=== PATIENT | male | born 1960 | race Caucasian/White ===

== ENCOUNTER → 2018-11-26 13:18 | Outpatient (CLI) | payer OTHER, SELFPAY ==
--- NOTE | 2018-11-26 | DI.MRI.S_ITS ---
PROCEDURE: MR ANKLE RT WO CON INDICATIONS: CONGENITAL TALIPES EQUINOVARUS TECHNIQUE: Noncontrast sagittal T1 spin echo and T2 fast spin echo with fat saturation, axial proton density fast spin echo and T2 fast spin echo with fat saturation, coronal T1 spin echo and T2 fast spin echo with fat saturation through the ankle/hindfoot. COMPARISON: [facility] [place], CR, XR FOOT 3 VIEWS WEIGHT BEARING RIGHT, 08/29/2018, 16:20. [facility] Outside Film, MR, MR FOOT RIGHT WITHOUT CONTRAST, 03/19/2018, 10:38. FINDINGS: Image quality: Diagnostic Bones and joints: No acute fracture, dislocation, or suspicious osseous lesion is evident. The ankle mortise is well-maintained without an osteochondral defect involving the tibial plafond toward the talar dome. Postoperative changes are noted related to prior resection of the base of the 5th metatarsal. There are severe degenerative changes present throughout the mid foot joints, most pronounced involving the tarsal metatarsal joints. An old fracture involving the anterior process of the calcaneus is noted. Moderate marrow edema is present within the cuboid, which is somewhat less prominent on the current study compared to the previous exam. No significant joint effusions are identified. Medial structures: The deltoid ligament is intact. The spring ligament probably also is intact, but is noted to be thickened and irregular. There is increased signal and mild thickening involving the tibialis posterior tendon without significant hearing. The flexor digitorum longus and flexor hallucis longus tendons appear to be intact. The posterior tibial nerve through the tarsal tunnel is grossly unremarkable. Lateral structures: The anterior and posterior distal tibiofibular ligaments are heterogeneous with prominent thickening and irregularity involving the anterior distal tibiofibular ligament. No complete tear is evident. The antrum posterior talofibular ligaments are intact. The calcaneofibular ligament probably is intact. There is prominent flattening identified involving the peroneus brevis tendon with increased signal beyond the tip of the lateral malleolus. The peroneus longus tendon is thickened and edematous. No full-thickness tears are appreciated. There is extensive soft tissue edema identified along the plantar-lateral aspect of the midfoot. No drainable or loculated fluid collections are present. There may be areas of subcutaneous air. Anterior structures: The tibialis anterior, extensor hallucis longus, and extensor digitorum longus tendons appear intact. However, there may be a tendinopathy involving the extensor digitorum tendons. Plantar structures: The Achilles tendon is thickened and edematous near its insertion. Plantar fascia is grossly unremarkable. However, there is mild thickening of the medial band of the plantar fascia. Atrophy and edema involving the intrinsic plantar muscles of the foot are present. IMPRESSION: 1. Severe degenerative changes of the mid foot are similar to the prior study. 2. 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 3. No convincing evidence of osteomyelitis. If there is high clinical concern for osteomyelitis, please consider contrast enhanced MRI for further evaluation. 4. Probable scarring at the spring ligament. 5. Mild tibialis posterior tendinopathy. 6. Moderate peroneus brevis and peroneus longus tendinopathy. 7. Scarring of the lateral ankle ligaments. No definite acute or full thickness tears. 8. Mild Achilles tendinopathy. 9. Mild extensor digitorum longus tendinopathy. 10. Soft tissue defect along the plantar-lateral aspect of the foot. No drainable or loculated fluid collections are appreciated. Dictated by: Oscar Garcia M.D. on 11/26/2018 at 15:56 Approved by: Oscar Garcia M.D. on 11/26/2018 at 16:10
== END ==
PROVIDERS: PCP Family Medicine; Visit Provider Orthopaedic Surgery Foot and Ankle Surgery
DX: Q66.0 Congenital talipes equinovarus (principal)
CPT/HCPCS: 73721

== ENCOUNTER 2019-02-22 15:19 | Inpatient (IN) | payer OTHER, SELFPAY ==
[2019-02-19 12:07] VITALS: BMI 28.5
[2019-02-21] VITALS (16 sets, daily range): BP systolic 88–151; BP diastolic 53–97; PULSE 67–96; RESP 6–20; TEMP 36.1–36.9; O2SAT 93–100; BMI 28.1; BMI 28.7
--- NOTE | 2019-02-21 | DI.RAD.S_ITS ---
PROCEDURE: XR FOOT RT MIN 3V INDICATIONS: RIGHT FOOT DEBRIDMENT TECHNIQUE: 3 views of the foot were acquired. COMPARISON: None. FINDINGS: 3 spot fluoroscopic images demonstrate surgical instruments projecting in the plantar aspect of the midfoot/forefoot. Dictated by: Sam Mckeon M.D. on 02/21/2019 at 17:20 Approved by: Sam Mckeon M.D. on 02/21/2019 at 17:21
--- NOTE | 2019-02-21 | PATH_ITS ---
[facility] Accession Number: [id number] . 01 Material submitted: . foot - RIGHT FOOT ULCER . 01 Diagnosis: Skin, Right Foot, Excision: Actively inflamed chronic ulcer of skin. Acanthotic epidermis with reactive atypia. Negative for malignancy. MRV 02/24/2019 1415 Local . 01 Electronically signed: . Helen Santiago MD, Pathologist NPI- [id number] . 01 Gross description: . Received in formalin, labeled right foot ulcer, is an unoriented piece of sy-white ulcerated skin (6.9 x 4.0 x 1.7 cm). The resection margin is inked blue. Bisected and fraud representative serial sections are submitted in cassettes A1-A3. ([id number]) /MRV 02/23/2019 1507 Local . 01 Pathologist provided ICD-10: L97.509 . 01 CPT . 011804 Performed at: [address] [facility] [address], [place], [place] [id number] MD Jim Barrett MD Phone: [phone]
[2019-02-21] MEDS: LACTATED RINGERS 1,000 ML 42 ML IV (07:06)
--- NOTE | 2019-02-21 07:20 | PM.PREOP ---
Pre-operative Note Interval Note History & Physical reviewed/Exam performed by Physician: Yes Changes to H&P: No
--- NOTE | 2019-02-21 07:37 | PM.OP.1 ---
Operative Date/Time/Diagnoses Date of procedure: 02/21/19 Time of procedure: 08:00 Pre-op diagnosis: Right equinovarus deformity Ulcer right foot with osteomyelitis Neuropathic diabetic ulcer of foot Arthritis right foot Post-op diagnosis: same Procedure & Clinicians Procedure: Bone biopsy deep excisional right CPT code 20405 Debridement of bone and soft tissue CPT code 52103 Wound VAC application CPT code 93549 Same procedure as scheduled: Yes Indications: The patient is a 58-year-old male with type 2 diabetes and bilateral equinovarus deformities with a right nonhealing lateral column ulceration. Patient has been previously treated by multiple wound debridements and partial 5th metatarsal base excisions. The patient has a nonhealing ulcer and deformity. He has a history of osteomyelitis. Due to the open wound and history of infection he is not a candidate for acute internal fixation therefore we have discussed a staged treatment plan with wound debridement deep bone biopsy IV antibiotics and then staged return to the operating room for hindfoot fusion and medial releases for deformity correction. Patient understands and agrees with the plan. The risks and benefits of the procedure have been discussed with the patient even opportunity to ask questions. The risks of surgery include but are not limited to infection, malunion, nonunion, persistence of pain, damage to nerves and blood vessels, posttraumatic arthritis, DVT, PE, cardiopulmonary complications and . The patient expressed a thorough understanding of the risks and benefits of surgery and has elected to proceed. Consent was signed in the office. Patient has no prior history of DVT. He will use aspirin in the postoperative period for DVT prophylaxis. Will of his care coordinated for IV antibiotics and wound VAC changes at [facility] where he has received wound care in the past. Surgeon: Shanae Hurd Click Yes if Unassisted: Yes Anesthesia Type: General Operative Notes Findings: 8 x 4 cm ulcer with granulation tissue. Thick callus around the edges. This is excised to reveal bone prominence. Large lateral plantar hypertrophic callus was excised using the PPS saw and osteotome and sent for culture. The ulcer bed and sent to pathology. No evidence of deep abscess. Wound edges are approximated with PDS and 2 0 nylon a central area dressed with a wound VAC sponge. Closure Type: not applicable Specimen(s): other (Bone for culture) Prosthetic devices, grafts, tissues, transplants, or devices: Wound VAC sponge Applied: other (Wound VAC) Estimated Blood Loss (mL): 20 Blood products transfused: none Tourniquet time (min): 26 Procedure in detail: Patient was seen in the preoperative area the site of surgery marked and informed consent confirmed. The patient was then brought back to the operating room and positioned supine on the operative table. General anesthesia was administered per the anesthesia team. All bony prominences were well padded. An SCD was placed on the contralateral lower extremity. The right lower extremity was prepped and draped in the standard sterile fashion. A well-padded thigh tourniquet was placed. Formal time-out procedure was confirmed confirming the patient's side and site of surgery. Antibiotics were held until cultures were taken. Cutler exsanguination was utilized the tourniquet was elevated to 250 mm of mercury and stayed there for approximately 26 minutes. The lateral plantar ulcer was inspected this measured approximately 8 x 4 cm. This was excised in elliptical fashion and sent for pathology. Next using sharp dissection the bony prominences were exposed and under fluoroscopic guidance the plantar lateral prominence was removed using the TP a saw and osteotome. This was sent for deep biopsy culture. No deep abscess was encountered. Good bleeding tissue was found deep. The tourniquet was then released the antibiotics administered and the wound was irrigated with 6 L of saline using cysto tubing with the 1st 3 L containing gentamicin. Following the debridement and irrigation a clean sheet and gloves were utilized and hemostasis was achieved. Deep area of the wound at the proximal distal extents was closed with 1 deep to 0 PDS suture followed by a few 2 0 nylons in the skin just to approximate the edges. The central area was felt to be under too much tension to primarily close at therefore the wound VAC was placed care was taken to use Xeroform gauze over the area of closed incision and extra wound VAC sponge film around the edges to protect the normal skin. The VAC was placed to a good seal was -125 mm of mercury. Excellent suction was achieved. The soft dressing was placed with an ABD pad at [facility] and an Arun wrap. All counts were correct. The drapes removed and the patient was woken from anesthesia and taken to the recovery area in good condition. There no immediate complications from this procedure. Complications: none Post-operative Condition: stable Disposition: Acute Care Plan for aftercare: Patient will be admitted to the hospital for IV antibiotics. Once his cultures are finalized he will have a PICC line placed and plans for IV antibiotics either with home health care or the Infusion Center at [facility]. He will also have a wound VAC placed. At discharge this will be changed to a wet to dry dressing for initiation of a wound VAC with [facility] on an outpatient basis. Patient will be nonweightbearing on the right lower extremity. Patient will receive antibiotics for approximately 6 weeks for pretreatment then come back for planned staged hindfoot fusions and medial releases for deformity correction.
--- NOTE | 2019-02-21 08:16 | SUR.OPER ---
Supine on padded OR bed, head on pillow, arms secured on padded arm boards at <90 degrees abduction, legs uncrossed, safety belt at thigh, tape over blanket over lower legs.
[2019-02-21] MEDS: BUPIVACAINE 0.25% (PF) VIAL 30 ML INJ (08:28)
[2019-02-21] MEDS: SODIUM CHLORIDE IRRIG SOLUTION 3,000 ML, GENTAMICIN 240 MG IRR (08:34)
[2019-02-21] MEDS: CEFAZOLIN 2 GM/100 ML FROZ.PIGGY IV (08:42)
--- NOTE | 2019-02-21 08:43 | SUR.OPER ---
ANTIBIOTICS HELD UNTIL WOUND CULTURE OBTAINED.
--- NOTE | 2019-02-21 10:30 | SUR.PHASEI ---
Pt transferred to the floor with belongings bag. VS Stable. RT foot dressing CDI, wound vac in place, no drainage, set to continuous 125mmhg. + movement but no sensation to rt foot. IV saline locked. Report to Xiomara.
--- NOTE | 2019-02-21 12:00 | PT.IIE ---
Current Diagnoses Type 2 diabetes mellitus with foot ulcer (02/21/19) Non-pressure chronic ulcer of other part of right foot with unspecified severity (02/21/19) Primary osteoarthritis, right ankle and foot (02/21/19) Congenital talipes equinovarus (02/21/19) Surgery Performed Operation Date: 02/21/19 07:45 Actual Procedures p Foot wound debridement deep tissue and bone WITH wound vac placement(Right) - Shanae Hurd MD s Deep Bone Biopsy - Shanae Hurd MD Surgical History (Last Updated 02/19/19 @ 12:17 by Carlita Coombs, RN) History of surgery (Acute ~02/2018) Medical History (Last Updated 02/20/19 @ 11:24 by Carlita Coombs RN) Asthma (Acute) Chronic renal disease, stage III (Acute) Diabetes (Acute) Diabetic foot ulcer (Acute) Diabetic retinopathy (Acute) Dupuytren's contracture (Acute) Dyslipidemia (Acute) Erectile dysfunction (Acute) Gastroparesis (Acute) HTN (hypertension) (Acute) Malignant neoplasm prostate (Acute) Sinusitis (Acute) Physical Therapy Inpatient Evaluation/Re-Eval M1 PT/OT-IP Prior Functional Status Start: 02/21/19 15:09 Freq: NEEDED Status: Active Protocol: Document 02/21/19 12:00 AB (Rec: 02/21/19 15:26 [id number]) Medical Review Prior Functional Status Medical History Reviewed Yes Communication able to make needs known Mobility and Gait pt stated that he is independent with all mobilities and ambulation without AD Social History Household Members family Living Arrangements House Number of Floors (Floors) One Floor Number of Stairs To Enter/Railing? 3 steps to enter with B rails Home Environment Standard Height Toilet,Walk in Shower Home Equipment Front Wheel Walker,Crutches Additional Social History Comment pt also has knee scooter pt's daughter stated that she is off work for ~ 3 weeks to assist pt. M2 PT-IP Current Condition Start: 02/21/19 15:09 Freq: NEEDED Status: Active Protocol: Document 02/21/19 12:00 AB (Rec: 02/21/19 15:26 [id number] Physical Therapy Current Condition Current Condition Evaluation Date 02/21/19 Treatment Diagnosis R foot ulcer with osteomylitis s/p debridement/excision; difficulty in walk Onset Date 02/21/19 Weight Bearing Status Weight Bearing Status Non-Weight Bearing Allowed Weight Bearing Amount (enter % RLE NWB or #) (%) M3 PT-IP Subjective Start: 02/21/19 15:09 Freq: NEEDED Status: Active Protocol: Document 02/21/19 12:00 AB (Rec: 02/21/19 15:26 [id number]) Subjective Physical Therapy Visit Type Type Initial Evaluation Visit Start Time 12:00 Visit Stop Time 14:16 Total Visit Minutes 47 Notes pt seen for split visits 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 Physical Therapy Visit Comments Patient Comments pt agreeable to do PT Therapy Pain Assessment Pain Present Pain Present Denied Pain M4 PT-IP Mobility and Gait Start: 02/21/19 15:09 Freq: NEEDED Status: Active Protocol: Document 02/21/19 12:00 AB (Rec: 02/21/19 15:26 [id number]) PT-Bed Mobility Assessment Supine to Sit Supine to Sit Independent Sit to Supine Sit to Supine Independent Scooting Scooting to Edge of Bed Standby Assistance PT-Transfer Assessment Sit to and From Stand Sit to and from Stand Contact Guard Assistance,Total Assistance Equipment Transfer Assistive Device Gait Belt,Front Wheeled Walker Orthotic/Prosthetic Devices or Brace: No Comments Mobility Comments pt is impulsive and requires cues for safety. completed bed mobility modified independent; was able to sit on EOB SBA. completed sit to stand CGA with instability with initial standing. pt completed ambulation ~ 7 ft using FWW and was able to maintain NWB on RLE. assessed ambulation using crutches. pt completed sit to stand CGA. requires cues for technqiues and is more unstable with sit to stand using crutches compared to using a FWW. pt ambulated using bilateral crutches ~ 20 ft CGA to min A with (+) LOB requiring min A for stability and pt was not able to maintain NWB on RLE. educated pt on safety. recommending pt use of FWW or his knee scooter for safe mobility at home. pt agreed. pt requested to go back to bed . completed bed mobility mod I . set up pt in bed. call light and table placed within reach. Gait Assessment Gait Gait Assistance Required: Contact Guard Assist,Minimum Assistance Distance (Feet) 20 Able to Maintain Weight Bearing Status Yes During Gait Assistive Devices Assistive Device Gait Belt,Front Wheeled Walker ,Axillary Crutches Factors Limiting Gait Function Factors Limiting Gait Function Decreased Activity Tolerance, Decreased Sensation,Decreased Strength,Poor Balance,Poor Safety Awareness Comments Gait Comments please refer to mobility section for details. PT-Balance Assessment Sitting Balance and Reactions Static Sitting Balance Ability Good Dynamic Sitting Balance Ability Good Standing Balance and Reactions Static Standing Balance Ability Fair Dynamic Standing Balance Ability Fair Device Used using crutches M5 PT-IP Objective Assessments Start: 02/21/19 15:09 Freq: NEEDED Status: Active Protocol: Document 02/21/19 12:00 AB (Rec: 02/21/19 15:26 [id number]) Orientation Orientation/Cognition Level of Alertness Alert Orientation Name,Place,Situation Language Function Ability No Deficits Noted Safety Awareness Decreased Safety Awareness Gross Range of Motion Lower Extremity ROM Assessment Bilaterally Impaired Impairments limited DF ROM bilateral ankles Strength Lower Extremity Strength Assessment Bilaterally Impaired Comments Strength Comments RLE: 4-/5 LLE: 3+/5 Sensation Assessment Sensation Gross Sensation Right LE Impaired,Left LE Impaired Light Touch Impaired Proprioception (Position) Impaired Sensation Description Numbness Comments Sensation Comments pt stated numbness is from midcalf down to B feet Muscle Tone Muscle Tone WNL Yes M6 PT-IP Treatment Start: 02/21/19 15:09 Freq: NEEDED Status: Active Protocol: Document 02/21/19 12:00 AB (Rec: 02/21/19 15:26 [id number] Physical Therapy Treatment Education Education Provided Precautions,Weight Bearing Status,Safety M7 PT-IP Assessment and Plan Start: 02/21/19 15:09 Freq: NEEDED Status: Active Protocol: Document 02/21/19 12:00 AB (Rec: 02/21/19 15:26 [id number] PT Summary Assessment and Plan Potential Rehabilitation Potential Good Status of Condition at Evaluation Stable Summary Impairments Pain,ROM,Strength,Balance, Coordination,Sensation,Tone, Cognition,Bed Mobility, Transfers,Gait,Activity Tolerance Assessment Summary pt requiring CGA to min A with ambulation using bilateral crutches and has (+) LOB. recommending pt to use of FWW or knee scooter for ambulation . pt stated that he has used his knee scooter before and can go around with it without any issues. will assess stair climbing next tx session. Goals Transfer Goal Independent,Front Wheeled Walker Gait Goal Independent,Front Wheel Walker Gait Distance 100 Other Goals up/down 3 steps using bilateral crutches CGA Days to Meet Goals 5 Frequency of Treatment Frequency Of Treatment Once a Day Treatment Plan Physical Therapy Treatment Plan Bed Mobility Training,Transfer Training,Gait Training, Therapeutic Exercise,Balance Retraining,Post Op Education, Discharge Planning,Hot or Cold Pack,Neuromuscular Re-ed, Coordination Retraining,Manual Therapy Recommendations To Nursing Amount of Assist Needed 1 Person Assist Discharge Recommendations PT Discharge Recommendations Home with Assistance
[2019-02-21] MEDS: PIPERACILLIN-TAZO 3.375 GM/50 ML FROZ.PIGGY IV ×2 (12:11→19:09)
[2019-02-21] MEDS: VANCOMYCIN 1,500 MG/300 ML FROZ.PIGGY 200 MG IV (13:35)
[2019-02-21] MEDS: SODIUM CHLORIDE 0.9% 250 ML 21 ML IV (13:37)
[2019-02-21 14:13] LABS: Hematocrit 35.9 % (41-53); Hemoglobin 12.2 g/dL (13.5-17.5); Mean Corpuscular HGB Conc 33.9 % (30-36); Mean Corpuscular Hemoglobin 28.2 PG (26-34); Mean Corpuscular Volume 83.1 fL (80-100); Platelet Count 261 X10^3/uL (150-400); Red Blood Cell Count 4.32 X10^6/uL (4.5-5.9); Red Cell Distribution Width 15.3 % (11.6-14.8); White Blood Cell Count 7.4 X10^3/uL (4.5-11.0)
[2019-02-21 14:25] LABS: Hemoglobin A1C% w Est Avg Glu 9.7 % (4.0-6.0)
[2019-02-21 14:26] LABS: Estimated Glomerular Filt Rate 56.1 mL/min (>60)
[2019-02-21 14:29] LABS: Albumin 3.8 g/dL (3.5-5.0); BUN Creatinine Ratio 19.2 (6-22); Blood Urea Nitrogen 25 mg/dL (9-20); C-Reactive Protein Quant 2.2 mg/dL (<1.0); Calcium 8.9 mg/dL (8.4-10.2); Carbon Dioxide 26 mmol/L (22-32); Chloride 102 mmol/L (98-107); Erythrocyte Sedimentation Rate 52 MM/HR (0-15); Estimated Glomerular Filt Rate 56.1 mL/min (>60); Glucose 208 mg/dL (80-110); HEMOLYSIS < 15 (0-50); Phosphorous 4.1 mg/dL (2.3-3.7); Potassium 4.5 mmol/L (3.4-5.1); Sodium 138 mmol/L (137-145)
[2019-02-21] MEDS: ACETAMINOPHEN 325 MG TABLET 975 MG PO ×2 (14:41→21:27)
[2019-02-21] MEDS: INSULIN ASPART 100 UNIT/ML INSULN PEN SUBCUT (16:55)
[2019-02-21] MEDS: SODIUM CHLORIDE 0.9% 1,000 ML 100 ML IV (18:56)
[2019-02-21] MEDS: DOCUSATE 100 MG CAPSULE PO (21:27)
[2019-02-21] MEDS: AMLODIPINE 5 MG TABLET PO (21:27)
[2019-02-21] MEDS: PIOGLITAZONE 15 MG TABLET PO (21:31)
[2019-02-21] MEDS: INSULIN GLARGINE 100 UNIT/ML 3ML PEN 65 UNIT SUBCUT (21:32)
[2019-02-21] MEDS: INSULIN ASPART 100 UNIT/ML INSULN PEN 20 UNIT SUBCUT (21:51)
[2019-02-22] MEDS: VANCOMYCIN 1,250 MG in SODIUM CHLORIDE 0.9% 250 ML IV ×2 (02:02→14:00)
[2019-02-22] MEDS: PIPERACILLIN-TAZO 3.375 GM/50 ML FROZ.PIGGY IV ×3 (03:30→18:38)
[2019-02-22] MEDS: SODIUM CHLORIDE 0.9% 1,000 ML 100 ML IV ×3 (05:07→16:55)
[2019-02-22 06:00] VITALS: BP 133/70; PULSE 82; RESP 16; TEMP 36.2; O2SAT 97
[2019-02-22 07:37] VITALS: BP 117/64; PULSE 78; RESP 18; TEMP 36.8; O2SAT 96
--- NOTE | 2019-02-22 07:46 | PC.NURSE ---
Addendum entered by Cruz Love R.N. 02/22/19 13:52: continues as noted. discussing flu shot presently. Addendum entered by Cruz Love R.N. 02/22/19 11:14: Pt visiting with family. Continues in bed at present. wound vac working well. Original Note: Pt. alert and oriented, discussed plan of care, discussed aPt's questions and concerns. Wound vac intact and patent. IV patent. Pt offers no overt c/o. states he has no feeling in his feet. Right foot bandaged and jarrell wrapped with wound vac in place. Pt taking b'fast presently.
[2019-02-22] MEDS: INSULIN GLARGINE 100 UNIT/ML 3ML PEN 65 UNIT SUBCUT ×2 (09:11→21:53)
[2019-02-22] MEDS: PIOGLITAZONE 15 MG TABLET PO ×2 (09:13→21:53)
[2019-02-22] MEDS: LOSARTAN 50 MG TABLET 100 MG PO (09:13)
[2019-02-22] MEDS: ENOXAPARIN 40 MG/0.4 ML SYRINGE SUBCUT (09:14)
[2019-02-22] MEDS: ASPIRIN EC 81 MG TABLET PO (09:14)
[2019-02-22] MEDS: INSULIN ASPART 100 UNIT/ML INSULN PEN 20 UNIT SUBCUT ×3 (09:14→21:53)
[2019-02-22] MEDS: AMLODIPINE 5 MG TABLET PO ×2 (09:14→21:52)
--- NOTE | 2019-02-22 09:58 | P.PN_ITS ---
Subjective Subjective Date Patient Seen: 02/22/19 Time Patient Seen: 09:58 Interval history: Patient is POD#1 s/p deep excisional bone biopsy with right foot diabetic ulcer by Dr. Hurd. He denies any pain in the extremity. He has mobilized about the room and has been compliant with NWB on the operative extremity. He is voiding appropriately. Denies fevers, chills, chest pain, shortness of breath. Exam Vital Signs (past 8 hours): - 02/22/19 06:00 02/22/19 07:37 Temperature 97.1 F L 98.2 F Pulse Rate 82 78 Respiratory Rate 16 18 Blood Pressure 133/70 117/64 Pulse Oximetry 97 96 Oxygen Delivery Method Room Air Oxygen Flow Rate 0 Narrative Exam Narrative: 59 year old male resting comfortably in bed. Alert and oriented in no acute distress. Afebrile. Dressing in place over right foot is CDI. Patient able to flex/extend the toes. Brisk capillary refill. No sensation to light touch in distal extremity which is his baseline. Objective Labs Result Diagrams: 02/21/19 14:00 02/21/19 14:00 Labs: Laboratory Results - last 24 hr 02/21/19 02/21/19 02/21/19 14:00 14:00 14:00 WBC 7.4 RBC 4.32 L Hgb 12.2 L Hct 35.9 L MCV 83.1 MCH 28.2 MCHC 33.9 RDW 15.3 H Plt Count 261 ESR 52 H Sodium 138 Potassium 4.5 Chloride 102 Carbon Dioxide 26 BUN 25 H Creatinine 1.30 H Estimated GFR 56.1 L BUN/Creatinine Ratio 19.2 Glucose 208 H Hemoglobin A1c 9.7 H Calcium 8.9 Phosphorus 4.1 H C-Reactive Protein 2.2 H Albumin 3.8 02/21/19 14:00 WBC RBC Hgb Hct MCV MCH MCHC RDW Plt Count ESR Sodium Potassium Chloride Carbon Dioxide BUN Creatinine 1.30 H Estimated GFR 56.1 L BUN/Creatinine Ratio Glucose Hemoglobin A1c Calcium Phosphorus C-Reactive Protein Albumin Assessment & Plan Assessment & Plan narrative: Patient is pending culture results and is currently on IV vancomycin along with piperacillin/tazobactam. Per Dr. Hurd's operative report: Once his cultures are finalized he will have a PICC line placed and plans for IV antibiotics either with home health care or the Infusion Center at [facility]. He will also have a wound VAC placed. At discharge this will be changed to a wet to dry dressing for initiation of a wound VAC with [facility] on an outpatient basis. Patient will be nonweightbearing on the right lower extremity. Patient will receive antibiotics for approximately 6 weeks for pretreatment then come back for planned staged hindfoot fusions and medial releases for deformity correction.
[2019-02-22 11:08] VITALS: BP 116/60; PULSE 78; RESP 16; TEMP 36.9; O2SAT 99
--- NOTE | 2019-02-22 11:47 | PT.IPTN ---
Current Diagnoses Type 2 diabetes mellitus with foot ulcer (02/21/19) Non-pressure chronic ulcer of other part of right foot with unspecified severity (02/21/19) Primary osteoarthritis, right ankle and foot (02/21/19) Congenital talipes equinovarus (02/21/19) Surgery Performed Operation Date: 02/21/19 07:45 Actual Procedures p Foot wound debridement deep tissue and bone WITH wound vac placement(Right) - Shanae Hurd MD s Deep Bone Biopsy - Shanae Hurd MD Physical Therapy Treatment Note M2 PT-IP Current Condition Start: 02/21/19 15:09 Freq: NEEDED Status: Active Protocol: Document 02/21/19 12:00 AB (Rec: 02/21/19 15:26 AB [id number]) Physical Therapy Current Condition Current Condition Evaluation Date 02/21/19 Treatment Diagnosis R foot ulcer with osteomylitis s/p debridement/excision; difficulty in walk Onset Date 02/21/19 Weight Bearing Status Weight Bearing Status Non-Weight Bearing Allowed Weight Bearing Amount (enter % RLE NWB or #) (%) M3 PT-IP Subjective Start: 02/21/19 15:09 Freq: NEEDED Status: Active Protocol: Document 02/22/19 11:38 GGD (Rec: 02/22/19 11:47 GGD [id number]) Subjective Physical Therapy Visit Type Notes Pt states that he has no need for PT. He has been using FWW to bathroom and will use at home. He states he been able to use stair when he was NWB on foot. Pt educated on safety and will D/C from PT per pt request. M4 PT-IP Mobility and Gait Start: 02/21/19 15:09 Freq: NEEDED Status: Active Protocol: Document 02/21/19 12:00 AB (Rec: 02/21/19 15:26 AB [id number]) PT-Bed Mobility Assessment Supine to Sit Supine to Sit Independent Sit to Supine Sit to Supine Independent Scooting Scooting to Edge of Bed Standby Assistance PT-Transfer Assessment Sit to and From Stand Sit to and from Stand Contact Guard Assistance,Total Assistance Equipment Transfer Assistive Device Gait Belt,Front Wheeled Walker Orthotic/Prosthetic Devices or Brace: No Comments Mobility Comments pt is impulsive and requires cues for safety. completed bed mobility modified independent; was able to sit on EOB SBA. completed sit to stand CGA with instability with initial standing. pt completed ambulation ~ 7 ft using FWW and was able to maintain NWB on RLE. assessed ambulation using crutches. pt completed sit to stand CGA. requires cues for technqiues and is more unstable with sit to stand using crutches compared to using a FWW. pt ambulated using bilateral crutches ~ 20 ft CGA to min A with (+) LOB requiring min A for stability and pt was not able to maintain NWB on RLE. educated pt on safety. recommending pt use of FWW or his knee scooter for safe mobility at home. pt agreed. pt requested to go back to bed . completed bed mobility mod I . set up pt in bed. call light and table placed within reach. Gait Assessment Gait Gait Assistance Required: Contact Guard Assist,Minimum Assistance Distance (Feet) 20 Able to Maintain Weight Bearing Status Yes During Gait Assistive Devices Assistive Device Gait Belt,Front Wheeled Walker ,Axillary Crutches Factors Limiting Gait Function Factors Limiting Gait Function Decreased Activity Tolerance, Decreased Sensation,Decreased Strength,Poor Balance,Poor Safety Awareness Comments Gait Comments please refer to mobility section for details. PT-Balance Assessment Sitting Balance and Reactions Static Sitting Balance Ability Good Dynamic Sitting Balance Ability Good Standing Balance and Reactions Static Standing Balance Ability Fair Dynamic Standing Balance Ability Fair Device Used using crutches M5 PT-IP Objective Assessments Start: 02/21/19 15:09 Freq: NEEDED Status: Active Protocol: Document 02/21/19 12:00 AB (Rec: 02/21/19 15:26 [id number]) Orientation Orientation/Cognition Level of Alertness Alert Orientation Name,Place,Situation Language Function Ability No Deficits Noted Safety Awareness Decreased Safety Awareness Gross Range of Motion Lower Extremity ROM Assessment Bilaterally Impaired Impairments limited DF ROM bilateral ankles Strength Lower Extremity Strength Assessment Bilaterally Impaired Comments Strength Comments RLE: 4-/5 LLE: 3+/5 Sensation Assessment Sensation Gross Sensation Right LE Impaired,Left LE Impaired Light Touch Impaired Proprioception (Position) Impaired Sensation Description Numbness Comments Sensation Comments pt stated numbness is from midcalf down to B feet Muscle Tone Muscle Tone WNL Yes M6 PT-IP Treatment Start: 02/21/19 15:09 Freq: NEEDED Status: Active Protocol: Document 02/21/19 12:00 AB (Rec: 02/21/19 15:26 AB [id number]) Physical Therapy Treatment Education Education Provided Precautions,Weight Bearing Status,Safety M7 PT-IP Assessment and Plan Start: 02/21/19 15:09 Freq: NEEDED Status: Active Protocol: Document 02/22/19 11:38 GGD (Rec: 02/22/19 11:47 LAWRENCE [id number]) PT Summary Assessment and Plan Frequency of Treatment Frequency Of Treatment Discharge
--- NOTE | 2019-02-22 12:14 | CM.IDA ---
Initial DCP Assessment Note: Pt is a 59 yo male, resident of [place]. Pt w/ Diabetes type 2 and a right non-healing foot ulcer, now POD#1 from deep excisional bone biopsy. PCP: Neil Bui Payer: [facility] Reviewed chart. Met w/pt, explained SW role. Pt is indp and active at his baseline. He lives w/his 36 yo dtr Mariama who works time clerk. She has secured two weeks off work to assist pt once DC home. Pt's son Matthew also lives in [place]. Pt understands he will need ongoing IV abx w/PICC placement. He plans to f/u at [facility] for wound care/management of wound vac. Pt explains to this CERTIFIED BREASTFEEDING EDUCATOR that he has had 4 or 5 rounds of home infusion for h/o foot infection, [facility] has managed the home infusion and he requests they do so again. [facility] has covered the home infusion. Placed call to [facility], spoke w/Judith, pharmacist. Provided initial referral information, explained that culture results still pending, PICC will likely be placed Sunday once staff return for his intervention. Faxed referral packet to include face sheet, H+P, Op notes and prog notes. PICC line pending, Cultures/Sensitivities pending. P: DC home w/family and home infusion, expected early next week. Following closely for coordination of safe DCP. REBA Chavez
[2019-02-22] MEDS: INFLUENZA VACCINE 0.5 ML SYRINGE IM (14:10)
[2019-02-22] MEDS: ACETAMINOPHEN 325 MG TABLET 975 MG PO (14:39)
[2019-02-22 15:25] VITALS: BP 111/67; PULSE 74; RESP 18; TEMP 36.6; O2SAT 97
[2019-02-22 18:38] VITALS: BP 141/73; PULSE 85; RESP 18; TEMP 36.5; O2SAT 96
[2019-02-22] MEDS: DOCUSATE 100 MG CAPSULE PO (21:52)
[2019-02-22 23:20] VITALS: BP 140/79; PULSE 88; RESP 16; TEMP 36.4; O2SAT 94
--- NOTE | 2019-02-23 00:20 | PC.NURSE ---
Hat Measurer Note: 2324: Pt reported to interior surface insulation worker that he feels his blood sugar is low and asked for a CBG. CBG done and was 59. Ensure clear given and carolynn crackers. 2349: CBG recheck was 140. Pt feeling better. Vital signs stable. IV in place in rt forearm with NS infusing at 100cc/hr. Wound vac in place in rt foot and pt understands that he is non-wt bearing on rt foot.
[2019-02-23] MEDS: VANCOMYCIN TROUGH 1 REQUEST MISC (01:04)
[2019-02-23 01:32] LABS: Vancomycin Trough 10.9 ug/mL (10-20)
[2019-02-23] MEDS: VANCOMYCIN 1,250 MG in SODIUM CHLORIDE 0.9% 250 ML IV ×3 (01:43→17:43)
[2019-02-23 03:10] VITALS: BP 145/73; PULSE 84; RESP 16; TEMP 36.7; O2SAT 99
[2019-02-23] MEDS: PIPERACILLIN-TAZO 3.375 GM/50 ML FROZ.PIGGY IV ×3 (03:38→20:14)
[2019-02-23] MEDS: SODIUM CHLORIDE 0.9% 1,000 ML 100 ML IV ×2 (04:39→18:38)
[2019-02-23 08:00] VITALS: BP 142/72; PULSE 77; RESP 16; TEMP 36.1; O2SAT 98
[2019-02-23] MEDS: INSULIN GLARGINE 100 UNIT/ML 3ML PEN 65 UNIT SUBCUT ×2 (08:22→22:07)
[2019-02-23] MEDS: INSULIN ASPART 100 UNIT/ML INSULN PEN 20 UNIT SUBCUT ×3 (08:25→17:00)
[2019-02-23] MEDS: INSULIN ASPART 100 UNIT/ML INSULN PEN SUBCUT (08:25)
[2019-02-23] MEDS: PIOGLITAZONE 15 MG TABLET PO ×2 (08:30→22:04)
[2019-02-23] MEDS: AMLODIPINE 5 MG TABLET PO ×2 (08:34→22:06)
[2019-02-23] MEDS: LOSARTAN 50 MG TABLET 100 MG PO (08:34)
[2019-02-23] MEDS: ENOXAPARIN 40 MG/0.4 ML SYRINGE SUBCUT (08:35)
[2019-02-23] MEDS: ASPIRIN EC 81 MG TABLET PO (08:35)
--- NOTE | 2019-02-23 09:08 | PM.PNPO.1 ---
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 Patient is on empiric vanc and Zosyn. Denies fevers chills nausea or vomiting. Vac obtaining good suction. No complaints. Pain controlled Exam Vital Signs (past 8 hours): - 02/23/19 03:10 02/23/19 08:00 Temperature 98.1 F 97.0 F L Pulse Rate 84 77 Respiratory Rate 16 16 Blood Pressure 145/73 H 142/72 H Pulse Oximetry 99 98 Oxygen Delivery Method Room Air Oxygen Flow Rate 0 Narrative Exam Narrative: Alert and oriented male in no acute distress lying in bed. HEENT exam normocephalic atraumatic Respiratory exam lungs clear, breathing unlabored on room air Regular rate and rhythm Lower extremity examination right lower extremity was VAC dressing in place good suction obtained. A dressing is removed lateral border wound is 4 cm x 2 cm x 2 approximately 2 cm deep. Sutures in place proximally and distally. Good red bleeding tissue within the wound. No purulence no malodor. No erythema. Wound VAC dressing reapplied to good suction -125 mm of mercury. Patient tolerated well. SCDs on bilateral lower extremities. Calf soft. Wiggles toes demonstrates dorsiflexion plantar flexion of the ankles. Objective Labs Result Diagrams: 02/21/19 14:00 02/21/19 14:00 Labs: Laboratory Results - last 24 hr 02/23/19 01:00 Vancomycin Trough 10.9 Assessment & Plan Post-op Postoperative Procedures: Procedures Operation Date: 02/21/19 07:45 Actual Procedures Side Surgeon p Foot wound debridement deep tissue and bone WITH wound vac placement Right Shanae Hurd MD s Deep Bone Biopsy Shanae Hurd MD Right foot cavovarus deformity with chronic lateral border ulcerations status post deep bone biopsy and exostectomy and wound VAC placement. Awaiting final cultures. Patient on empiric vanc and Zosyn. Will have renal panel drawn today. Currently on IV fluids. Once cultures finalized well a final IV antibiotic recommendations. Anticipate [address] a PICC line when ready for discharge. Will have wound VAC changes with [facility]. Wound size is 4 cm x 2 cm x 2 cm anticipate approximately 3 months for wound VAC changes 3 days a week. Nonweightbearing right lower extremity. Lovenox and SCDs while in the hospital for DVT prophylaxis. Anticipated 6 weeks pretreatment wound VAC and IV antibiotics and planned staged hindfoot fusion for deformity correction. Follow-up Dr.Connelly [facility] 2 weeks after procedure Quality VTE Deep Vein Thrombosis/Pulmonary Embolism Present on Admission: No
[2019-02-23 12:16] VITALS: BP 108/57; PULSE 72; RESP 17; TEMP 36.4; O2SAT 98
[2019-02-23 13:08] LABS: Blood Urea Nitrogen 18 mg/dL (9-20); Calcium 8.6 mg/dL (8.4-10.2); Carbon Dioxide 27 mmol/L (22-32); Chloride 106 mmol/L (98-107); Estimated Glomerular Filt Rate > 60.0 mL/min (>60); Glucose 119 mg/dL (80-110); HEMOLYSIS < 15 (0-50); Potassium 4.9 mmol/L (3.4-5.1); Sodium 139 mmol/L (137-145)
[2019-02-23 15:35] VITALS: BP 110/67; PULSE 72; RESP 16; TEMP 36.8; O2SAT 95
[2019-02-23 19:15] VITALS: BP 121/66; PULSE 67; RESP 16; TEMP 36.8; O2SAT 99
[2019-02-23] MEDS: ACETAMINOPHEN 325 MG TABLET 975 MG PO (22:05)
[2019-02-24] VITALS (7 sets, daily range): BP systolic 126–151; BP diastolic 71–78; PULSE 71–82; RESP 16–18; TEMP 36.4–36.8; O2SAT 97–98
[2019-02-24 02:02] LABS: Vancomycin Trough 18.8 ug/mL (10-20)
[2019-02-24] MEDS: VANCOMYCIN TROUGH 1 REQUEST MISC (02:02)
[2019-02-24] MEDS: VANCOMYCIN 1,250 MG in SODIUM CHLORIDE 0.9% 250 ML IV (02:03)
[2019-02-24] MEDS: PIPERACILLIN-TAZO 3.375 GM/50 ML FROZ.PIGGY IV ×3 (03:19→19:43)
[2019-02-24] MEDS: SODIUM CHLORIDE 0.9% 1,000 ML 100 ML IV (05:51)
--- NOTE | 2019-02-24 08:44 | P.PN_ITS ---
Subjective Subjective Date Patient Seen: 02/24/19 Time Patient Seen: 08:44 Interval history: Hospital day 4, postop day 3 following right foot bone biopsy and wound I and D with wound VAC application. Patient has remained stable postoperatively. Nonweightbearing right leg. He does have wound VAC in place to right foot. Wound culture notes staph stimulans and is sensitive to vancomycin. He is currently on vancomycin and Zosyn IV. He is having no pain to the foot as he has neuropathy. He does not have PICC line in place. Exam Vital Signs (past 8 hours): - 02/24/19 01:05 02/24/19 05:30 02/24/19 08:00 Temperature 97.6 F 97.7 F 97.6 F Pulse Rate 74 73 82 Respiratory Rate 18 16 18 Blood Pressure 130/72 127/75 151/73 H Pulse Oximetry 97 97 98 Oxygen Delivery Method Room Air Oxygen Flow Rate 0 Narrative Exam Narrative: Alert, oriented no acute distress resting in bed. Objective Labs Result Diagrams: 02/21/19 14:00 02/23/19 12:25 Labs: Laboratory Results - last 24 hr 02/23/19 02/24/19 12:25 01:30 Sodium 139 Potassium 4.9 Chloride 106 Carbon Dioxide 27 BUN 18 Creatinine 1.20 Estimated GFR > 60.0 BUN/Creatinine Ratio 15.0 Glucose 119 H Calcium 8.6 Vancomycin Trough 18.8 Assessment & Plan Post-op Postoperative Procedures: Procedures Operation Date: 02/21/19 07:45 Actual Procedures Side Surgeon p Foot wound debridement deep tissue and bone WITH wound vac placement Right C nan Hurd MD s Deep Bone Biopsy Shanae Hurd MD Plan: Awaiting final Plan by Dr. Hurd regarding long-term antibiotic use. Patient is scheduled to have IV antibiotics and wound VAC management at [facility]. Remain nonweightbearing to the right leg. He is to have follow up appointment with Dr. Hurd in 2 weeks. Quality VTE Deep Vein Thrombosis/Pulmonary Embolism Present on Admission: No
[2019-02-24] MEDS: ACETAMINOPHEN 325 MG TABLET 975 MG PO ×3 (10:07→20:29)
[2019-02-24] MEDS: ASPIRIN EC 81 MG TABLET PO (10:10)
[2019-02-24] MEDS: LOSARTAN 50 MG TABLET 100 MG PO (10:10)
[2019-02-24] MEDS: AMLODIPINE 5 MG TABLET PO ×2 (10:11→20:29)
[2019-02-24] MEDS: PIOGLITAZONE 15 MG TABLET PO ×2 (10:12→21:20)
[2019-02-24] MEDS: ENOXAPARIN 40 MG/0.4 ML SYRINGE SUBCUT (10:13)
[2019-02-24 11:08] LABS: Add Manual Diff / Slide Review NO; Basophils Absolute Auto 100 /uL (0-100); Basophils Percent Auto 1.2 % (0-2); Eosinophils Absolute Auto 200 /uL (0-450); Eosinophils Percent Auto 3.2 % (2-4); Hematocrit 29.8 % (41-53); Hemoglobin 10.1 g/dL (13.5-17.5); Lymphocytes Absolute Auto 1000 /uL (1100-4500); Lymphocytes Percent Auto 16.5 % (25-40); Mean Corpuscular HGB Conc 33.8 % (30-36); Mean Corpuscular Hemoglobin 28.5 PG (26-34); Mean Corpuscular Volume 84.2 fL (80-100); Monocytes Absolute Auto 600 /uL (0-900); Monocytes Percent Auto 9.5 % (3-14); Neutrophils Absolute Auto 4000 /uL (1500-7000); Neutrophils Percent Auto 69.6 % (50-75); Platelet Count 217 X10^3/uL (150-400); Red Blood Cell Count 3.54 X10^6/uL (4.5-5.9); Red Cell Distribution Width 15.5 % (11.6-14.8); White Blood Cell Count 5.8 X10^3/uL (4.5-11.0)
[2019-02-24 11:16] LABS: BUN Creatinine Ratio 15.8 (6-22); Blood Urea Nitrogen 19 mg/dL (9-20); Calcium 8.5 mg/dL (8.4-10.2); Carbon Dioxide 28 mmol/L (22-32); Chloride 107 mmol/L (98-107); Estimated Glomerular Filt Rate > 60.0 mL/min (>60); Glucose 103 mg/dL (80-110); HEMOLYSIS < 15 (0-50); Potassium 4.4 mmol/L (3.4-5.1); Sodium 140 mmol/L (137-145)
[2019-02-24] MEDS: VANCOMYCIN 1,250 MG in SODIUM CHLORIDE 0.9% 250 ML 125 ML IV ×2 (11:17→17:15)
[2019-02-24 11:18] LABS: C-Reactive Protein Quant 1.5 mg/dL (<1.0)
[2019-02-24 11:33] LABS: Erythrocyte Sedimentation Rate 60 MM/HR (0-15)
[2019-02-24] MEDS: INSULIN ASPART 100 UNIT/ML INSULN PEN 20 UNIT SUBCUT ×2 (12:15→17:11)
[2019-02-24] MEDS: DOCUSATE 100 MG CAPSULE PO (20:29)
[2019-02-24] MEDS: INSULIN GLARGINE 100 UNIT/ML 3ML PEN 65 UNIT SUBCUT (21:22)
[2019-02-25 00:30] VITALS: BP 139/80; PULSE 77; RESP 16; TEMP 36.7; O2SAT 96
[2019-02-25] MEDS: VANCOMYCIN 1,250 MG in SODIUM CHLORIDE 0.9% 250 ML IV (02:20)
[2019-02-25 03:10] VITALS: BP 134/78; PULSE 72; RESP 18; TEMP 36.5; O2SAT 95
[2019-02-25] MEDS: PIPERACILLIN-TAZO 3.375 GM/50 ML FROZ.PIGGY IV ×2 (03:34→10:01)
[2019-02-25 07:45] VITALS: BP 146/78; PULSE 75; RESP 18; TEMP 36.6; O2SAT 98
[2019-02-25] MEDS: ACETAMINOPHEN 325 MG TABLET 975 MG PO ×2 (09:51→14:47)
[2019-02-25] MEDS: ASPIRIN EC 81 MG TABLET PO (09:52)
[2019-02-25] MEDS: ENOXAPARIN 40 MG/0.4 ML SYRINGE SUBCUT (09:53)
[2019-02-25] MEDS: INSULIN GLARGINE 100 UNIT/ML 3ML PEN 65 UNIT SUBCUT (09:54)
[2019-02-25 09:55] VITALS: BP 135/79; PULSE 85
[2019-02-25] MEDS: LOSARTAN 50 MG TABLET 100 MG PO (09:55)
[2019-02-25] MEDS: AMLODIPINE 5 MG TABLET PO (09:58)
[2019-02-25] MEDS: PIOGLITAZONE 15 MG TABLET PO (09:58)
[2019-02-25] MEDS: VANCOMYCIN 1,250 MG in SODIUM CHLORIDE 0.9% 250 ML 150 ML IV ×2 (10:46→18:41)
[2019-02-25 11:00] VITALS: BP 142/74; PULSE 70; RESP 18; TEMP 36.7; O2SAT 98
[2019-02-25] MEDS: INSULIN ASPART 100 UNIT/ML INSULN PEN 20 UNIT SUBCUT ×2 (11:56→17:49)
--- NOTE | 2019-02-25 13:40 | DI.RAD.S_ITS ---
PROCEDURE: XR CHEST FOR PICC 1V INDICATIONS: line palcement COMPARISON: None. FINDINGS: PICC was placed by the intravenous therapy team from the left side. Fluoroscopic spot film demonstrates the tip of PICC projecting to the area of lower SVC. IMPRESSION: Tip of PICC projects to the area of the lower SVC. Dictated by: Sam Mckeon M.D. on 02/25/2019 at 14:29 Approved by: Sam Mckeon M.D. on 02/25/2019 at 14:30
[2019-02-25] MEDS: CEFEPIME 2 GM in SODIUM CHLORIDE 0.9% 100 ML 200 ML IV (14:29)
--- NOTE | 2019-02-25 14:49 | CM.DPC ---
DCP:EMR reviewed: Met with Patient at bedside and spoke about his d/c plan. Patient had PICC line placed today 02/25/2019 and Patient is set up with [facility] to maintain his PICC antibiotics. Currently waiting on Discharge orders and medication RX from Dr. Meyer. Patient is very interested in going home today. Spoke with the patients charge nurse and he will contact Dr. Meyer. Patient has transport home set up once he has d/c orders placed he will contact his to come pick him up. CM will Fax Medication orders to [facility] at [phone] once they are in the computer and ready. . Mae Razo RN
[2019-02-25 15:30] VITALS: BP 129/66; PULSE 75; RESP 18; TEMP 36.4; O2SAT 98
--- NOTE | 2019-02-25 15:30 | CM.DPC ---
DCP Cont: Called Payton Hidalgo, laboratory phlebotomist at [facility] on behalf of patient. Confirmed patient is to see Payton 02/26/19 @ 8:30. She says he doesn't not have to bring the entire box with the wound vac and supplies but he should bring 1 of each of the supplies. He is to also be sure the wound vac's battery is charged. Patient was informed of all of the above and he verbally complies. Ami Kent, Care Material Expediter
--- NOTE | 2019-02-25 15:43 | CM.DPC ---
DCP: contacted [facility] to let them know the d/c antibiotics and the plan to discharge today 02/25/2019. Faxed RXs to the Pharmacist at [facility] at [phone]. Mae Razo RN
--- NOTE | 2019-02-26 13:43 | P.DS_ITS ---
History of Present Illness History of Present Illness Chief complaint: [id number] *OPB* Discharge Providers Provider Date of admission: 02/23/19 14:20 Discharge Date: 02/25/19 Primary care physician: Neil Bui MD Consults: 02/21/19 10:55 Consult to Discharge Planning Routine Comment: wound vac at [facility] gen. and IV abx once cx final Consult to Physical Therapy Evaluate & Treat Comment: NWB RLe Physician Instructions: Evaluate and Treat Consult to Respiratory Therapy Evaluate & Treat Comment: Physician Instructions: Evaluate and treat Discharge provider: Shanae Hurd MD Summary Hospital Course Discharge Diagnosis: right foot osteomeyleitis. equinovarus deformity. diabetic foot ulcer with osteo Hospital Course: Pt was admitted postop for IV abx and wound vac. . vac changed on 02/23. pt tolerated well and pain controlled. on 02/25 culture finalized and ID rec obtained for home IV abx infusion.and f/u out wound care at [facility]. Status at Discharge Cognitive/behavioral status at discharge: oriented and at baseline, oriented Functional status at discharge: independent ambulation Overall status at discharge: patient is progressing back to baseline Time Spent with Patient Time spent: Less than 30 minutes Exam Vital Signs (past 8 hours): Oxygen Delivery Method Room Air Oxygen Flow Rate 0 Const General: cooperative and well developed HENMT Head: normal to inspection Chest Chest: normal inspection of the chest Resp Auscultation: clear to auscultation bilaterally Extrem Other: RLE with wound vac in place. no erythema. wiggles toes. wwP. equniovarus deformity. DF/PF intact. stiff hindfoot LLE no wounds stable equino varus Objective Labs Result Diagrams: 02/24/19 01:35 02/24/19 01:35 Discharge Plan Discharge Plan Patient Disposition: Home Discharge comment: infusions IV abx. and [facility] wound care/home vac Discharge Med Rec/Prescriptions Prescriptions: New acetaminophen 325 mg Tablet 975 mg PO TID Qty: 40 RF: 0 cefepime 2 gram Recon Soln 2 gram IV Q12H 28 Days Qty: 56 RF: 0 vancomycin in 0.9 % sodium chl 1 gram/200 mL piggyback 1.25 gram IV Q12HR 28 Days RF: 0 Continued losartan 100 mg Tablet 100 mg PO DAILY RF: 0 pioglitazone [Actos] 15 mg Tablet 15 mg PO BID RF: 0 aspirin [Aspir-81] 81 mg Tablet,Delayed Release (Dr/Ec) 81 mg PO DAILY RF: 0 amlodipine 5 mg Tablet 5 mg PO BID RF: 0 Humalog U-100 Insulin 100 unit/mL Cartridge 20 unit SUBCUT TID RF: 0 Lantus Solostar U-100 Insulin 100 unit/mL (3 mL) Insulin Pen 65 unit SUBCUT BID RF: 0 Discontinued ciprofloxacin HCl 500 mg Tablet 500 mg PO BID RF: 0 Follow up/Referrals: Shanae Hurd MD [Physician] - Provider Discharge Instructions Diet: Diet as Tolerated Activity: Nonweightbearing on the operative extremity. Skin/Wound/Dressing Care Report to your healthcare provider any signs of infection, such as:: chills, fever, night sweats, increased pain, unusual drainage and unusual redness Dressing: Wound vac in place. Visit Report/Discharge Packet Instructions: DI for Heart Failure, DI for Bone Marrow Biopsy, Cefepime Injection, Vancomycin Injection, DI for Incision and Drainage of a Joint, DI for Incision and Drainage, [facility]: Wound Care Stand Alone Forms: Surgery Discharge Discharge Data Primary Care Provider: Neil Bui Discharges patient from system. Discharge Date/Time: 02/25/19 19:40 Quality VTE Deep Vein Thrombosis/Pulmonary Embolism Present on Admission: No
== END 2019-02-25 19:40 | disposition home or self-care (01) | DRG 478 ==
LOC: OR 02-24 07:28
PROVIDERS: Physician Assistant; Admitting Provider Orthopaedic Surgery Foot and Ankle Surgery; PCP Family Medicine; Visit Provider Orthopaedic Surgery Foot and Ankle Surgery
PROC: 0QBL0ZX Excision of Right Tarsal, Open Approach, Diagnostic (ICD-10-PCS; principal; 2019-02-21 07:45)
PROC: 0QBL0ZX Excision of Right Tarsal, Open Approach, Diagnostic (ICD-10-PCS; CPT 38221; 2019-02-21 07:45)
DX: Q66.02 Congenital talipes equinovarus, left foot (principal); M86.8X7 Other osteomyelitis, ankle and foot; L97.416 Non-pressure chronic ulcer of right heel and midfoot with bone involvement without evidence of necrosis; Z16.24 Resistance to multiple antibiotics; Q66.01 Congenital talipes equinovarus, right foot; E11.621 Type 2 diabetes mellitus with foot ulcer; M19.071 Primary osteoarthritis, right ankle and foot; L97.514 Non-pressure chronic ulcer of other part of right foot with necrosis of bone; N18.3 Chronic kidney disease, stage 3 (moderate); E11.22 Type 2 diabetes mellitus with diabetic chronic kidney disease; E11.40 Type 2 diabetes mellitus with diabetic neuropathy, unspecified; I12.9 Hypertensive chronic kidney disease with stage 1 through stage 4 chronic kidney disease, or unspecified chronic kidney disease; B95.8 Unspecified staphylococcus as the cause of diseases classified elsewhere; Z79.4 Long term (current) use of insulin
CPT/HCPCS: 36415; 36573; 73630; 76000; 80048; 80069; 80202; 82565; 82962; 83036; 85025; 85027; 85651; 86140; 87070; 87075; 87077; 87176; 87186; 87205; 90471; 90656; 97116; 97161; G0378; J0690; J0692; J1650; J2543; J2704; J3010; Q2038

== ENCOUNTER 2019-04-09 05:44 | Day surgery (SDC) | payer OTHER, SELFPAY ==
[2019-02-21 10:51] VITALS: BMI 28.7
[2019-03-27 14:38] VITALS: BMI 26.3
[2019-04-09] VITALS (22 sets, daily range): BP systolic 96–139; BP diastolic 58–79; PULSE 79–95; RESP 11–21; TEMP 36.1–37.5; O2SAT 93–99; BMI 28.5
--- NOTE | 2019-04-09 | DI.RAD.S_ITS ---
PROCEDURE: XR FOOT LT MIN 3V INDICATIONS: FOOT REPAIR TECHNIQUE: Fluoroscopic images were obtained during an operative procedure and submitted for interpretation following the completion of the procedure. COMPARISON: [facility], CR, XR FOOT 3+ VIEWS RIGHT, 03/20/2018, 10:02. [facility], CR, XR FOOT 3 VIEWS WEIGHT BEARING RIGHT, 08/29/2018, 16:20. [facility], CR, XR FOOT RT MIN 3V, 02/21/2019, 8:37. FINDINGS: These fluoroscopic images were performed for intraoperative localization. On these images, screw fixation seen of the hindfoot, with apparent external fixation hardware of the fibula. Please correlate with intraoperative findings. IMPRESSION: Normal intraoperative examination. Dictated by: Amilcar Eric M.D. on 04/09/2019 at 12:50 Approved by: Amilcar Eric M.D. on 04/09/2019 at 12:51
[2019-04-09] MEDS: LACTATED RINGERS 1,000 ML 42 ML IV ×2 (07:05→10:05)
[2019-04-09] MEDS: VANCOMYCIN 1,000 MG/200 ML PIGGYBACK 200 MG IV ×2 (07:05→19:02)
--- NOTE | 2019-04-09 07:23 | PM.PREOP ---
Pre-operative Note Interval Note History & Physical reviewed/Exam performed by Physician: Yes Changes to H&P: No
--- NOTE | 2019-04-09 08:42 | SUR.OPER ---
Supine on padded OR bed, head on pillow, arms secured on padded arm boards at <90 degrees abduction, legs uncrossed, safety belt at thigh, tape over blanket over lower legs.
[2019-04-09] MEDS: BUPIVACAINE 0.25% W/ EPI 30 ML VIAL INJ (08:57)
--- NOTE | 2019-04-09 08:58 | SUR.OPER ---
DENTURES AND BRIEFS IN LABELED BAGS TO PACU WITH PATIENT
[2019-04-09] MEDS: THROMBIN (RECOMBINANT) 5,000 UNIT VIAL 5000 UNIT TOP (10:28)
--- NOTE | 2019-04-09 14:30 | SUR.PHASEI ---
Notified anesthesiologist BS [id number]. 10 units of insulin ordered.
--- NOTE | 2019-04-09 14:31 | SUR.PHASEI ---
Notified Dr Hurd patients Right toes cool to touch and purple. Cap refill > 2 seconds.
--- NOTE | 2019-04-09 14:32 | SUR.PHASEI ---
Dr Hurd at bedside checking right foot.
[2019-04-09] MEDS: HYDROMORPHONE 2 MG INJ IV ×2 (14:40→14:49)
--- NOTE | 2019-04-09 14:50 | P.OP_ITS ---
Operative Date/Time/Diagnoses Date of procedure: 04/09/19 Time of procedure: 08:20 Pre-op diagnosis: 1. Equinovarus deformity right foot 2. Ulcer right foot, neuropathic, diabetic 3. Arthritis right foot 4. Equinus contracture Post-op diagnosis: same Procedure & Clinicians Procedure: 1. Triple arthrodesis, right CPT code 13103 2. Osteotomy calcaneus, lateralizing CPT code 45336-64 3. Bone graft, proximal tibia, major or large. CPT code 98002-69 4. Achilles tendon lengthening CPT code 49027-62 5. Lengthening flexor stand and ankle, Release PTT, lengthening FDL. CPT code 38401 6. Debridement lateral foot wound CPT code 35773 7. Application wound VAC dressing change CPT code 57422 Same procedure as scheduled: Yes Indications: Patient is a 59-year-old male with a history of any quinapril varus deformity. Patient has had recurrent ulceration the lateral border of his foot and nonhealing wound. He has had multiple debridement procedures at the base of the 5th metatarsal and cuboid and has persistent osteomyelitis. Patient was indicated for hindfoot cavovarus correction in order to obtain a plantigrade foot and promote wound healing. A 2 stage procedure was selected so that internal fixation could be used. The patient's 1st stage was a debridement and intravenous antibiotics for 6 weeks with VAC changes. He presents now for a second-stage procedure for triple arthrodesis and deformity correction. The risks benefits and alternatives to surgery as well as associated procedures were discussed with the patient in detail. The risks and benefits of the procedure have been discussed with the patient even opportunity to ask questions. The risks of surgery include but are not limited to infection, malunion, nonunion, persistence of pain, damage to nerves and blood vessels, posttraumatic arthritis, DVT, PE, cardiopulmonary complications and . The patient expressed a thorough understanding of the risks and benefits of surgery and has elected to proceed. Consent was signed in the office. Additionally we moved discussed obtaining a bone graft from the patient's proximal tibia. Patient will be nonweightbearing 10-12 weeks postoperatively and will resume wound VAC changes. Surgeon: Shanae Hurd Extra Hand: Liliam Rodriguez Anesthesia Type: General and Local Operative Notes Findings: Fixed equinovarus deformity, stiff hindfoot. 7 x 3 x 1 cm lateral b order ulceration with pink granulation tissue. No purulence or signs of ongoing infection. The Cardenas subtalar and talonavicular joints were approached through medial a lateral approaches. The posterior tibialis tendon was released and the FDL tendon lengthened. A release of the flexor retinaculum over the tarsal tunnel was completed. The subtalar joint and talonavicular joint calcaneal cuboid went joint were prepped and mobilized. A small wedge was removed from the cuboid for the calcaneal cuboid closing fusion. Once the subtalar joint was positioned there was still noted to be some residual varus from the patient has been shaped calcaneus therefore the decision was made for a lateralizing osteotomy of the calcaneus. A separate incision was made for this and the calcaneus was slid l aterally 4-5 mm. The calcaneus osteotomy and subtalar joint were fixed with 3x 6.7 headed screws from the Arthrex set. The talonavicular joint was fixed with 2x4.5 partially-threaded cannulated screws from the Arthrex set. Calcaneocuboid joint was fixed with 2x 4.5 fully-threaded cannulated lag screws from the Arthrex set. Proximal tibia bone graft was obtained from the lateral approach at the inferior aspect of Gerdy's tubercle. The lateral wound was debrided using curette and a wound VAC sponge applied. Closure Type: primary Specimen(s): none sent Applied: implant(s) (Arthrex: 6.7 headed cannulated screw 2 x 85mm short thread, 1 x 75mm long. 4.5 partially-threaded cannulated, 4.5 cannulated fully-threaded) Estimated Blood Loss (mL): 30 Blood products transfused: none Tourniquet time (min): 120 Procedure in detail: Patient was seen in the preoperative area the site of surgery was marked informed consent confirmed. The patient was then brought back to the operating room by the anesthesia team the supine on the operative table. General anesthesia was administered. All bony prominences were well padded. An SCD was placed on the contralateral lower extremity. An ipsilateral thigh bump was placed. Well-padded thigh tourniquet was placed on the operative extremity. The right lower extremities prepped and draped in the standard sterile fashion. A formal time-out procedure was performed confirming the patient's side and site of surgery and presence of informed consent. Implants were in the room and accounted for. All were in agreement. The patient had dose of vancomycin as a preoperative antibiotic. Achilles tendon lengthening: Attention was turned to the right lower extremity. The procedure started with elevating the extremity for a Achilles tendon lengthening. The Achilles tendon was lengthened in a [place] fashion with 3 small incisions along the tendon to directed medially at the distal and proximal aspects and the central incision directed laterally as a triple hemisection lengthening. The ankle was then dorsiflexed until 20? of dorsal flexion was obtained. Next the Esmarch bandage was used for exsanguination the tourniquet was elevated on the thigh to 250 mm of mercury and stayed there for 2 hours. Then the tourniquet was let down for over 20 minutes and then reinflated for a 2nd and 90 minutes. And deflated again before closure. Due to the patient's equinovarus contracture and fixed arthritis a medial approach was initiated 1st this was a straight incision from the distal aspect of the medial malleolus to the navicular tuberosity. This was taken down through the skin subcutaneous tissues the sheath over the posterior tibialis tendon was then opened. The posterior tibialis tendon was excised. The flexor digitorum longus was isolated and onto this was Z lengthened and repaired at the end of the case. Additionally flexor retinaculum over the tarsal tunnel was opened and the tenotomy scissors were used to carefully release soft tissue around the tarsal tunnel and to remove pressure from the tibial neurovascular bundle due to the did deformity correction planned. The capsule at the talonavicular joint was then entered and the spring ligament were also debrided for access into the talonavicular and subtalar joints from the medial side. Once this was released an accessible attention was turned laterally and the standard lateral sinus tarsi type incision was made from the tip of the lateral malleolus towards the 4th metatarsal base. Again this was taken down through the skin and subcutaneous tissues. A flap with the EPB was elevated and reflected distally. The sinus tarsi was entered and and exposure of the subtalar joint was completed in the standard fashion. Lamina aircraft cleaning supervisor was placed into the sinus tarsi distracting and allowing visualization of the posterior facet. The osteotomes and curettes were utilized to debride the cartilage on the calcaneus and talus at the posterior facet and middle facet and anterior facet this was done through both the medial and lateral approaches. Likewise the talonavicular joint was debrided in similar fashion using combination of osteotomes and curette. Then distally dissection was taken over the calcaneal cuboid joint and this was likewise exposed. Due to the varus deformity a closing wedge of the cuboid was elected and a small saw was utilized to take a laterally based wedge out of the cuboid to create this. The calcaneus and cuboid were then prepped in the standard fashion. Once the joints were adequately mobilized attention was turned to obtaining the autograft bone Proximal tibia bone graft: Attention was turned proximally Gerdy's tubercle was identified as was the tibial tubercle. An incision was made obliquely from the inferior half of Gerdy's tubercle towards the tibial tubercle. This was taken down through the skin onto the periosteum of the tibia. The contents of the anterior compartment were carefully reflected posteriorly. A 2.0 drill was used to make a 1 x 1 cm cortical window in the proximal tibia and an osteotome was used to finish the window. The window was capped and replaced at the end of the procedure large curette was used into the metaphysis of the proximal tibia to gather approximately 10 cc of autologous bone graft. Following this a piece of Gelfoam and thrombin was placed and the cortical window was replaced and the incision was closed in layers. At this time 2:00 a.m. was up on the tourniquet so the tourniquet was released. We turned our attention distally again and took the opportunity to irrigate all of our prepped joints with copious amounts of saline following completion of this a 2.0 drill was used to further prep the joint surfaces at the subtalar calcaneal cuboid and talonavicular joints. Next the osteotome was used to fish scale infant straight between the drill holes completing the joint prep. The the bone graft was placed into the joint spaces with care to fill the sites appropriately. Next temporary K-wires were used to fix the subtalar joint in a neutral to slight valgus position. This was checked on multiplanar fluoroscopic imaging. Due to the church shaped calcaneus there was still substantial amount of [place] in the calcaneus bone itself and the decision was made to proceed with a lateralizing calcaneal osteotomy in addition to the subtalar fusion. This time the leg was elevated again and the tourniquet was raised back up to 250 mm of mercury and stayed there for another hour and a half. Lateralizing and calcaneus osteotomy: Noted to the lateralize and calcaneus osteotomy a separate incision was made in line with the calcaneal tuberosity based on fluoroscopic guidance. Sharp dissection was taken down through the skin subcutaneous tissues care was taken to go down directly to bone. An elevator was used to expose the periosteal surface anterior and posterior at the incision. A 1.6 K-wire was fired across the calcaneus and checked on axial imaging to be straight across the tuberosity. A saw was then used to make the osteotomy this was taken part way through the calcaneus but not all the way to the medial cortex. The medial cortex was completed utilizing a osteotome. Once the osteotomy was completed and mobilized this was shifted lateral approximately 4-5 mm and then pinned provisionally in place. X-rays were obtained with appropriate alignment of the calcaneus and of the subtalar joint therefore these were fixed with a combination of 2x 6.7 Arthrex cannulated screws traversing the osteotomy and the subtalar joint and a 3rd 6.7 long thread Arthrex screw from the talar neck into the calcaneus for additional anterior fixation. Triple arthrodesis: As mentioned above the subtalar joint was fixed with the 6.7 85 mm cannulated Arthrex screws. Additional long thread 6.7 Arthrex cannulated screw was placed from talus to calcaneus. Attention was then turned to the talonavicular joint. Guidewires for the 4 5 cannulated screws from the A rthrex set were placed from the navicular tuberosity into the talus. These were measured and then placed obtaining excellent compression. Attention was turned to the calcaneal cuboid joint and this was fixed with 2 cannulated fully- threaded 4.5 mm screws utilizing a lag technique. Excellent stability and fixation was noted on final fluoroscopic images. The tourniquet was released and hemostasis was achieved. The wounds were irrigated and then closed in a layered fashion with 2 O and 3 O Vicryl, 4 0 Monocryl, 4-O and 3 O nylon. Wound debridement and VAC placement Once the surgical wounds were closed attention was turned to the patient's lateral foot wound which had been covered with IO band during the duration of the case to. This was then exposed and debrided using the correct curette. And irrigated thoroughly. A wound VAC was cut to size and placed in the standard fashion and good suction was obtained. Care was taken to arrange the dressings in a way to facilitate subsequent wound VAC changes. Once this was completed well-padded splint with Webril and ABD pads. Was placed and the patient was woken from anesthesia and taken to the recovery room in good condition. There no immediate complications from this procedure. All counts were correct. Complications: none Post-operative Condition: stable Disposition: PACU Plan for aftercare: Nonweightbearing right lower extremity. Elevate above the heart level. Aspirin 162 mg b.i.d. for DVT prophylaxis. Diabetic diet. Bactrim double strength DS x2 weeks discharge. Will get wound VAC changes with [facility] to 3 times a week. Follow up [address] Hurd scattered [facility]
[2019-04-09] MEDS: INSULIN REGULAR 100 UNIT/ML 3 ML VIAL 10 UNIT SUBCUT (14:55)
--- NOTE | 2019-04-09 15:11 | SUR.PHASEI ---
Right leg: +2 tib-Fib pulse to palpation. Unable to check DP 2 to drsg. Patient has no sensation to feet bilaterally 2 to neuropathy. Toes purple-Dr Hurd aware. No drainage to wound vac. Gave 10 units of insulin per order for BS 218.
--- NOTE | 2019-04-09 15:49 | SUR.PHASEI ---
Dr Hurd at bedside evaluating right foot and discussing procedure with patient.
[2019-04-09] MEDS: SODIUM CHLORIDE 0.9% 1,000 ML 84 ML IV (16:10)
[2019-04-09] MEDS: INSULIN ASPART 100 UNIT/ML INSULN PEN 20 UNIT SUBCUT (17:49)
--- NOTE | 2019-04-09 17:55 | PC.NURSE ---
1600 - Patient brought to room 231 in bed from PACU. Alert and oriented. Able to move all extremities/ Has numbness to bilateral feet which he states is baseline. Dressing to right foot C/D/I. Wound vac in place working appropriately. Oriented to room and call light, call light within reach.
[2019-04-09 18:03] LABS: Albumin 4.1 g/dL (3.5-5.0); Blood Urea Nitrogen 30 mg/dL (9-20); Calcium 8.6 mg/dL (8.4-10.2); Carbon Dioxide 25 mmol/L (22-32); Chloride 101 mmol/L (98-107); Estimated Glomerular Filt Rate 29.1 mL/min (>60); Glucose 242 mg/dL (80-110); HEMOLYSIS < 15 (0-50); Phosphorous 3.9 mg/dL (2.3-3.7); Sodium 136 mmol/L (137-145)
[2019-04-09 18:33] LABS: Potassium 6.1 mmol/L (3.4-5.1)
[2019-04-09] MEDS: ACETAMINOPHEN 325 MG TABLET 975 MG PO (21:00)
[2019-04-09] MEDS: AMLODIPINE 5 MG TABLET PO (21:01)
[2019-04-09] MEDS: ASPIRIN EC 81 MG TABLET 162 MG PO (21:02)
[2019-04-09] MEDS: PIOGLITAZONE 15 MG TABLET PO (21:03)
[2019-04-09] MEDS: INSULIN ASPART 100 UNIT/ML INSULN PEN SUBCUT (21:06)
[2019-04-09] MEDS: INSULIN GLARGINE 100 UNIT/ML 3ML PEN 65 UNIT SUBCUT (21:07)
[2019-04-10 05:00] VITALS: BP 146/70; PULSE 99; RESP 16; TEMP 37.2; O2SAT 97
[2019-04-10 05:10] LABS: Hematocrit 30.5 % (41-53); Hemoglobin 10.2 g/dL (13.5-17.5); Mean Corpuscular HGB Conc 33.4 % (30-36); Mean Corpuscular Hemoglobin 27.8 PG (26-34); Mean Corpuscular Volume 83.4 fL (80-100); Platelet Count 200 X10^3/uL (150-400); Red Blood Cell Count 3.66 X10^6/uL (4.5-5.9); Red Cell Distribution Width 14.9 % (11.6-14.8); White Blood Cell Count 11.4 X10^3/uL (4.5-11.0)
--- NOTE | 2019-04-10 06:17 | PC.NURSE ---
Pt denies pain overnight, states I can't feel my feet, I can never feel my feet. CMS intact to bilat feet. Right foot/toes appear pale, blanchable with brisk <2sec blood return. Dressing intact to right foot, no drainage, unable to palpate pedal pulse due to dressing. Able to wiggle toes and lift leg off bed. Pt is non weight bearing on right leg, pt aware of activity precautions. Wound vac patent at -125mm Hg, drained 25cc sanguinous fluid overnight. Report that pt has 5 incisions to right foot, debridement of diabetic ulcer wounds done in 6 hour surgery yesterday. Calf SCD to left leg. BG at 0210=123. IVF stopped this morning per order. Await pt void this shift, pt denies voiding difficulty. Hx stage 3 chronic kidney disease, monitoring UOP. Sipping water at bedside. Fall risk due to weight bearing precautions and Charcot foot to left side. Pt using call light appropriately.
[2019-04-10 07:50] VITALS: BP 131/69; PULSE 96; RESP 18; TEMP 37.3; O2SAT 99
[2019-04-10] MEDS: SODIUM POLYSTYRENE SULFON/SORB 15 GM/60 ML CUP PO ×2 (08:49→14:55)
--- NOTE | 2019-04-10 08:49 | PM.PNPO.1 ---
Subjective Subjective Date Patient Seen: 04/10/19 Time Patient Seen: 07:00 Interval history: pod 1 R foot reconstruction. pain controlled Exam Vital Signs (past 8 hours): - 04/10/19 05:00 04/10/19 07:50 Temperature 99.0 F 99.1 F Pulse Rate 99 H 96 H Respiratory Rate 16 18 Blood Pressure 146/70 H 131/69 Pulse Oximetry 97 99 Oxygen Delivery Method Room Air Oxygen Flow Rate 0 Objective Labs Result Diagrams: 04/10/19 04:45 04/09/19 17:42 Labs: Laboratory Results - last 24 hr 04/09/19 04/10/19 17:42 04:45 WBC 11.4 H RBC 3.66 L Hgb 10.2 L Hct 30.5 L MCV 83.4 MCH 27.8 MCHC 33.4 RDW 14.9 H Plt Count 200 Sodium 136 L Potassium 6.1 H Chloride 101 Carbon Dioxide 25 BUN 30 H Creatinine 2.30 H Estimated GFR 29.1 L BUN/Creatinine Ratio 13.0 Glucose 242 H Calcium 8.6 Phosphorus 3.9 H Albumin 4.1 Assessment & Plan Post-op Postoperative Procedures: Procedures Operation Date: 04/09/19 07:45 Actual Procedures Side Surgeon p Hindfoot fusion, Right Shanae Hurd MD s Flexor Tendon Lengthenings medial, Right Shanae Hurd MD s Achilles Tendon Lengthening, Wound debridement & dressing change wound vac application. Proximal tibial autograft bone Right Shanae Hurd MD pod r foot reconstruction, dsg changed. pt hooked up to home vac--will see [facility] sunday for vac change. vac orders faxed to [facility]. [place] on doxy 100mg BID. had elevated K this AM no sx-- continue NS and give kayexalte. recheck early afternoon. if improving and asymptomatic dc home
[2019-04-10] MEDS: INSULIN ASPART 100 UNIT/ML INSULN PEN SUBCUT ×2 (08:52→13:52)
[2019-04-10] MEDS: INSULIN GLARGINE 100 UNIT/ML 3ML PEN 65 UNIT SUBCUT (08:54)
[2019-04-10] MEDS: INSULIN ASPART 100 UNIT/ML INSULN PEN 20 UNIT SUBCUT ×2 (08:56→13:51)
--- NOTE | 2019-04-10 10:24 | PT.IIE ---
This is to certify that I have reviewed this documentation and is involved with this pt's care Current Diagnoses Type 2 diabetes mellitus with foot ulcer (04/09/19) Non-pressure chronic ulcer of other part of right foot with unspecified severity (04/09/19) Primary osteoarthritis, right ankle and foot (04/09/19) Congenital talipes equinovarus, unspecified foot (04/09/19) Surgery Performed Operation Date: 04/09/19 07:45 Actual Procedures p Hindfoot fusion,(Right) - Shanae Hurd MD s Flexor Tendon Lengthenings medial,(Right) - Shanae Hurd MD s Achilles Tendon Lengthening, Wound debridement & dressing change wound vac application. Proximal tibial autograft bone(Right) - Shanae Hurd MD Surgical History (Last Updated 03/27/19 @ 14:49 by Carlita Coombs, RN) History of surgery (Acute ~02/2018) Status post incision and drainage (Acute 02/21/19) Medical History (Last Updated 03/27/19 @ 14:46 by Carlita Coombs RN) Asthma (Acute) Chronic renal disease, stage III (Acute) Diabetes (Acute) Diabetic foot ulcer (Acute) Diabetic retinopathy (Acute) Dupuytren's contracture (Acute) Dyslipidemia (Acute) Erectile dysfunction (Acute) Gastroparesis (Acute) HTN (hypertension) (Acute) Malignant neoplasm prostate (Acute) Sinusitis (Acute) Physical Therapy Inpatient Evaluation/Re-Eval M1 PT/OT-IP Prior Functional Status Start: 04/10/19 12:02 Freq: NEEDED Status: Active Protocol: Document 04/10/19 10:24 MT (Rec: 04/10/19 12:54 MT [id number]) Medical Review Prior Functional Status Medical History Reviewed Yes Diet/Fluid Consistency Regular Communication Pt able to make needs known Mobility and Gait Pt reports that prior to this surgery, he was independent with his mobility. He reports mainly using cruthes to independently ambualted, but also used a 2WW periodically throughout his house and a knee scooter for ambulation longer distances throughout the community. Activities of Daily Living and IADL's Pt reports being independent with all of his ADL's Social History Household Members children Living Arrangements House Number of Floors (Floors) One Floor Number of Stairs To Enter/Railing? 3 stairs to enter with accesst o B handrail Home Environment Standard Height Toilet,Walk in Shower Home Equipment Front Wheel Walker,Crutches, Hand Held Shower,Grab Bars In Shower Employment Status Unemployed Additional Social History Comment Pt lives with his daughter who would be able to assist him if needed. he also has 3 brothers who he said he would be able to call to assist him. Pt has a knee scooter at home. M2 PT-IP Current Condition Start: 04/10/19 12:02 Freq: NEEDED Status: Active Protocol: Document 04/10/19 10:24 MT (Rec: 04/10/19 12:54 NH [id number]) Physical Therapy Current Condition Current Condition Evaluation Date 04/10/19 Treatment Diagnosis Reduced mobility and impaired gait s/p triple arthordesis of R foot Onset Date 04/09/19 Weight Bearing Status Weight Bearing Status Non-Weight Bearing M3 PT-IP Subjective Start: 04/10/19 12:02 Freq: NEEDED Status: Active Protocol: Document 04/10/19 10:24 MT (Rec: 04/10/19 12:54 NH [id number]) Subjective Physical Therapy Visit Type Type Initial Evaluation Visit Start Time 10:24 Visit Stop Time 10:44 Total Visit Minutes 20 Number of TICKET MARKER Visits 0 Physical Therapy Visit Comments Patient Comments Pt was agreeable to participate in physical therapy at first. Throughout the session he was resistant to attempting stairs and further amulation Therapy Pain Assessment Pain When Pain Assessed At Rest Pain Present Pain Present Denied Pain Location Lower Back Intensity 0 Scale Used reports that he can't feel either of his feet M4 PT-IP Mobility and Gait Start: 04/10/19 12:02 Freq: NEEDED Status: Active Protocol: Document 04/10/19 10:24 MT (Rec: 04/10/19 12:54 NH [id number]) PT-Bed Mobility Assessment Supine to Sit Supine to Sit Independent Sit to Supine Sit to Supine Independent Scooting Scooting to Edge of Bed Independent Scooting Up and Down in Bed Independent PT-Transfer Assessment Sit to and From Stand Sit to and from Stand Minimal Assistance,Moderate Assistance,1 Person Assistance ,Use of Upper Extremities Equipment Transfer Assistive Device Gait Belt,Front Wheeled Walker ,Axillary Crutches Orthotic/Prosthetic Devices or Brace: No Transfers Transfer Destination Bed Transfer Technique Stand Step Pivot Transfer Ability Level of Assist Minimal Assistance,Moderate Assistance,1 Person Assistance ,Use of Upper Extremities Comments Mobility Comments Pt was found laying in bed at the start of evaluation. He was independent with supine to sit and scooting up and to the edge of bed, with PT managing woundvac device. Pt performed a sit<>stand with 2WW at first from bed and Nelson . He kicked his R foot out prior to standing but it was still touching the ground. Pt then performed sit<>stand utilizing axillry crutches and Nelson-ModA. He was not able to lift his R foot completely off of the ground again and was educated about his weight bearing precautions. During his stand to sit with axillary crutches, he demonstrated much less stabilty and no eccentric controll during the sit, requiring modA and was educated about how to properly reach back and slowly lower himself to the sitting surface . At end of session, pt was positioned back into his bed with his table and call light in reach. Gait Assessment Gait Gait Assistance Required: Minimum Assistance,Moderate Assistance,1 Person Assist Distance (Feet) 15 Able to Maintain Weight Bearing Status No During Gait Assistive Devices Assistive Device Gait Belt,Front Wheeled Walker ,Axillary Crutches Orthotic/Prosthetic Devices or Brace: No Gait Deviations General Gait Pattern Antalgic Factors Limiting Gait Function Factors Limiting Gait Function Decreased Activity Tolerance, Decreased Strength, Incoordination,Limited Range of Motion,Pain,Poor Balance, Poor Safety Awareness Comments Gait Comments Pt was offered shoes for his left foot during ambulation, but he refused. Pt first ambulated 15 ft around room with 2WW and Nelson. Pt then attmepted ambulation with axillary crutches, since that is the device he said he would mostlikely use at home. Pt ambulated 5 ft modA, but was unsteady and required frequent cueing for not putting weight through his R foot, so he was asked to sit back down. Pt was educated about his weight bearing precautions. Stair Climbing Assessment Comments Stair Climbing Comments pt refused to attempt stairs when asked by the PT and became angry about why PT was making him do stairs before he could go home. Explained to pt that because he had stair to get into his house, we needed to make sure he was safe with navigating stairs so he could safely get into his house. Pt stated that he knows how to do stairs and didnt want to attempt with PT. PT-Balance Assessment Sitting Balance and Reactions Static Sitting Balance Ability Normal Dynamic Sitting Balance Ability Normal Standing Balance and Reactions Static Standing Balance Ability Fair Dynamic Standing Balance Ability Fair Device Used 2WW/axillary crutches M5 PT-IP Objective Assessments Start: 04/10/19 12:02 Freq: NEEDED Status: Active Protocol: Document 04/10/19 10:24 MT (Rec: 04/10/19 12:54 NH [id number]) Orientation Orientation/Cognition Level of Alertness Alert Orientation Name,Place,Situation Language Function Ability No Deficits Noted Safety Awareness Decreased Safety Awareness Comments Pt became aggravated when asked by PT about attempting stair training. Gross Range of Motion Lower Extremity ROM Assessment Left Impaired Impairments Pt not ablet o DF on L ankle past neutral. R knee and r ankle ROM not tested d/t splinting and NWB status Strength Lower Extremity Strength Assessment Bilaterally Impaired Hip 5/5 Knee 5/5 Ankle DF: 3/5 PF: 4/5 Comments Strength Comments Pt was a 5/5 with L hip and knee strength, but was a 3/5 with L ankle DF and a 4/5 with L PF. Pt was a 5/5 with R hip strength. R knee and R ankle strength was not formally tested due to pt's jarrell wrapping and WB precautions. As determined from pt's mobility knee strength is likely WFL. Sensation Assessment Sensation Gross Sensation Right LE Impaired,Left LE Impaired Comments Sensation Comments Pt reports that he cannot feel either of his feet from about his shins and below and has not been able to for a while d /t his neuropathy M6 PT-IP Treatment Start: 04/10/19 12:02 Freq: NEEDED Status: Active Protocol: Document 04/10/19 10:24 MT (Rec: 04/10/19 12:54 NH [id number]) Physical Therapy Treatment Education Education Provided Weight Bearing Status,Safety M7 PT-IP Assessment and Plan Start: 04/10/19 12:02 Freq: NEEDED Status: Active Protocol: Document 04/10/19 10:24 MT (Rec: 04/10/19 12:54 NH [id number]) PT Summary Assessment and Plan Potential Rehabilitation Potential Fair Status of Condition at Evaluation Evolving Summary Impairments Pain,ROM,Strength,Balance, Sensation,Transfers,Gait, Activity Tolerance Assessment Summary Pt presents to PT s/p triple arthrodesis surgery of his R foot. See mobility and gait section for specifics. Pt performed sit<>stand transfer using walker and axillary crutches, requiring Nelson to modA and frequent cueing for safety and maintaining WB precautions and was unsteady with his transfers. Pt demonstrated impulsivity and directed his own care. Pt ambulated 15 using both 2WW, requiring Nelson to ModA with ambulation. Attempted ambulation with axillary crutches, but pt was unsteady and unable to fully maintain his WB status, so was asked to sit back down and did not want to continue ambultion. Pt refused to attempt stair training and became aggravated when PT explained that because he had stairs to get into his home he needed to be safe with stairs for a safe discharge. Pt lives at home with his daughter and has 3 brothers who are able to assist him at home. Once he is deemed safe with stairs, he will be able to discharge home with assistance from family and using 2WW. Goals Transfer Goal Standby Assistance,Crutches, Front Wheeled Walker Gait Goal Standby Assistance,Crutches, Front Wheel Walker Gait Distance 100 ft Other Goals SBA w/ ascend/descend 3 stairs using B HR or axillary crutches Days to Meet Goals 5 Frequency of Treatment Frequency Of Treatment Twice a Day Treatment Plan Physical Therapy Treatment Plan Transfer Training,Gait Training,Therapeutic Exercise, Balance Retraining,Post Op Education,Discharge Planning, Hot or Cold Pack Recommendations To Nursing Amount of Assist Needed 1 Person Assist Discharge Recommendations PT Discharge Recommendations Home with Assistance, Outpatient PT
[2019-04-10 10:41] VITALS: BP 127/63
[2019-04-10] MEDS: PIOGLITAZONE 15 MG TABLET PO (10:41)
[2019-04-10] MEDS: LOSARTAN 50 MG TABLET 100 MG PO (10:41)
[2019-04-10] MEDS: ASPIRIN EC 81 MG TABLET 162 MG PO (10:42)
[2019-04-10] MEDS: ACETAMINOPHEN 325 MG TABLET 975 MG PO ×2 (10:42→14:55)
[2019-04-10] MEDS: AMLODIPINE 5 MG TABLET PO (10:43)
[2019-04-10 11:36] VITALS: BP 135/68; PULSE 100; RESP 18; TEMP 37.5; O2SAT 100
--- NOTE | 2019-04-10 11:47 | CM.DANOTE ---
DCP; Case received, EMR reviewed and met with patient. Introduced self and role. Was able to meet with patient in his room to obtain baseline health and activity information. DCP template/assessment completed with information currently available. Patient is a 59 year old male who admitted yesterday to the care of the orthopedic team. PCP: Dr. Bui. Payer: confirmed: [facility]. Patient came to the hospital for a surgical procedure. He is diabetic, and has had a chronic wound ulcer to his right foot. Patient has a wound vac, and goes to [facility] twice for dressing changes. He did have [facility] at home for home ABO, but he completed, and no longer has PICC line. Patient stated that his daughter, Mariama, helps him out at home, and takes him to his appointments. He uses crutches, scooter, and a walker. He stated he has been managing at home pretty well. He checks his blood sugars approximately 4 times a day. P: DCP will continue to follow closely. Patient should be able to go home when medically stable. He will continue with his wound vac, and follow up at [facility]. Emmie Barraza RN/Geotechnical Intern
[2019-04-10 13:46] VITALS: PULSE 86; O2SAT 98
[2019-04-10 13:47] LABS: BUN Creatinine Ratio 16.8 (6-22); Blood Urea Nitrogen 32 mg/dL (9-20); Calcium 8.4 mg/dL (8.4-10.2); Carbon Dioxide 25 mmol/L (22-32); Chloride 105 mmol/L (98-107); Estimated Glomerular Filt Rate 36.2 mL/min (>60); Glucose 189 mg/dL (80-110); HEMOLYSIS < 15 (0-50); Sodium 138 mmol/L (137-145)
[2019-04-10 13:48] LABS: Potassium 5.4 mmol/L (3.4-5.1)
--- NOTE | 2019-04-10 14:19 | PM.DS.1 ---
History of Present Illness History of Present Illness Date Patient Seen: 04/10/19 Time Patient Seen: 07:00 Chief complaint: [id number] *OPB* Narrative: pod 1 r foot reconstruction with hindfoot fusion. doing well pain control vac working. Discharge Providers Provider Discharge Date: 04/10/19 Primary care physician: Neil Bui MD Consults: 04/09/19 16:05 Consult to Physical Therapy Evaluate & Treat Comment: nwb rLE Physician Instructions: Evaluate and Treat Consult to Respiratory Therapy Evaluate & Treat Comment: Physician Instructions: Evaluate and treat Discharge provider: Shanae Hurd MD Summary Hospital Course Discharge Diagnosis: equinovarus defrmity, foot arthritis, equinus contracture, hyperkaelemia, diabetes, neuropathy Hospital Course: admitted for obs postop. pain controlled on pod1 had elevated K, no sxs. treated with kayexalate and trending down, Cr improving as well. home vac hooked up. appropriate for dc home on pod1 Status at Discharge Cognitive/behavioral status at discharge: oriented Functional status at discharge: uses cane/walker Overall status at discharge: patient is back to baseline Time Spent with Patient Time spent: Less than 30 minutes Exam Vital Signs (past 8 hours): - 04/10/19 07:50 04/10/19 10:41 04/10/19 11:36 Temperature 99.1 F 99.5 F Pulse Rate 96 H 100 H Respiratory Rate 18 18 Blood Pressure 131/69 127/63 135/68 Pulse Oximetry 99 100 Oxygen Delivery Method Room Air Oxygen Flow Rate 0 Narrative Exam Narrative: A&O NAD HEENT NCAT CV: RRR REsp: unlabored RA RLE: in splint, dsg changed, appropriate bloody drainage. home vac hooked up to good suction. wiggles toes. toes wwp. calf soft. Objective Labs Result Diagrams: 04/10/19 04:45 04/10/19 13:20 Labs: Laboratory Results - last 24 hr 04/09/19 04/10/19 04/10/19 17:42 04:45 13:20 WBC 11.4 H RBC 3.66 L Hgb 10.2 L Hct 30.5 L MCV 83.4 MCH 27.8 MCHC 33.4 RDW 14.9 H Plt Count 200 Sodium 136 L 138 Potassium 6.1 H 5.4 H Chloride 101 105 Carbon Dioxide 25 25 BUN 30 H 32 H Creatinine 2.30 H 1.90 H Estimated GFR 29.1 L 36.2 L BUN/Creatinine Ratio 13.0 16.8 Glucose 242 H 189 H Calcium 8.6 8.4 Phosphorus 3.9 H Albumin 4.1 Discharge Plan Discharge Plan Patient Disposition: Home Discharge comment: after gets seconds dose kayexalate Discharge Med Rec/Prescriptions Prescriptions: New aspirin 81 mg Tablet,Delayed Release (Dr/Ec) 162 mg PO BID Qty: 42 RF: 0 docusate sodium [DOK] 100 mg Capsule 100 mg PO BID Qty: 30 RF: 0 oxycodone 5 mg Tablet 5 mg PO Q4HR Qty: 42 RF: 0 doxycycline hyclate 100 mg capsule 100 mg PO BID Qty: 30 RF: 0 Continued losartan 100 mg Tablet 100 mg PO DAILY RF: 0 pioglitazone [Actos] 15 mg Tablet 15 mg PO BID RF: 0 amlodipine 5 mg Tablet 5 mg PO BID RF: 0 Humalog U-100 Insulin 100 unit/mL Cartridge 20 unit SUBCUT TID RF: 0 Lantus Solostar U-100 Insulin 100 unit/mL (3 mL) Insulin Pen 65 unit SUBCUT BID RF: 0 acetaminophen 325 mg Tablet 975 mg PO TID Qty: 40 RF: 0 Discontinued aspirin [Aspir-81] 81 mg Tablet,Delayed Release (Dr/Ec) 81 mg PO DAILY RF: 0 Follow up/Referrals: Shanae Hurd MD [Physician] - Discharge Orders: Discharge (Order); Ordered 04/10/19 Ordered By: Shanae Hurd Provider Discharge Instructions Diet: Carb-consistent/Diabetic Activity: NWB RLE, elevate above heart level. vac changes with [place] wound care Cold/Heat Therapy: ice okay. keep incisions dry Skin/Wound/Dressing Care Report to your healthcare provider any signs of infection, such as:: chills, fever, night sweats, increased pain, unusual drainage and unusual redness Dressing: keep incisions dry/clean. vac changes with wound care Discharge Data Primary Care Provider: Neil Bui Attending Provider: Shaane Hurd Quality VTE Deep Vein Thrombosis/Pulmonary Embolism Present on Admission: No
--- NOTE | 2019-04-10 16:45 | PC.NURSE ---
Discharge Note- Patient discharged home per . Discharge instructions and education reviewed with patient and signed. Patients belongings packed up and room rechecked. Patient left via wheelchair to private car with daughter.
== END 2019-04-10 16:35 | disposition home or self-care (01) ==
LOC: OR 05:50 → AC 05:53
PROVIDERS: PCP Family Medicine; Visit Provider Orthopaedic Surgery Foot and Ankle Surgery
PROC: (CPT 28715; principal; 2019-04-09 07:45)
PROC: (CPT 27691; 2019-04-09 07:45)
PROC: (CPT 27685; 2019-04-09 07:45)
DX: Q66.01 Congenital talipes equinovarus, right foot (principal); L97.519 Non-pressure chronic ulcer of other part of right foot with unspecified severity; E11.621 Type 2 diabetes mellitus with foot ulcer; M19.071 Primary osteoarthritis, right ankle and foot; Z79.4 Long term (current) use of insulin
CPT/HCPCS: 28715; 11042; 27685; 20902; 28300; 36415; 73630; 76000; 80048; 80069; 82962; 85027; 94760; 97162; J1170; J2405; J2704; J3010

== ENCOUNTER 2020-12-15 14:45 | Inpatient (IN) | payer OTHER, SELFPAY ==
[2019-04-09 16:00] VITALS: BMI 28.5
[2020-12-15] VITALS (13 sets, daily range): BP systolic 105–165; BP diastolic 52–83; PULSE 92–114; RESP 14–21; TEMP 36.8–38.4; O2SAT 93–99; BMI 28.2
[2020-12-15 15:57] LABS: Add Manual Diff / Slide Review NO; Basophils Absolute Auto 0 /uL (0-100); Basophils Percent Auto 0.4 % (0-2); Eosinophils Absolute Auto 0 /uL (0-450); Eosinophils Percent Auto 0.2 % (2-4); Hematocrit 37.2 % (41-53); Hemoglobin 12.5 g/dL (13.5-17.5); Lymphocytes Absolute Auto 600 /uL (1100-4500); Lymphocytes Percent Auto 4.8 % (25-40); Mean Corpuscular HGB Conc 33.7 % (30-36); Mean Corpuscular Hemoglobin 29.1 PG (26-34); Mean Corpuscular Volume 86.2 fL (80-100); Monocytes Absolute Auto 900 /uL (0-900); Monocytes Percent Auto 6.8 % (3-14); Neutrophils Absolute Auto 11300 /uL (1500-7000); Neutrophils Percent Auto 87.8 % (50-75); Platelet Count 240 X10^3/uL (150-400); Red Blood Cell Count 4.32 X10^6/uL (4.5-5.9); Red Cell Distribution Width 14.4 % (11.6-14.8); White Blood Cell Count 12.9 X10^3/uL (4.5-11.0)
[2020-12-15 16:10] LABS: COVID19 -Nasal RAPID Negative (Negative)
[2020-12-15] MEDS: LACTATED RINGERS 1,000 ML 42 ML IV (16:11)
[2020-12-15 16:19] LABS: Alanine Aminotransferase 52 IU/L (<50); Albumin 4.1 g/dL (3.5-5.0); Albumin Globulin Ratio 1.1 (1.0-2.8); Alkaline Phosphatase 242 U/L (38-126); Aspartate Aminotransferase 40 IU/L (17-59); BUN Creatinine Ratio 16.5 (6-22); Bilirubin Total 0.9 mg/dL (0.2-1.3); Blood Urea Nitrogen 27 mg/dL (9-20); Carbon Dioxide 28 mmol/L (22-32); Chloride 102 mmol/L (98-107); Erythrocyte Sedimentation Rate 77 MM/HR (0-15); Estimated Glomerular Filt Rate 42.8 mL/min (>60); Globulin 3.8 g/dL (1.7-4.1); Glucose 134 mg/dL (80-110); HEMOLYSIS < 15 (0-50); Potassium 4.2 mmol/L (3.4-5.1); Sodium 137 mmol/L (137-145); Total Protein 7.9 g/dL (6.3-8.2)
[2020-12-15 16:31] LABS: C-Reactive Protein Quant 17.3 mg/dL (<1.0)
[2020-12-15] MEDS: METOCLOPRAMIDE 10 MG/2 ML INJ IV (16:37)
--- NOTE | 2020-12-15 17:12 | PM.PREOP ---
Pre-operative Note COVID-19 COVID-19 status: Negative Interval Note History & Physical reviewed/Exam performed by Physician: Yes Changes to H&P: No
[2020-12-15] MEDS: VANCOMYCIN 1,000 MG/200 ML PIGGYBACK 200 MG IV (18:20)
--- NOTE | 2020-12-15 18:25 | SUR.OPER ---
Supine on padded OR bed, head on pillow, arms secured on padded arm boards at <90 degrees abduction, legs uncrossed, safety belt at thigh, tape over blanket over right lower leg Left leg under control of surgeon.
--- NOTE | 2020-12-15 19:03 | PM.PNPO.1 ---
Subjective Subjective Date Patient Seen: 12/15/20 Time Patient Seen: 19:07 Interval history: Postop day 1 status post left foot diabetic ulcer a debridement. The ulcer was debrided this did go down to bone bone samples were taken. No large abscess was seen but there was necrotic subcutaneous tissue down to the level of bone lateral the foot. Wound was placed. Will be admitted to the hospital. He will be placed on empiric antibiotics with vancomycin and cefepime. These will be tailored based on his intraoperative cultures and plan will be discharged with PICC line and home antibiotics and then he will also have wound care. He has previous had wound care at [facility] did well with them before. Plan would be vac dressing changes 2-3 times per week with [facility]. Wound size roughly 4 x 4 x 1 cm. Will have Internal Medicine consult while in the hospital for diabetic control. Hemoglobin A1c was drawn 3 weeks ago was 9.9 this is higher than he has been in the previous years. Diabetic control will be important for wound healing, infection control and optimization of healing potential. Once diabetes and infection under control will eventually plan on larger foot reconstruction to restore plantar grade foot and reduce the risk of recurrence ulceration. Continue wound VAC at -125 mmHg low continuous suction. Will plan wound VAC change on the floor Sunday. Exam Vital Signs (past 8 hours): - 12/15/20 15:51 12/15/20 16:18 Temperature 98.6 F 99.8 F H Pulse Rate 107 H Respiratory Rate 18 Blood Pressure 165/83 H Pulse Oximetry 99 Oxygen Delivery Method Room Air Objective Labs Result Diagrams: 12/15/20 15:55 12/15/20 15:55 Labs: Laboratory Results - last 24 hr 12/15/20 12/15/20 12/15/20 15:44 15:55 15:55 WBC 12.9 H RBC 4.32 L Hgb 12.5 L Hct 37.2 L MCV 86.2 MCH 29.1 MCHC 33.7 RDW 14.4 Plt Count 240 Neut % (Auto) 87.8 H Lymph % (Auto) 4.[address] [place] % (Auto) 6.8 Eos % (Auto) 0.2 L Baso % (Auto) 0.4 Neut # (Auto) 04826 H Lymph # (Auto) [address] [place] # (Auto) 900 Eos # (Auto) 0 Baso # (Auto) 0 ESR 77 H Sodium Potassium Chloride Carbon Dioxide BUN Creatinine Estimated GFR BUN/Creatinine Ratio Glucose Calcium Total Bilirubin AST ALT Alkaline Phosphatase C-Reactive Protein Total Protein Albumin Globulin Albumin/Globulin Ratio SARS-CoV-2 (PCR) Negative 12/15/20 15:55 WBC RBC Hgb Hct MCV MCH MCHC RDW Plt Count Neut % (Auto) Lymph % (Auto) [facility] [place] % (Auto) Eos % (Auto) Baso % (Auto) Neut # (Auto) Lymph # (Auto) [facility] [place] # (Auto) Eos # (Auto) Baso # (Auto) ESR Sodium 137 Potassium 4.2 Chloride 102 Carbon Dioxide 28 BUN 27 H Creatinine 1.64 H Estimated GFR 42.8 L BUN/Creatinine Ratio 16.5 Glucose 134 H Calcium 10.0 Total Bilirubin 0.9 AST 40 ALT 52 H Alkaline Phosphatase 242 H C-Reactive Protein 17.3 H Total Protein 7.9 Albumin 4.1 Globulin 3.8 Albumin/Globulin Ratio 1.1 SARS-CoV-2 (PCR) COUNT INCLUDES THE [facility] Medical History (Updated 07/01/20 @ 08:49 by [employer]) Asthma Chronic renal disease, stage III Diabetes Diabetic foot ulcer Diabetic retinopathy Dupuytren's contracture Dyslipidemia Erectile dysfunction Gastroparesis HTN (hypertension) Malignant neoplasm prostate Sinusitis Surgical History (Updated 03/27/19 @ 14:49 by Carlita Coombs RN) History of surgery (~02/2018) Status post incision and drainage (02/21/19) Social History household members: family Smoking Status: Former smoker alcohol intake: former Assessment & Plan Post-op Postoperative Procedures: Procedures Operation Date: 12/15/20 17:00 Actual Procedure Side Surgeon p I&D foot poss, wound vac Left Shanae Hurd MD
--- NOTE | 2020-12-15 19:12 | P.OP_ITS ---
Operative Date/Time/Diagnoses Date of procedure: 12/15/20 Time of procedure: 18:00 Pre-op diagnosis: Ulcer left foot type 2 diabetes e11.621. 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 Excision Debridement bone muscle and fascia 20 close sq cm or less left CPT code 12512 2. 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 Dense with a recurrence of an ulceration over the lateral border of his left foot this 1st occurred 2 days ago and was just a split. Is gone worse and he presents to me for it. No one else has seen him since it happened. He is not on any antibiotics. He did see his primary care doctor 3 weeks ago and his hemoglobin A1c was 9.9 which is worsened he has been in the past. Lantus 65 twice a day and 20 units of insulin with meals. No fever and clinic today but states he has been up around 100? and has some neck pain which he thinks occurs when he has an infection. He was found to have a necrotic ulceration approximately 2 x 2 cm at the lateral border of the foot at the proximal area of the previously healed incision. There is some cellulitis just proximally to this nothing tracking passed the ankle. There was malodor present but no gross purulence. But clear necrotic subcutaneous tissue. He was indicated for admission to the hospital operative debridement wound VAC placement and IV antibiotics. The risks and benefits of the procedure have been discussed with the patient even opportunity to ask questions. The risks of surgery include but are not limited to infection, malunion, nonunion, persistence of pain, damage to nerves and blood vessels, posttraumatic arthritis, DVT, PE, cardiopulmonary complications and . The patient expressed a thorough understanding of the risks and benefits of surgery and has elected to proceed. Consent was signed in the office today. Surgeon: Shanae Hurd Click Yes if Unassisted: Yes Anesthesia Type: General Operative Notes Findings: Necrotic ulceration lateral border left foot necrotic tissue extends deep to the level of bone no deep abscess found. Necrotic area excised back to viable wound margins with a new wound approximately 4 x 4 x 1 cm. Ulceration and bone samples taken and sent for microbiology. Wound thoroughly irrigated and wound VAC placed. Closure Type: not applicable Specimen(s): other (Bone and soft tissue, ulceration sent for microbiology.) Estimated Blood Loss (mL): 10 Blood products transfused: none Tourniquet time (min): 7 Procedure in detail: Patient was seen in the preoperative area the site of surgery was marked and informed consent confirmed he was brought back to the operating room by the anesthesia team positioned supine on the operative table. General anesthetic was administered. All bony problems well padded. Well- padded thigh tourniquet was placed. An ipsilateral thigh bump was placed. The left lower extremity was draped in the standard sterile fashion. A formal time-out procedure was performed confirming the patient's side and site of surgery and presence of informed consent. Antibiotics were held for cultures. Once cultures were taken 1 g of vancomycin was administered. Attention was turned to the left foot. [place] exsanguination was completed the tourniquet was elevated to 250 mmHg and stayed there for 7 minutes. An elliptical incision of the lateral foot ulceration was taken down through the skin subcutaneous tissues down to bone. This was excised and sent for microbiology. There was additional necrotic subcutaneous tissue at the inferior margin of the wound this was separately debrided and removed. There was bone at the base of the ulceration. No gross abscess pockets were found or tracks. Rongeur was used to remove bone for microbiology. At this 0.6 L of saline was used to irrigate the wound. Following this gloves were changed. The tourniquet was released. Hemostasis was achieved. No further necrotic or nonviable tissue was identified. And the wound VAC dressing was placed with the black foam all within the wound. Border ring around the wound Mastisol was used followed by a border layer of dressing film then the sponge within the wound and then dressing film over this. The track pad was placed to suction-125 mmHg and an excellent seal was obtained. This was padded with ABD and gauze and an Arun wrap placed. The drapes removed. Anesthesia was terminated and and the patient was awoken from anesthesia and taken to the recovery room in good condition. There no immediate complications from this procedure. Complications: none Post-operative Condition: stable Disposition: PACU Plan for aftercare: Admission to the hospital for IV antibiotics. He has a wound VAC in place. Will wait for final microbiology and sent home with PICC line and tailored IV antibiotics x6 weeks. Will have Internal Medicine consult while in the hospital for optimization of diabetes for wound healing. Will have wound VAC changes every 2-3 days and coordinate with [facility] wound care for outp atient wound VAC. Lovenox DVT prophylaxis while in the hospital. Pharmacy dosing for cefepime and vancomycin.
--- NOTE | 2020-12-15 19:38 | SUR.PHASEI ---
Pt transferred to room 204 with belongings bag and crutches. Upper dentures in and glasses on. Received in room by MOHINI Lucia. LOGAN. Kiley remains D/I with wound vac on.
[2020-12-15 20:34] LABS: Hemoglobin A1C% w Est Avg Glu 9.6 % (4.0-6.0)
[2020-12-15] MEDS: SODIUM CHLORIDE 0.9% 1,000 ML 100 ML IV (20:35)
[2020-12-15] MEDS: CEFEPIME 2 GM in SODIUM CHLORIDE 0.9% 100 ML 200 ML IV (20:43)
[2020-12-15 21:12] LABS: Albumin 3.5 g/dL (3.5-5.0); BUN Creatinine Ratio 15.9 (6-22); Blood Urea Nitrogen 28 mg/dL (9-20); Carbon Dioxide 25 mmol/L (22-32); Chloride 104 mmol/L (98-107); Estimated Glomerular Filt Rate 39.4 mL/min (>60); Glucose 115 mg/dL (80-110); HEMOLYSIS < 15 (0-50); Phosphorous 3.7 mg/dL (2.3-3.7); Potassium 4.1 mmol/L (3.4-5.1); Sodium 136 mmol/L (137-145)
--- NOTE | 2020-12-15 21:15 | PC.ADMIT ---
[address] Admission Note: The patient,Baldomero Gomes,60 y/o, was given written information regarding hospital policies, unit procedures and contact persons. Patient's smoking status: Former smoker. Vital Signs - 8 hr 12/15/20 15:51 12/15/20 16:18 12/15/20 18:52 Temperature 98.6 F 99.8 F H 101.2 F H Pulse Rate 107 H 114 H Respiratory Rate 18 14 Blood Pressure 165/83 H 105/52 L Pulse Oximetry 99 96 12/15/20 18:57 12/15/20 19:02 12/15/20 19:08 Temperature 99.9 F H Pulse Rate 112 H 111 H 109 H Respiratory Rate 18 21 20 Blood Pressure 119/60 135/66 146/66 H Pulse Oximetry 95 96 96 12/15/20 19:18 12/15/20 19:27 12/15/20 19:30 Temperature 98.2 F Pulse Rate 109 H 106 H Respiratory Rate 16 18 20 Blood Pressure 143/66 H 138/68 Pulse Oximetry 97 95 12/15/20 20:00 12/15/20 20:30 Temperature Pulse Rate 104 H 102 H Respiratory Rate Blood Pressure 137/60 138/62 Pulse Oximetry 93 95 Pt arrived to floor from PACU @ 1930. Alert/oriented. Lungs clear, SpO2 98% RA IVF infusing as per orders via pump w/o incidence. Left foot dsg CDI. Wound vac intact/patent. Pt denies discomfort to foot due to neuropathy. Pt oriented to room & call system. Call light w/in reach, bed alarm on for pt safety. Contiue w/plan of care.
--- NOTE | 2020-12-15 21:58 | P.CONS_ITS ---
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 Dense with a recurrence of an ulceration over the lateral border of his left foot this 1st occurred 2 days ago and was just a split. Is gone worse and he presents to me for it. No one else has seen him since it happened. He is not on any antibiotics. He did see his primary care doctor 3 weeks ago and his hemoglobin A1c was 9.9 which is worsened he has been in the past. Lantus 65 twice a day and 20 units of insulin with meals. No fever and clinic today but states he has been up around 100? and has some neck pain which he thinks occurs when he has an infection. He was found to have a necrotic ulceration approximately 2 x 2 cm at the lateral border of the foot at the proximal area of the previously healed incision. There is some cellulitis just proximally to this nothing tracking passed the ankle. There was malodor present but no gross purulence. But clear necrotic subcutaneous tissue. He was indicated for admission to the hospital operative debridement wound VAC placement and IV antibiotics. The risks and benefits of the procedure have been discussed with the patient even opportunity to ask questions. The risks of surgery include but are not limited to infection, malunion, nonunion, persistence of pain, damage to nerves and blood vessels, posttraumatic arthritis, DVT, PE, cardiopulmonary complications and . The patient expressed a thorough understanding of the risks and benefits of surgery and has elected to proceed. Consent was signed in the office today. Patient underwent debridement and placement of a wound vac on the lateral aspect of his left foot. We are being requested to manage his diabetes as his A1c was 9.9 provided by his PCP approximately one month ago. Today it is 9.6%. He initially presented due to fever and chills, denied sweats, shortness of breath, chest pain, n/v, abdominal pain, dysurea, diarrhea or constipation. He states is unable to feel either of his feet and has had toe amputations on the left foot and ulcer debridements on his right foot. 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 Today, 12/15 he underwent debridement and he was recovering in bed when I want in to see him. Meds Home Medications and Allergies Home Medications Medication Instructions Recorded Confirmed Type losartan 100 mg tablet 100 mg PO DAILY 02/19/19 12/15/20 History pioglitazone 15 mg tablet (Actos) 15 mg PO BID 02/19/19 12/15/20 History amlodipine 5 mg tablet 5 mg PO DAILY 02/20/19 12/15/20 History insulin glargine 100 unit/mL (3 65 unit SUBCUT BID 02/20/19 12/15/20 History mL) subcutaneous pen (Lantus Solostar U-100 Insulin) insulin lispro 100 unit/mL 20 unit SUBCUT TID 02/20/19 12/15/20 History subcutaneous cartridge (Humalog U-100 Insulin) oxycodone 5 mg tablet 5 mg PO Q4HR #42 tab 04/10/19 12/15/20 Rx aspirin 81 mg tablet,delayed 81 mg PO DAILY 12/15/20 12/15/20 History release Allergies Allergy/AdvReac Type Severity Reaction Status Date / Time No Known Drug Allergies Allergy Verified 12/15/20 15:46 Review of Systems Review of Systems ROS: Yes All systems reviewed with the patient and are negative except as otherwise documented Exam Vital Signs (past 8 hours): - 12/15/20 15:51 12/15/20 16:18 12/15/20 18:52 Temperature 98.6 F 99.8 F H 101.2 F H Pulse Rate 107 H 114 H Respiratory Rate 18 14 Blood Pressure 165/83 H 105/52 L Pulse Oximetry 99 96 12/15/20 18:57 12/15/20 19:02 12/15/20 19:08 Temperature 99.9 F H Pulse Rate 112 H 111 H 109 H Respiratory Rate 18 20 Blood Pressure 119/60 135/66 146/66 H Pulse Oximetry 95 96 96 12/15/20 19:18 12/15/20 19:27 12/15/20 19:30 Temperature 98.2 F Pulse Rate 109 H 106 H Respiratory Rate 16 18 20 Blood Pressure 143/66 H 138/68 Pulse Oximetry 97 95 12/15/20 20:00 12/15/20 20:30 Temperature Pulse Rate 104 H 102 H Respiratory Rate Blood Pressure 137/60 138/62 Pulse Oximetry 93 95 Oxygen Delivery Method Room Air Oxygen Flow Rate 0 Narrative Exam Narrative: Gen: Alert, oriented, well-developed 60 y.o. male, recovering in bed HEENT: normocephalic, atraumatic, conjunctiva clear, sclera non-icteric, oral mucosa pink and moist Neck: supple, full ROM, no JVD, trachea is midline Resp: Lungs CTA, non-labored breathing CV: RRR, no murmur or rubs Abd: soft, non-tender, normoactive BTs Skin: no lesions or rashes, dry and intact Neuro: Alert and oriented X 4 w/no focal deficits. Speech clear and coherent. Extremities: Has a wound vac on the lateral aspect of his left foot. Areas of black appearing escar and necrotic tissue on toes of both feet , negative Rae?s sign Psyche: normal mood and affect. Objective Labs Result Diagrams: 12/15/20 15:55 12/15/20 20:56 Labs: Laboratory Results - last 24 hr 12/15/20 12/15/20 12/15/20 15:44 15:55 15:55 WBC 12.9 H RBC 4.32 L Hgb 12.5 L Hct 37.2 L MCV 86.2 MCH 29.1 MCHC 33.7 RDW 14.4 Plt Count 240 Neut % (Auto) 87.8 H Lymph % (Auto) 4.8 L [place] % (Auto) 6.8 Eos % (Auto) 0.2 L Baso % (Auto) 0.4 Neut # (Auto) 57437 H Lymph # (Auto) 600 L [place] # (Auto) 900 Eos # (Auto) 0 Baso # (Auto) 0 ESR 77 H Sodium Potassium Chloride Carbon Dioxide BUN Creatinine Estimated GFR BUN/Creatinine Ratio Glucose Hemoglobin A1c Calcium Phosphorus Total Bilirubin AST ALT Alkaline Phosphatase C-Reactive Protein Total Protein Albumin Globulin Albumin/Globulin Ratio SARS-CoV-2 (PCR) Negative 12/15/20 12/15/20 12/15/20 15:55 15:55 20:56 WBC RBC Hgb Hct MCV MCH MCHC RDW Plt Count Neut % (Auto) Lymph % (Auto) [place] % (Auto) Eos % (Auto) Baso % (Auto) Neut # (Auto) Lymph # (Auto) [place] # (Auto) Eos # (Auto) Baso # (Auto) ESR Sodium 137 136 L Potassium 4.2 4.1 Chloride 102 104 Carbon Dioxide 28 25 BUN 27 H 28 H Creatinine 1.64 H 1.76 H Estimated GFR 42.8 L 39.4 L BUN/Creatinine Ratio 16.5 15.9 Glucose 134 H 115 H Hemoglobin A1c 9.6 H Calcium 10.0 9.0 Phosphorus 3.7 Total Bilirubin 0.9 AST 40 ALT 52 H Alkaline Phosphatase 242 H C-Reactive Protein 17.3 H Total Protein 7.9 Albumin 4.1 3.5 Globulin 3.8 Albumin/Globulin Ratio 1.1 SARS-CoV-2 (PCR) Assessment & Plan Assessment & Plan narrative: Baldomero Gomes is admitted to the service of Dr. Hurd, Orthpedic Surgeon for management of his diabetes. 1. Diabetes type 2, chronic and poorly controlled, present on admission with an A1c of 9.4 * He will have glucose checs ACHS * Lantus basal home dose of 65 units bid * Pradial insulin at 20 units tid w/meals * Low dose correctional insulin, continue home dose of pioglitizone * Carb controlled diet 2. Acute on chronic kidney injury, with a creatinine of 1.76 and an eGFR of 39.4 * Last normal creatinine was 02/13 * Currenly his creatinine is close to his baseline * Continue fluids NS at 100 ml/hour VTE prophylaxis: Enoxaparin 40 mg subQ daily ordered by Orthopedics Code Status: Full code as discussed with patient who lists Mariama Gomes as his surrogate and POA COVID-19 COVID-19 status: Negative Result date/Date tested (Pos, Neg/Pending): 12/15/20
[2020-12-16] VITALS (8 sets, daily range): BP systolic 129–149; BP diastolic 51–68; PULSE 78–95; RESP 16–20; TEMP 36.1–36.6; O2SAT 97–100
--- NOTE | 2020-12-16 00:09 | PC.NURSE ---
Addendum entered by Jess Spann R.N. 12/16/20 00:27: Noted wound culture gm stain results showing gm + cocci so placed patient on contact isolation precautions. Original Note: Patient is alert and oriented. Breath sounds CTA with RA sat of 99%. HRR. BP elevated at 140/66 consistent with other post op readings. Denies nausea. BT present but denies having passed flatus as yet. Has not voided since return from surgery and denies any bladder pressure or sensation to urinate at this time. Is able to move himself in bed. Has not yet been out of bed but is aware he will be NWB on left foot and has crutches that he has been using so expresses no concern about discharging. Chronic neuropathy in bilateral LE from mid calf to toe. Is able to move toes of both feet but has no sensation; left foot pedal pulse is weak. Dressing/jarrell wrap to left foot CDI; wound vac intact to 125mmHg. Denies pain. Wearing bilateral calf SCD's. Fall risk score is high and bed alarm is activated.
[2020-12-16] MEDS: VANCOMYCIN 1,500 MG/300 ML PIGGYBACK 200 MG IV (05:48)
[2020-12-16 07:42] LABS: Hematocrit 30.6 % (41-53); Hemoglobin 10.4 g/dL (13.5-17.5); Mean Corpuscular HGB Conc 33.9 % (30-36); Mean Corpuscular Hemoglobin 29.3 PG (26-34); Mean Corpuscular Volume 86.5 fL (80-100); Platelet Count 201 X10^3/uL (150-400); Red Blood Cell Count 3.54 X10^6/uL (4.5-5.9); Red Cell Distribution Width 14.5 % (11.6-14.8); White Blood Cell Count 8.9 X10^3/uL (4.5-11.0)
--- NOTE | 2020-12-16 07:51 | P.PN_ITS ---
Subjective Subjective Date Patient Seen: 12/16/20 Time Patient Seen: 07:51 Interval history: Patient states he is doing well overall and is in no discomfort at rest. At this time patient denies fever, chills, nausea, chest pain, shortness of breath, or urinary retention. He reports no sensation to light touch in the bilateral lower extremities beginning at the mid leg extending distally to the foot. Exam Vital Signs (past 8 hours): - 12/16/20 04:00 Temperature 97.9 F Pulse Rate 95 H Respiratory Rate 18 Blood Pressure 134/66 Pulse Oximetry 98 Oxygen Delivery Method Room Air Oxygen Flow Rate 0 Narrative Exam Narrative: 60-year-old male postop day 1. Patient is resting comfortably in bed, is in no acute distress, is alert and oriented x3. Skin is warm, dry, and pink. Decreased sensation to light touch appreciated throughout the bilateral thighs extending distally to the proximal half of the legs bilaterally. No sensation to light touch appreciated at the distal half of the legs bilaterally extending distally to the feet. DP pulses palpated bilaterally and are even. Calves are soft and nontender, negative Homans sign. No other signs of DVT appreciated. Const General: cooperative, healthy appearing and comfortable Resp Effort & Inspection: normal respiratory effort and able to speak in complete sentences Skin General: no rashes or lesions noted Objective Labs Result Diagrams: 12/16/20 06:23 12/15/20 20:56 Labs: Laboratory Results - last 24 hr 12/15/20 12/15/20 12/15/20 15:44 15:55 15:55 WBC 12.9 H RBC 4.32 L Hgb 12.5 L Hct 37.2 L MCV 86.2 MCH 29.1 MCHC 33.7 RDW 14.4 Plt Count 240 Neut % (Auto) 87.8 H Lymph % (Auto) 4.8 L [place] % (Auto) 6.8 Eos % (Auto) 0.2 L Baso % (Auto) 0.4 Neut # (Auto) 90437 H Lymph # (Auto) 600 L [place] # (Auto) 900 Eos # (Auto) 0 Baso # (Auto) 0 ESR 77 H Sodium Potassium Chloride Carbon Dioxide BUN Creatinine Estimated GFR BUN/Creatinine Ratio Glucose Hemoglobin A1c Calcium Phosphorus Total Bilirubin AST ALT Alkaline Phosphatase C-Reactive Protein Total Protein Albumin Globulin Albumin/Globulin Ratio SARS-CoV-2 (PCR) Negative 12/15/20 12/15/20 12/15/20 15:55 15:55 20:56 WBC RBC Hgb Hct MCV MCH MCHC RDW Plt Count Neut % (Auto) Lymph % (Auto) [place] % (Auto) Eos % (Auto) Baso % (Auto) Neut # (Auto) Lymph # (Auto) [place] # (Auto) Eos # (Auto) Baso # (Auto) ESR Sodium 137 136 L Potassium 4.2 4.1 Chloride 102 104 Carbon Dioxide 28 25 BUN 27 H 28 H Creatinine 1.64 H 1.76 H Estimated GFR 42.8 L 39.4 L BUN/Creatinine Ratio 16.5 15.9 Glucose 134 H 115 H Hemoglobin A1c 9.6 H Calcium 10.0 9.0 Phosphorus 3.7 Total Bilirubin 0.9 AST 40 ALT 52 H Alkaline Phosphatase 242 H C-Reactive Protein 17.3 H Total Protein 7.9 Albumin 4.1 3.5 Globulin 3.8 Albumin/Globulin Ratio 1.1 SARS-CoV-2 (PCR) 12/16/20 06:23 WBC 8.9 RBC 3.54 L Hgb 10.4 L Hct 30.6 L MCV 86.5 MCH 29.3 MCHC 33.9 RDW 14.5 Plt Count 201 Neut % (Auto) Lymph % (Auto) [place] % (Auto) Eos % (Auto) Baso % (Auto) Neut # (Auto) Lymph # (Auto) [place] # (Auto) Eos # (Auto) Baso # (Auto) ESR Sodium Potassium Chloride Carbon Dioxide BUN Creatinine Estimated GFR BUN/Creatinine Ratio Glucose Hemoglobin A1c Calcium Phosphorus Total Bilirubin AST ALT Alkaline Phosphatase C-Reactive Protein Total Protein Albumin Globulin Albumin/Globulin Ratio SARS-CoV-2 (PCR) [facility] Medical History Asthma Chronic renal disease, stage III Diabetes Diabetic foot ulcer Diabetic retinopathy Dupuytren's contracture Dyslipidemia Erectile dysfunction Gastroparesis HTN (hypertension) Malignant neoplasm prostate Sinusitis Surgical History History of surgery (~02/2018) Status post incision and drainage (02/21/19) Family History Mother CVA (cerebral vascular accident) Father Myocardial infarction Other Diabetes mellitus Social History household members: family and children Smoking Status: Former smoker (Quit at age 38) alcohol intake: former (Quit age 38) Assessment & Plan Post-op Postoperative Procedures: Procedures Operation Date: 12/15/20 17:00 Actual Procedure Side Surgeon p I&D foot poss, wound vac Left Shanae Hurd MD Postoperative day: 1 Postoperative status: doing well Postoperative plan: ambulate Postoperative plan narrative: Patient is to remain nonweightbearing on the left lower extremity. He is to ambulate with the assistance of crutches with physical therapy. Current pain management regimen is to be continued as it is adequately controlled the patient's pain level. We will continue to monitor the patient with physical therapy to assess his mobility. Quality VTE Deep Vein Thrombosis/Pulmonary Embolism Present on Admission: No
[2020-12-16] MEDS: SODIUM CHLORIDE 0.9% 1,000 ML 100 ML IV ×2 (08:38→21:14)
[2020-12-16] MEDS: AMLODIPINE 5 MG TABLET PO (08:38)
[2020-12-16] MEDS: LOSARTAN 50 MG TABLET 100 MG PO (08:38)
[2020-12-16] MEDS: DOCUSATE 100 MG CAPSULE PO (08:39)
[2020-12-16] MEDS: ACETAMINOPHEN 325 MG TABLET 975 MG PO ×2 (08:39→15:01)
[2020-12-16] MEDS: ASPIRIN EC 81 MG TABLET PO (08:39)
[2020-12-16] MEDS: CEFEPIME 2 GM in SODIUM CHLORIDE 0.9% 100 ML 200 ML IV ×2 (08:39→19:22)
[2020-12-16] MEDS: ENOXAPARIN 40 MG/0.4 ML SYRINGE SUBCUT (08:42)
[2020-12-16] MEDS: PIOGLITAZONE 15 MG TABLET PO ×2 (08:44→21:26)
[2020-12-16] MEDS: INSULIN GLARGINE 100 UNIT/ML 3ML PEN 65 UNIT SUBCUT (08:45)
--- NOTE | 2020-12-16 09:51 | DI.RAD.S_ITS ---
PROCEDURE: XR CHEST FOR PICC 1V INDICATIONS: verify PICC placement TECHNIQUE: One view of the chest was acquired. COMPARISON: [facility], , XR CHEST FOR PICC 1V, 02/25/2019, 13:57. FINDINGS: Surgical changes and devices: Left-sided PICC line with the catheter tip projecting over the lower 3rd of the SVC. Lungs and pleura: Lungs appear clear. Left apex is outside the field of view. Low lung volumes. No pleural effusions or pneumothorax. Mediastinum: Mediastinal contours appear normal. Heart size is within normal limits. Bones and chest wall: No suspicious bony lesions. Overlying soft tissues appear unremarkable. IMPRESSION: Left-sided PICC line with the catheter tip projecting over the lower 3rd of the SVC. Dictated by: Cholo Ingram M.D. on 12/16/2020 at 10:12 Approved by: Cholo Ingram M.D. on 12/16/2020 at 10:15
--- NOTE | 2020-12-16 11:10 | PT.IIE ---
Current Diagnoses Type 2 diabetes mellitus with foot ulcer (12/15/20) Type 2 diabetes mellitus without complications (12/15/20) Non-pressure chronic ulcer of other part of unspecified foot with unspecified severity (12/15/20) Surgery Performed Operation Date: 12/15/20 17:00 Actual Procedures p I&D foot poss, wound vac(Left) - Shanae Hurd MD Medical History (Last Reviewed 12/16/20 @ 07:54 by Kvng Champagne PA-C) Asthma Chronic renal disease, stage III Diabetes Diabetic foot ulcer Diabetic retinopathy Dupuytren's contracture Dyslipidemia Erectile dysfunction Gastroparesis HTN (hypertension) Malignant neoplasm prostate Sinusitis Physical Therapy Inpatient Evaluation/Re-Eval M1 PT/OT-IP Prior Functional Status Start: 12/16/20 12:22 Freq: NEEDED Status: Active Protocol: Document 12/16/20 11:10 AB (Rec: 12/16/20 12:36 AB [id number]) Medical Review Prior Functional Status Medical History Reviewed Yes Communication able to make needs known Mobility and Gait pt stated that he is independent with all mobilities and ambulation without AD; stated that he had several ankle/foot surgeries before but on the R and had used crutches mobility during that time Social History Household Members family,children Living Arrangements House Number of Floors (Floors) One Floor Number of Stairs To Enter/Railing? 3 steps B rails to enter the house Home Environment Standard Height Toilet,Walk in Shower Home Equipment Crutches,Shower Seat without Backrest,Grab Bars Near Toilet ,Grab Bars In Shower M2 PT-IP Current Condition Start: 12/16/20 12:22 Freq: NEEDED Status: Active Protocol: Document 12/16/20 11:10 AB (Rec: 12/16/20 12:36 AB [email or web address]) Physical Therapy Current Condition Current Condition Evaluation Date 12/16/20 Treatment Diagnosis L foot diabetic ulcer s/p excision debridement; difficulty in walking Onset Date 12/15/20 Precautions Other Precautions contact precautions Weight Bearing Status Weight Bearing Status Non-Weight Bearing Allowed Weight Bearing Amount (enter % LLE NWB or #) (%) M3 PT-IP Subjective Start: 12/16/20 12:22 Freq: NEEDED Status: Active Protocol: Document 12/16/20 11:10 AB (Rec: 12/16/20 12:36 AB [email or web address]) Subjective Physical Therapy Visit Type Type Initial Evaluation Visit Start Time 11:10 Visit Stop Time 11:30 Total Visit Minutes 20 Number of SOIL SCIENCE TEACHER Visits 0 Physical Therapy Visit Comments Patient Comments agreeable to do PT Therapy Pain Assessment Pain Present Pain Present Denied Pain M4 PT-IP Mobility and Gait Start: 12/16/20 12:22 Freq: NEEDED Status: Active Protocol: Document 12/16/20 11:10 AB (Rec: 12/16/20 12:36 AB [email or web address]) PT-Bed Mobility Assessment Supine to Sit Supine to Sit Standby Assistance Sit to Supine Sit to Supine Standby Assistance PT-Transfer Assessment Sit to and From Stand Sit to and from Stand Standby Assistance,1 Person Assistance,Use of Upper Extremities Equipment Transfer Assistive Device Gait Belt Orthotic/Prosthetic Devices or Brace: No Transfers Transfer Destination Bed,Chair Transfer Technique ambulated using crutches Transfer Ability Level of Assist Standby Assistance,Contact Guard Assistance,1 Person Assistance,Use of Upper Extremities Comments Mobility Comments pt sitting on chair. agreed to do PT. completed sit to stand SBA and ambulated ~ 15 ft using bilateral axillary crutches SBA to occasional CGA . presents with unsteady gait with slight LOB towards the L and posteriorly but with recovery. pt ambulated to the bed. completed sit <>supine SBA. pt ambulated back towards the chair using crutches SBA to CGA. positioned pt on chair. call light and table placed within reach. Gait Assessment Gait Gait Assistance Required: Standby Assistance,Contact Guard Assist Distance (Feet) 15 Able to Maintain Weight Bearing Status Yes During Gait Assistive Devices Assistive Device Gait Belt,Axillary Crutches Orthotic/Prosthetic Devices or Brace: No Gait Deviations General Gait Pattern Ataxic,Decreased Stride Length ,Decreased Feet Clearance Factors Limiting Gait Function Factors Limiting Gait Function Decreased Activity Tolerance, Decreased Sensation,Decreased Strength,Limited Range of Motion,Poor Balance,Poor Safety Awareness PT-Balance Assessment Sitting Balance and Reactions Static Sitting Balance Ability Normal Dynamic Sitting Balance Ability Normal Standing Balance and Reactions Static Standing Balance Ability Fair Dynamic Standing Balance Ability Fair Device Used crutches M5 PT-IP Objective Assessments Start: 12/16/20 12:22 Freq: NEEDED Status: Active Protocol: Document 12/16/20 11:10 AB (Rec: 12/16/20 12:36 AB [email or web address]) Orientation Orientation/Cognition Level of Alertness Alert Orientation Name,Age,Birthday,Month,Date, Year,Day of Week,Place, Situation Language Function Ability No Deficits Noted Safety Awareness Decreased Safety Awareness Memory Description No Deficits Noted Gross Range of Motion Lower Extremity ROM Assessment Within Functional Limits Strength Lower Extremity Strength Assessment Left Impaired Hip 4/5 Knee 3+/5 Ankle n/t Sensation Assessment Sensation Gross Sensation Right LE Impaired,Left LE Impaired Light Touch Impaired Proprioception (Position) Impaired Sensation Description Numbness Muscle Tone Muscle Tone WNL Yes M6 PT-IP Treatment Start: 12/16/20 12:22 Freq: NEEDED Status: Active Protocol: Document 12/16/20 11:10 AB (Rec: 12/16/20 12:36 AB [id number]) Physical Therapy Treatment Education Education Provided Safety M7 PT-IP Assessment and Plan Start: 12/16/20 12:22 Freq: NEEDED Status: Active Protocol: Document 12/16/20 11:10 AB (Rec: 12/16/20 12:36 AB [id number]) PT Summary Assessment and Plan Potential Rehabilitation Potential Good Status of Condition at Evaluation Evolving Summary Impairments Pain,ROM,Strength,Balance, Coordination,Sensation,Bed Mobility,Transfers,Gait, Activity Tolerance Assessment Summary pt requiring SBA to CGA with ambulation usign crutches. pt has bilateral LE numbness affecting standing balance and ambulation. pt plans to go home and his daughter will assist him at home and stated that his son can also assist him if needed. will continue to assess progress. Goals Bed Mobility Goal Independent Transfer Goal Independent,Crutches Gait Goal Independent,Crutches Gait Distance 150 Other Goals up/down 3 steps B rail SBA Days to Meet Goals 10 Frequency of Treatment Frequency Of Treatment Twice a Day Treatment Plan Physical Therapy Treatment Plan Bed Mobility Training,Transfer Training,Gait Training, Therapeutic Exercise,Balance Retraining,Post Op Education, Discharge Planning,Hot or Cold Pack,Neuromuscular Re-ed, Coordination Retraining,Manual Therapy Precautions Other Precautions contact precautions NWB LLE Recommendations To Nursing Amount of Assist Needed 1 Person Assist Discharge Recommendations PT Discharge Recommendations Home with Assistance,Home Health Transportation Needs at Discharge Private Vehicle,Wheelchair/ Cabulance
[2020-12-16] MEDS: INSULIN LISPRO 100 UNIT/ML 3ML VIAL SUBCUT ×2 (12:40→17:08)
[2020-12-16] MEDS: INSULIN LISPRO 100 UNIT/ML 3ML VIAL 20 UNIT SUBCUT ×2 (12:41→17:08)
--- NOTE | 2020-12-16 14:48 | PT.IPTN ---
Current Diagnoses Type 2 diabetes mellitus with foot ulcer (12/15/20) Type 2 diabetes mellitus without complications (12/15/20) Non-pressure chronic ulcer of other part of unspecified foot with unspecified severity (12/15/20) Surgery Performed Operation Date: 12/15/20 17:00 Actual Procedures p I&D foot poss, wound vac(Left) - Shanae Hurd MD Physical Therapy Treatment Note M2 PT-IP Current Condition Start: 12/16/20 12:22 Freq: NEEDED Status: Active Protocol: Document 12/16/20 11:10 AB (Rec: 12/16/20 12:36 AB [id number]) Physical Therapy Current Condition Current Condition Evaluation Date 12/16/20 Treatment Diagnosis L foot diabetic ulcer s/p excision debridement; difficulty in walking Onset Date 12/15/20 Precautions Other Precautions contact precautions Weight Bearing Status Weight Bearing Status Non-Weight Bearing Allowed Weight Bearing Amount (enter % LLE NWB or #) (%) M3 PT-IP Subjective Start: 12/16/20 12:22 Freq: NEEDED Status: Active Protocol: Document 12/16/20 14:31 CLB (Rec: 12/16/20 15:20 CLB [id number]) Subjective Physical Therapy Visit Type Type Treatment Note Visit Start Time 14:31 Visit Stop Time 14:48 Total Visit Minutes 17 Number of INCOMING FREIGHT CLERK Visits 1 Physical Therapy Visit Comments Patient Comments agreeable to do PT. Pt states he uses knee scooter at home and to get to doctor appts. Therapy Pain Assessment Pain Present Pain Present Denied Pain M4 PT-IP Mobility and Gait Start: 12/16/20 12:22 Freq: NEEDED Status: Active Protocol: Document 12/16/20 14:31 CLB (Rec: 12/16/20 15:20 CLB [id number]) PT-Transfer Assessment Sit to and From Stand Sit to and from Stand Standby Assistance,1 Person Assistance,Use of Upper Extremities Equipment Transfer Assistive Device Gait Belt Orthotic/Prosthetic Devices or Brace: No Transfers Transfer Destination Bed,Chair Transfer Technique ambulated using crutches Transfer Ability Level of Assist Standby Assistance,1 Person Assistance,Use of Upper Extremities Comments Mobility Comments Pt stood from chair SBA and ambulated in room SBA with occasianal posterior LOB but pt was able to self correct. INCOMING FREIGHT CLERK managing IV pole and wound machine. Pt states he uses knee scooter at home and will trial knee scooter at next treat. Gait Assessment Gait Gait Assistance Required: Standby Assistance,1 Person Assist Distance (Feet) 30 Able to Maintain Weight Bearing Status Yes During Gait Assistive Devices Assistive Device Gait Belt,Axillary Crutches Orthotic/Prosthetic Devices or Brace: No Gait Deviations General Gait Pattern Ataxic,Decreased Stride Length ,Decreased Feet Clearance Factors Limiting Gait Function Factors Limiting Gait Function Decreased Activity Tolerance, Decreased Sensation,Decreased Strength,Limited Range of Motion,Poor Balance,Poor Safety Awareness PT-Balance Assessment Sitting Balance and Reactions Static Sitting Balance Ability Normal Dynamic Sitting Balance Ability Normal Standing Balance and Reactions Static Standing Balance Ability Fair Dynamic Standing Balance Ability Fair Device Used crutches M5 PT-IP Objective Assessments Start: 12/16/20 12:22 Freq: NEEDED Status: Active Protocol: Document 12/16/20 11:10 AB (Rec: 12/16/20 12:36 AB [id number]) Orientation Orientation/Cognition Level of Alertness Alert Orientation Name,Age,Birthday,Month,Date, Year,Day of Week,Place, Situation Language Function Ability No Deficits Noted Safety Awareness Decreased Safety Awareness Memory Description No Deficits Noted Gross Range of Motion Lower Extremity ROM Assessment Within Functional Limits Strength Lower Extremity Strength Assessment Left Impaired Hip 4/5 Knee 3+/5 Ankle n/t Sensation Assessment Sensation Gross Sensation Right LE Impaired,Left LE Impaired Light Touch Impaired Proprioception (Position) Impaired Sensation Description Numbness Muscle Tone Muscle Tone WNL Yes M6 PT-IP Treatment Start: 12/16/20 12:22 Freq: NEEDED Status: Active Protocol: Document 12/16/20 11:10 AB (Rec: 12/16/20 12:36 AB [email or web address]) Physical Therapy Treatment Education Education Provided Safety M7 PT-IP Assessment and Plan Start: 12/16/20 12:22 Freq: NEEDED Status: Active Protocol: Document 12/16/20 14:31 CLB (Rec: 12/16/20 15:20 CLB [id number]) PT Summary Assessment and Plan Potential Rehabilitation Potential Good Status of Condition at Evaluation Evolving Summary Impairments Pain,ROM,Strength,Balance, Coordination,Sensation,Bed Mobility,Transfers,Gait, Activity Tolerance Assessment Summary Pt is SBA for all mobility is able to use crutches with some posterior LOB but pt able to self correct. Will trial knee scooter. Goals Bed Mobility Goal Independent Transfer Goal Independent,Crutches Gait Goal Independent,Crutches Gait Distance 150 Other Goals up/down 3 steps B rail SBA Days to Meet Goals 10 Frequency of Treatment Frequency Of Treatment Twice a Day Treatment Plan Physical Therapy Treatment Plan Bed Mobility Training,Transfer Training,Gait Training, Therapeutic Exercise,Balance Retraining,Post Op Education, Discharge Planning,Hot or Cold Pack,Neuromuscular Re-ed, Coordination Retraining,Manual Therapy Other Recommendations and Next Treatment trial knee scooter Focus Precautions Other Precautions contact precautions NWB LLE Recommendations To Nursing Amount of Assist Needed 1 Person Assist Discharge Recommendations PT Discharge Recommendations Home with Assistance,Home Health Transportation Needs at Discharge Private Vehicle,Wheelchair/ Cabulance
--- NOTE | 2020-12-16 15:22 | CM.IDA ---
Initial DCP Assessment Note Met w/patient and dtr Mariama at bedside this morning, introduced role. Patient can eloquently state needs, as can dtr Mariama, patient has type 2 Diabetes w/prior surgery on left foot for diabetic ulcer. Dtr Mariama lives w/patient and assists him w/numerous care needs inside and outside of the home Patient has h/o: [facility] for IV abx at home, goes into the wound care clinic at the [facility] for wound care needs, uses [facility] for wound vac needs ([facility]) Patient prefers these agencies upon DC from this admission Patient's plan is return home w/dtr to assist, outpatient f/u for wound care (not HH), [facility] for home infusion and [facility] for continued management of home wound vac. This COTTRELL BLOWER following closely for culture results and IV abx choice, will contact agencies above tomorrow to begin coordination efforts. PICC was placed today for ongoing IV abx JW
--- NOTE | 2020-12-16 17:55 | P.PN_ITS ---
Subjective Subjective Interval history: aNthan 60-year-old male with type 2 diabetes we are asked to assist with management of his blood sugars while here in the hospital. Patient was noted to have a glycohemoglobin of 9.9. 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 As such his blood sugars have been elevated. Patient is agreeable to dietary consultation to assist with meal management. Exam Vital Signs (past 8 hours): - 12/16/20 10:54 12/16/20 14:15 12/16/20 16:03 Temperature 98 F 97.0 F L Pulse Rate 88 78 80 Respiratory Rate 16 18 20 Blood Pressure 149/68 H 134/64 Pulse Oximetry 100 97 99 Oxygen Delivery Method Room Air Oxygen Flow Rate 0 Narrative Exam Narrative: Nathan gentleman in no acute distress Resp Other: Lungs: Clear to auscultation Cardio Other: Cardiac exam: Regular rate and rhythm normal S1-S2 with a 2/6 systolic ejection murmur GI Other: Abdomen: Soft and nontender Extrem Other: Extremities: Left lower extremity with dressing in place, wound VAC in place as well. Objective Labs Result Diagrams: 12/16/20 06:23 12/15/20 20:56 Labs: Laboratory Results - last 24 hr 12/15/20 12/15/20 12/16/20 15:55 20:56 06:23 WBC 8.9 RBC 3.54 L Hgb 10.4 L Hct 30.6 L MCV 86.5 MCH 29.3 MCHC 33.9 RDW 14.5 Plt Count 201 Sodium 136 L Potassium 4.1 Chloride 104 Carbon Dioxide 25 BUN 28 H Creatinine 1.76 H Estimated GFR 39.4 L BUN/Creatinine Ratio 15.9 Glucose 115 H Hemoglobin A1c 9.6 H Calcium 9.0 Phosphorus 3.7 Albumin 3.5 PFSH Medical History Asthma Chronic renal disease, stage III Diabetes Diabetic foot ulcer Diabetic retinopathy Dupuytren's contracture Dyslipidemia Erectile dysfunction Gastroparesis HTN (hypertension) Malignant neoplasm prostate Sinusitis Surgical History History of surgery (~02/2018) Status post incision and drainage (09/27/19) Family History Mother CVA (cerebral vascular accident) Father Myocardial infarction Other Diabetes mellitus Social History household members: family and children Smoking Status: Former smoker (Quit at age 38) alcohol intake: former (Quit age 38) Assessment & Plan Assessment & Plan narrative: 1. Type 2 diabetes, with suboptimal control -suggest continue his home regimen of 65 units twice daily plus his pre meal insulin of 20 units t.i.d. 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 Chronic kidney disease, likely related to his type 2 diabetes -currently on IV hydration, continue his Arb as prescribed 3. Status post excision and debridement of bone and muscle and fascia with pl acement of wound VAC -chronic diabetic foot ulcer, medics per Dr. Meyer I have utilized all available no immediate resources to obtain update or review the patient's current medications Quality VTE Deep Vein Thrombosis/Pulmonary Embolism Present on Admission: No
--- NOTE | 2020-12-17 01:30 | PC.NURSE ---
Patient is alert and oriented. Breath sounds CTA with RA sat of 97%. HRR. BP trends between 130-140 systolic with current BP of 143/68. Denies nausea. BT present and is passing flatus. Is voiding per urinal; denies dysuria, frequency or urgency. Is able to move himself in bed. Gait not assessed but reports he is up with crutches and SBA as is NWB on left foot. Dressing/jarrell to left foot is CDI; wound vac intact and to 125mmHg suction. Wearing bilateral calf SCD's. Chronic neuropathy bilateral LE so is feeling no pain. Fall risk score is high and bed alarm is activated. Remains on contact isolation until results of culture finalized.
[2020-12-17 04:00] VITALS: BP 158/70; PULSE 95; RESP 18; TEMP 36.6; O2SAT 95
[2020-12-17] MEDS: VANCOMYCIN 1,500 MG/300 ML PIGGYBACK 200 MG IV (05:59)
[2020-12-17 07:51] VITALS: BP 150/78; PULSE 88; RESP 16; TEMP 36.1; O2SAT 97
--- NOTE | 2020-12-17 08:32 | P.PN_ITS ---
Subjective Subjective Date Patient Seen: 12/17/20 Time Patient Seen: 08:32 Interval history: Patient states he is doing well overall and is in no discomfort rest. At this time the patient denies fever, chills, nausea, chest pain, shortness of breath, or urinary retention. Exam Vital Signs (past 8 hours): - 12/17/20 04:00 Temperature 97.8 F Pulse Rate 95 H Respiratory Rate 18 Blood Pressure 158/70 H Pulse Oximetry 95 Oxygen Delivery Method Room Air Oxygen Flow Rate 0 Narrative Exam Narrative: 60-year-old male postop day 2 status post excision and debridement of bone, muscle, and fascia 20 close sq cm or less left. Patient is resting comfortably in room chair, is in no acute distress, and is alert and oriented x3. Skin is warm, dry, and pink. Decreased sensation to light touch appreciated throughout the bilateral thighs extending distally to the proximal half of the legs bilaterally. No sensation to light touch appreciated at the distal half of the legs bilaterally extending distally to the feet, patient notes that this is baseline for him. PT pulses palpated bilaterally and are even. Calves are soft and nontender, negative Homans sign. No other signs of DVT appreciated. Const General: cooperative, healthy appearing and comfortable Resp Effort & Inspection: normal respiratory effort and able to speak in complete sentences Skin General: no rashes or lesions noted Objective Labs Result Diagrams: 12/16/20 06:23 12/15/20 20:56 [facility] Medical History Asthma Chronic renal disease, stage III Diabetes Diabetic foot ulcer Diabetic retinopathy Dupuytren's contracture Dyslipidemia Erectile dysfunction Gastroparesis HTN (hypertension) Malignant neoplasm prostate Sinusitis Surgical History History of surgery (~02/2018) Status post incision and drainage (02/21/19) Family History Mother CVA (cerebral vascular accident) Father Myocardial infarction Other Diabetes mellitus Social History household members: family and children Smoking Status: Former smoker (Quit at age 38) alcohol intake: former (Quit age 38) Assessment & Plan Post-op Postoperative Procedures: Procedures Operation Date: 12/15/20 17:00 Actual Procedure Side Surgeon p I&D foot poss, wound vac Left Shanae Hurd MD Postoperative day: 2 Postoperative status: doing well Postoperative plan narrative: Patient is to continue working on ambulation with the assistance of crutches with physical therapy. He is to remain non weight- bearing on the left lower extremity. Currently awaiting final culture results. At this time the anaerobic culture from the left foot specimen is still pending. Patient will be discharged with targeted antibiotic therapy for 6 weeks when culture results are final. Wound VAC will be changed today. Patient continuing on IV cefepime and vancomycin. Lovenox is being used for DVT prophylaxis. Quality VTE Deep Vein Thrombosis/Pulmonary Embolism Present on Admission: No
[2020-12-17] MEDS: PIOGLITAZONE 15 MG TABLET PO ×2 (09:06→20:34)
[2020-12-17 09:07] VITALS: BP 150/77
[2020-12-17] MEDS: LOSARTAN 50 MG TABLET 100 MG PO (09:07)
[2020-12-17] MEDS: ASPIRIN EC 81 MG TABLET PO (09:07)
[2020-12-17] MEDS: AMLODIPINE 5 MG TABLET PO (09:07)
[2020-12-17] MEDS: ENOXAPARIN 40 MG/0.4 ML SYRINGE SUBCUT (09:08)
[2020-12-17] MEDS: CEFEPIME 2 GM in SODIUM CHLORIDE 0.9% 100 ML 200 ML IV ×2 (09:09→20:34)
[2020-12-17] MEDS: INSULIN GLARGINE 100 UNIT/ML 3ML PEN 65 UNIT SUBCUT ×2 (09:10→20:34)
[2020-12-17] MEDS: INSULIN LISPRO 100 UNIT/ML 3ML VIAL 20 UNIT SUBCUT ×3 (09:15→17:34)
--- NOTE | 2020-12-17 11:01 | PT.IPTN ---
Current Diagnoses Type 2 diabetes mellitus with foot ulcer (12/15/20) Type 2 diabetes mellitus without complications (12/15/20) Non-pressure chronic ulcer of other part of unspecified foot with unspecified severity (12/15/20) Surgery Performed Operation Date: 12/15/20 17:00 Actual Procedures p I&D foot poss, wound vac(Left) - Shanae Hurd MD Physical Therapy Treatment Note M2 PT-IP Current Condition Start: 12/16/20 12:22 Freq: NEEDED Status: Active Protocol: Document 12/16/20 11:10 AB (Rec: 12/16/20 12:36 AB [id number]) Physical Therapy Current Condition Current Condition Evaluation Date 12/16/20 Treatment Diagnosis L foot diabetic ulcer s/p excision debridement; difficulty in walking Onset Date 12/15/20 Precautions Other Precautions contact precautions Weight Bearing Status Weight Bearing Status Non-Weight Bearing Allowed Weight Bearing Amount (enter % LLE NWB or #) (%) M3 PT-IP Subjective Start: 12/16/20 12:22 Freq: NEEDED Status: Active Protocol: Document 12/17/20 10:34 CLB (Rec: 12/17/20 12:22 CLB [id number]) Subjective Physical Therapy Visit Type Type Treatment Note Visit Start Time 10:34 Visit Stop Time 11:01 Total Visit Minutes 27 Number of DRESS OPERATOR Visits 2 Physical Therapy Visit Comments Patient Comments Pt agreeable to work with therapy. Therapy Pain Assessment Pain Present Pain Present Denied Pain M4 PT-IP Mobility and Gait Start: 12/16/20 12:22 Freq: NEEDED Status: Active Protocol: Document 12/17/20 10:34 CLB (Rec: 12/17/20 12:22 CLB [id number]) PT-Transfer Assessment Sit to and From Stand Sit to and from Stand Standby Assistance,1 Person Assistance,Use of Upper Extremities Equipment Transfer Assistive Device Gait Belt Orthotic/Prosthetic Devices or Brace: No Transfers Transfer Destination Bed,Chair Transfer Ability Level of Assist Standby Assistance,1 Person Assistance,Use of Upper Extremities Comments Mobility Comments Pt stood from chair SBA transferring to knee scooter. Pt able to ride knee scooter SBA with managment of would maching. Pt rode knee scooter ~100ft. Pt then transferred back to chair SBA, after rest break pt ambulated with crutches ~30ft SBA w/o posterior LOB. Pt returned to chair with feet reclined and all needs within reach. Gait Assessment Gait Gait Assistance Required: Standby Assistance,1 Person Assist Distance (Feet) 100 Able to Maintain Weight Bearing Status Yes During Gait Assistive Devices Assistive Device Gait Belt,Axillary Crutches Orthotic/Prosthetic Devices or Brace: No Gait Deviations General Gait Pattern Ataxic,Decreased Stride Length ,Decreased Feet Clearance Factors Limiting Gait Function Factors Limiting Gait Function Decreased Activity Tolerance, Decreased Sensation,Decreased Strength,Limited Range of Motion,Poor Balance Comments Gait Comments SEE mobility section. PT-Balance Assessment Sitting Balance and Reactions Static Sitting Balance Ability Normal Dynamic Sitting Balance Ability Normal Standing Balance and Reactions Static Standing Balance Ability Fair Dynamic Standing Balance Ability Fair Device Used crutches M5 PT-IP Objective Assessments Start: 12/16/20 12:22 Freq: NEEDED Status: Active Protocol: Document 12/16/20 11:10 AB (Rec: 12/16/20 12:36 AB [id number]) Orientation Orientation/Cognition Level of Alertness Alert Orientation Name,Age,Birthday,Month,Date, Year,Day of Week,Place, Situation Language Function Ability No Deficits Noted Safety Awareness Decreased Safety Awareness Memory Description No Deficits Noted Gross Range of Motion Lower Extremity ROM Assessment Within Functional Limits Strength Lower Extremity Strength Assessment Left Impaired Hip 4/5 Knee 3+/5 Ankle n/t Sensation Assessment Sensation Gross Sensation Right LE Impaired,Left LE Impaired Light Touch Impaired Proprioception (Position) Impaired Sensation Description Numbness Muscle Tone Muscle Tone WNL Yes M6 PT-IP Treatment Start: 12/16/20 12:22 Freq: NEEDED Status: Active Protocol: Document 12/16/20 11:10 AB (Rec: 12/16/20 12:36 AB [id number]) Physical Therapy Treatment Education Education Provided Safety M7 PT-IP Assessment and Plan Start: 12/16/20 12:22 Freq: NEEDED Status: Active Protocol: Document 12/17/20 10:34 CLB (Rec: 12/17/20 12:22 CLB [id number]) PT Summary Assessment and Plan Potential Rehabilitation Potential Good Status of Condition at Evaluation Evolving Summary Impairments Pain,ROM,Strength,Balance, Coordination,Sensation,Bed Mobility,Transfers,Gait, Activity Tolerance Assessment Summary Pt able to safely ride knee scooter which pt uses for long distances at home. Pt improving with gait with crutches without posterior LOB . Pt is SBA for all transfers and sit<>stand. Goals Bed Mobility Goal Independent Transfer Goal Independent,Crutches Gait Goal Independent,Crutches Gait Distance 150 Other Goals up/down 3 steps B rail SBA Days to Meet Goals 10 Frequency of Treatment Frequency Of Treatment Twice a Day Treatment Plan Physical Therapy Treatment Plan Bed Mobility Training,Transfer Training,Gait Training, Therapeutic Exercise,Balance Retraining,Post Op Education, Discharge Planning,Hot or Cold Pack,Neuromuscular Re-ed, Coordination Retraining,Manual Therapy Precautions Other Precautions contact precautions NWB LLE Recommendations To Nursing Amount of Assist Needed 1 Person Assist Discharge Recommendations PT Discharge Recommendations Home with Assistance,Home Health Transportation Needs at Discharge Private Vehicle
--- NOTE | 2020-12-17 12:54 | DIET.PN ---
Dietary Progress Note Assessment: 60y M admitted for infection in recent amputation site (5th and partial 4th ray amputation) secondary to uncontrolled DM. 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 Pt states clear barriers to good BG management: I don't eat in my tractor because I have no where to take a BM. Winter Usual Day: breakfast, lunch, and dinner at home while doing normal chores. Pt takes insulin as directed: Lantus 65U bid and 20U mealtime insulin. Usual Day: skips breakfast, lunch, and mealtime insulin drinks 3-4 bottles water while in tractor eats large dinner then goes right to bed to repeat same pattern the next day Pt has significant neuropathy of his feet and has hx of diabetic ulcers on other foot, long hx of being treated at on [facility]. HT: 187.9cm WT: 99.7kg BMI:28.2 Labs: A1c 9.6 H, CRP 17.3 H, alk phos 242 H, ALT 52 H, eGFR 39.4 L, Cr 1.76 H MNA: 14 Dany: 20 Nutrition Diagnosis: unhealing wounds r/t poorly managed DM aeb pt s/p resection of 5th ray and partial 4th ray c new infection requiring I&D, pt A1c 9.6, pt reports skipping meals and insulin in the summer, pt acknowledges barriers to good BG management. Interventions: 1. 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 Pt doesn't want to eat solid food secondary to not having facility for BM. Pt dislikes most ONS as has hx of multiple barium swallows, too close in flavor and texture. Pt has used ONS Alton in past but forgot about it. Pt enjoys the taste and feels he can mix in his current water bottle routine to support nutrient needs and DM management. 2. Recc ONS Alton while inpatient to support diabetic wound healing. Kitchen sending Alton bid. Pts family will purchase case Alton at [facility] for home use to support wound healing at home. Diet Order: CCD EER: 45g CHO/meal Monitoring/Evaluations: ONS tolerance, BG readings
[2020-12-17] MEDS: INSULIN LISPRO 100 UNIT/ML 3ML VIAL SUBCUT (12:58)
--- NOTE | 2020-12-17 12:59 | CM.DPNOTE ---
DCP Note Reviewed Dr Hurd's prog/addendum note and completed the following tasks on patient's behalf: -Placed call to [facility], referral started w/expected hospital DC date Sunday12.20.20, faxed all requested clinical to include face sheet, H+P, OP note, today's prog note, labs, Med list and PICC insertion assessment. [facility] aware culture results are still pending Dr Hurd will be the following provider for IV abx -Placed call to Nura Perez, P# [phone] F# [phone], began this referral. Suggested that w/DC date of Sunday, it would be helpful for wound vac for home use to be delivered Sunday if possible, Sunday AM latest. Alyce completed the required ppk while on the phone w/this DEALERSHIP MANAGER. She intends to complete this packet and fax to [facility] for final signature from Dr Hurd. Included will be request for clinical which this DEALERSHIP MANAGER can fax According to Dr Hurd's note, patient will f/u w/ [facility] wound care Sunday12.21.20. Patient does not want HH wound care. According to MOHINI Yip, patient and dtr are preparing for home DC, patient now has a knee scooter. Both are anticipating home DC the beginning of the week. Following closely for coordination. Nura Mead and [facility] (clinical science liaison) are available over the w/e. JW
[2020-12-17 13:15] VITALS: BP 153/73; PULSE 84; RESP 16; TEMP 35.9; O2SAT 99
--- NOTE | 2020-12-17 13:48 | PC.NURSE ---
Wound Vac changed this morning by Dr. Hurd-pressure is at 125 and dsg is cdi.
--- NOTE | 2020-12-17 14:56 | CM.DPNOTE ---
Addendum entered by REBA Chavez 12/17/20 15:21: Updated patient. Patient suggests wound vac be delivered to Sunday morning? CM team can discuss w/Alyce at [facility]. Original Note: DCP Note Received the Initiation of Negative Pressure Wound Therapy Form from Alyce/[facility]. Alyce requests this [employer] have Dr Hurd review for accuracy, sign and fax back w/requested clinical to further qualify the patient through his [employer] insurance (for wound vac approval). Placed call to Dr Hurd who will not be back to or to the clinic today; she suggested secure email be sent w/attached form. Scanned form and emailed per Dr Hurd's request, email as follows; Hi Dr Hurd, Attached is the Initiation of Negative Pressure Wound Therapy Form for Mr Gomes. Pls review for accuracy, include address, sign and pls email back to the Care Management team (CCd on this email) As we discussed, this ppk will also be placed in patient?s red folder if email does not work out. Faxed clinical to Alyce/[facility], as requested. ANGEL
[2020-12-17 15:53] VITALS: BP 145/73; PULSE 77; RESP 17; TEMP 36.6; O2SAT 100
--- NOTE | 2020-12-17 16:53 | PM.EVENT ---
Event Note Event Note: Blood sugar fairly well controlled. For now no further adjustments. 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 Will sign off, please call if needed
[2020-12-17 19:24] VITALS: BP 146/67; PULSE 81; RESP 17; TEMP 36; O2SAT 99
[2020-12-18 00:15] VITALS: BP 141/75; PULSE 86; RESP 16; TEMP 36.6; O2SAT 95
[2020-12-18 06:02] LABS: Vancomycin Trough 7.7 ug/mL (10-20)
[2020-12-18] MEDS: VANCOMYCIN 1,500 MG/300 ML PIGGYBACK 200 MG IV (06:55)
[2020-12-18] MEDS: VANCOMYCIN TROUGH 1 REQUEST MISC (06:56)
[2020-12-18 07:06] LABS: Albumin 3.3 g/dL (3.5-5.0); BUN Creatinine Ratio 22.2 (6-22); Blood Urea Nitrogen 24 mg/dL (9-20); C-Reactive Protein Quant 7.3 mg/dL (<1.0); Calcium 9.2 mg/dL (8.4-10.2); Carbon Dioxide 24 mmol/L (22-32); Chloride 109 mmol/L (98-107); Estimated Glomerular Filt Rate > 60.0 mL/min (>60); Glucose 87 mg/dL (80-110); HEMOLYSIS < 15 (0-50); Phosphorous 3.5 mg/dL (2.3-3.7); Sodium 139 mmol/L (137-145)
[2020-12-18 07:35] VITALS: BP 147/74; PULSE 79; RESP 16; TEMP 36.3; O2SAT 99
[2020-12-18] MEDS: ENOXAPARIN 40 MG/0.4 ML SYRINGE SUBCUT (08:13)
[2020-12-18] MEDS: INSULIN GLARGINE 100 UNIT/ML 3ML PEN 65 UNIT SUBCUT ×2 (08:15→21:35)
[2020-12-18 08:18] VITALS: BP 147/74
[2020-12-18] MEDS: AMLODIPINE 5 MG TABLET PO (08:18)
[2020-12-18] MEDS: INSULIN LISPRO 100 UNIT/ML 3ML VIAL 20 UNIT SUBCUT ×3 (08:18→16:58)
[2020-12-18] MEDS: LOSARTAN 50 MG TABLET 100 MG PO (08:18)
[2020-12-18] MEDS: PIOGLITAZONE 15 MG TABLET PO (08:18)
[2020-12-18] MEDS: SODIUM CHLORIDE 0.9% FLUSH 10 ML IV ×4 (08:19→21:30)
[2020-12-18] MEDS: ASPIRIN EC 81 MG TABLET PO (08:52)
[2020-12-18] MEDS: CEFEPIME 2 GM in SODIUM CHLORIDE 0.9% 100 ML 200 ML IV ×2 (09:19→19:53)
--- NOTE | 2020-12-18 09:58 | PM.PNPO.1 ---
Subjective Subjective Date Patient Seen: 12/18/20 Time Patient Seen: 09:58 Interval history: Denies pain. No fever chills. No nausea/ vomiting. Exam Vital Signs (past 8 hours): - 12/18/20 07:35 12/18/20 08:18 Temperature 97.4 F L Pulse Rate 79 Respiratory Rate 16 Blood Pressure 147/74 H 147/74 H Pulse Oximetry 99 Oxygen Delivery Method Room Air Oxygen Flow Rate 0 Narrative Exam Narrative: 60-year-old male resting comfortably in bedside chair no apparent distress. Dressing is Clean, dry, intact.. Wound VAC is on and functioning. Objective Labs Result Diagrams: 12/16/20 06:23 12/18/20 06:45 Labs: Laboratory Results - last 24 hr 12/18/20 12/18/20 05:35 06:45 Sodium 139 Potassium 4.0 Chloride 109 H Carbon Dioxide 24 BUN 24 H Creatinine 1.08 Estimated GFR > 60.0 BUN/Creatinine Ratio 22.2 H Glucose 87 Calcium 9.2 Phosphorus 3.5 C-Reactive Protein 7.3 H Albumin 3.3 L Vancomycin Trough 7.7 L ENTR: 12/15/20-[address]: Neil Bui MD FAX TO: ORDERED: WOUND Cx and GS COMMENTS: Comment 1 for ulcer, 1 for bone ULCER Procedure Result Verified Site Gram Stain Final 12/15/20-2015 White blood cells Occasional WBC seen Gram Positive Cocci 3+ Aerobic Culture for wounds Preliminary 12/16/20-1008 Very Early Growth Very Early Growth: Culture too young for work-up reincubated Anaerobic Culture Preliminary 12/17/20-1012 [facility] Medical History Asthma Chronic renal disease, stage III Diabetes Diabetic foot ulcer Diabetic retinopathy Dupuytren's contracture Dyslipidemia Erectile dysfunction Gastroparesis HTN (hypertension) Malignant neoplasm prostate Sinusitis Surgical History History of surgery (~02/2018) Status post incision and drainage (02/21/19) Family History Mother CVA (cerebral vascular accident) Father Myocardial infarction Other Diabetes mellitus Social History household members: family and children Smoking Status: Former smoker (Quit at age 38) alcohol intake: former (Quit age 38) Assessment & Plan Post-op Postoperative Procedures: Procedures Operation Date: 12/15/20 17:00 Actual Procedure Side Surgeon p I&D foot poss, wound vac Left Shanae Hurd MD Postoperative day: 3 Postoperative status: doing well Postoperative status narrative: stable Postoperative plan narrative: IV antibiotics. Pharmacy dosing for cefepime and vancomycin. He has a wound VAC in place. Will wait for final microbiology and sent home with PICC line and tailored IV antibiotics x6 weeks. Internal Medicine following while in the hospital for optimization of diabetes for wound healing. Will have wound VAC changes every 2-3 days and coordinate with [facility] wound care for outpatient wound VAC. Lovenox DVT prophylaxis while in the hospital. Quality VTE Deep Vein Thrombosis/Pulmonary Embolism Present on Admission: No
--- NOTE | 2020-12-18 10:10 | PT.IPTN ---
Current Diagnoses Type 2 diabetes mellitus with foot ulcer (12/15/20) Type 2 diabetes mellitus without complications (12/15/20) Non-pressure chronic ulcer of other part of unspecified foot with unspecified severity (12/15/20) Surgery Performed Operation Date: 12/15/20 17:00 Actual Procedures p I&D foot poss, wound vac(Left) - Shanae Hurd MD Physical Therapy Treatment Note M2 PT-IP Current Condition Start: 12/16/20 12:22 Freq: NEEDED Status: Active Protocol: Document 12/16/20 11:10 AB (Rec: 12/16/20 12:36 AB [id number]) Physical Therapy Current Condition Current Condition Evaluation Date 12/16/20 Treatment Diagnosis L foot diabetic ulcer s/p excision debridement; difficulty in walking Onset Date 12/15/20 Precautions Other Precautions contact precautions Weight Bearing Status Weight Bearing Status Non-Weight Bearing Allowed Weight Bearing Amount (enter % LLE NWB or #) (%) M3 PT-IP Subjective Start: 12/16/20 12:22 Freq: NEEDED Status: Active Protocol: Document 12/18/20 10:10 AB (Rec: 12/18/20 13:40 AB [id number]) Subjective Physical Therapy Visit Type Type Treatment Note Visit Start Time 10:10 Visit Stop Time 10:35 Total Visit Minutes 25 Number of JOURNEYMAN CARPENTER Visits 0 Physical Therapy Visit Comments Patient Comments agreeable to do PT M4 PT-IP Mobility and Gait Start: 12/16/20 12:22 Freq: NEEDED Status: Active Protocol: Document 12/18/20 10:10 AB (Rec: 12/18/20 13:40 AB [id number]) PT-Transfer Assessment Sit to and From Stand Sit to and from Stand Standby Assistance Equipment Transfer Assistive Device Gait Belt Orthotic/Prosthetic Devices or Brace: No Gait Assessment Gait Gait Assistance Required: Standby Assistance Distance (Feet) 100 Able to Maintain Weight Bearing Status Yes During Gait Assistive Devices Assistive Device Gait Belt,Axillary Crutches Orthotic/Prosthetic Devices or Brace: No Factors Limiting Gait Function Factors Limiting Gait Function Decreased Activity Tolerance, Decreased Sensation,Decreased Strength,Limited Range of Motion,Poor Balance,Poor Safety Awareness Comments Gait Comments pt sitting on chair and agreed to do PT. completed sit to stand SBA and ambulated in room using axillary crutches SBA ~ 30 ft. pt ambulated using knee scooter SBA 100 ft x 2 . pt refused to do stair climbing. pt sat back on chair. call light and table placed within reach. pt stated that he uses his crutches just short distances from the car to the stairs but uses his knee scooter most of the time indoors/outdoors when he had is R foot surgery. M5 PT-IP Objective Assessments Start: 12/16/20 12:22 Freq: NEEDED Status: Active Protocol: Document 12/16/20 11:10 AB (Rec: 12/16/20 12:36 AB [id number]) Orientation Orientation/Cognition Level of Alertness Alert Orientation Name,Age,Birthday,Month,Date, Year,Day of Week,Place, Situation Language Function Ability No Deficits Noted Safety Awareness Decreased Safety Awareness Memory Description No Deficits Noted Gross Range of Motion Lower Extremity ROM Assessment Within Functional Limits Strength Lower Extremity Strength Assessment Left Impaired Hip 4/5 Knee 3+/5 Ankle n/t Sensation Assessment Sensation Gross Sensation Right LE Impaired,Left LE Impaired Light Touch Impaired Proprioception (Position) Impaired Sensation Description Numbness Muscle Tone Muscle Tone WNL Yes M6 PT-IP Treatment Start: 12/16/20 12:22 Freq: NEEDED Status: Active Protocol: Document 12/18/20 10:10 AB (Rec: 12/18/20 13:40 AB [id number]) Physical Therapy Treatment Education Education Provided Safety M7 PT-IP Assessment and Plan Start: 12/16/20 12:22 Freq: NEEDED Status: Active Protocol: Document 12/18/20 10:10 AB (Rec: 12/18/20 13:40 AB [id number]) PT Summary Assessment and Plan Potential Rehabilitation Potential Good Summary Impairments Pain,ROM,Strength,Balance, Coordination,Sensation,Tone, Cognition,Bed Mobility, Transfers,Gait,Activity Tolerance Progress Towards Goals Progressing Toward Goals Assessment Summary pt requiring SBA with mobility using knee scooter/axillary crutches. pt plans to go home and has his daughter to assist him at home. pt refused to do stair climbing today. will attempt next tx session. tx frequency decreased to once a day and pt may ambulate with nursing. pt agreed. Goals Bed Mobility Goal Independent Transfer Goal Independent,Crutches Gait Goal Independent,Crutches Gait Distance 150 Other Goals up/down 3 steps B rail SBA Days to Meet Goals 10 Frequency of Treatment Frequency Of Treatment Once a Day Treatment Plan Physical Therapy Treatment Plan Bed Mobility Training,Transfer Training,Gait Training, Therapeutic Exercise,Balance Retraining,Post Op Education, Discharge Planning,Hot or Cold Pack,Neuromuscular Re-ed, Coordination Retraining,Manual Therapy Precautions Other Precautions contact precautions NWB LLE Recommendations To Nursing Amount of Assist Needed 1 Person Assist Discharge Recommendations PT Discharge Recommendations Home with Assistance,Home Health Transportation Needs at Discharge Private Vehicle
--- NOTE | 2020-12-18 10:38 | CM.DPC ---
Addendum entered by REBA Hernandez 12/18/20 11:39: ADD: DEENA spoke to w/e pharmacist at [facility] and updated them that still awaiting final cultures with tentative anticipated d/c for Sun. [facility] likely would not have availability tomorrow to start pt on service if cultures returned for d/c Sun but they have pt on their tentative schedule for Sun12/20/20. They will check back with SW tomorrow Sun. BF Original Note: DCP Cont: Per Jessie ABBOTT, still awaiting cultures to determine final IV-Abx needed at d/c for 6 weeks. DEENA spoke to Alyce at [facility] regarding the wound vac coordination and she confirms she received the faxed Script/pwk from Jessie VALDEZ yesterday and received the additional clinicals faxed today (facesheet, H&P, prog notes, manager advanced note) and SW inquired if wound vac could be delivered to the hospital rather than pt's home per pt request. Alyce with [facility] confirms delivery to the hospital can happen and will aim for Sunday morning in anticipation of possible d/c but SW will keep her updated on d/c timeline once cultures return. Alyce with [facility] states they have all the documentation they need other than d/c summary to be faxed at discharge. SW to follow for updating [facility] when final cultures return to confirm pt set up for home infusion and final coordination needs. SW to follow for calling [facility] on Sunday when they are open to confirm d/c plan in place for outpt wound care as pt declines HH and preference is outpt clinic. Plan: SW to follow for plan of d/c home with [facility] wound vac and [facility] for IV-Abx and [facility] at d/c. REBA Hernandez
[2020-12-18 11:50] VITALS: BP 137/69; PULSE 75; RESP 16; TEMP 36.2; O2SAT 98
[2020-12-18 15:36] VITALS: BP 135/67; PULSE 70; RESP 16; TEMP 36.2; O2SAT 99
[2020-12-18] MEDS: INSULIN LISPRO 100 UNIT/ML 3ML VIAL SUBCUT (16:58)
[2020-12-18 19:20] VITALS: BP 135/63; PULSE 73; RESP 17; TEMP 35.9; O2SAT 99
[2020-12-18] MEDS: DOCUSATE 100 MG CAPSULE PO (20:38)
[2020-12-18] MEDS: VANCOMYCIN 1,000 MG/200 ML PIGGYBACK 200 MG IV (21:37)
[2020-12-19 00:15] VITALS: BP 153/73; PULSE 81; RESP 18; TEMP 36.3; O2SAT 98
[2020-12-19] MEDS: VANCOMYCIN 1,000 MG/200 ML PIGGYBACK 200 MG IV (06:58)
[2020-12-19 07:37] VITALS: BP 152/77; PULSE 77; RESP 18; TEMP 35.9; O2SAT 98
[2020-12-19] MEDS: ACETAMINOPHEN 325 MG TABLET 975 MG PO ×3 (08:58→20:46)
[2020-12-19] MEDS: AMLODIPINE 5 MG TABLET PO (08:58)
[2020-12-19] MEDS: ASPIRIN EC 81 MG TABLET PO (08:58)
[2020-12-19 08:59] VITALS: BP 152/77; PULSE 77
[2020-12-19] MEDS: ENOXAPARIN 40 MG/0.4 ML SYRINGE SUBCUT (08:59)
[2020-12-19] MEDS: LOSARTAN 50 MG TABLET 100 MG PO (08:59)
[2020-12-19] MEDS: INSULIN GLARGINE 100 UNIT/ML 3ML PEN 65 UNIT SUBCUT ×2 (09:03→20:49)
[2020-12-19] MEDS: INSULIN LISPRO 100 UNIT/ML 3ML VIAL 20 UNIT SUBCUT ×3 (09:06→17:09)
[2020-12-19] MEDS: SODIUM CHLORIDE 0.9% FLUSH 10 ML IV ×2 (09:07→20:58)
[2020-12-19] MEDS: PIOGLITAZONE 15 MG TABLET PO ×2 (09:07→20:47)
[2020-12-19] MEDS: metroNIDAZOLE 500 MG TABLET PO ×3 (09:12→20:46)
--- NOTE | 2020-12-19 09:29 | PT-IP ANOTE ---
AM-Pt refused to participate in PT. Checked back later in morning and pt unavailable d/t wound vac changing procedure
--- NOTE | 2020-12-19 10:14 | PM.PNPO.1 ---
Subjective Subjective Date Patient Seen: 12/19/20 Time Patient Seen: 10:14 Interval history: Postop day 4 debridement left foot diabetic infection, Charcot severe cavovarus deformity. Doing well. Incisional wound VAC in place. No complaints. No fever or chills. Exam Vital Signs (past 8 hours): - 12/19/20 07:37 12/19/20 08:59 Temperature 96.6 F L Pulse Rate 77 77 Respiratory Rate 18 Blood Pressure 152/77 H 152/77 H Pulse Oximetry 98 Oxygen Delivery Method Room Air Oxygen Flow Rate 0 Narrative Exam Narrative: Alert oriented no acute distress. Sitting comfortably in bedside chair. Lower extremity cavovarus deformity. Wound VAC changed today. Small amount of sy tissue at the inferior aspect of the wound as this is excisionally debrided using a scalpel today. Patient tolerated this well. Underlying tissue bleeding well. No abscess purulence or tracking. Wound VAC replaced. Suction -125. Const General: cooperative HENMT Head: normal to inspection Objective Labs Result Diagrams: 12/16/20 06:23 12/18/20 06:45 Labs: CRP improving to 7 from 17 on admission. White count improved. Microbiology growing aerobic and anaerobic organisms. [facility] Medical History Asthma Chronic renal disease, stage III Diabetes Diabetic foot ulcer Diabetic retinopathy Dupuytren's contracture Dyslipidemia Erectile dysfunction Gastroparesis HTN (hypertension) Malignant neoplasm prostate Sinusitis Surgical History History of surgery (~02/2018) Status post incision and drainage (02/21/19) Family History Mother CVA (cerebral vascular accident) Father Myocardial infarction Other Diabetes mellitus Social History household members: family and children Smoking Status: Former smoker (Quit at age 38) alcohol intake: former (Quit age 38) Assessment & Plan Post-op Postoperative Procedures: Procedures Operation Date: 12/15/20 17:00 Actual Procedure Side Surgeon p I&D foot poss, wound vac Left Shanae Hurd MD Postoperative day: 4 Postoperative status: doing well Postoperative status narrative: Doing well nonweightbearing left lower extremity. Wound VAC in place. Awaiting final cultures and arrangement of home back for discharge. Plan discharge on Sunday. Will have wound care with [facility] and home IV antibiotics with [facility]. Antibiotics tailored today to Rocephin (ceftriaxone) 2 g IV q.day x 6 weeks. And Flagyl 500 mg t.i.d. PO for the anaerobics x 4 weeks Time Spent With Patient Time with patient: 25 - 35 minutes Quality VTE Deep Vein Thrombosis/Pulmonary Embolism Present on Admission: No
[2020-12-19] MEDS: cefTRIAXone 2,000 MG in SODIUM CHLORIDE 0.9% 100 ML 200 ML IV (11:58)
[2020-12-19] MEDS: INSULIN LISPRO 100 UNIT/ML 3ML VIAL SUBCUT ×3 (12:06→20:47)
[2020-12-19 15:50] VITALS: BP 124/65; PULSE 73; RESP 16; TEMP 35.7; O2SAT 99
[2020-12-19] MEDS: DOCUSATE 100 MG CAPSULE PO (20:46)
[2020-12-19 23:46] VITALS: BP 152/76; PULSE 84; RESP 16; TEMP 36.5; O2SAT 98
[2020-12-20 08:00] VITALS: BP 156/70; PULSE 81; RESP 17; TEMP 36.3; O2SAT 99
--- NOTE | 2020-12-20 08:02 | P.DS_ITS ---
History of Present Illness History of Present Illness Date Patient Seen: 12/20/20 Time Patient Seen: 08:02 Date of Onset of Symptoms: 12/12/20 Chief complaint: Diabetic ulcer with infection left foot Narrative: 60-year-old male with diabetes and cavovarus deformity of the left foot presents with diabetic ulcer status post irrigation and debridement and wound VAC application. He has been on IV antibiotics. Cultures have returned and IV antibiotics have been tailored. Outpatient wound care set up. Pain controlled Discharge Providers Provider Date of admission: 12/15/20 14:45 Discharge Date: 12/20/20 Primary care physician: Neil Bui MD Consults: 12/15/20 19:27 Consult to Discharge Planning Routine Comment: IV [facility]x-- 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 Uncontrolled Hospital Course: Patient was admitted to the hospital he is taken to the operating room for irrigation and debridement necrotic skin subcutaneous tissue and muscle removed. Biopsies and bone biopsy were taken. Wound VAC was placed. Biopsies positive for polymicrobial Gram-positive and negative organisms. Wound extended down to bone. Infectious labs improved over the course of hospitalization IV antibiotics. IV antibiotics were tailored. Patient received counseling on dietary and medication control for diabetes. Status at Discharge Cognitive/behavioral status at discharge: oriented Functional status at discharge: uses cane/walker Overall status at discharge: patient is progressing back to baseline Time Spent with Patient Time spent: Less than 30 minutes Exam Vital Signs (past 8 hours): Oxygen Delivery Method Room Air Oxygen Flow Rate 0 Narrative Exam Narrative: Alert oriented male no acute distress. Sitting at bedside table. Left lower extremity is examined cavovarus deformity. Wound VAC in place. Suction good to -125. No erythema or redness. Calf is soft. SCD in place. Objective Labs Result Diagrams: 12/16/20 06:23 12/18/20 06:45 [facility] Medical History Asthma Chronic renal disease, stage III Diabetes Diabetic foot ulcer Diabetic retinopathy Dupuytren's contracture Dyslipidemia Erectile dysfunction Gastroparesis HTN (hypertension) Malignant neoplasm prostate Sinusitis Surgical History History of surgery (~02/2018) Status post incision and drainage (02/21/19) Family History Mother CVA (cerebral vascular accident) Father Myocardial infarction Other Diabetes mellitus Social History household members: family and children Smoking Status: Former smoker (Quit at age 38) alcohol intake: former (Quit age 38) Discharge Assessment & Plan Assessment and Plan Assessment: Left foot diabetic ulcer with necrosis of muscle down to bone presumed osteomyelitis. And left foot deformity. Requires IV antibiotics for treatment. Will take Flagyl p.o. for anaerobics and Rocephin for Gram-positive organisms. [facility] to provide IV antibiotics. Will of a home VAC with wound care changes with [facility] who is familiar with him. Will follow up with me next week for wound check. Goal is to get his infection treated and hemoglobin A1c/and diabetes controlled and then would proceed with larger reconstructive procedure to prevent real serrations the same area but will need to control his diabetes and treat his infection before internal fixation is placed Discharge Plan Discharge Plan Patient Disposition: Home Discharge orders & Medications Prescriptions: New metronidazole 500 mg Tablet 500 mg PO TID 14 Days Qty: 42 RF: 0 ceftriaxone 2 gram Recon Soln 2,000 mg IV Q24H 40 Days RF: 0 oxycodone 5 mg tablet 5 mg PO Q6H PRN (Reason: pain) Qty: 10 RF: 0 Continued losartan 100 mg Tablet 100 mg PO DAILY RF: 0 pioglitazone [Actos] 15 mg Tablet 15 mg PO BID RF: 0 amlodipine 5 mg Tablet 5 mg PO DAILY RF: 0 Humalog U-100 Insulin 100 unit/mL Cartridge 20 unit SUBCUT TID RF: 0 Lantus Solostar U-100 Insulin 100 unit/mL (3 mL) Insulin Pen 65 unit SUBCUT BID RF: 0 aspirin 81 mg tablet,delayed release (DR/EC) 81 mg PO DAILY RF: 0 Discontinued oxycodone 5 mg Tablet 5 mg PO Q4HR Qty: 42 RF: 0 Follow up/Referrals: Shanae Hurd MD [Physician] - Neil Bui MD [Primary Care Provider] - Diet/Activity/Treatments Diet: Carb-consistent/Diabetic Activity: NWB LLE Skin/Wound/Dressing Care Skin care: wound vac changes with [facility] Report to your healthcare provider any signs of infection, such as:: chills, fever, night sweats, increased pain, unusual drainage and unusual redness Visit Report/Discharge Packet Stand Alone Forms: Surgery Discharge Discharge Data Primary Care Provider: Neil Bui Quality VTE Deep Vein Thrombosis/Pulmonary Embolism Present on Admission: No
[2020-12-20] MEDS: ACETAMINOPHEN 325 MG TABLET 975 MG PO (08:34)
[2020-12-20] MEDS: ASPIRIN EC 81 MG TABLET PO (08:34)
[2020-12-20] MEDS: DOCUSATE 100 MG CAPSULE PO (08:35)
[2020-12-20] MEDS: PIOGLITAZONE 15 MG TABLET PO (08:35)
[2020-12-20] MEDS: metroNIDAZOLE 500 MG TABLET PO (08:35)
[2020-12-20] MEDS: AMLODIPINE 5 MG TABLET PO (08:35)
[2020-12-20 08:36] VITALS: BP 156/70; PULSE 81
[2020-12-20] MEDS: ENOXAPARIN 40 MG/0.4 ML SYRINGE SUBCUT (08:36)
[2020-12-20] MEDS: LOSARTAN 50 MG TABLET 100 MG PO (08:36)
[2020-12-20] MEDS: INSULIN GLARGINE 100 UNIT/ML 3ML PEN 65 UNIT SUBCUT (08:40)
[2020-12-20] MEDS: INSULIN LISPRO 100 UNIT/ML 3ML VIAL 20 UNIT SUBCUT (08:42)
[2020-12-20] MEDS: SODIUM CHLORIDE 0.9% FLUSH 10 ML IV (09:46)
[2020-12-20] MEDS: cefTRIAXone 2,000 MG in SODIUM CHLORIDE 0.9% 100 ML 200 ML IV (09:46)
--- NOTE | 2020-12-20 11:53 | PT-IP ANOTE ---
Attempted to see pt for PT treatment. He was dressed and preparing for discharge, ambulating around the room with B axillary crutches. He denied further needs at this time.
--- NOTE | 2020-12-20 14:18 | CM.DANOTE ---
DCP/continued: Reviewed EMR. Received notification from Dr. Hurd that patient medically stable for discharge today. APPLICATIONS DEVELOPMENT ANALYST obtained orders which included IV abx. Faxed d/c summary and orders to chosen agency [facility]. Spoke with pharmacist and infusion confirmed. They plan to see patient at the residence today. In addition, placed call to outpatient wound care center at [facility], spoke with Hope she reports that she has been given information re: patient's need for outpatient wound care. Mandy reports that authorization will need to be initiated through Dr. Hurd's office. Mandy will notify office and call patient when appointment scheduled. Dr. Hurd also updated via telephone. Lastly, [facility] came to [facility] today to switch out wound vacs. RN agreeable to make switch. Patient provided with name/number of above agencies. No additional needs identified. P: Home today with above agencies. REBA Graham Discharge Planning/Care Management CM Discharge Assessment Start: 12/20/20 14:12 Freq: Status: Discharge Protocol: Document 12/20/20 14:12 KJS (Rec: 12/20/20 14:18 S [id number]) Discharge Planning Assessment Assigned It Infrastructure Project Manager REBA Graham Contact Information Mariama (daughter) ph# Advance Directives? No History Provided By Patient,Medical Record Prior Living Arrangements House Household Members family,children Independent with ADL's Yes Is patient alert and oriented? Yes Comment Scooter Patient/Family Preference Home with Home Health Barriers to Discharge No Comment Has good family support Discharge Plan Home Community Services IV Therapy Transportation Arrangement Daughter Referrals Initiated Other Additional Comment Wound vac arranged through [facility], Outpatient wound care to be done at [facility], and IV infusion provided by [facility]. Review Status In Process Next Review Type Continued Stay Review
== END 2020-12-20 12:00 | disposition home or self-care (01) | DRG 629 ==
PROVIDERS: Nurse Practitioner Family; Admitting Provider Orthopaedic Surgery Foot and Ankle Surgery; PCP Family Medicine; Referring Provider Orthopaedic Surgery Foot and Ankle Surgery; Visit Provider Orthopaedic Surgery Foot and Ankle Surgery
PROC: 0QBP0ZZ Excision of Left Metatarsal, Open Approach (ICD-10-PCS; principal; 2020-12-15 17:00)
DX: E11.621 Type 2 diabetes mellitus with foot ulcer (principal); M86.8X7 Other osteomyelitis, ankle and foot; L03.116 Cellulitis of left lower limb; L97.524 Non-pressure chronic ulcer of other part of left foot with necrosis of bone; E11.40 Type 2 diabetes mellitus with diabetic neuropathy, unspecified; E11.65 Type 2 diabetes mellitus with hyperglycemia; E11.22 Type 2 diabetes mellitus with diabetic chronic kidney disease; I12.9 Hypertensive chronic kidney disease with stage 1 through stage 4 chronic kidney disease, or unspecified chronic kidney disease; N18.30 Chronic kidney disease, stage 3 unspecified; N17.9 Acute kidney failure, unspecified; Z87.891 Personal history of nicotine dependence; Z79.4 Long term (current) use of insulin; E11.69 Type 2 diabetes mellitus with other specified complication; Z20.822 Contact with and (suspected) exposure to COVID-19
CPT/HCPCS: 36415; 36573; 80053; 80069; 80202; 82962; 83036; 85025; 85027; 85651; 86140; 87070; 87075; 87076; 87077; 87176; 87186; 87205; 87635; 94760; 97116; 97162; 97530; C9803; J0330; J0692; J0696; J1650; J1815; J2405; J2704; J2765; J3010

== ENCOUNTER → 2021-02-02 11:14 | Outpatient (CLI) | payer OTHER, SELFPAY ==
[2020-12-15 19:46] VITALS: BMI 28.2
[2021-02-02 15:43] LABS: COVID19 -Nasal RAPID Negative (Negative)
== END ==
PROVIDERS: PCP Family Medicine; Visit Provider Physician Assistant
DX: Z20.822 Contact with and (suspected) exposure to COVID-19 (principal)
CPT/HCPCS: 87635

== ENCOUNTER 2021-02-04 09:08 | Day surgery (SDC) | payer OTHER, SELFPAY ==
[2020-12-15 19:46] VITALS: BMI 28.2
[2021-02-01 08:09] VITALS: BMI 28.2
[2021-02-04] VITALS (13 sets, daily range): BP systolic 122–155; BP diastolic 63–83; PULSE 97–110; RESP 12–23; TEMP 36.1–37.1; O2SAT 97–99; BMI 28.2
--- NOTE | 2021-02-04 | DI.RAD.S_ITS ---
PROCEDURE: XR ANKLE LT 2V INDICATIONS: ANKLE FIXATION TECHNIQUE: 8 low resolution intraoperative fluoroscopic spot films were obtained of the left foot, ankle and knee COMPARISON: None. FINDINGS: Low resolution spot films show open reduction internal fixation of complicated hindfoot and midfoot fractures with cannulated screw placement. IMPRESSION: 1. Fluoroscopic guidance Approved by: Adam Ayala M.D. on 02/04/2021 at 17:38
--- NOTE | 2021-02-04 09:42 | PM.PREOP ---
Pre-operative Note COVID-19 COVID-19 status: Negative Interval Note History & Physical reviewed/Exam performed by Physician: Yes Changes to H&P: No
[2021-02-04] MEDS: LACTATED RINGERS 1,000 ML 42 ML IV ×3 (09:52→17:31)
[2021-02-04] MEDS: CEFAZOLIN 1 GM VIAL 2 GM IV ×2 (10:15→14:15)
[2021-02-04] MEDS: THROMBIN (RECOMBINANT) 5,000 UNIT VIAL 5000 UNIT TOP (10:37)
[2021-02-04] MEDS: BUPIVACAINE 0.25% (PF) VIAL 30 ML INJ (10:38)
[2021-02-04] MEDS: EPINEPHrine 1 MG/ML 0.15 MG INJ (10:39)
--- NOTE | 2021-02-04 10:42 | SUR.OPER ---
Supine on padded OR bed, head on pillow, arms secured on padded arm boards at <90 degrees abduction, legs uncrossed, bump under operative hip, safety belt across abdomen, tape over blanket over lower nonoperative leg.
--- NOTE | 2021-02-04 18:17 | PM.OP.1 ---
Operative Date/Time/Diagnoses Date of procedure: 02/04/21 Time of procedure: 10:00 Pre-op diagnosis: Deformity left foot, cavovarus M21.962 Ulcer left foot due to diabetes type 2 and neuropathy E11.621 Post-op diagnosis: other (Deformity left foot, left foot ulcer due to diabetes type 2 and neuropathy, ankle instability) Procedure & Clinicians Procedure: Triple arthrodesis left CPT code 62727 Lateralizing Osteotomy of calcaneus left CPT code 99916-51 Fusion 1st tarsometatarsal joint CPT code 55087-46 Lateral ankle ligamentous repair cpt 80579 Bone graft proximal to the tibia large CPT code 92770-19 Lengthening Achilles tendon left 04147 Lengthening flexor digitorum longus tendons release posterior tibialis tendon CPT code 91762 Plantar fascia release, partial CPT code 73276-37 Wound VAC change CPT code 20143 Procedures performed with a modifier 22 for extensive procedure requiring expertise of the ankle with a peak surgeon multiple releases were severe deformity correction and associated procedures culminating in operative time more than twice as long as a standard triple arthrodesis. Procedure also performed with modifier 58 for staged procedure patient had debridement of the wound and placement on IV antibiotics in the prior procedure and returns for definitive deformity correction. Same procedure as scheduled: Yes Indications: Patient is a 60-year-old male with a history of severe cavovarus foot deformities and neuropathy ulceration and diabetes and nonhealing wound lateral left foot. 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 Patient was indicated for a cavovarus foot reconstruction in order to obtain a plantigrade foot and promote wound healing. This was a 2 stage procedure selected so that internal fixation could be used. The patient's for staged procedure was a debridement and IV antibiotics for 6 weeks with wound VAC changes. He presents now for second-stage procedure for a triple arthrodesis and deformity correction. The risks benefits and alternatives to surgery were discussed as well as associated procedures in additional procedures need for correction. These were discussed with the patient in detail. The risks benefits of the procedure have been discussed the patient is given an opportunity to ask questions. The risks include but are not limited to infection, malunion, nonunion, persistence of pain, damage to nerves and blood vessels, posttraumatic arthritis DVT, PE, cardiopulmonary complications and . The patient expresses sterile understanding of the risks benefits of surgery and elected to proceed. Consent was signed in the office. Additionally we discussed bone graft from proximal tibia. Patient will plan to be nonweightbearing 10-12 weeks postoperatively and will resume wound VAC changes postoperatively. During the operation, the services of a physician certified surgical assistant were medically indicated and necessary to provide the exposure of the operative site for the surgical procedure and to maintain the limb in a proper position to carry out the operation safely and efficiently. Without a qualified elementary assistant teacher being present this would extended the operative procedure and made the procedure technically more difficult to perform. Surgeon: Shanae Hurd Government Affairs Fellow: Tomeka Lopez Anesthesia Type: General and Local Operative Notes Findings: severe Rigid cavovarus deformity of the foot severe deformity severely contracted medial ankle flexor tendons and plantar fascia. Subtalar joint required medial and lateral releases. And a lateralizing and palacios component calcaneal osteotomy completed for residual heel varus. intraOperative exam demonstrated additiona residual a planatrflexion of the 1st ray with was addressed with dorsiflexion 1st TMT fusion. The ankle was noted to have additional ligamentous instability in talar tilt at the ankle and this was addressed with calcaneal fibular ligament reconstruction with 2.7 titanium anchor Closure Type: primary Specimen(s): none sent Prosthetic devices, grafts, tissues, transplants, or devices: Wound VAC to left foot wound. Implants: Subtalar fusion: Arthrex 6.7 mm cannulated screws. Calcaneal cuboid fusion: Arthrex 4.5 cannulated fully threaded screws placed in lag fashion. Talonavicular fusion Arthrex 4.5 cannulated partially-threaded screws. First TMT fusion: 1 Arthrex 4.0 partially-threaded cannulated screw and 1 Arthrex 4.5 cannulated partially-threaded screw. Lateral ankle ligament this reconstruction-2.7 corkscrew anchor. Estimated Blood Loss (mL): 100 Blood products transfused: none Tourniquet time (min): 120 Procedure in detail: Patient was seen in the preoperative area the site of surgery marked informed consent confirmed. The patient was brought back to the operating room by the anesthesia team positioned supine on the operative table. General anesthesia was administered. All bony prominences well padded. An SCD was placed on the contralateral lower extremity. An ipsilateral thigh bump was placed. Well-padded thigh tourniquet was placed on the operative extremity. The left lower extremities prepped and draped in the standard sterile fashion. A formal time-out procedure was performed confirming the patient's side and site of surgery and presence of informed consent. Implants were in the room and accounted for. All were in agreement. The patient had a dose of Ancef as a preoperative antibiotic and antibiotics were re-dosed as appropriate. Achilles tendon lengthening. Attention was turned to the left lower extremity. The procedure started by elevating the extremity for the Achilles tendon lengthening tendon was lengthened in a Palma fashion with 3 small incisions along the tendon the distal and proximal incisions directed medially and the middle incision directed laterally for a triple daylin section lengthening. The ankle was then dorsiflexed until about 15? of dorsiflexion was obtained. Next the Esmarch bandage was used for exsanguination the tourniquet was elevated on the thigh to 250 mmHg and stayed there for 2 hours. The tourniquet was then let down for over 20 minutes and then reinflated for 2nd 120 minutes and deflated again before closure. Triple arthrodesis: New the patient has equinovarus contracture and fixed arthritis and medial approach was initiated 1st this was a straight incision from the distal aspect of the medial malleolus to the to navicular tuberosity this was taken down through skin and subcutaneous tissue to the sheath of the posterior tibialis tendons was opened. The posterior tibialis tendon was exposed and then excised. The flexor digitorum longus was then isolated and Z-lengthened and repaired at the end of the case. Additionally the flexor retinaculum over the tarsal tunnel was opened and tenotomies scissors were used to carefully release the soft tissue around the tarsal tunnel to remove any pressure from the tibial neurovascular bundle due to the degree of the deformity correction planned. Then the capsule of the talonavicular joint was entered and the spring ligament were also debrided FRAX is to the talonavicular and subtalar joints from the medial side. Once this was released attention was turned laterally in the standard lateral sinus tarsi type incision was made from the tip of the lateral malleolus towards the area of the 4th metatarsal base. This was taken down the skin subcutaneous tissue there was extensive scarring and no recognizable extensor digitorum brevis. Scar tissue was divided longitudinally and the sinus tarsi entered and exposure of the subtalar 1 joint was completed in the standard fashion of this was noted to be severely contracted and difficult mobilization. The lamina inspector watch assembly was placed into the sinus tarsi a distracting the joint allowing visualization of the posterior facet. Osteotomes and curettes were utilized to debride the cartilage on the calcaneus and talus at the posterior middle and anterior facets like was the talonavicular joint was debrided both medially and lateral approaches with osteotomes and a curette and dissection was taken over the calcaneal cuboid joint was exposed. Again due to the varus deformity a closing wedge osteotomy of the cuboid was used with the oscillating saw to prepare the calcaneal cuboid joint. Once the joints were adequately mobilized attention was turned to obtaining the bone graft. Once the bone graft was obtained this was placed into the joint sites and the subtalar joint was fixed with K-wires for the 6 7 screws. One screw was placed from the talus into the calcaneus this was a long thread screw followed by 2 additional screws transfixing both the lateralizing calcaneal osteotomy and the subtalar joint. Four 5 cannulated screws were used for fixation of the talonavicular joint and4.5 fully-threaded cannulated screws in lag fashion were used to fix the calcaneal cuboid joint. Proximal tibia bone graft. Attention was turned to Gerdy's tubercle this was identified and incision made over the inferior half of Gerdy's tubercle towards the tibial tubercle. This was taken down the skin and onto the periosteum of the tibia. The contents of the anterior compartment were retracted posteriorly. A 2 0 drill was used to make a 1 x 1 cortical window in the proximal tibia an osteotome was used to finish the window. Window was removed and a large curette was used to retrieve bone graft from the proximal tibia metaphysis approximately 10 cc of autologous bone graft. Gelfoam and thrombin were then placed in the cortical window replaced and the incision was closed in layers. After the bone graft was obtained 1st tourniquet time was up in the tourniquet was released while the joints were prepped for fusion. When this was completed in 20 minutes was completed the tourniquet was reinflated. First TMT fusion. Once the triple arthrodesis was pinned in place there was noted to be residual plantar flexion of the 1st ray and this was felt to be too prominent and at risk for plantar 1st ray ulceration therefore decision was made for a dorsiflexion 1st TMT fusion. Separate incision was made over the dorsum of the TMT joint taken down through the skin subcutaneous tissue. The EHL was retracted laterally and the joint was entered. Combination of TTS saw and osteotomes were used to prepare the joint remove all the cartilage and take out a wedge of dorsally to create a plantar flexion fusion. This was pinned in place and then initially fixed with a 2 4.0 cannulated lag screws however 1 broke out of the dorsal cortex of this was removed and a 4.5 screw replaced in a different trajectory. This provided stable fixation of the 1st ray and improved the alignment of the forefoot. This wound was then irrigated and closed in layers. Lateralizing calcaneus osteotomy. Residual calcaneal vet varus after correction through the subtalar joint therefore separate lateralizing calcaneus osteotomy was completed through a separate incision made in line with the calcaneal tuberosity based on fluoroscopic guidance. Sharp dissection was taken down through the skin subcutaneous tissues directly to the bone. An elevator was used to expose the periosteal surface anterior and posterior to the incision and a 1 6 K-wire was fired across the calcaneus and checked on axial image the straight across the tuberosity. Saw was used to make the tuberosity this was taken part way through the calcaneus and the medial cortex was then completed using an osteotome. The osteotomy was then mobilized and shifted lateral about 4 mm an additional small amount of bone was taken laterally for a Palacios style osteotomy as well. X-rays were obtained showing improved alignment of the calcaneus and subtalar joint and these were fixed with a combination of the 2 x 6.7 Arthrex cannulated screws traversing both the osteotomy and the subtalar joint. Final x-rays of the hardware was confirmed on fluoroscopic images demonstrating excellent stability and fixation. There was noted lateral tilt of the talus. Ankle collateral ligament reconstruction. Talar tilt was addressed with a calcaneal fibular ligament repair with a 2.7 titanium anchor into the calcaneus and FiberWire sutures brought through the calcaneal fibular ligament at the base of the fibula these were tied with the ankle held in neutral alignment. And final fluoroscopic images were taken confirming correction of talar tilt. Prior to closure all wounds were thoroughly irrigated gloves were changed. Wounds were closed in layers with 2-0 Vicryl 4 0 Monocryl and 3-0 nylon. Wound VAC debridement and placement. Once the surgical wounds were closed attention was turned to the patient's lateral foot wound which had been covered with IO band during the case this was then exposed debrided with a curette irrigated thoroughly and wound VAC was cut to size and placed in the standard fashion. Good suction was obtained. Care was taken to arrange the dressings in a way to 5th facilitate subsequent VAC changes. Wound VAC was then placed. The incisions were covered with Xeroform and gauze and Webril. ABD pads were placed around the suction tubing to the wound VAC. Webril was then placed for the splint. This was then split along the lateral aspect of the foot to make easier access for wound care. Then a posterior and U splint ortho glass splint was placed. This should be fairly easy to remove and replace a for the wound care team. Once this was completed the patient was awoken from anesthesia and taken to the recovery room in good condition. There no immediate complications from this procedure. All counts were correct. Complications: none Post-operative Condition: stable Disposition: PACU Plan for aftercare: Patient will be nonweightbearing on the left lower extremity. Aspirin 162 mg b.i.d. for DVT prophylaxis. Diabetic diet. Continue IV ceftriaxone once daily. Follow-up in [address] Meyer. Will get wound VAC changes at [facility] 2or 3 x week
--- NOTE | 2021-02-04 18:22 | SUR.PHASEI ---
Stable PACU stay, report called to MOHINI Silva. Pt with no nausea, no pain, tolerating ice chips. L leg elevated. Pt transported to room 225 on room air and left in stable condition, bed low, locked SCD's on. Glasses on pt in room. Pt with belongings bag. Wound vac operational and plugged in wall.
[2021-02-04] MEDS: SODIUM CHLORIDE 0.9% 1,000 ML 42 ML IV (18:53)
[2021-02-04] MEDS: DOCUSATE 100 MG CAPSULE PO (20:21)
[2021-02-04] MEDS: ASPIRIN EC 81 MG TABLET 162 MG PO (20:21)
[2021-02-04] MEDS: ACETAMINOPHEN 325 MG TABLET 975 MG PO (20:21)
[2021-02-04] MEDS: OXYCODONE IR 10 MG TABLET PO (20:21)
[2021-02-04] MEDS: PIOGLITAZONE 15 MG TABLET PO (20:21)
[2021-02-04] MEDS: INSULIN GLARGINE 100 UNIT/ML 3ML PEN 65 UNIT SUBCUT (21:00)
[2021-02-05 03:10] VITALS: BP 152/70; PULSE 112; RESP 16; TEMP 36.7; O2SAT 100
[2021-02-05 08:00] VITALS: BP 145/69; PULSE 119; RESP 16; TEMP 36.6; O2SAT 97
[2021-02-05] MEDS: INSULIN GLARGINE 100 UNIT/ML 3ML PEN 65 UNIT SUBCUT (08:34)
[2021-02-05 08:38] VITALS: BP 135/69; PULSE 119
[2021-02-05] MEDS: DOCUSATE 100 MG CAPSULE PO (08:38)
[2021-02-05] MEDS: PIOGLITAZONE 15 MG TABLET PO (08:38)
[2021-02-05] MEDS: LOSARTAN 50 MG TABLET 100 MG PO (08:38)
[2021-02-05] MEDS: ACETAMINOPHEN 325 MG TABLET 975 MG PO (08:38)
[2021-02-05] MEDS: ASPIRIN EC 81 MG TABLET 162 MG PO (08:38)
[2021-02-05] MEDS: AMLODIPINE 5 MG TABLET PO (08:38)
[2021-02-05] MEDS: cefTRIAXone 2,000 MG in SODIUM CHLORIDE 0.9% 100 ML 200 ML IV (08:39)
[2021-02-05] MEDS: INSULIN LISPRO 100 UNIT/ML 3ML VIAL 20 UNIT SUBCUT (08:56)
[2021-02-05 09:20] VITALS: PULSE 118; RESP 16; O2SAT 98
--- NOTE | 2021-02-05 09:40 | PM.PNPO.1 ---
Subjective Subjective Date Patient Seen: 02/05/21 Time Patient Seen: 09:41 Interval history: The patient reports his pain control is excellent. He says that his heart rate is never fast at home. He denies any current symptoms of chest pain Exam Vital Signs (past 8 hours): - 02/05/21 03:10 02/05/21 08:00 02/05/21 08:38 Temperature 98.1 F 98 F Pulse Rate 112 H 119 H 119 H Respiratory Rate 16 16 Blood Pressure 152/70 H 145/69 H 135/69 Pulse Oximetry 100 97 Oxygen Delivery Method Room Air Oxygen Flow Rate 0 Narrative Exam Narrative: Left foot wound is dressed. He is in a bulky splint. Light touch is absent in his toes however this was the case preoperatively due to his neuropathy. Objective ECG Impression: Pending [facility] Medical History (Updated 02/01/21 @ 08:20 by Carlita Coombs RN) Asthma Chronic renal disease, stage III Diabetes Diabetic foot ulcer Diabetic retinopathy Dupuytren's contracture Dyslipidemia Erectile dysfunction Gastroparesis HTN (hypertension) Malignant neoplasm prostate Presence of device Sinusitis Ulcer of left foot with necrosis of muscle Surgical History (Updated 02/01/21 @ 08:20 by Carlita Coombs RN) History of surgery (~02/2018) S/P foot surgery, right (04/09/19) Status post incision and drainage (02/21/19) Family History Mother CVA (cerebral vascular accident) Father Myocardial infarction Other Diabetes mellitus Social History household members: family and children Smoking Status: Former smoker alcohol intake: former Assessment & Plan Post-op Postoperative Procedures: Procedures Operation Date: 02/04/21 12:45 Actual Procedure Side Surgeon p foot hindfoot fusion with calcaneus osteotomy, Left Shanae Hurd MD s Flexor Tendon Lengthening Medial, achilles tendon lengthening, wound debridement & wound vac dressing change, proximal tibia autograft bone with allograft Left Shanae Hurd MD Postoperative day: 1 Postoperative status: doing well and other (Persistent tachycardia) Postoperative plan: routine post-op care and ambulate Postoperative plan narrative: The patient is comfortable. He has had persistent tachycardia since surgery. He does not have a history of atrial fibrillation. At this point his pain is well enough controlled he certainly could be discharged home today. We will obtain an EKG. If he is in sinus tachycardia he can be discharged. If this represents new onset ischemia or new onset atrial fibrillation, a hospitalist consult will be obtained and he will remain in the hospital.
--- NOTE | 2021-02-05 10:25 | P.DS_ITS ---
History of Present Illness History of Present Illness Date Patient Seen: 02/05/21 Time Patient Seen: 10:25 Chief complaint: SDC *$400 copay* Narrative: The history and physical is contained in the chart in a previously completed note. Please refer to that note for this information. Discharge Providers Provider Date of admission: February 04, 2021 Discharge Date: 02/05/21 Primary care physician: Jet Mckinney MD Consults: 02/04/21 18:18 Consult to Respiratory Therapy Evaluate & Treat Comment: Physician Instructions: Evaluate and treat Discharge provider: Chu Beaulieu MD Summary Hospital Course Discharge Diagnosis: 1. Foot deformity causing persistent ulceration associated with diabetes mellitus 2. Persistent sinus tachycardia postoperatively Hospital Course: Patient was admitted to the hospital and taken directly to the operating room on February 04, 2021. He underwent a complex hindfoot reconstruction with multiple tendon releases and osteotomies with a triple arthrodesis by Dr. Meyer. He tolerated this well. On postoperative day 1 he was symptom free. He was noted to have persistent tachycardia overnight on his vital signs and an EKG was obtained which showed sinus tachycardia with nonspeci fic ST and T-wave abnormalities. These were not felt to be consistent with ischemia. The patient was anxious to be discharged home. Status at Discharge Cognitive/behavioral status at discharge: oriented Functional status at discharge: uses cane/walker Overall status at discharge: patient is progressing back to baseline Time Spent with Patient Time spent: Greater than 30 minutes Exam Vital Signs (past 8 hours): - 02/05/21 03:10 02/05/21 08:00 02/05/21 08:38 Temperature 98.1 F 98 F Pulse Rate 112 H 119 H 119 H Respiratory Rate 16 16 Blood Pressure 152/70 H 145/69 H 135/69 Pulse Oximetry 100 97 Oxygen Delivery Method Room Air Oxygen Flow Rate 0 Narrative Exam Narrative: Left foot is dressed in a bulky bandage. Toes appear well perfused. He does not have sensation in his toes due to neuropathy. Objective ECG Impression: Sinus tachycardia with nonspecific ST and T-wave abnormalities. [facility] Medical History (Updated 02/01/21 @ 08:20 by Carlita Coombs RN) Asthma Chronic renal disease, stage III Diabetes Diabetic foot ulcer Diabetic retinopathy Dupuytren's contracture Dyslipidemia Erectile dysfunction Gastroparesis HTN (hypertension) Malignant neoplasm prostate Presence of device Sinusitis Ulcer of left foot with necrosis of muscle Surgical History (Updated 02/01/21 @ 08:20 by Carlita Coombs RN) History of surgery (~02/2018) S/P foot surgery, right (04/09/19) Status post incision and drainage (02/21/19) Family History Mother CVA (cerebral vascular accident) Father Myocardial infarction Other Diabetes mellitus Social History household members: family and children Smoking Status: Former smoker alcohol intake: former Discharge Assessment & Plan Assessment and Plan Assessment: Stable postoperative day 1 status post complex left hindfoot reconstruction by Dr. Meyer. Plan of Treatment: Discharge today. Follow up with Dr. Meyer in 10-14 days. Discharge prescr iption for oxycodone has been called into [facility] in [place]. Discharge Plan Discharge Plan Patient Disposition: Home Discharge orders & Medications Discharge Orders: Discharge (Order); Ordered 02/05/21 Ordered By: Chu Beaulieu Prescriptions: New oxycodone 5 mg tablet 5 - 10 mg PO Q4H PRN (Reason: pain) Qty: 42 RF: 0 ondansetron HCl [Zofran] 4 mg tablet 4 mg PO Q8H PRN (Reason: nausea and vomiting) Qty: 7 RF: 0 acetaminophen 325 mg Tablet 975 mg PO TID 30 Days Qty: 270 RF: 0 oxycodone 5 mg Tablet 5 mg PO Q4H PRN (Reason: Pain, Moderate (4-6)) Qty: 30 RF: 0 Continued losartan 100 mg Tablet 100 mg PO DAILY RF: 0 pioglitazone [Actos] 15 mg Tablet 15 mg PO BID RF: 0 amlodipine 5 mg Tablet 5 mg PO DAILY RF: 0 Humalog U-100 Insulin 100 unit/mL Cartridge 20 unit SUBCUT TID RF: 0 Lantus Solostar U-100 Insulin 100 unit/mL (3 mL) Insulin Pen 65 unit SUBCUT BID RF: 0 aspirin 81 mg tablet,delayed release (DR/EC) 81 mg PO DAILY RF: 0 oxycodone 5 mg tablet 5 mg PO Q6H PRN (Reason: pain) Qty: 10 RF: 0 Follow up/Referrals: Shanae Hurd MD [Physician] - 2 Weeks Jet Mckinney MD [Primary Care Provider] - Diet/Activity/Treatments Diet: Diet as Tolerated and Carb-consistent/Diabetic Activity: NWB LLE Other treatments: At-Home Instructions - Dr. Hurd Surgery: Left triple arthrodesis/deformity correction Cast/Splint/Dressing Care Instructions 1) Keep cast/dressing clean and dry. 2) May bathe - but cast/dressing must remain dry. 3) Should the cast become wet, you need to come into emergency department or call your physician's clinic immediately for cast removal and replacement. Moisture can cause skin breakdown and lead to infection if left untreated. 4) Do not stick any sharp object down the cast to itch, as this can cause scrapes/cuts/punctures which can lead to infection. 6) Observe for increasing pain in the extremity with the cast, finger/toe-tips turning blue/purple, or numbness and tingling in your toes/fingers. Should any of these symptoms arise, you need to be seen immediately for evaluation of swelling and increasing compartment pressures within your affected extremity. 7) Keep your affected extremity elevated - Toes Above your Nose? - This is lovelace in the first two weeks after surgery to minimize swelling. 8) You may ice your extremity, being careful to prevent melting ice from saturating into the splint/cast. 9) resume wound care with [facility]-- should see on . for vac change Activity No heavy lifting greater than 10 pounds. [address] while on narcotic pain medication. Do not get your dressing/cast/splint wet! You must remain non-weight bearing on your operative extremity. Use crutches or a walker for ambulation. No driving until you are otherwise instructed by your physician. This will be addressed at your first follow-up appointment. Discharge Pain Medications You will be given a prescription for pain medication. You should start taking this the same day after your surgery. Wean off as tolerated. Do not wait to take the pain medication until the pain is severe, as it will be difficult to catch up once this occurs. The pain medication usually reaches its full effect ~1 hour after ingesting. If you have been sent home on Colace, this medication should be taken until you are off all narcotic (i.e. Vicodin, Percocet, Oxycodone, etc) pain medications, to prevent constipation. You may also obtain this or another stool softener over the counter to prevent or alleviate constipation. Percocet or Vicodin have Tylenol in their ingredient lists. You must be careful not to exceed 3,000mg (3 grams) of Tylenol, from all sources, within a single 24-hr period. This means that you may not take more than 10 pills within a 24- hr period. Do NOT take Regular or Extra Strength Tylenol when taking your Percocet or Vicodin medications. -IF you have been given a Toradol/ketorolac prescription, this is a very strong anti-inflammatory. Do not take axva-yuk-fuqzzbh anti-inflammatories (ibuprofen, Aleve, Advil, Motrin) while taking the Toradol/ketorolac. Once you are finished with this prescription, then you can resume kiys-qar-hikfigo anti- inflammatories. You can still take your narcotic pain medication and Tylenol while taking the Toradol/ketorolac. -Some common side effects of the narcotic pain medications (Percocet, Oxycodone, Vicodin, etc.) include nausea and itching. Benadryl is a great over the counter medication that helps calm your stomach, decreases your anxiety levels, and minimizes the itching. You can easily purchase this at your local pharmacy as an vaei-ayz-eszlbjf medication. Please abide by the instructions as printed on the bottle. If your nausea persists, make sure to take small amounts of crackers or other flight hostess foods. Follow-Up/Emergency Contacts Please call for an appointment in either [place] or [place], if one has not been scheduled. Follow up 2 weeks after surgery. [phone] Contact the office if you have any of the following: ? Painful swelling or numbness ? Unrelenting pain ? Fever (over 101?- it is normal to have a low grade fever for the first day or two following surgery) or chills ? Redness around the incisions ? Color changes ? Continuous bleeding or drainage from the incision (a small amount is expected) ? Excessive nausea or vomiting ? Difficulty breathing If you have an emergency that requires immediate attention, proceed to the nearest emergency room. Blood Clot Prophylaxis You will need to complete a total 6-week (42 days) course of Aspirin (162 mg twice daily) after surgery, to minimize the risk of blood clots following surgery. You may alternatively purchase or use cwti-ffu-uysxbbx generic equivalent Aspirin. If you already have ?baby? Aspirin (81mg) at home, you can take 2 ?baby? Aspirin to total 162mg for the equivalent dose- take twice a day. Pain Medications: It is the policy of [facility] that narcotic medications will only be refilled during office hours. Additionally, due to the alarming rate of narcotic pain medication abuse/dependence, it has become necessary for physician practices to closely manage patient use of prescription narcotic pain relievers, such as Vicodin ([place]), Percocet, and Oxycodone products. Narcotic pain management in the postoperative period may not exceed 6 weeks. If narcotic pain management is required beyond 90 days, then a referral to a Chronic Pain Specialist will be made. If a request for a medication prescription has been made, the physician must review your chart prior to authorizing the request. Please be patient with office staff. If you call during patient hours, your call may not be returned until the end of the day. Dr. Shanae Hurd [address] [email or web address] Skin/Wound/Dressing Care Report to your healthcare provider any signs of infection, such as:: chills, fever, night sweats, increased pain, unusual drainage and unusual redness Dressing: See above for instructions Visit Report/Discharge Packet Stand Alone Forms: Surgery Discharge Discharge Data Primary Care Provider: Jet Mckinney Attending Provider: Shanae Hurd
--- NOTE | 2021-02-05 11:04 | CM.DANOTE ---
DCP: Case received, EMR reviewed and met with patient. Introduced self and role. Was able to obtain information from patient regarding his baseline activity status at home, current living situation, and current wound set up. DCP assessment was completed with information readily available in chart, as well as from patient. Patient is a 60 year old male who admitted yesterday morning to the care of the orthopedic team. PCP: Dr. Mckinney. Payer: confirmed: [facility] [employer]. Patient came to the hospital via private vehicle for a surgical procedure. He had foot surgery scheduled yesteray morning secondary to his left foot deformity with open wound. Patient is type 2 diabetes with osteomyelitisl He is currently having IV home antibiotics, managed with [facility], and has a PICC line. He has a wound vac, and goes to the [facility] twice a week for wound care and wound vac change. He has been non weight bearing on his left extremity, and uses crutches. Met with patient in his room. He is alert and oriented. He resides in [place] alone, but his daughter, Mariama, is nearby and assists patient as needed, and takes him to his appointments. Patient indicated, they accidentally gave his crutches to another patient, even though they were tagged, and are going to have to get him another set until he gets his crutches back, since that's how he gets around. Discussed at team rounds, and charge nurse is working on getting some from PACU, no charge to patient, but will work on exchanging them from other patient in [place] who was given his crutches. Patient confirmed that he is doing home IV treatments with wound vac at [facility]. He is able to manage with his crutches in the home setting, and has been checking his blood sugars. Confirmed that his PCP is Dr. Mckinney. P: Patient is to discharge home today, and will follow up at wound clinic. He will continue with his home IV that he is currently on. Emmie Barraza RN/Mechanical Process Engineer
--- NOTE | 2021-02-05 11:56 | PC.NURSE ---
A&Ox4. VSS. Denies pain. Chronic peripheral neuropathy, has no sensation BLE. Dressing with jarrell wrap cdi. Cap refill <3 sec on left toes. Reviewed discharge instructions, answered questions. Off of unit at 11:45, daughter driving home.
== END 2021-02-05 11:45 | disposition home or self-care (01) ==
LOC: OR 09:11 → AC 09:49
PROVIDERS: PCP Internal Medicine; Referring Provider Orthopaedic Surgery Foot and Ankle Surgery; Visit Provider Orthopaedic Surgery Foot and Ankle Surgery
PROC: (CPT 27870; principal; 2021-02-04 12:45)
PROC: (CPT 27691; 2021-02-04 12:45)
DX: M21.172 Varus deformity, not elsewhere classified, left ankle (principal); M25.372 Other instability, left ankle; E11.621 Type 2 diabetes mellitus with foot ulcer; L97.523 Non-pressure chronic ulcer of other part of left foot with necrosis of muscle; E11.42 Type 2 diabetes mellitus with diabetic polyneuropathy; Z79.4 Long term (current) use of insulin; E11.69 Type 2 diabetes mellitus with other specified complication; M86.8X7 Other osteomyelitis, ankle and foot; B96.89 Other specified bacterial agents as the cause of diseases classified elsewhere
CPT/HCPCS: 28715; 97605; 28250; 27685; 20902; 27698; 28300; 28740; 73600; 76000; 82962; 93005; J0171; J0690; J0696; J1100; J1815; J2250; J2704; J2765; J3010

== ENCOUNTER 2021-02-06 18:57 | Emergency (ER) | payer OTHER, SELFPAY ==
[2021-02-04 18:27] VITALS: BMI 28.2
[2021-02-06] VITALS (23 sets, daily range): BP systolic 114–188; BP diastolic 55–82; PULSE 93–128; RESP 16–35; TEMP 37.6–38.3; O2SAT 95–98; BMI 29.0
--- NOTE | 2021-02-06 19:29 | DI.RAD.S_ITS ---
PROCEDURE: XR CHEST 1V INDICATIONS: suspected sepsis TECHNIQUE: One view of the chest was acquired. COMPARISON: [facility], CR, XR CHEST FOR PICC 1V, 12/16/2020, 9:55. FINDINGS: Surgical changes and devices: Left arm PICC is present, tip of which is in the mid SVC. Lungs and pleura: Lungs are clear. No pleural effusions or pneumothorax. Mediastinum: Mediastinal contours appear normal. Heart size is normal. Bones and chest wall: No suspicious bony lesions. Overlying soft tissues appear unremarkable. IMPRESSION: No acute process. Dictated by: Elizabeth Kiser M.D. on 02/06/2021 at 19:59 Approved by: Elizabeth Kiser M.D. on 02/06/2021 at 19:59
[2021-02-06] MEDS: SODIUM CHLORIDE 0.9% 1,000 ML 1000 ML IV (19:40)
--- NOTE | 2021-02-06 19:46 | ED.FEVER ---
HPI - Fever General Chief Complaint: Fever Stated Complaint: FEVER, POST SURGERY X2 Time Seen by Provider: 02/06/21 19:31 History of Present Illness HPI Narrative: Patient is a 60-year-old male insulin-dependent diabetic presenting 2 days postop left complicated Charcot foot surgery. He said he has been on IV antibiotics, rocephin since November. He has PICC in his left arm. He presents today with fever of 100.9. He states that his fever started today. He overall just does not feel well. He does not have much feeling in his legs due to neuropathy. He does not complain of postoperative pain. He is tachycardic with rate 128. Reports stay states that he had persistent tachycardia. Patient states that he has been more sedentary the last few weeks due to the IV antibiotics and infection. He denies any palpitations dizziness orthopnea, chest pain, shortness of breath, abdominal pain, nausea, or vomiting. Related Data Home Medications Medication Instructions Recorded Confirmed losartan 100 mg tablet 100 mg PO DAILY 02/19/19 02/04/21 pioglitazone 15 mg tablet (Actos) 15 mg PO BID 02/19/19 02/04/21 amlodipine 5 mg tablet 5 mg PO DAILY 02/20/19 02/04/21 insulin glargine 100 unit/mL (3 65 unit SUBCUT BID 02/20/19 02/04/21 mL) subcutaneous pen (Lantus Solostar U-100 Insulin) insulin lispro 100 unit/mL 20 unit SUBCUT TID 02/20/19 02/04/21 subcutaneous cartridge (Humalog U-100 Insulin) aspirin 81 mg tablet,delayed 81 mg PO DAILY 12/15/20 02/04/21 release Previous Rx's Medication Instructions Recorded oxycodone 5 mg tablet 5 mg PO Q6H PRN #10 tab 12/20/20 ondansetron HCl 4 mg tablet 4 mg PO Q8H PRN #7 tab 02/04/21 (Zofran) oxycodone 5 mg tablet 5 - 10 mg PO Q4H PRN #42 tab 02/04/21 acetaminophen 325 mg tablet 975 mg PO TID 30 Days #270 tab 02/05/21 oxycodone 5 mg tablet 5 mg PO Q4H PRN #30 tab 02/05/21 Allergies Allergy/AdvReac Type Severity Reaction Status Date / Time No Known Drug Allergies Allergy Verified 02/06/21 19:35 Review of Systems Review of Systems Narrative: GENERAL:+ fever HEENT: Denies sinus pain, ear pain, sore throat, difficulty swallowing, neck pain RESPIRATORY: Denies dyspnea, cough, wheezing, hemoptysis, sputum. CARDIOVASCULAR: Denies chest pain, palpitations, orthopnea, edema GASTROINTESTINAL: Denies nausea, vomiting, abdominal pain, diarrhea, constipation, melena. : Denies dysuria, frequency, incontinence, hematuria, urinary retention, flank pain. MUSCULOSKELETAL: See HPI SKIN: No rash, no erythema, no pruritus NEUROLOGIC:+ neuropathy Denies weakness, dizziness, headache, numbness, change in speech, confusion PSYCHIATRIC: No concerning psychosocial issues. 12 point review of systems is negative except for those stated above and HPI Patient History Medical History (Updated 02/07/21 @ 01:12 by Jeane Reyes DO) Asthma Chronic renal disease, stage III Diabetes Diabetic foot ulcer Diabetic retinopathy Dupuytren's contracture Dyslipidemia Erectile dysfunction Gastroparesis HTN (hypertension) Malignant neoplasm prostate Presence of device Sinusitis Ulcer of left foot with necrosis of muscle Surgical History (Updated 02/01/21 @ 08:20 by Carlita Coombs RN) History of surgery (~02/2018) S/P foot surgery, right (04/09/19) Status post incision and drainage (02/21/19) Family History Mother CVA (cerebral vascular accident) Father Myocardial infarction Other Diabetes mellitus Social History household members: family and children Smoking Status: Former smoker alcohol intake: former Smoking Status: Former smoker Substance Use Type: does not use Exam Initial Vital Signs Initial Vital Signs: Vital Signs Temperature 100.9 F H 02/06/21 19:00 Pulse Rate 128 H 02/06/21 19:00 Respiratory Rate 20 02/06/21 19:00 Blood Pressure 188/77 H 02/06/21 19:00 Pulse Oximetry 96 02/06/21 19:00 GENERAL: Alert 60-year-old male appears well HEENT: Head atraumatic,EOMI, pupils reactive, face symmetric, [moist] mucous membranes CARDIOVASCULAR: Regular rate and rhythm without murmurs, rubs or gallops. RESPIRATORY: Breath sounds equal bilaterally, no wheezes rales or rhonchi. ABDOMEN: Soft, nontender. Normoactive bowel sounds all 4 quadrants. No guarding or rebound. EXTREMITIES: Normal range of motion, no clubbing or edema. Neurovascularly intact Left dressing has been removed. Wound VAC is in place dressing is completely saturated in blood although wounds actually look okay there is some clear drainage from the right lateral foot NEUROLOGICAL: Alert and oriented x4.Normal gait and speech. SKIN: Postoperative changes noted on foot. No other rashes or erythema. Site of bone graft in left tibia is bandaged no surrounding erythema Course Orders Ordered: ED Orders 02/06/21 21:14 CT angio chest PE protocol Stat Wound Culture and Gram Stain Stat 02/06/21 21:55 COVID19 - ADMIT ([employer] swab/PCR) Stat 02/07/21 00:51 Urine Microscopic Stat Discontinued Medications Acetaminophen (Acetaminophen 325 Mg Tablet) 975 mg PO NOW ONE Stop: 02/06/21 19:31 Last Admin: 02/06/21 19:58 Dose: 975 mg Documented by: LAVELLE Sodium Chloride (Normal Saline 0.9%) 1,000 mls @ 1,000 mls/hr IV BOLUS ONE Stop: 02/06/21 20:28 Last Infusion: 02/06/21 20:53 Dose: 0 mls/hr Documented by: Admin: 02/06/21 19:40 Dose: 1,000 mls/hr Documented by: LAVELLE Vancomycin HCl/Dextrose (Vancomycin) 1,500 mg in 300 mls @ 200 mls/hr IV NOW ONE Stop: 02/06/21 22:33 Last Infusion: 02/07/21 01:00 Dose: 0 mls/hr Documented by: Admin: 02/06/21 22:36 Dose: 200 mls/hr Documented by: LAVELLE Piperacillin Sod/Tazobactam (Sod 4.5 gm/ Sodium Chloride) 100 mls @ 200 mls/hr IV NOW ONE Stop: 02/06/21 21:05 Last Infusion: 02/06/21 22:21 Dose: 0 mls/hr Documented by: Infusion: 02/06/21 22:04 Dose: 200 mls/hr Documented by: Infusion: 02/06/21 21:45 Dose: 0 mls/hr Documented by: Admin: 02/06/21 21:19 Dose: 200 mls/hr Documented by: LAVELLE Ketorolac Tromethamine (Ketorolac 30 Mg/Ml Vial) 30 mg IV NOW ONE Stop: 02/06/21 21:15 Last Admin: 02/06/21 21:24 Dose: 30 mg Documented by: LAVELLE Vital Signs Vital signs: Vital Signs - 8 hr 02/06/21 21:15 02/06/21 21:48 02/06/21 21:49 Temperature Pulse Rate 121 H 114 H 114 H Respiratory Rate 20 Blood Pressure 154/70 H 151/67 H Pulse Oximetry 95 97 97 02/06/21 22:00 02/06/21 22:15 02/06/21 22:23 Temperature 99.6 F Pulse Rate 107 H 104 H Respiratory Rate 25 H Blood Pressure 142/55 H 131/62 Pulse Oximetry 95 96 02/06/21 22:28 02/06/21 22:30 02/06/21 22:45 Temperature 99.6 F Pulse Rate 101 H 98 H Respiratory Rate 24 23 Blood Pressure 132/56 L 121/58 L Pulse Oximetry 96 96 02/06/21 23:00 02/06/21 23:15 02/06/21 23:30 Temperature Pulse Rate 99 H 97 H 93 H Respiratory Rate 20 23 Blood Pressure 133/63 131/63 117/55 L Pulse Oximetry 98 97 97 02/06/21 23:45 02/07/21 00:00 02/07/21 00:15 Temperature Pulse Rate 98 H 94 H 96 H Respiratory Rate 24 20 Blood Pressure 114/62 123/62 128/63 Pulse Oximetry 98 98 98 02/07/21 00:30 02/07/21 00:45 Temperature Pulse Rate 93 H 101 H Respiratory Rate 24 Blood Pressure 125/61 115/57 L Pulse Oximetry 99 100 MDM - Fever Lab Data Result diagrams: 02/06/21 19:22 02/06/21 19:22 Labs: Lab Results 02/06/21 02/06/21 02/06/21 Range/Units 19:22 19:22 19:22 WBC 11.3 H (4.5-11.0) X10^3/uL RBC 3.09 L (4.5-5.9) X10^6/uL Hgb 8.8 L (13.5-17.5) g/dL Hct 26.9 L (41-53) % MCV 86.8 (80-100) fL MCH 28.3 (26-34) PG MCHC 32.6 (30-36) % RDW 14.9 H (11.6-14.8) % Plt Count 214 (150-400) X10^3/uL Neut % (Auto) 85.6 H (50-75) % Lymph % (Auto) 4.9 L (25-40) % [place] % (Auto) 9.2 (3-14) % Eos % (Auto) 0.0 L (2-4) % Baso % (Auto) 0.3 (0-2) % Neut # (Auto) 9600 H (4096-4265) /uL Lymph # (Auto) 500 L (8056-0751) /uL [place] # (Auto) 1000 H (0-900) /uL Eos # (Auto) 0 (0-450) /uL Baso # (Auto) 0 (0-100) /uL Sodium 133 L (137-145) mmol/L Potassium 4.3 (3.4-5.1) mmol/L Chloride 101 (98-107) mmol/L Carbon Dioxide 27 (22-32) mmol/L BUN 23 H (9-20) mg/dL Creatinine 1.58 H (0.66-1.25) mg/dL Estimated GFR 44.7 L (>60) mL/min BUN/Creatinine Ratio 14.6 (6-22) Glucose 288 H (80-110) mg/dL Lactate 1.4 (0.7-2.1) mmol/L Calcium 8.3 L (8.4-10.2) mg/dL Total Bilirubin 0.8 (0.2-1.3) mg/dL AST 26 (17-59) IU/L ALT 17 (<50) IU/L Alkaline Phosphatase 116 (38-126) U/L Total Protein 6.4 (6.3-8.2) g/dL Albumin 3.2 L (3.5-5.0) g/dL Globulin 3.2 (1.7-4.1) g/dL Albumin/Globulin Ratio 1.0 (1.0-2.8) Lipase 12 L (23-300) U/L Procalcitonin 0.78 H (<0.5) ng/mL Urine RBC (0-5/HPF) Urine WBC (0-5/HPF) Uric Acid Crystals (None) Urine Bacteria (None) Ur Culture Indicated? SARS-CoV-2 (PCR) (Negative) 02/06/21 02/07/21 Range/Units 21:55 00:51 WBC (4.5-11.0) X10^3/uL RBC (4.5-5.9) X10^6/uL Hgb (13.5-17.5) g/dL Hct (41-53) % MCV (80-100) fL MCH (26-34) PG MCHC (30-36) % RDW (11.6-14.8) % Plt Count (150-400) X10^3/uL Neut % (Auto) (50-75) % Lymph % (Auto) (25-40) % [place] % (Auto) (3-14) % Eos % (Auto) (2-4) % Baso % (Auto) (0-2) % Neut # (Auto) (4525-8005) /uL Lymph # (Auto) (0931-5356) /uL [place] # (Auto) (0-900) /uL Eos # (Auto) (0-450) /uL Baso # (Auto) (0-100) /uL Sodium (137-145) mmol/L Potassium (3.4-5.1) mmol/L Chloride (98-107) mmol/L Carbon Dioxide (22-32) mmol/L BUN (9-20) mg/dL Creatinine (0.66-1.25) mg/dL Estimated GFR (>60) mL/min BUN/Creatinine Ratio (6-22) Glucose (80-110) mg/dL Lactate (0.7-2.1) mmol/L Calcium (8.4-10.2) mg/dL Total Bilirubin (0.2-1.3) mg/dL AST (17-59) IU/L ALT (<50) IU/L Alkaline Phosphatase (38-126) U/L Total Protein (6.3-8.2) g/dL Albumin (3.5-5.0) g/dL Globulin (1.7-4.1) g/dL Albumin/Globulin Ratio (1.0-2.8) Lipase (23-300) U/L Procalcitonin (<0.5) ng/mL Urine RBC 1-5/hpf (0-5/HPF) Urine WBC None seen (0-5/HPF) Uric Acid Crystals Few H (None) Urine Bacteria None seen (None) Ur Culture Indicated? Cult not indicated SARS-CoV-2 (PCR) Negative (Negative) Urine Dip Bedside Urine Glucose 100 mg/dl Bedside Urine Bilirubin - Negative Bedside Urine Ketone - Negative Urine Specific [place] 1.015 Bedside Urine Occult Blood ++ Bedside Urine pH 5.5 Bedside Urine Protein +++ 300 Bedside Urine Urobilinogen - Negative Bedside Urine Nitrite - Negative Bedside Urine Leukocytes - Negative Esterase Imaging Data Chest x-ray: Radiologist's Impression: PROCEDURE:? XR CHEST 1V ? INDICATIONS:? suspected sepsis ? TECHNIQUE:? One view of the chest was acquired.? ? COMPARISON:? [facility], CR, XR CHEST FOR PICC 1V, 12/16/2020, 9:55. ? FINDINGS:? ? Surgical changes and devices:? Left arm PICC is present, tip of which is in the mid SVC. ? Lungs and pleura:? Lungs are clear.? No pleural effusions or pneumothorax.? ? Mediastinum:? Mediastinal contours appear normal.? Heart size is normal.? ? Bones and chest wall:? No suspicious bony lesions.? Overlying soft tissues appear unremarkable.? ? IMPRESSION:? No acute process. ? ? Dictated by: Elizabeth Kiser M.D. on 02/06/2021 at 19:59 ? ? US - DVT: Radiologist's Impression: PROCEDURE:? US PERIPH VENOUS LOW EXTREM LT ? INDICATIONS:? POST OP FEVER ? TECHNIQUE:? Real-time imaging, as well as color and pulse Doppler interrogation, were performed of the lower extremity deep veins from the inguinal ligament to the popliteal fossa.? ? COMPARISON:? None. ? FINDINGS:? The common femoral, femoral and popliteal veins are normally compressible, and free of intraluminal thrombus.? Color and pulse Doppler demonstrate normal phasic intraluminal flow.? There is normal augmentation response to distal compression maneuver. ? ? IMPRESSION:? No evidence of left lower extremity DVT. ? ? Dictated by: Elizabeth Kiser M.D. on 02/06/2021 at 20:24 ? ? CT scan - chest: Radiologist's Impression: PROCEDURE:? CT ANGIO CHEST PE PROTOCOL ? INDICATIONS:? r/o pe persistent tachycardia ? TECHNIQUE:? After the administration of intravenous contrast, 2 mm thick sections acquired from the pulmonary apices to the posterior costophrenic angles.? 3-dimensional maximum intensity projection (MIP) coronal and sagittal reformats were then acquired through the thorax.? For radiation dose reduction, the following was used:? automated exposure control, adjustment of mA and/or kV according to patient size.? ? COMPARISON:? None. ? FINDINGS:? Image quality:? Excellent.? ? Pulmonary arteries:? Pulmonary arteries are normal in size, and demonstrate no intraluminal filling defects to suggest central pulmonary embolism.? ? Lungs and pleura:? Lungs are clear.? No pleural effusions or pneumothorax.? Central and peripheral airways are patent.? ? Mediastinum:? Heart size is normal, without pericardial effusion.? Calcification in the coronary vasculature.? No mediastinal or hilar adenopathy.? Thoracic aorta is normal in caliber and enhancement.? Esophagus is normal in caliber, without hiatal hernia.? Mild thickening the mid and distal esophagus. ? Bones and chest wall:? No suspicious bony lesions.? Ribs and thoracic spine appear intact throughout.? Thyroid gland is grossly unremarkable.? No axillary or supraclavicular adenopathy.? ? Abdomen:? Visualized upper abdominal solid organs appear normal in the early arterial phase of enhancement.? ? IMPRESSION:? 1. No pulmonary embolus. 2. Esophageal thickening, suggestive esophagitis.? Endoscopy is recommended to exclude underlying neoplasm. 3. Coronary artery disease. ? ? Dictated by: Elizabeth Kiser M.D. on 02/06/2021 at 21:55 ?? ECG Data Interpretation: Sinus tachycardia rate 125 AK interval 140 QRS 90 QTC 424 MDM Narrative Medical decision making narrative: Patient has fever 100.9 up to 101 postoperative despite his outpatient IV Rocephin since November. Dressing and splint has been removed. Dressing is quite saturated and serosanguineous fluid. Overall incision sites appear quite well right lateral foot incision does seem to be draining a bit. But not gross pus. Culture has been sent. Chest x-ray is negative, DVT study also negative, urine study also negative Patient is persistently tachycardic according to inpatient records he was always tachycardic postoperatively. He has been quite sedentary since November. Ruled out PE with CT angio. Patient has mild leukocytosis of 11. He has an elevated procalcitonin of 0.78, no priors to compare. He is given vancomycin and Zosyn. Patient nor has a normal lactic acid is and removal blood pressure. Tachycardia does improve actually while in the emergency department, tachycardia is probably secondary to his fever. Dr. Beaulieu consult. Not concerned with fever postop in a diabetic foot. States that patient can follow-up outpatient with his surgeon Dr. Meyer. Discharge Plan Departure Patient Disposition: Home Clinical Impression: Fever postop Instructions: DI for Fever (Symptom) -- Adult Activity Restrictions/Additional Instructions: At this time I do not have a good reason for your fever I have spoken with Orthopedics to state that you can follow-up in their office tomorrow with Dr. Meyer. Please call Dr. Meyer 1st thing tomorrow morning If you should have increasing confusion, persistent fever, pain out of control or any new or worsening symptoms Prescriptions: No Action losartan 100 mg Tablet 100 mg PO DAILY RF: 0 pioglitazone [Actos] 15 mg Tablet 15 mg PO BID RF: 0 amlodipine 5 mg Tablet 5 mg PO DAILY RF: 0 Humalog U-100 Insulin 100 unit/mL Cartridge 20 unit SUBCUT TID RF: 0 Lantus Solostar U-100 Insulin 100 unit/mL (3 mL) Insulin Pen 65 unit SUBCUT BID RF: 0 aspirin 81 mg tablet,delayed release (DR/EC) 81 mg PO DAILY RF: 0 oxycodone 5 mg tablet 5 mg PO Q6H PRN (Reason: pain) Qty: 10 RF: 0 oxycodone 5 mg tablet 5 - 10 mg PO Q4H PRN (Reason: pain) Qty: 42 RF: 0 ondansetron HCl [Zofran] 4 mg tablet 4 mg PO Q8H PRN (Reason: nausea and vomiting) Qty: 7 RF: 0 acetaminophen 325 mg Tablet 975 mg PO TID 30 Days Qty: 270 RF: 0 oxycodone 5 mg Tablet 5 mg PO Q4H PRN (Reason: Pain, Moderate (4-6)) Qty: 30 RF: 0 Referrals: Shanae Hurd MD [Physician] - Jet Mckinney MD [Primary Care Provider] -
--- NOTE | 2021-02-06 19:47 | DI.US.S_ITS ---
PROCEDURE: US PERIPH VENOUS LOW EXTREM LT INDICATIONS: POST OP FEVER TECHNIQUE: Real-time imaging, as well as color and pulse Doppler interrogation, were performed of the lower extremity deep veins from the inguinal ligament to the popliteal fossa. COMPARISON: None. FINDINGS: The common femoral, femoral and popliteal veins are normally compressible, and free of intraluminal thrombus. Color and pulse Doppler demonstrate normal phasic intraluminal flow. There is normal augmentation response to distal compression maneuver. IMPRESSION: No evidence of left lower extremity DVT. Dictated by: Elizabeth Kiser M.D. on 02/06/2021 at 20:24 Approved by: Elizabeth Kiser M.D. on 02/06/2021 at 20:24
--- NOTE | 2021-02-06 19:47 | PC.NURSE ---
Unwrapped pt's LL leg. Dressings had a moderate amount of blood but the multiple surgical sites look well, no obvious drainage, xeroform dressings left on sutures.
[2021-02-06 19:48] LABS: Add Manual Diff / Slide Review NO; Basophils Absolute Auto 0 /uL (0-100); Basophils Percent Auto 0.3 % (0-2); Eosinophils Absolute Auto 0 /uL (0-450); Hematocrit 26.9 % (41-53); Hemoglobin 8.8 g/dL (13.5-17.5); Lymphocytes Absolute Auto 500 /uL (1100-4500); Lymphocytes Percent Auto 4.9 % (25-40); Mean Corpuscular HGB Conc 32.6 % (30-36); Mean Corpuscular Hemoglobin 28.3 PG (26-34); Mean Corpuscular Volume 86.8 fL (80-100); Monocytes Absolute Auto 1000 /uL (0-900); Monocytes Percent Auto 9.2 % (3-14); Neutrophils Absolute Auto 9600 /uL (1500-7000); Neutrophils Percent Auto 85.6 % (50-75); Platelet Count 214 X10^3/uL (150-400); Red Blood Cell Count 3.09 X10^6/uL (4.5-5.9); Red Cell Distribution Width 14.9 % (11.6-14.8); White Blood Cell Count 11.3 X10^3/uL (4.5-11.0)
[2021-02-06 19:49] LABS: Alanine Aminotransferase 17 IU/L (<50); Albumin 3.2 g/dL (3.5-5.0); Alkaline Phosphatase 116 U/L (38-126); Aspartate Aminotransferase 26 IU/L (17-59); BUN Creatinine Ratio 14.6 (6-22); Bilirubin Total 0.8 mg/dL (0.2-1.3); Blood Urea Nitrogen 23 mg/dL (9-20); Calcium 8.3 mg/dL (8.4-10.2); Carbon Dioxide 27 mmol/L (22-32); Chloride 101 mmol/L (98-107); Estimated Glomerular Filt Rate 44.7 mL/min (>60); Globulin 3.2 g/dL (1.7-4.1); Glucose 288 mg/dL (80-110); HEMOLYSIS < 15 (0-50); Lactate (Lactic Acid) 1.4 mmol/L (0.7-2.1); Lipase 12 U/L (23-300); Potassium 4.3 mmol/L (3.4-5.1); Sodium 133 mmol/L (137-145); Total Protein 6.4 g/dL (6.3-8.2)
[2021-02-06] MEDS: ACETAMINOPHEN 325 MG TABLET 975 MG PO (19:58)
[2021-02-06 20:05] LABS: Procalcitonin 0.78 ng/mL (<0.5)
--- NOTE | 2021-02-06 21:14 | DI.CT.S_ITS ---
PROCEDURE: CT ANGIO CHEST PE PROTOCOL INDICATIONS: r/o pe persistent tachycardia TECHNIQUE: After the administration of intravenous contrast, 2 mm thick sections acquired from the pulmonary apices to the posterior costophrenic angles. 3-dimensional maximum intensity projection (MIP) coronal and sagittal reformats were then acquired through the thorax. For radiation dose reduction, the following was used: automated exposure control, adjustment of mA and/or kV according to patient size. COMPARISON: None. FINDINGS: Image quality: Excellent. Pulmonary arteries: Pulmonary arteries are normal in size, and demonstrate no intraluminal filling defects to suggest central pulmonary embolism. Lungs and pleura: Lungs are clear. No pleural effusions or pneumothorax. Central and peripheral airways are patent. Mediastinum: Heart size is normal, without pericardial effusion. Calcification in the coronary vasculature. No mediastinal or hilar adenopathy. Thoracic aorta is normal in caliber and enhancement. Esophagus is normal in caliber, without hiatal hernia. Mild thickening the mid and distal esophagus. Bones and chest wall: No suspicious bony lesions. Ribs and thoracic spine appear intact throughout. Thyroid gland is grossly unremarkable. No axillary or supraclavicular adenopathy. Abdomen: Visualized upper abdominal solid organs appear normal in the early arterial phase of enhancement. IMPRESSION: 1. No pulmonary embolus. 2. Esophageal thickening, suggestive esophagitis. Endoscopy is recommended to exclude underlying neoplasm. 3. Coronary artery disease. Dictated by: Elizabeth Kiser M.D. on 02/06/2021 at 21:55 Approved by: Elizabeth Kiser M.D. on 02/06/2021 at 21:57
[2021-02-06] MEDS: PIPERACILLIN/TAZO 4.5 GM in SODIUM CHLORIDE 0.9% 100 ML 200 ML IV (21:19)
[2021-02-06] MEDS: KETOROLAC 30 MG/ML VIAL IV (21:24)
[2021-02-06] MEDS: VANCOMYCIN 1,500 MG/300 ML PIGGYBACK 200 MG IV (22:36)
[2021-02-06 22:54] LABS: COVID19 - ADMIT (NP swab/PCR) Negative (Negative)
[2021-02-07] VITALS: BP 123/62; PULSE 94; RESP 20; O2SAT 98
[2021-02-07 00:15] VITALS: BP 128/63; PULSE 96; O2SAT 98
[2021-02-07 00:30] VITALS: BP 125/61; PULSE 93; RESP 24; O2SAT 99
[2021-02-07 00:45] VITALS: BP 115/57; PULSE 101; O2SAT 100
[2021-02-07 00:52] LABS: Bacteria Urine None Seen; WBC Urine None Seen (0-5/HPF)
[2021-02-07 01:32] LABS: Culture Indicated Urine Cult Not Indicated; RBC Urine 1-5/HPF (0-5/HPF); Uric Acid Crystals Urine Few
== END 2021-02-07 01:29 | disposition home or self-care (01) ==
PROVIDERS: Emergency Provider Emergency Medicine; PCP Internal Medicine
DX: R50.82 Postprocedural fever (principal); R00.0 Tachycardia, unspecified
CPT/HCPCS: 36415; 71045; 71275; 80053; 81003; 81015; 83605; 83690; 84145; 85025; 87040; 87070; 87075; 87077; 87147; 87186; 87205; 87635; 93005; 93010; 93971; 96361; 96365; 96366; 96367; 96375; 99285; C9803; J1885; J2543; Q9967

== ENCOUNTER 2021-03-16 12:06 | Inpatient (IN) | payer OTHER, SELFPAY ==
[2021-02-04 18:27] VITALS: BMI 28.2
[2021-03-16] VITALS (15 sets, daily range): BP systolic 101–154; BP diastolic 61–82; PULSE 91–110; RESP 12–18; TEMP 36.3–37.7; O2SAT 96–100; BMI 28.8; BMI 28.9
--- NOTE | 2021-03-16 13:20 | PC.NURSE ---
Addendum entered by Hanna Bertrand R.N. 03/16/21 14:57: pt NPO. Left foot YUMIKO wrapped per Dr. Hurd's instructions. Denying pain and resting in bed. Original Note: pt arrived as direct admit via Dr. Hurd's clinic today at ~1245. pt placed on isolation for COVID rule out. Family member in room and both keeping mask on. RN Sharita assisted with admission and place PIV to left wrist. NS infusing at 100/hr. pt oriented to room, provided with consent form to review, and CBG obtained (200). No questions from the pt.
[2021-03-16] MEDS: SODIUM CHLORIDE 0.9% 1,000 ML 100 ML IV (13:28)
--- NOTE | 2021-03-16 13:30 | PC.NURSE ---
PT ADMITTED TO ROOM 222 DIRECT ADMIT TO ROOM 222 POST OFFICE VISIT WITH DR MCNEAL, SHE WILL PERFORM SURGERY LATER THIS PM AND PT TO MAINTAIN NPO STATUS UNTIL THEN, TELE #5 PLACED AND SHOWS SR/ST WITH OCC PVC, DAUGHTER AT BEDSIDE, IVF INFUSING AND LABS PENDING
[2021-03-16 13:35] LABS: COVID19 - ADMIT (NP swab/PCR) Negative (Negative)
[2021-03-16 13:52] LABS: Add Manual Diff / Slide Review NO; Basophils Absolute Auto 100 /uL (0-100); Basophils Percent Auto 0.6 % (0-2); Eosinophils Absolute Auto 100 /uL (0-450); Eosinophils Percent Auto 1.1 % (2-4); Hematocrit 28.7 % (41-53); Hemoglobin 9.5 g/dL (13.5-17.5); Lymphocytes Absolute Auto 600 /uL (1100-4500); Mean Corpuscular HGB Conc 33.1 % (30-36); Mean Corpuscular Hemoglobin 26.3 PG (26-34); Mean Corpuscular Volume 79.5 fL (80-100); Monocytes Absolute Auto 700 /uL (0-900); Monocytes Percent Auto 7.3 % (3-14); Neutrophils Absolute Auto 7900 /uL (1500-7000); Platelet Count 474 X10^3/uL (150-400); Red Blood Cell Count 3.61 X10^6/uL (4.5-5.9); Red Cell Distribution Width 15.9 % (11.6-14.8); White Blood Cell Count 9.3 X10^3/uL (4.5-11.0)
[2021-03-16 14:08] LABS: Alanine Aminotransferase 18 IU/L (<50); Albumin 3.6 g/dL (3.5-5.0); Albumin Globulin Ratio 1.1 (1.0-2.8); Alkaline Phosphatase 122 U/L (38-126); Aspartate Aminotransferase 20 IU/L (17-59); BUN Creatinine Ratio 11.9 (6-22); Bilirubin Total 0.4 mg/dL (0.2-1.3); Blood Urea Nitrogen 19 mg/dL (9-20); C-Reactive Protein Quant 6.6 mg/dL (<1.0); Calcium 9.5 mg/dL (8.4-10.2); Carbon Dioxide 29 mmol/L (22-32); Chloride 100 mmol/L (98-107); Estimated Glomerular Filt Rate 44.2 mL/min (>60); Globulin 3.4 g/dL (1.7-4.1); Glucose 186 mg/dL (80-110); HEMOLYSIS < 15 (0-50); Potassium 4.8 mmol/L (3.4-5.1); Sodium 136 mmol/L (137-145)
[2021-03-16 14:32] LABS: Erythrocyte Sedimentation Rate > 140 MM/HR (0-15)
--- NOTE | 2021-03-16 17:27 | PM.PREOP ---
Pre-operative Note COVID-19 COVID-19 status: Negative Result date/Date tested (Pos, Neg/Pending): 03/16/21 Interval Note History & Physical reviewed/Exam performed by Physician: Yes Changes to H&P: No
--- NOTE | 2021-03-16 17:48 | SUR.OPER ---
Supine on padded OR bed, head on pillow, arms secured on padded arm boards at <90 degrees abduction, legs uncrossed, safety belt at thigh, tape over blanket over lower legs. Bump under left foot per surgeon. Right leg secured with tape over blanket
[2021-03-16] MEDS: VANCOMYCIN 1,000 MG/200 ML PIGGYBACK 200 MG IV (17:50)
--- NOTE | 2021-03-16 19:14 | P.OP_ITS ---
Operative Date/Time/Diagnoses Date of procedure: 03/16/21 Time of procedure: 19:14 Pre-op diagnosis: Left foot surgical wound infection. Diabetes type 2 uncontrolled Charcot neuroarthropathy Post-op diagnosis: same Procedure & Clinicians Procedure: Irrigation debridement skin soft tissue subcutaneous tissue and bone CPT code 60572 Same procedure as scheduled: Yes Indications: Patient is a 61-year-old diabetic male with a Charcot arthropathy a cavovarus deformity his left foot. He had recurrent lateral foot border ulcerations resulting in multiple debridements and partial amputations of his lateral foot at different institutions over many years. He developed a new wound this summer. His diabetes was uncontrolled at the time he had a debridement stage antibiotics and improved glycemic control. He underwent staged deformity correction. Had additional antibiotics after this. He developed wound dehiscence of his medial wounds and persistent drainage. Was indicated for operative debridement and washout. The risks and benefits of the procedure have been discussed with the patient even opportunity to ask questions. The risks of surgery include but are not limited to infection, malunion, nonunion, persistence of pain, damage to nerves and blood vessels, posttraumatic arthritis, DVT, PE, cardiopulmonary complications and . The patient expressed a thorough understanding of the risks and benefits of surgery and has elected to proceed. Consent was signed in the office today. Surgeon: Shanae Hurd Click Yes if Unassisted: Yes Anesthesia Type: General Operative Notes Findings: Dehiscence and drainage left foot medial incision and dorsal foot incision as well as plantar heel from previous hardware placement. Dehisced areas were excised. There was underlying fat necrosis tracked deep to the medial approach to the subtalar joint down to bone. Additionally ulcer with necrotic fact tracked deep to the calcaneus. The dorsal foot incision dehisced and had some old hematoma that was debrided no gross purulence. Closure Type: primary Specimen(s): other (Deep tissue for culture) Estimated Blood Loss (mL): 100 Blood products transfused: none Tourniquet time (min): 0 Procedure in detail: Patient was seen in the preoperative area the site of surgery marked informed consent confirmed. The back to the operating room by the anesthesia team positioned supine on operative table. General anesthetic was administered. Well-padded type thigh tourniquet was placed. The left lower extremities prepped and draped in the standard sterile fashion. An SCD was placed on the contralateral lower extremity. A formal time-out procedure was performed confirming the patient's side and site of surgery and informed consent. Antibiotics were held until cultures and then 1 g of vancomycin was administered. Attention was turned to the left lower extremity. No tourniquet was used. Previous medial hindfoot exposure incision was partially dehisced. A few remaining sutures were removed from this and the wound edges were ellipsed sized and the incision opened. There was no gross purulence but there was wound tracking deep to the hardware at the subtalar fusion. Additionally the dorsal medial incision was ellipsed sized out there was some old hematoma that was evacuated and this was debrided of skin subcutaneous tissue muscle fascia. Medial subtalar approach a bone and hardware were palpated deep in debrided. Additionally the heel 0 serrations demonstrated necrotic fat the wound edges were excised and this was debrided down to the calcaneus. No gross purulence pockets were identified but there was a obvious tracking down to the hardware at the medial subtalar approach. Lateral incisions were healing well. The plantar lateral ulceration is about a 3rd of the size of it was originally and has good granulation tissue. Following debridement of all necrotic tissue the wound was irrigated with 6 L of saline using cysto tubing. Once this was completed new drapes were placed. Gloves were changed. Hemostasis was achieved with pressure and Bovie cautery. Wound was closed with a few deep 2-0 PDS sutures and then 3- 0 and 2-0 nylon suture in the skin. Once this was completed sterile dressings were placed with Xeroform gauze, 4 x 4 gauze, Kerlix and ABD pads and a well- padded stirrup splint. Care was taken to make sure there was no pressure on the heel. Drapes were then removed. The patient was woken from anesthesia and taken to recovery room in good condition. There no immediate complications from this procedure. Counts were correct. Complications: none Post-operative Condition: stable Disposition: PACU Plan for aftercare: Admit to the floor. Will receive PICC line for planned IV antibiotics. This was based on the cultures. With discharged home with IV antibiotics based on cultures. Will be started on broad-spectrum antibiotics vanc and Cipro. Nonweightbearing left lower extremity. Lovenox for DVT prophylaxis.
--- NOTE | 2021-03-16 19:45 | PM.PNPO.1 ---
Subjective Subjective Date Patient Seen: 03/16/21 Time Patient Seen: 19:45 Interval history: Postop day 0 left foot surgical site infection.--had been in outpatient wound care. Swabs from care demonstrated Enterococcus faecalis and Pseudomonas aeruginosa. Surgical cultures pending. Placed on empiric daptomycin and cefepime had been placed on Cipro by wound care outpatient oral. During I and D infection did track down to hardware. With plan for IV antibiotics and PICC line for outpatient IV antibiotics once operative cultures return. Plan for Infectious Disease consult-will need operative cultures to return for this. Once antibiotics finalized likely due antibiotics with infusion solutions which he has used previously. Wounds were closed. Exam Vital Signs (past 8 hours): - 03/16/21 12:30 03/16/21 12:33 03/16/21 16:00 Temperature 97.5 F L 97.5 F L 98.6 F Pulse Rate 110 H 110 H 103 H Respiratory Rate 16 16 18 Blood Pressure 101/61 101/61 148/76 H Pulse Oximetry 99 99 97 03/16/21 17:08 03/16/21 18:52 03/16/21 18:56 Temperature 99.8 F H 97.5 F L Pulse Rate 102 H 93 H 98 H Respiratory Rate 14 14 12 Blood Pressure 154/76 H 130/76 141/73 H Pulse Oximetry 98 99 96 03/16/21 19:01 03/16/21 19:06 03/16/21 19:11 Temperature 97.5 F L Pulse Rate 97 H 97 H 96 H Respiratory Rate 12 14 12 Blood Pressure 132/82 148/77 H 145/81 H Pulse Oximetry 97 99 99 03/16/21 19:20 Temperature 99.8 F H Pulse Rate 95 H Respiratory Rate 15 Blood Pressure 145/80 H Pulse Oximetry 99 Oxygen Delivery Method Room Air Oxygen Flow Rate 0 Objective Labs Result Diagrams: 03/16/21 13:40 03/16/21 13:40 Labs: Laboratory Results - last 24 hr 03/16/21 03/16/21 03/16/21 12:31 13:40 13:40 WBC 9.3 RBC 3.61 L Hgb 9.5 L Hct 28.7 L MCV 79.5 L MCH 26.3 MCHC 33.1 RDW 15.9 H Plt Count 474 H Neut % (Auto) 85.0 H Lymph % (Auto) 6.0 L [place] % (Auto) 7.3 Eos % (Auto) 1.1 L Baso % (Auto) 0.6 Neut # (Auto) 7900 H Lymph # (Auto) 600 L [place] # (Auto) 700 Eos # (Auto) 100 Baso # (Auto) 100 ESR > 140 H Sodium Potassium Chloride Carbon Dioxide BUN Creatinine Estimated GFR BUN/Creatinine Ratio Glucose Calcium Total Bilirubin AST ALT Alkaline Phosphatase C-Reactive Protein Total Protein Albumin Globulin Albumin/Globulin Ratio SARS-CoV-2 (PCR) Negative 03/16/21 13:40 WBC RBC Hgb Hct MCV MCH MCHC RDW Plt Count Neut % (Auto) Lymph % (Auto) [place] % (Auto) Eos % (Auto) Baso % (Auto) Neut # (Auto) Lymph # (Auto) [place] # (Auto) Eos # (Auto) Baso # (Auto) ESR Sodium 136 L Potassium 4.8 Chloride 100 Carbon Dioxide 29 BUN 19 Creatinine 1.59 H Estimated GFR 44.2 L BUN/Creatinine Ratio 11.9 Glucose 186 H Calcium 9.5 Total Bilirubin 0.4 AST 20 ALT 18 Alkaline Phosphatase 122 C-Reactive Protein 6.6 H Total Protein 7.0 Albumin 3.6 Globulin 3.4 Albumin/Globulin Ratio 1.1 SARS-CoV-2 (PCR) [facility] Medical History (Updated 02/22/21 @ 00:00 by ) Asthma Chronic renal disease, stage III Diabetes Diabetic foot ulcer Diabetic retinopathy Dupuytren's contracture Dyslipidemia Erectile dysfunction Gastroparesis HTN (hypertension) Malignant neoplasm prostate Presence of device Sinusitis Ulcer of left foot with necrosis of muscle Surgical History (Updated 02/01/21 @ 08:20 by Carlita Coombs RN) History of surgery (~02/2018) S/P foot surgery, right (04/09/19) Status post incision and drainage (02/21/19) Family History Mother CVA (cerebral vascular accident) Father Myocardial infarction Other Diabetes mellitus Social History household members: family and children Smoking Status: Former smoker alcohol intake: former Assessment & Plan Post-op Postoperative Procedures: Procedures Operation Date: 03/16/21 17:30 Actual Procedure Side Surgeon p I&D foot Left Shanae Hurd MD
[2021-03-16] MEDS: SODIUM CHLORIDE 0.9% 1,000 ML 84 ML IV (19:46)
[2021-03-16] MEDS: CEFEPIME 2 GM in SODIUM CHLORIDE 0.9% 100 ML 200 ML IV (19:57)
[2021-03-16] MEDS: INSULIN GLARGINE 100 UNIT/ML 3ML PEN 65 UNIT SUBCUT (21:41)
[2021-03-16 21:45] LABS: BUN Creatinine Ratio 13.7 (6-22); Blood Urea Nitrogen 19 mg/dL (9-20); Calcium 8.9 mg/dL (8.4-10.2); Carbon Dioxide 28 mmol/L (22-32); Chloride 102 mmol/L (98-107); Estimated Glomerular Filt Rate 51.6 mL/min (>60); Glucose 102 mg/dL (80-110); HEMOLYSIS 16 (0-50); Potassium 4.5 mmol/L (3.4-5.1); Sodium 137 mmol/L (137-145)
--- NOTE | 2021-03-16 22:51 | PC.NURSE ---
pt can wiggle toes, cap refill <2sec. pt ambulated to the BR w/crutches, non wt bearing.
--- NOTE | 2021-03-17 01:09 | PC.NURSE ---
Patient is alert and oriented. Breath sounds CTA with RA sat of 100%. HRR with rate of 98 bpm. Denies nausea. BT hypoactive but states he has passed flatus since surgery. Denies dysuria, frequency or urgency with urination. Is able to turn himself in bed. Up to bathroom using crutches and 1 assist for safety as is NWB on left foot. Left foot/LE is in splint with dressing and wrapped with jarrell; CDI. Able to slightly move toes but due to chronic neuropathy is unable to feel touch to toes; good cap refill. Denies pain. Has dressing to area on right medial foot (states he stepped on his dog's bone) which is intact with shadow drainage noted. Has chronic neuropathy in bilateral feet and lower legs. Fall risk score is high and bed alarm is activated. Wearing calf SCD to right leg.
[2021-03-17 05:00] VITALS: BP 124/62; PULSE 95; RESP 16; TEMP 36.6; O2SAT 97
[2021-03-17 06:18] LABS: Hematocrit 24.2 % (41-53); Mean Corpuscular HGB Conc 33.2 % (30-36); Mean Corpuscular Hemoglobin 26.7 PG (26-34); Mean Corpuscular Volume 80.4 fL (80-100); Platelet Count 405 X10^3/uL (150-400); Red Blood Cell Count 3.01 X10^6/uL (4.5-5.9); Red Cell Distribution Width 15.7 % (11.6-14.8); White Blood Cell Count 6.9 X10^3/uL (4.5-11.0)
[2021-03-17 08:00] VITALS: BP 105/59; PULSE 92; RESP 16; TEMP 36.4; O2SAT 97
[2021-03-17 09:20] VITALS: BP 105/59
[2021-03-17] MEDS: ASPIRIN EC 81 MG TABLET PO ×2 (09:20→20:50)
[2021-03-17] MEDS: DOCUSATE 100 MG CAPSULE PO ×2 (09:20→20:50)
[2021-03-17] MEDS: LOSARTAN 50 MG TABLET 100 MG PO (09:20)
[2021-03-17] MEDS: INSULIN GLARGINE 100 UNIT/ML 3ML PEN 65 UNIT SUBCUT ×2 (09:23→20:52)
[2021-03-17] MEDS: AMLODIPINE 5 MG TABLET PO (09:23)
[2021-03-17] MEDS: SODIUM CHLORIDE 0.9% 1,000 ML 84 ML IV ×2 (09:29→22:22)
--- NOTE | 2021-03-17 09:55 | PC.NURSE ---
Blood glucose before breakfast was 75. Humalog held. Called Dr Hurd regarding blood glucose and pt due for 65 units of Lantus. Per patient report, he thinks he should take the full 65 units, being familiar with his glucose patterns. Verified this with Dr Hurd and she states to go ahead and give him the Lantus 65 units as ordered. She was ok with his Humalog 20 units being held this morning.
--- NOTE | 2021-03-17 10:46 | DI.RAD.S_ITS ---
PROCEDURE: XR CHEST FOR PICC 1V INDICATIONS: LINE PLACEMENT COMPARISON: [facility], CR, XR CHEST 1V, 02/06/2021, 19:36. FINDINGS: PICC was placed by the intravenous therapy team from the right side. Fluoroscopic spot film demonstrates the tip of PICC projecting to the area of SVC right atrial junction. IMPRESSION: Tip of PICC projects to the area of SVC right atrial junction. Dictated by: Jimmy Dietrich M.D. on 03/17/2021 at 11:33 Approved by: Jimmy Dietrich M.D. on 03/17/2021 at 11:33
--- NOTE | 2021-03-17 11:54 | CM.DPNOTE ---
Faxed referral packet to [facility] at [facility]'s request and received fax conf. Miladys Van CM Asst.
[2021-03-17] MEDS: CEFEPIME 2 GM in SODIUM CHLORIDE 0.9% 100 ML 200 ML IV (12:20)
[2021-03-17] MEDS: INSULIN LISPRO 100 UNIT/ML 3ML VIAL SUBCUT ×2 (12:21→17:23)
--- NOTE | 2021-03-17 12:24 | CM.DANOTE ---
Patient is a 61 yo male who was admitted on 03/16/21 for left foot infection. Pt has [facility] for insurance and his PCP is Jet Mckinney. EMR was reviewed. Per Ortho , pt failed outpt wound care/abx and direct admit for I&D and to have PICC placed for fci IV-Abx pending culture results to determine which abx. PICC placed this morning. SW met bedside with pt and explained role and he confirms he still lives at home in [place] with his supportive adult Dtr and also has local supportive son who lives nearby. Pt is independent with ADL's at baseline. Pt had surgery in November 2020 this year and needed ocean transportation intermediary IV-Abx through [facility] and wound vac through [facility] and wound care outpt clinic at [facility]. Pt confirms that he feels [facility] provides great care and they are his agency preference for his IV-Abx at d/c and confirms no wound vac needed this time and he prefers outpt wound care if needed over HH. Pt states his Dtr will provide transport home and available for assist if needed. Pt very good spirits and a great receivable clerk and states he finds having a good attitude very helpful. SW called Sb at [facility] and discussed pt status and he confirms they have worked well with pt in November and December and confirms he received the referral faxed by CHRISTIANA Hook. He will begin working pt up for potential d/c tomorrow or when cultures return for final abx needs and dosing. PICC insertion note also faxed for review. Plan: SW to follow for plan of home via Dtr POV and [facility] for IV-Abx once final cultures return and to confirm if Dr. Hurd will continue to be the managing MD or if ID MD will follow after d/c. REBA Hernandez Discharge Planning/Care Management CM Discharge Assessment Start: 03/17/21 12:23 Freq: Status: Active Protocol: Document 03/17/21 12:23 BF (Rec: 03/17/21 12:24 BF [id number]) Discharge Planning Assessment Assigned Value Stream Leader REBA Gal[place] Advance Directives? No Advance Directives on File No History Provided By Patient,Medical Record Has Patient been admitted in last 30 No days? Prior Living Arrangements House Household Members family,children Type of transporation used prior to Drives own vehicle admit Comment Lives at home with adult Dtr and has local supportive son nearby Independent with ADL's Yes Is patient alert and oriented? Yes Caregiver for Another No Community Services used prior to IV Therapy admission: Comment Scooter Barriers to Discharge No Comment Has good family support Discharge Plan Home Community Services IV Therapy Transportation Arrangement Daughter Referrals Initiated Other Whiteboard Updated in Patient Room with Yes name and ext. # of Value Stream Leader Review Status In Process Please Provide Date Initial DC 03/17/21 Assessment Was Performed Next Review Type Continued Stay Review
[2021-03-17] MEDS: PIPERACILLIN/TAZO 4.5 GM in SODIUM CHLORIDE 0.9% 100 ML 25 ML IV ×2 (13:29→20:50)
--- NOTE | 2021-03-17 13:38 | PM.PNPO.1 ---
Subjective Subjective Date Patient Seen: 03/17/21 Time Patient Seen: 11:00 Interval history: The patient is complaining of knee pain no left foot pain this morning, as he has a history of peripheral neuropathy. He denies any fevers, chills, night sweats. No new numbness or tingling. No nausea or vomiting. He is nonweightbearing. Overall he is feeling well. Exam Vital Signs (past 8 hours): - 03/17/21 08:00 03/17/21 09:20 Temperature 97.6 F Pulse Rate 92 H Respiratory Rate 16 Blood Pressure 105/59 L 105/59 L Pulse Oximetry 97 Oxygen Delivery Method Room Air Oxygen Flow Rate 0 Narrative Exam Narrative: Pleasant 61-year-old male, resting comfortably in bed, no acute distress. Left foot dressing is clean, dry, intact. The patient is able to wiggle his toes and his toes are warm and dry with a 1+ capillary refill. Bilateral calves are soft, nontender to palpation. Bilateral lower extremity motor functions are grossly intact. Intraoperative Cultures and sensitivities are still pending Objective Labs Result Diagrams: 03/17/21 05:39 03/16/21 21:22 Labs: Laboratory Results - last 24 hr 03/16/21 03/16/21 03/16/21 13:40 13:40 13:40 WBC 9.3 RBC 3.61 L Hgb 9.5 L Hct 28.7 L MCV 79.5 L MCH 26.3 MCHC 33.1 RDW 15.9 H Plt Count 474 H Neut % (Auto) 85.0 H Lymph % (Auto) 6.0 L [place] % (Auto) 7.3 Eos % (Auto) 1.1 L Baso % (Auto) 0.6 Neut # (Auto) 7900 H Lymph # (Auto) 600 L [place] # (Auto) 700 Eos # (Auto) 100 Baso # (Auto) 100 ESR > 140 H Sodium 136 L Potassium 4.8 Chloride 100 Carbon Dioxide 29 BUN 19 Creatinine 1.59 H Estimated GFR 44.2 L BUN/Creatinine Ratio 11.9 Glucose 186 H Calcium 9.5 Total Bilirubin 0.4 AST 20 ALT 18 Alkaline Phosphatase 122 C-Reactive Protein 6.6 H Total Protein 7.0 Albumin 3.6 Globulin 3.4 Albumin/Globulin Ratio 1.1 10/20/21 10/21/21 21:22 05:39 WBC 6.9 RBC 3.01 L Hgb 8.0 L Hct 24.2 L MCV 80.4 MCH 26.7 MCHC 33.2 RDW 15.7 H Plt Count 405 H Neut % (Auto) Lymph % (Auto) [place] % (Auto) Eos % (Auto) Baso % (Auto) Neut # (Auto) Lymph # (Auto) [place] # (Auto) Eos # (Auto) Baso # (Auto) ESR Sodium 137 Potassium 4.5 Chloride 102 Carbon Dioxide 28 BUN 19 Creatinine 1.39 H Estimated GFR 51.6 L BUN/Creatinine Ratio 13.7 Glucose 102 Calcium 8.9 Total Bilirubin AST ALT Alkaline Phosphatase C-Reactive Protein Total Protein Albumin Globulin Albumin/Globulin Ratio [facility] Medical History Asthma Chronic renal disease, stage III Diabetes Diabetic foot ulcer Diabetic retinopathy Dupuytren's contracture Dyslipidemia Erectile dysfunction Gastroparesis HTN (hypertension) Malignant neoplasm prostate Presence of device Sinusitis Ulcer of left foot with necrosis of muscle Surgical History History of surgery (~02/2018) S/P foot surgery, right (04/09/19) Status post incision and drainage (02/21/19) Family History Mother CVA (cerebral vascular accident) Father Myocardial infarction Other Diabetes mellitus Social History household members: family and children Smoking Status: Former smoker alcohol intake: former Assessment & Plan Post-op Postoperative Procedures: Procedures Operation Date: 03/16/21 17:30 Actual Procedure Side Surgeon p I&D foot Left Shanae Hurd MD Postoperative day: 1 Postoperative status: doing well Postoperative status narrative: Patient is doing well postoperatively after his left foot infection status post left foot reconstruction in January of 2021. Postoperative plan narrative: He will be nonweightbearing left lower extremity. Lovenox daily for DVT prophylaxis. We are still waiting on cultures and sent these from his intraoperative I&D. Discussed with Dr. Meyer. She is waiting on response from Infectious Disease at [facility]. The patient will be discharged home once cultures and sensitivities are finalized, or as recommended by Infectious Disease.
--- NOTE | 2021-03-17 13:51 | PT-IP ANOTE ---
checked with pt and pt does not want any PT. PT has been in the hospital before for L foot I&D and pt is aware of his precautions and plans to have her family assist her. pt does not want PT intervention and to d/c PT orders. informed nurse. will d/c PT orders.
--- NOTE | 2021-03-17 15:13 | DIAB.INIT ---
Diabetes Education Assessment Name: Baldomero Gomes Assessment: 61 y/o M c PMH DM related complications, including h/o partial amputations, admitted for I&D of wound on left foot (Charcot neuroarthropathy). Reports h/o diabetes education. Usually DM ed is in [facility], closer to his home. Reports recent HgA1c of 7.3%H. Per [facility] last HgA1c available for review was in November this year, 9.6% H. Today he reports he hates carb counting and finds it not helpful. He would rather dose his insulin based on his own system of how much carb he eats. Due to this technique, he reports blood sugars often in 200s before meals and has lows in the 60s 2-3 x per month. Reports FBG range from 70-140s. States he treats lows with vanilla wafers or 3 glucose tabs. States he does not want a CGM since most systems need a connection to a smart phone. At home, he takes 65 u Lantus BID and 0-20u Humalog TID, and pioglitazone. Plants to start Ozempic after discharge, which should make a great difference in BG mgmgnt. Impression: Baldomero seems to be in a limited stage of change right now. He is not very open to OP diabetes education or to making many changes to the way he doses insulin. Hoping the GLP1 RA will help bring those blood sugars down so he has less insulin to figure out at meal time. He denied any questions at the end of our visit. Ht: 185.42 cm Wt: 99.4 kg Blood glucose (mg/dL): 200 H, 117, 75, 147 Pertinent Labs: 12/15/20: HgA1c: 9.6 H 03/16/21: Cr: 1.39 H; eGFR: 51.6 L Past Medical History: (Last Reviewed 03/17/21 @ 13:40 by Tomeka Lopez PA-C) Asthma Chronic renal disease, stage III Diabetes Diabetic foot ulcer Right Diabetic retinopathy Dupuytren's contracture Dyslipidemia Erectile dysfunction Gastroparesis History of surgery (~02/2018) 1/5 metarsal base excision c/w postoperative infection, slow healing, ongoing wound care clinic care HTN (hypertension) Malignant neoplasm prostate Presence of device Wound vac S/P foot surgery, right (04/09/19) Sinusitis Status post incision and drainage (02/21/19) Right foot, osteomyelitis, admit to bone biopsy, wound vac Ulcer of left foot with necrosis of muscle Osteomyelitis Intervention: Discussed the followin. CGM options, Bvents version without smartphone 2. Reviewed recs for hypoglycemia tx 3. Potential insulin dosing for small, medium, and large meals for better mgmgnt 4. GLP1 RA med class and benefits 5. Importance of HgA1c <7% to reduce complications Follow-up: consult prn Mariama Quiros RDN, [facility] Certified Diabetes Care and [employer] P: [phone]
[2021-03-17 15:38] VITALS: BP 120/66; PULSE 89; RESP 18; TEMP 36.3; O2SAT 98
[2021-03-17] MEDS: INSULIN LISPRO 100 UNIT/ML 3ML VIAL 20 UNIT SUBCUT (17:22)
[2021-03-17] MEDS: FERROUS SULFATE 325 MG TABLET PO (17:41)
[2021-03-17 19:39] VITALS: BP 115/58; PULSE 89; RESP 18; TEMP 36.4; O2SAT 97
[2021-03-17 20:05] LABS: Blood Urea Nitrogen 18 mg/dL (9-20); Calcium 8.2 mg/dL (8.4-10.2); Carbon Dioxide 28 mmol/L (22-32); Chloride 102 mmol/L (98-107); Glucose 127 mg/dL (80-110); HEMOLYSIS < 15 (0-50); Sodium 136 mmol/L (137-145)
[2021-03-17 20:22] VITALS: PULSE 86; RESP 14; O2SAT 96
[2021-03-17] MEDS: PIOGLITAZONE 15 MG TABLET PO (20:50)
[2021-03-18 00:54] VITALS: BP 111/64; PULSE 92; RESP 18; TEMP 36.2; O2SAT 99
[2021-03-18] MEDS: PIPERACILLIN/TAZO 4.5 GM in SODIUM CHLORIDE 0.9% 100 ML 25 ML IV (04:49)
[2021-03-18 05:43] VITALS: BP 121/60; PULSE 83; RESP 18; TEMP 36.3; O2SAT 99
[2021-03-18 06:20] LABS: Add Manual Diff / Slide Review NO; Basophils Absolute Auto 100 /uL (0-100); Basophils Percent Auto 0.9 % (0-2); Eosinophils Absolute Auto 100 /uL (0-450); Eosinophils Percent Auto 2.4 % (2-4); Hematocrit 23.3 % (41-53); Hemoglobin 7.7 g/dL (13.5-17.5); Lymphocytes Absolute Auto 600 /uL (1100-4500); Lymphocytes Percent Auto 9.8 % (25-40); Mean Corpuscular HGB Conc 33.2 % (30-36); Mean Corpuscular Hemoglobin 26.5 PG (26-34); Mean Corpuscular Volume 79.8 fL (80-100); Monocytes Absolute Auto 300 /uL (0-900); Monocytes Percent Auto 5.6 % (3-14); Neutrophils Absolute Auto 4700 /uL (1500-7000); Neutrophils Percent Auto 81.3 % (50-75); Platelet Count 360 X10^3/uL (150-400); Red Blood Cell Count 2.92 X10^6/uL (4.5-5.9); Red Cell Distribution Width 15.2 % (11.6-14.8); White Blood Cell Count 5.8 X10^3/uL (4.5-11.0)
[2021-03-18 06:25] LABS: BUN Creatinine Ratio 11.3 (6-22); Blood Urea Nitrogen 16 mg/dL (9-20); Calcium 8.7 mg/dL (8.4-10.2); Carbon Dioxide 28 mmol/L (22-32); Chloride 105 mmol/L (98-107); Estimated Glomerular Filt Rate 50.8 mL/min (>60); Glucose 72 mg/dL (80-110); HEMOLYSIS < 15 (0-50); Potassium 4.2 mmol/L (3.4-5.1); Sodium 140 mmol/L (137-145)
--- NOTE | 2021-03-18 07:46 | P.PN_ITS ---
Subjective Subjective Date Patient Seen: 03/18/21 Time Patient Seen: 07:46 Interval history: pod 2 I&D L foot infection. Post triple arthrodesis for cavovarus deformity and Charcot neuropathic ulceration. Still no growth from operative cultures but wound care cultures from [facility] with Enterococcus and Pseudomonas. These were susceptible to Zosyn. Discussed with Dr. Vivar Infectious Diseases scattered. Recommend Zosyn--will set up with IV--[facility]. Acute blood-loss anemia vital signs stable. Exam Vital Signs (past 8 hours): - 03/18/21 00:54 03/18/21 05:43 Temperature 97.2 F L 97.3 F L Pulse Rate 92 H 83 Respiratory Rate 18 18 Blood Pressure 111/64 121/60 Pulse Oximetry 99 99 Oxygen Delivery Method Room Air Oxygen Flow Rate 0 Narrative Exam Narrative: Cooperative alert oriented male lying in bed no acute distress. Moving upper extremities and lower extremities freely. Splint on left lower extremity. Dressing clean dry and intact. Wiggles toes. Baseline neuropathy. Toes pink and well perfused. Objective Labs Result Diagrams: 03/18/21 05:23 03/18/21 05:23 Labs: Laboratory Results - last 24 hr 03/17/21 03/18/21 03/18/21 19:39 05:23 05:23 WBC 5.8 RBC 2.92 L Hgb 7.7 L Hct 23.3 L MCV 79.8 L MCH 26.5 MCHC 33.2 RDW 15.2 H Plt Count 360 Neut % (Auto) 81.3 H Lymph % (Auto) 9.8 L [place] % (Auto) 5.6 Eos % (Auto) 2.4 Baso % (Auto) 0.9 Neut # (Auto) 4700 Lymph # (Auto) 600 L [place] # (Auto) 300 Eos # (Auto) 100 Baso # (Auto) 100 Sodium 136 L 140 Potassium 4.0 4.2 Chloride 102 105 Carbon Dioxide 28 28 BUN 18 16 Creatinine 1.38 H 1.41 H Estimated GFR 52.0 L 50.8 L BUN/Creatinine Ratio 13.0 11.3 Glucose 127 H 72 L Calcium 8.2 L 8.7 PFSH Medical History Asthma Chronic renal disease, stage III Diabetes Diabetic foot ulcer Diabetic retinopathy Dupuytren's contracture Dyslipidemia Erectile dysfunction Gastroparesis HTN (hypertension) Malignant neoplasm prostate Presence of device Sinusitis Ulcer of left foot with necrosis of muscle Surgical History History of surgery (~02/2018) S/P foot surgery, right (04/09/19) Status post incision and drainage (02/21/19) Family History Mother CVA (cerebral vascular accident) Father Myocardial infarction Other Diabetes mellitus Social History household members: family and children Smoking Status: Former smoker alcohol intake: former Assessment & Plan Post-op Assessment and plan (1) Acute blood loss anemia: Postoperative Procedures: Procedures Operation Date: 03/16/21 17:30 Actual Procedure Side Surgeon p I&D foot Left Shanae Hurd MD Postoperative day: 2 Postoperative status: doing well and anemia Postoperative status narrative: Doing well. Acute blood loss anemia both from surgery and the some delusional. Vital signs stable. Will add iron supplementation Postoperative plan narrative: Postop day 2 I and wound and hardware infection left foot. Underlying conditions Charcot neuro arthropathy and diabetes. On appropriate IV antibiotics based on outpatient cultures. Will follow up on operative cultures. Plan for discharge home today once IV antibiotics are set up. As PICC line. Will get Zosyn 4.5 g q.8 hours over an extended 4 hour infusion time with infusion solutions. Will have weekly labs. Will add iron supplementation for acute blood loss anemia. Discussed side effects can be constipation. Recommend stool softener. Continue nonweightbearing left lower extremity. Will do aspirin for DVT prophylaxis. Continue to see outpatient wound care at [facility] weekly for the foot ulceration will send new orders. Will follow up in [facility] Clinic wed 03/[address] Hurd Time Spent With Patient Time with patient: 15-24 minutes Quality VTE Deep Vein Thrombosis/Pulmonary Embolism Present on Admission: No
[2021-03-18 07:56] VITALS: BP 131/65; PULSE 88; RESP 16; TEMP 36.2; O2SAT 100
[2021-03-18 08:00] LABS: Hemoglobin A1C% w Est Avg Glu 7.8 % (4.0-6.0)
--- NOTE | 2021-03-18 08:15 | CM.DPC ---
Addendum entered by Emmie Barraza R.N. 03/18/21 10:16: Spoke to Sb at [facility] who had indicated that he will be here at about 1:00pm to see patient for a teach back. Updated nurse, Dana, and updated patient. He indicated that he would call his daughter and she would be here at that time. He plans on going home after that. He indicated, this is not new to him, he has done IV ABO before. Original Note: DCP Cont: Patient is to be discharged today.Dr. Hurd had written a prescription for pipercillin every 8 hours, and PICC line was placed yesterday. Left Sb at [facility] a message, as referral was sent yesterday, and sent over prescription, and med sheets to [facility]. P: Patient is to discharge home today. Have sent over prescription to [facility]. Emmie Barraza RN/Taxicab Coordinator
[2021-03-18] MEDS: FERROUS SULFATE 325 MG TABLET PO (08:58)
[2021-03-18] MEDS: AMLODIPINE 5 MG TABLET PO (09:05)
[2021-03-18] MEDS: DOCUSATE 100 MG CAPSULE PO (09:05)
[2021-03-18] MEDS: ENOXAPARIN 40 MG/0.4 ML SYRINGE SUBCUT (09:05)
[2021-03-18] MEDS: ASPIRIN EC 81 MG TABLET PO (09:05)
[2021-03-18] MEDS: LOSARTAN 50 MG TABLET 100 MG PO (09:06)
[2021-03-18] MEDS: INSULIN GLARGINE 100 UNIT/ML 3ML PEN 65 UNIT SUBCUT (09:06)
[2021-03-18] MEDS: PIOGLITAZONE 15 MG TABLET PO (09:07)
--- NOTE | 2021-03-18 09:52 | P.DS_ITS ---
History of Present Illness History of Present Illness Date Patient Seen: 03/18/21 Time Patient Seen: 09:53 Date of Onset of Symptoms: 03/18/21 Chief complaint: left foot infection Narrative: Please see prior HPI from today Discharge Providers Provider Date of admission: 03/16/21 12:06 Discharge Date: 03/18/21 Primary care physician: Jet Mckinney MD Consults: 03/16/21 19:26 Consult to Discharge Planning Routine Comment: iv abx Consult to Physical Therapy Evaluate & Treat Comment: NWB LLE Physician Instructions: Evaluate and Treat Consult to Respiratory Therapy Evaluate & Treat Comment: Physician Instructions: Evaluate and treat Discharge provider: Tomeka Lopez PA-C Summary Hospital Course Discharge Diagnosis: Left foot surgical wound infection.? Diabetes type 2 uncontrolled Charcot neuroarthropathy Hospital Course: Date of procedure: 03/16/21 Time of procedure: 19:14 Procedure: Irrigation debridement skin soft tissue subcutaneous tissue and bone CPT code 58667 Same procedure as scheduled: Yes Indications: Patient is a 61-year-old diabetic male with a Charcot arthropathy a cavovarus deformity his left foot.? He had recurrent lateral foot border ulcerations resulting in multiple debridements and partial amputations of his lateral foot at different institutions over many years.? He developed a new wound this summer.? His diabetes was uncontrolled at the time he had a debr idement stage antibiotics and improved glycemic control.? He underwent staged deformity correction.? Had additional antibiotics after this.? He developed wound dehiscence of his medial wounds and persistent drainage.? Was indicated for operative debridement and washout.? The risks and benefits of the procedure have been discussed with the patient even opportunity to ask questions.? The risks of surgery include but are not limited to infection, malunion, nonunion, persistence of pain, damage to nerves and blood vessels, posttraumatic arthritis, DVT, PE, cardiopulmonary complications and .? The patient expressed a thorough understanding of the risks and benefits of surgery and has elected to proceed.? Consent was signed in the office today. Surgeon: Shanae Hurd Click Yes if Unassisted: Yes Anesthesia Type: General Operative Notes Findings: Dehiscence and drainage left foot medial incision and dorsal foot incision as well as plantar heel from previous hardware placement.? Dehisced areas were excised.? There was underlying fat necrosis tracked deep to the medial approach to the subtalar joint down to bone.? Additionally ulcer with necrotic fact tracked deep to the calcaneus.? The dorsal foot incision dehisced and had some old hematoma that was debrided no gross purulence. Closure Type: primary Specimen(s): other (Deep tissue for culture) Estimated Blood Loss (mL): 100 Blood products transfused: none Tourniquet time (min): 0 Status at Discharge Cognitive/behavioral status at discharge: oriented Functional status at discharge: uses cane/walker Overall status at discharge: patient is progressing back to baseline Exam Vital Signs (past 8 hours): - 03/18/21 05:43 03/18/21 07:56 Temperature 97.3 F L 97.2 F L Pulse Rate 83 88 Respiratory Rate 18 16 Blood Pressure 121/60 131/65 Pulse Oximetry 99 100 Oxygen Delivery Method Room Air Oxygen Flow Rate 0 Narrative Exam Narrative: Cooperative alert oriented male lying in bed no acute distress.? Moving upper extremities and lower extremities freely.? Splint on left lower extremity.? Dressing clean dry and intact.? Wiggles toes.? Baseline neuropathy.? Toes pink and well perfused. Objective Labs Result Diagrams: 03/18/21 05:23 03/18/21 05:23 Labs: Laboratory Results - last 24 hr 03/17/21 03/18/21 03/18/21 19:39 05:23 05:23 WBC 5.8 RBC 2.92 L Hgb 7.7 L Hct 23.3 L MCV 79.8 L MCH 26.5 MCHC 33.2 RDW 15.2 H Plt Count 360 Neut % (Auto) 81.3 H Lymph % (Auto) 9.8 L [place] % (Auto) 5.6 Eos % (Auto) 2.4 Baso % (Auto) 0.9 Neut # (Auto) 4700 Lymph # (Auto) 600 L Holmes # (Auto) 300 Eos # (Auto) 100 Baso # (Auto) 100 Sodium 136 L 140 Potassium 4.0 4.2 Chloride 102 105 Carbon Dioxide 28 28 BUN 18 16 Creatinine 1.38 H 1.41 H Estimated GFR 52.0 L 50.8 L BUN/Creatinine Ratio 13.0 11.3 Glucose 127 H 72 L Hemoglobin A1c Calcium 8.2 L 8.7 03/18/21 05:23 WBC RBC Hgb Hct MCV MCH MCHC RDW Plt Count Neut % (Auto) Lymph % (Auto) [place] % (Auto) Eos % (Auto) Baso % (Auto) Neut # (Auto) Lymph # (Auto) [place] # (Auto) Eos # (Auto) Baso # (Auto) Sodium Potassium Chloride Carbon Dioxide BUN Creatinine Estimated GFR BUN/Creatinine Ratio Glucose Hemoglobin A1c 7.8 H Calcium [facility] Medical History Asthma Chronic renal disease, stage III Diabetes Diabetic foot ulcer Diabetic retinopathy Dupuytren's contracture Dyslipidemia Erectile dysfunction Gastroparesis HTN (hypertension) Malignant neoplasm prostate Presence of device Sinusitis Ulcer of left foot with necrosis of muscle Surgical History History of surgery (~02/2018) S/P foot surgery, right (04/09/19) Status post incision and drainage (02/21/19) Family History Mother CVA (cerebral vascular accident) Father Myocardial infarction Other Diabetes mellitus Social History household members: family and children Smoking Status: Former smoker alcohol intake: former Discharge Assessment & Plan Assessment and Plan Assessment: Stable status post left foot I and D Plan of Treatment: Postoperative status: doing well and anemia Postoperative status narrative: Doing well.? Acute blood loss anemia both from surgery and the some delusional.? Vital signs stable.? Will add iron supplementation Postoperative plan narrative: Postop day 2 I and wound and hardware infection left foot.? Underlying conditions Charcot neuro arthropathy and diabetes.? On appropriate IV antibiotics based on outpatient cultures.? Will follow up on operative cultures.? Plan for discharge home today once IV antibiotics are set up.? As PICC line.? Will get Zosyn 4.5 g q.8 hours over an extended 4 hour infusion time with infusion solutions.? Will have weekly labs. Will add iron supplementation for acute blood loss anemia.? Discussed side effects can be constipation.? Recommend stool softener. Continue nonweightbearing left lower extremity.? Will do aspirin for DVT prophylaxis. Continue to see outpatient wound care at [facility] weekly for the foot ulceration will send new orders.? Will follow up in Orthopedic Clinic wed 11/[address] Hurd Discharge Plan Discharge Plan Patient Disposition: Home Discharge orders & Medications Prescriptions: New docusate sodium 100 mg Capsule 100 mg PO BID Qty: 30 RF: 1 ferrous sulfate 325 mg (65 mg iron) Tablet 325 mg PO BIDWM Qty: 60 RF: 0 piperacillin-tazobactam 4.5 gram Recon Soln 4.5 gm IV Q8H 42 Days RF: 0 ondansetron 4 mg Tablet,Disintegrating 4 mg PO Q8HR PRN (Reason: Nausea And Vomiting) Qty: 6 RF: 0 oxycodone 5 mg Tablet 5 mg PO Q4HR PRN (Reason: Pain, Moderate) Qty: 40 RF: 0 Continued losartan 100 mg Tablet 100 mg PO DAILY RF: 0 pioglitazone [Actos] 15 mg Tablet 15 mg PO BID RF: 0 amlodipine 5 mg Tablet 5 mg PO DAILY RF: 0 Humalog U-100 Insulin 100 unit/mL Cartridge 20 unit SUBCUT TID RF: 0 Lantus Solostar U-100 Insulin 100 unit/mL (3 mL) Insulin Pen 65 unit SUBCUT BID RF: 0 aspirin 81 mg tablet,delayed release (DR/EC) 81 mg PO DAILY RF: 0 Discontinued oxycodone 5 mg tablet 5 mg PO Q6H PRN (Reason: pain) Qty: 10 RF: 0 doxycycline hyclate 100 mg capsule 100 mg Q12HR RF: 0 oxycodone 5 mg tablet 5 - 10 mg PO Q4H PRN (Reason: pain) Qty: 42 RF: 0 oxycodone 5 mg Tablet 5 mg PO Q4H PRN (Reason: Pain, Moderate (4-6)) Qty: 30 RF: 0 Follow up/Referrals: Shanae Hurd MD [Physician] - (10-14 days for postoperative visit) Jet Mckinney MD [Primary Care Provider] - Diet/Activity/Treatments Diet: Carb-consistent/Diabetic Activity: Nonweightbearing left lower extremity Other treatments: At-Home Instructions - Dr. Hurd Surgery: Irrigation and debridement left foot wound infection Cast/Splint/Dressing Care Instructions 1) Keep cast/dressing clean and dry. 2) May bathe - but cast/dressing must remain dry. 3) Should the cast become wet, you need to come into emergency department or call your physician's clinic immediately for cast removal and replacement. Moisture can cause skin breakdown and lead to infection if left untreated. 4) Do not stick any sharp object down the cast to itch, as this can cause s crapes/cuts/punctures which can lead to infection. 6) Observe for increasing pain in the extremity with the cast, finger/toe-tips turning blue/purple, or numbness and tingling in your toes/fingers. Should any of these symptoms arise, you need to be seen immediately for evaluation of swelling and increasing compartment pressures within your affected extremity. 7) Keep your affected extremity elevated - Toes Above your Nose? - This is lovelace in the first two weeks after surgery to minimize swelling. 8) You may ice your extremity, being careful to prevent melting ice from saturating into the splint/cast. Activity No heavy lifting greater than 10 pounds. No [address] while on narcotic pain medication. Do not get your dressing/cast/splint wet! You must remain non-weight bearing on your operative extremity. Use crutches or a walker for ambulation. No driving until you are otherwise instructed by your physician. This will be addressed at your first follow-up appointment. Discharge Pain Medications You will be given a prescription for pain medication. You should start taking this the same day after your surgery. Wean off as tolerated. Do not wait to take the pain medication until the pain is severe, as it will be difficult to catch up once this occurs. The pain medication usually reaches its full effect ~1 hour after ingesting. If you have been sent home on Colace, this medication should be taken until you are off all narcotic (i.e. Vicodin, Percocet, Oxycodone, etc) pain medications, to prevent constipation. You may also obtain this or another stool softener over the counter to prevent or alleviate constipation. Percocet or Vicodin have Tylenol in their ingredient lists. You must be careful not to exceed 3,000mg (3 grams) of Tylenol, from all sources, within a single 24-hr period. This means that you may not take more than 10 pills within a 24- hr period. Do NOT take Regular or Extra Strength Tylenol when taking your Percocet or Vicodin medications. -IF you have been given a Toradol/ketorolac prescription, this is a very strong anti-inflammatory. Do not take eabr-oma-zzqyezg anti-inflammatories (ibuprofen, Aleve, Advil, Motrin) while taking the Toradol/ketorolac. Once you are finished with this prescription, then you can resume qsrr-ybz-gvyejlj anti- inflammatories. You can still take your narcotic pain medication and Tylenol while taking the Toradol/ketorolac. -Some common side effects of the narcotic pain medications (Percocet, Oxycodone, Vicodin, etc.) include nausea and itching. Benadryl is a great over the counter medication that helps calm your stomach, decreases your anxiety levels, and minimizes the itching. You can easily purchase this at your local pharmacy as an pxth-xrv-xonktno medication. Please abide by the instructions as printed on the bottle. If your nausea persists, make sure to take small amounts of crackers or other spark plug tester foods. Follow-Up/Emergency Contacts Please call for an appointment in either [place] or [place], if one has not been scheduled. Follow up 2 weeks after surgery. [phone]--I have asked our clinic to schedule follow-up appointment with you on SundayMarch 30.-- Contact the office if you have any of the following: ? Painful swelling or numbness ? Unrelenting pain ? Fever (over 101?- it is normal to have a low grade fever for the first day or two following surgery) or chills ? Redness around the incisions ? Color changes ? Continuous bleeding or drainage from the incision (a small amount is expected) ? Excessive nausea or vomiting ? Difficulty breathing If you have an emergency that requires immediate attention, proceed to the nearest emergency room. Blood Clot Prophylaxis You will need to complete a total 6-week (42 days) course of Aspirin (81mg twice daily) after surgery, to minimize the risk of blood clots following surgery. You may alternatively purchase or use nhfr-piu-bumwojd generic equivalent Aspir in. If you already have ?baby? Aspirin (81mg) at home, you can take ?baby? Aspirin. Pain Medications: It is the policy of [facility] that narcotic medications will only be refilled during office hours. Additionally, due to the alarming rate of narcotic pain medication abuse/dependence, it has become necessary for physician practices to closely manage patient use of prescription narcotic pain relievers, such as Vicodin (Seale), Percocet, and Oxycodone products. Narcotic pain man agement in the postoperative period may not exceed 6 weeks. If narcotic pain management is required beyond 90 days, then a referral to a Chronic Pain Specialist will be made. If a request for a medication prescription has been made, the physician must review your chart prior to authorizing the request. Please be patient with office staff. If you call during patient hours, your call may not be returned until the end of the day. Dr. Shanae Hurd [address] [email or web address] Skin/Wound/Dressing Care Report to your healthcare provider any signs of infection, such as:: chills, fever, night sweats, increased pain, unusual drainage and unusual redness Dressing: Keep dressings in place. Will continue [facility] wound care visits once a week. Visit Report/Discharge Packet Instructions: DI for Incision and Drainage Discharge Data Primary Care Provider: Jet Mckinney VTE Deep Vein Thrombosis/Pulmonary Embolism Present on Admission: No
[2021-03-18] MEDS: INSULIN LISPRO 100 UNIT/ML 3ML VIAL 20 UNIT SUBCUT (12:27)
[2021-03-18] MEDS: INSULIN LISPRO 100 UNIT/ML 3ML VIAL SUBCUT (12:28)
--- NOTE | 2021-03-18 12:58 | PC.NURSE ---
Patient given discharge instructions regarding wound care, cast care, f/u appointments, s/s of worsening condition, activity and diet. Patient verbalized understanding. Pharmacy currently in room giving discharge instructions regarding medications and new prescriptions. Anticipate [facility] to be here at 1300 to give instructions regarding ongoing IV ABX. R wrist PIV removed, patient tolerated. RUE PICC remains intact. Patient able to dress self while staying NWB while using crutches, patient and family prepared for discharge deny belongings in the safe or pharmacy. Patient to be discharged via wheelchair with belongings and Rx.
== END 2021-03-18 13:51 | disposition home or self-care (01) | DRG 857 ==
PROVIDERS: Admitting Provider Orthopaedic Surgery Foot and Ankle Surgery; PCP Internal Medicine; Referring Provider Orthopaedic Surgery Foot and Ankle Surgery; Visit Provider Orthopaedic Surgery Foot and Ankle Surgery
PROC: 0QBM0ZZ Excision of Left Tarsal, Open Approach (ICD-10-PCS; principal; 2021-03-16 17:30)
DX: T81.42XA Infection following a procedure, deep incisional surgical site, initial encounter (principal); T81.31XA Disruption of external operation (surgical) wound, not elsewhere classified, initial encounter; E11.52 Type 2 diabetes mellitus with diabetic peripheral angiopathy with gangrene; I96 Gangrene, not elsewhere classified; L97.428 Non-pressure chronic ulcer of left heel and midfoot with other specified severity; T84.69XA Infection and inflammatory reaction due to internal fixation device of other site, initial encounter; D62 Acute posthemorrhagic anemia; E11.621 Type 2 diabetes mellitus with foot ulcer; E11.65 Type 2 diabetes mellitus with hyperglycemia; E11.22 Type 2 diabetes mellitus with diabetic chronic kidney disease; I12.9 Hypertensive chronic kidney disease with stage 1 through stage 4 chronic kidney disease, or unspecified chronic kidney disease; N18.30 Chronic kidney disease, stage 3 unspecified; E11.42 Type 2 diabetes mellitus with diabetic polyneuropathy; E11.610 Type 2 diabetes mellitus with diabetic neuropathic arthropathy; B96.5 Pseudomonas (aeruginosa) (mallei) (pseudomallei) as the cause of diseases classified elsewhere; B95.2 Enterococcus as the cause of diseases classified elsewhere; Z87.891 Personal history of nicotine dependence; Z20.822 Contact with and (suspected) exposure to COVID-19; Z79.4 Long term (current) use of insulin; Q66.02 Congenital talipes equinovarus, left foot
CPT/HCPCS: 36415; 36573; 80048; 80053; 82962; 83036; 85025; 85027; 85651; 86140; 87070; 87075; 87077; 87176; 87186; 87205; 87635; C9803; J0692; J0878; J1650; J1815; J2405; J2543; J2704; J3010

== ENCOUNTER → 2021-04-04 17:22 | Outpatient (ROUT) | payer OTHER, SELFPAY ==
[2021-03-16 12:38] VITALS: BMI 28.8
[2021-04-04 17:37] LABS: Add Manual Diff / Slide Review NO; Basophils Absolute Auto 100 /uL (0-100); Basophils Percent Auto 0.9 % (0-2); Eosinophils Absolute Auto 300 /uL (0-450); Eosinophils Percent Auto 3.9 % (2-4); Hematocrit 29.4 % (41-53); Hemoglobin 9.5 g/dL (13.5-17.5); Lymphocytes Absolute Auto 1200 /uL (1100-4500); Lymphocytes Percent Auto 15.4 % (25-40); Mean Corpuscular HGB Conc 32.4 % (30-36); Mean Corpuscular Hemoglobin 25.5 PG (26-34); Mean Corpuscular Volume 78.9 fL (80-100); Monocytes Absolute Auto 500 /uL (0-900); Monocytes Percent Auto 6.9 % (3-14); Neutrophils Absolute Auto 5500 /uL (1500-7000); Neutrophils Percent Auto 72.9 % (50-75); Platelet Count 522 X10^3/uL (150-400); Red Blood Cell Count 3.73 X10^6/uL (4.5-5.9); Red Cell Distribution Width 16.3 % (11.6-14.8); White Blood Cell Count 7.6 X10^3/uL (4.5-11.0)
[2021-04-04 17:44] LABS: Alanine Aminotransferase 20 IU/L (<50); Albumin 3.8 g/dL (3.5-5.0); Albumin Globulin Ratio 1.2 (1.0-2.8); Alkaline Phosphatase 127 U/L (38-126); Aspartate Aminotransferase 21 IU/L (17-59); BUN Creatinine Ratio 10.5 (6-22); Bilirubin Total 0.4 mg/dL (0.2-1.3); Blood Urea Nitrogen 16 mg/dL (9-20); C-Reactive Protein Quant 3.4 mg/dL (<1.0); Calcium 9.8 mg/dL (8.4-10.2); Carbon Dioxide 28 mmol/L (22-32); Chloride 98 mmol/L (98-107); Estimated Glomerular Filt Rate 46.5 mL/min (>60); Globulin 3.2 g/dL (1.7-4.1); Glucose 62 mg/dL (80-110); HEMOLYSIS < 15 (0-50); Potassium 4.4 mmol/L (3.4-5.1); Sodium 138 mmol/L (137-145)
== END ==
PROVIDERS: PCP Internal Medicine
DX: L97.509 Non-pressure chronic ulcer of other part of unspecified foot with unspecified severity (principal)
CPT/HCPCS: 80053; 85025; 86140

== ENCOUNTER → 2021-06-01 09:26 | Outpatient (CLI) | payer OTHER, SELFPAY ==
[2021-03-16 12:38] VITALS: BMI 28.8
[2021-06-01 10:13] LABS: Add Manual Diff / Slide Review NO; Basophils Absolute Auto 100 /uL (0-100); Eosinophils Absolute Auto 100 /uL (0-450); Eosinophils Percent Auto 2.5 % (2-4); Hematocrit 40.1 % (41-53); Hemoglobin 13.6 g/dL (13.5-17.5); Lymphocytes Absolute Auto 1100 /uL (1100-4500); Mean Corpuscular Hemoglobin 26.4 PG (26-34); Mean Corpuscular Volume 77.8 fL (80-100); Monocytes Absolute Auto 500 /uL (0-900); Neutrophils Absolute Auto 3900 /uL (1500-7000); Neutrophils Percent Auto 68.5 % (50-75); Platelet Count 222 X10^3/uL (150-400); Red Blood Cell Count 5.15 X10^6/uL (4.5-5.9); Red Cell Distribution Width 19.8 % (11.6-14.8); White Blood Cell Count 5.7 X10^3/uL (4.5-11.0)
[2021-06-01 11:14] LABS: Alanine Aminotransferase 30 IU/L (<50); Albumin 4.2 g/dL (3.5-5.0); Albumin Globulin Ratio 1.2 (1.0-2.8); Alkaline Phosphatase 180 U/L (38-126); Aspartate Aminotransferase 33 IU/L (17-59); BUN Creatinine Ratio 16.9 (6-22); Bilirubin Total 0.4 mg/dL (0.2-1.3); Blood Urea Nitrogen 23 mg/dL (9-20); C-Reactive Protein Quant < 0.5 mg/dL (<1.0); Calcium 9.4 mg/dL (8.4-10.2); Carbon Dioxide 29 mmol/L (22-32); Chloride 102 mmol/L (98-107); Estimated Glomerular Filt Rate 52.9 mL/min (>60); Globulin 3.5 g/dL (1.7-4.1); Glucose 216 mg/dL (80-110); HEMOLYSIS < 15 (0-50); Potassium 4.4 mmol/L (3.4-5.1); Sodium 138 mmol/L (137-145); Total Protein 7.7 g/dL (6.3-8.2)
== END ==
PROVIDERS: PCP Internal Medicine
DX: M86.372 Chronic multifocal osteomyelitis, left ankle and foot (principal)
CPT/HCPCS: 36415; 80053; 85025; 86140

== ENCOUNTER → 2021-06-22 11:05 | Outpatient (CLI) | payer OTHER, SELFPAY ==
[2021-03-16 12:38] VITALS: BMI 28.8
[2021-06-22 13:50] LABS: COVID19 -Nasal RAPID Negative (Negative)
== END ==
PROVIDERS: PCP Internal Medicine; Visit Provider Family Medicine Sleep Medicine
DX: Z20.822 Contact with and (suspected) exposure to COVID-19 (principal)
CPT/HCPCS: 87635; C9803

== ENCOUNTER 2021-06-24 06:02 | Day surgery (SDC) | payer OTHER, SELFPAY ==
[2021-03-16 12:38] VITALS: BMI 28.8
[2021-06-20 12:44] VITALS: BMI 28.2
[2021-06-24] VITALS (11 sets, daily range): BP systolic 96–144; BP diastolic 48–78; PULSE 70–113; RESP 10–20; TEMP 36.4–37.8; O2SAT 18–100; BMI 28.2
--- NOTE | 2021-06-24 | DI.RAD.S_ITS ---
PROCEDURE: XR ANKLE LT 2V INDICATIONS: LT ANKLE SURGERY TECHNIQUE: 11 nondiagnostic intraoperative fluoroscopic views of the left ankle. COMPARISON: [facility], CR, XR ANKLE LT 2V, 02/04/2021, 10:57. FINDINGS: Nondiagnostic intraoperative fluoroscopic views of the left ankle demonstrate postsurgical changes of retrograde tibial intramedullary josue placement with proximal and distal interlocking screws. Arthrodesis screws also present in the hindfoot. Surgical resection of the distal fibula. IMPRESSION: Postsurgical changes as described above. Dictated by: Danilo Broussard M.D. on 06/24/2021 at 14:19 Approved by: Danilo Broussard M.D. on 06/24/2021 at 14:26
--- NOTE | 2021-06-24 07:06 | PM.PREOP ---
Pre-operative Note COVID-19 COVID-19 status: Negative Criteria for continued procedure: Expected advancement of disease process, Possibility delay results in more complex future surgery or treatment, Increased loss of function, Delay expected to result in less-positive ultimate med/surg outcome and Non-surgical alternatives not available or appropriate per current SOC Interval Note History & Physical reviewed/Exam performed by Physician: Yes Changes to H&P: No H&P completed within 30 days and has changed as indicated here:: Patient is a 61-year-old male with left Charcot ankle destruction and severe varus deformity that has been staged treatment for osteomyelitis and wound care in conjunction with scheduled Infectious Disease. Patient is now off IV antibiotics on oral suppression and appropriate for deformity correction placement of antibiotic beads. He is indicated for hardware removal tibiotalar calcaneal fusion with deformity correction. Without additional treatment surgery for deformity correction patient will not be able to mobilize or recover further. He continues in wound care. He is at risk for worsening with delay of care which may compromise opportunities for limb salvage.
[2021-06-24] MEDS: VANCOMYCIN 1,000 MG/200 ML PIGGYBACK 200 MG IV (07:20)
[2021-06-24] MEDS: ACETAMINOPHEN 325 MG TABLET 975 MG PO ×3 (07:33→20:49)
[2021-06-24] MEDS: LACTATED RINGERS 1,000 ML 42 ML IV ×4 (07:34→14:37)
[2021-06-24] MEDS: GABAPENTIN 300 MG CAPSULE PO (07:34)
[2021-06-24] MEDS: CEFAZOLIN 2 GM/20 ML SYRINGE IV (08:03)
[2021-06-24] MEDS: TRANEXAMIC ACID 1,000 MG in SODIUM CHLORIDE 0.9% 100 ML 200 ML IV (08:15)
--- NOTE | 2021-06-24 08:42 | SUR.OPER ---
Supine on padded OR bed, head on pillow, arms secured on padded arm boards at <90 degrees abduction, legs uncrossed, safety belt at waist, tape over blanket over lower right leg. Left leg is draped free with gel bump under left hip. Bath blankets under lower left leg
[2021-06-24] MEDS: BUPIVACAINE 0.25% (PF) 30 ML, EPINEPHrine 0.15 MG INJ (09:34)
[2021-06-24] MEDS: TOBRAMYCIN 1.2 GM VIAL INTRA-ARTI (09:36)
[2021-06-24] MEDS: VANCOMYCIN 1,000 MG VIAL 1000 MG TOP (09:37)
[2021-06-24] MEDS: TRANEXAMIC ACID 1,000 MG in SODIUM CHLORIDE 0.9% 100 ML IV (11:25)
[2021-06-24] MEDS: CEFAZOLIN 1 GM VIAL 2 GM IV (12:04)
--- NOTE | 2021-06-24 14:30 | SUR.PHASEI ---
Addendum entered by Jaja Joseph R.N. 06/24/21 15:10: 1450-vss. no changes with csm lle. Maintained elevated and ice pack behind knee (l). LLE-remain cool, pale /pink. + motion. +refill-3-4 sec each. Drsg/splint lle cdi. denies pain/nausea. Refused po fluids. SBAR/report called to isabell RAJAN on 2nd floor and questions answered. Transferred by bed with crutches and one clothes bag. no family at hospital. dry washcloth over eyes-photo sensitivity from [employer]. Original Note: 06/24/2117-8552-Ockfa sugar [address] , notified Dr Fina Hicks. no new orders. 1412-no post op xrays per Dr. Hurd required in pacu. Aware patient cant feel toes at this time. Neuropathy reported preop.
[2021-06-24] MEDS: LACTATED RINGERS 1,000 ML 100 ML IV (15:37)
[2021-06-24] MEDS: PIPERACILLIN/TAZO 4.5 GM in SODIUM CHLORIDE 0.9% 100 ML 25 ML IV ×2 (15:38→23:45)
[2021-06-24] MEDS: INSULIN LISPRO 100 UNIT/ML 3ML VIAL SUBCUT ×2 (16:51→20:50)
--- NOTE | 2021-06-24 17:02 | PM.OP.1 ---
Operative Date/Time/Diagnoses Date of procedure: 06/24/21 Time of procedure: 08:00 Pre-op diagnosis: Charcot ankle left M1 4.672 Arthritis left subtalar joint History osteomyelitis left foot M86.272 Retained orthopedic hardware Z96.8 Diabetes uncontrolled type 2 Post-op diagnosis: same Procedure & Clinicians Procedure: Arthrodesis ankle left CPT code 48926 Arthrodesis subtalar joint left CPT code 49484 Osteotomy distal fibula left CPT code 86025 Removal of hardware left foot 4 separate incisions 80080 x 4 -modifier 59 (4 separate sites of hardware removed 7 screws) Insertion of drug delivery device and deep soft tissue, antibiotic beads, left CPT code 17827 This procedure was performed with a modifier # 22: For increased complexity. This was a deformity of a Charcot joint with requirement of extensive hardware removal prior to the hindfoot fusion. The extensive debridement and multiple incisions requiring multiple sites of hardware removal and hindfoot nail took approximately twice as long as a standard ankle fusion. During the operation, the services of a physician operating room surgical technologist were medically indicated and necessary to provide the exposure of the operative site for the surgical procedure and to maintain the limb in a proper position to carry out the operation safely and efficiently. Without a qualified marketing assistant retail division being present this would extended the operative procedure and made the procedure technically more difficult to perform. Same procedure as scheduled: Yes Indications: Patient is a 61-year-old diabetic male with a history of a cavovarus neuropathic left foot. 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 He has been treated in a staged fashion and has completed 6 weeks of IV antibiotics and is now on his oral antibiotics for the last 6 weeks as part of his staged treatment. He is unable to ambulate with the unstable varus deformity continues to require wound care. He has loose and prominent hardware on x-ray. He has been indicated for removal of hardware from his foot and hindfoot arthrodesis for his Charcot ankle which is not amenable to a brace. Has been treated in conjunction with Infectious Disease and Wound Care and his labs are improved and he is indicated for his Charcot fixation. The risks and benefits of the procedure have been discussed with the patient given the opportunity to ask questions. The risks of surgery include but are not limited to infection, malunion, nonunion, persistence of pain, damage to nerves and blood vessels, posttraumatic arthritis, failure of limb salvage in requirement of amputation, DVT, PE, cardiopulmonary complications and . The patient expressed a thorough understanding of the risks and benefits of surgery and has elected to proceed. Consent was signed. Surgeon: Shanae Hurd Utility Sales Representative: Dayan Dunn Anesthesia Type: Local Operative Notes Findings: Severe varus deformity of the tibiotalar joint not completely correctable manually. Healed foot incisions laterally. Small pinpoint hole medially along the medial left foot incision the area of the talonavicular joint scant clear drainage when pressed No erythema. No swelling. Increased girth around the ankle with palpable hard Charcot bone medially. Prominence at the fibula laterally with the varus deformity thin skin and healed superficial ulceration. Intraoperative finding small hole medially at the medial incision demonstrated a sinus towards these talonavicular and subtalar joint. No purulence was encountered. There was a grossly loose and backed out screw at the talonavicular joint that was removed followed by the 2nd talonavicular joint screw removal. Separate incision was used to remove the calcaneocuboid screws were there was a nonunion. And a separate calcaneal incision was used removed the to calcaneal screws. Separate incision anterior medially was used to remove the talar to calcaneal screw which was loose and backed out. Deep tissue was sent for culture and PCR. Fibular osteotomy was made through separate lateral incision the distal fibula was removed with some used as autograft. This exposed the tibiotalar joint the medial tibiotalar joint at the distal tibia was distracted. The lateral tibial plafond was largely intact and the talar dome was largely intact and cartilage was removed using osteotomes and a curette. The joints were prepped and aligned then the guidewire was passed and a 240 x 10 [employer] [place] nail was placed with transfixing screws and compressed. 3 cc of augment graft was placed facilitate union in this high risk Charcot patient. Additional 5 cc of Stimulan beads with vancomycin and tobramycin were placed. Closure Type: primary Specimen(s): other (Deep tissue for microbiology and PCR) Prosthetic devices, grafts, tissues, transplants, or devices: [employer] [place] nail 240 x 10 with interlocking 5 mm screws, 0 mm end cap 3 cc augment bone graft ([employer]) 5 cc Stimulan beads with vancomycin and tobramycin ([employer]) Estimated Blood Loss (mL): 200 Blood products transfused: none Tourniquet time (min): 120 Procedure in detail: Patient was seen in the preoperative area the site of surgery was marked informed consent confirmed. He was brought back to the operating room by the anesthesia team. He was positioned supine on operative table. General anesthetic was administered. All bony prominences well padded. A well padded thigh tourniquet was placed. A Lai was placed. An SCD was placed on the contralateral lower extremity. The left lower extremities prepped and draped in the standard sterile fashion. A formal time-out procedure was performed confirming the patient's side and site of surgery administration of appropriate preoperative antibiotics all were in agreement. Antibiotics were also redosed as appropriate during the case. Attention was turned to the left lower extremity. [place] exsanguination was used and the tourniquet was elevated to 250 mmHg. The stayed elevated for 120 minutes and was released and not reinflated. Incision was made along the medial foot in the area of the pinpoint draining sinus this was excised and the incision opened. No purulence was encountered. Debridement of the medial foot incision was completed using a rongeur and a sharp blade. This was dissected distally to the level of the talonavicular joint and the loose and backing out screw was then removed using the screwdriver from the [employer] set. The 2nd screw was then identified and removed as well. Then a separate incision was made on the lateral foot where the calcaneocuboid screws were placed. This was dissected down to the subcutaneous tissues and Bovie and rongeurs were used to expose the screws along with radiographic assistance. The screws were identified and then removed. Next separate incision was made anterior medially to remove the talar to calcaneal screw which had also backed out and was eroding into the medial tibia. Then a 4th separate incision was used along the plantar heel to remove the additional calcaneal screws. The previous 1st TMT hardware was not involved and was left in place. Once the hardware was sufficiently removed attention turned to the debridement. [place] was used again to debride thoroughly expectedly in the medial area where the sinus was. Again no deep purulence was found. Pulsatile lavage was brought in and 3 L of fluid was irrigated throughout the wounds at this point a new clean drape was placed. Previous instruments were on a isolated Hall stand with the set to the side and all gloves were changed. Attention turned to the subtalar and ankle fusions. A separate lateral incision was made just posterior to the fibula curving distally along the distal and of the fibula towards the foot. The dissection was taken down through the skin subcutaneous tissue. The peroneal sheath was dissected off of the back of the fibula and the fibular bone exposed. Circumferential dissection of the distal fibula was completed posteriorly and anteriorly along the syndesmosis and distally transecting the lateral ankle ligaments. The TPS saw was brought in to create a fibular osteotomy and additional saw was used to partially split the fibula for ease of later use in bone graft. The distal fibula was then removed revealing the lateral tibiotalar joint. The fibula was taken to the back table and a rongeur was used to remove cancellous graft for this for later bone grafting. This exposed the tibial talar joint the varus deformity of the ankle demonstrated easy access to the talus from the lateral view where the cartilage of the talar dome was intact. This was removed with a curette and osteotomes down to bleeding bone which was then pock marked with a bur and then drilled with a 2-0 drill. The same process was completed on the tibial plafond. The medial plafond was destroyed as part of the Charcot process the lateral plafond was intact and this was flattened out using the TTS saw providing good cancellous bone and some additional bone for later graft. Once the 2 good bleeding surfaces were obtained trials reductions of the tibiotalar joint were completed restoring alignment of the joint. Subtalar joint was prepped and aligned then the C-arm was brought in in the lateral position demonstrating the starting point for the guidewire for the hindfoot nail then a 3 cm incision just distal to the plantar fat pad of the heel was made this was dissected down through the subcutaneous tissues and bluntly and then through the plantar fascia with blunt dissection down to the bone. Guidewire was then passed and adjusted until center center in line with the talus and tibial canals on the AP and lateral views. The entry Reamer was then used and then the ball-tip wire passed. A 240 mm nail was selected. The canal was reamed with good chatter at 11 so a 10 nail was selected. The nail was placed over the guidewire but was found to have drifted medially in the talus therefore the nail was removed and 2 of the previous a guidewires were placed medially at the distal tibial and medially in the talus to act as a blocking wires and then the ball-tipped wire was repacked and the reamers repassed followed by replacement of the nail. This centered the nail well. And it was countersunk to the appropriate depth about 5 mm in the calcaneus. The 1st screw was placed in the talus lateral to medial direction through the guide in the dynamic slot. Then 2 screws were placed proximally. Dynamic screw skived but passed through the slot I felt would not be improved by creating another hole so this was left and the additional static screw was placed in the standard perfect [place] technique medial to lateral. Attention was then taken to create a tibiotalar compression and the internal compression device was tightened. Next external compression using the hat pad on the plantar heel to compress across the subtalar joint. This was locked in place and then the 2 calcaneal screws were placed 1st to the lateral to medial screw and then the posterior to anterior screw. The posterior to anterior screw was also countersunk and advanced a crossed into the cuboid in this neuropathic patient. This was then again internally compressed and locked. The 0 mm end cap was then placed. Final fluoroscopic images confirmed nail alignment AP lateral and axial views and appropriate placement of interlocking screws through the nail. Neutral alignment of the hindfoot and tibiotalar joint were restored. By the time the hardware was placed the tourniquet type of head ended and the tourniquet had been released. At this point all the wounds were irrigated and gloves were changed again. At this point the 3 cc augment bone graft platelet derived growth factor was delivered via injection to the tibiotalar joint. This was indicated for use in this Charcot neuropathic patient with high risk of nonunion. Next the cancellous bone taken from the fibula osteotomy was then added and packed around the tibiotalar joint. 5 cc of Stimulan antibiotic beads was mixed with vanc and tobramycin based on the patient's previous cultures these were made into 3 cm beads and then placed into all of the incisions and specially packed into the medial incision. Closure was performed with 2-0 PDS 4-0 Monocryl and 3-0 nylon. Few of the proximal screw holes were closed with 4-0 nylon and ayan. All incisions approximated well. Toes were pink and well perfused and hemostasis was appropriate at the end of procedure. 20 cc of local anesthetic was infiltrated around the incisions. A sterile Gomez style splint was placed with Xeroform, 4 x 4 gauze, Webril, Gomez cotton, ABD pads and an Ortho Glass splint. Patient was woken from anesthesia and taken to recovery room in good condition. All counts were correct. There were no immediate complications from this procedure. Complications: none Post-operative Condition: stable Disposition: PACU Plan for aftercare: Patient will be admitted to the floor. We will check his labs including hemoglobin in the morning. He will be on perioperative Zosyn for Pseudomonas coverage at the advice of his Infectious Disease physician Dr. Ana Vivar. We will plan discharge on oral Augmentin that he has been on previously unless there are early new cultures returning indicating Pseudomonas. His wounds were closed today. Will follow up in 2 weeks in my orthopedic clinic for a wound change. He should not require any changes until then. He will be nonweightbearing on the left lower extremity. He will start aspirin 325 daily for DVT prophylaxis If he is doing well he will be discharged home tomorrow.
[2021-06-24] MEDS: FERROUS SULFATE 325 MG TABLET PO (18:43)
[2021-06-24] MEDS: DOCUSATE 100 MG CAPSULE PO (20:49)
[2021-06-24] MEDS: INSULIN GLARGINE 100 UNIT/ML 3ML PEN 65 UNIT SUBCUT (20:49)
[2021-06-24] MEDS: PIOGLITAZONE 15 MG TABLET PO (20:49)
[2021-06-25] VITALS (7 sets, daily range): BP systolic 114–134; BP diastolic 45–53; PULSE 89–106; RESP 16–18; TEMP 36.8–37.6; O2SAT 96–99
[2021-06-25 06:49] LABS: Hematocrit 28.5 % (41-53); Hemoglobin 9.4 g/dL (13.5-17.5); Mean Corpuscular Hemoglobin 26.4 PG (26-34); Platelet Count 178 X10^3/uL (150-400); Red Blood Cell Count 3.57 X10^6/uL (4.5-5.9); Red Cell Distribution Width 18.8 % (11.6-14.8); White Blood Cell Count 7.7 X10^3/uL (4.5-11.0)
[2021-06-25 07:00] LABS: Alanine Aminotransferase 16 IU/L (<50); Albumin Globulin Ratio 1.2 (1.0-2.8); Alkaline Phosphatase 75 U/L (38-126); Aspartate Aminotransferase 30 IU/L (17-59); BUN Creatinine Ratio 13.5 (6-22); Bilirubin Total 0.7 mg/dL (0.2-1.3); Blood Urea Nitrogen 20 mg/dL (9-20); Calcium 8.2 mg/dL (8.4-10.2); Carbon Dioxide 27 mmol/L (22-32); Chloride 107 mmol/L (98-107); Globulin 2.6 g/dL (1.7-4.1); Glucose 156 mg/dL (80-110); HEMOLYSIS 35 (0-50); Potassium 4.3 mmol/L (3.4-5.1); Sodium 134 mmol/L (137-145); Total Protein 5.6 g/dL (6.3-8.2)
[2021-06-25] MEDS: PIPERACILLIN/TAZO 4.5 GM in SODIUM CHLORIDE 0.9% 100 ML 25 ML IV ×3 (07:08→21:40)
[2021-06-25] MEDS: ASPIRIN EC 81 MG TABLET 325 MG PO (08:40)
[2021-06-25] MEDS: FERROUS SULFATE 325 MG TABLET PO ×2 (08:40→17:06)
[2021-06-25] MEDS: LOSARTAN 50 MG TABLET 100 MG PO (08:41)
[2021-06-25] MEDS: PIOGLITAZONE 15 MG TABLET PO ×2 (08:42→21:40)
[2021-06-25] MEDS: ACETAMINOPHEN 325 MG TABLET 975 MG PO ×3 (08:42→21:40)
[2021-06-25] MEDS: AMLODIPINE 5 MG TABLET PO (08:42)
[2021-06-25] MEDS: INSULIN GLARGINE 100 UNIT/ML 3ML PEN 65 UNIT SUBCUT ×2 (08:45→21:41)
[2021-06-25] MEDS: INSULIN LISPRO 100 UNIT/ML 3ML VIAL SUBCUT ×4 (08:46→21:41)
--- NOTE | 2021-06-25 10:04 | PM.DS.1 ---
History of Present Illness History of Present Illness Date Patient Seen: 06/25/21 Time Patient Seen: 10:04 Chief complaint: LEFT ANKLE FUSION *OPB* Narrative: Operative Date/Time/Diagnoses Date of procedure: 06/24/21 Time of procedure: 08:00 Pre-op diagnosis: Charcot ankle left M1 4.672 Arthritis left subtalar joint History osteomyelitis left foot M86.272 Retained orthopedic hardware Z96.8 Diabetes uncontrolled type 2 Post-op diagnosis: same Procedure & Clinicians Procedure: Arthrodesis ankle left CPT code 34777 Arthrodesis subtalar joint left CPT code 11209 Osteotomy distal fibula left CPT code 80720 Removal of hardware left foot 4 separate incisions 43115 x 4 -modifier 59 (4 separate sites of hardware removed 7 screws) Insertion of drug delivery device and deep soft tissue, antibiotic beads, left CPT code 88334 This procedure was performed with a modifier # 22:? For increased complexity.? This was a deformity of a Charcot joint with requirement of extensive hardware removal prior to the hindfoot fusion.? The extensive debridement and multiple incisions requiring multiple sites of hardware removal and hindfoot nail took approximately twice as long as a standard ankle fusion. During the operation, the services of a physician surgical territory manager were medically indicated and necessary to provide the exposure of the operative site for the surgical procedure and to maintain the limb in a proper position to carry out the operation safely and efficiently.? Without a qualified fish hatchery assistant being present this would extended the operative procedure and made the procedure technically more difficult to perform. Same procedure as scheduled: Yes Indications: Patient is a 61-year-old diabetic male with a history of a cavovarus neuropathic left foot.? He is status post left foot deformity correction? that went on to acute destructive Charcot his tibiotalar joint resulting in a unstable varus deformity and infection.? He has been treated in a staged fashion and has completed 6 weeks of IV antibiotics and is now on his oral antibiotics for the last 6 weeks as part of his staged treatment.? He is unable to ambulate with the unstable varus deformity continues to require wound care.? He has loose and prominent hardware on x-ray.? He has been indicated for removal of hardware from his foot and hindfoot arthrodesis for his Charcot ankle which is not amenable to a brace.? Has been treated in conjunction with Infectious Disease and Wound Care and his labs are improved and he is indicated for his Charcot fixation.? The risks and benefits of the procedure have been discussed with the patient given the opportunity to ask questions.? The risks of surgery include but are not limited to infection, malunion, nonunion, persistence of pain, damage to nerves and blood vessels, posttraumatic arthritis, failure of limb salvage in requirement of amputation, DVT, PE, cardiopulmonary complications and .? The patient expressed a thorough understanding of the risks and benefits of surgery and has elected to proceed.? Consent was signed. Surgeon: Shanae Hurd Web Manager: Dayan Dunn Anesthesia Type: Local Discharge Providers Provider Date of admission: 06/24/2021 Discharge Date: 06/25/21 Primary care physician: Jet Mckinney MD Consults: 06/24/21 14:49 Consult to Discharge Planning Routine Comment: Consult to Pharmacy Routine Comment: Extended infusion Zosyn. 4.5 g q.8,hours over 4 h Consult to Physical Therapy Evaluate & Treat Comment: NWB LLE Physician Instructions: Evaluate and Treat Consult to Respiratory Therapy Evaluate & Treat Comment: Physician Instructions: Evaluate and treat Discharge provider: Dayan Dunn PA-C Summary Hospital Course Discharge Diagnosis: s/p left ankle fusion Hospital Course: Mr Gomes's hospital course was complicated by urinary retention, for which he was in-and-out catheterized twice. He was started on tamsulosin and given this med for discharge. He also complained of bilateral eye pain that he noticed immediately after surgery; he complained of sharp pain in his right eye and burning pain in his left eye that caused blurred vision. Despite these issues, he did want to go home if he was able to urinate independently. Status at Discharge Cognitive/behavioral status at discharge: oriented Functional status at discharge: uses cane/walker Exam Vital Signs (past 8 hours): - 06/25/21 08:41 06/25/21 08:45 06/25/21 09:10 Temperature 98.2 F Pulse Rate 99 H 89 Respiratory Rate 16 18 Blood Pressure 114/48 L 123/53 L Pulse Oximetry 98 99 Oxygen Delivery Method Room Air Oxygen Flow Rate 0 Narrative Exam Narrative: No sensation to touch in bilateral feet due to longstanding neuropathy. LLE dressing CDI. Right calf soft, compressible, and nontender. Pt able to move toes on both feet. Const General: cooperative, healthy appearing and comfortable Orientation: alert, awake and oriented x3 Eyes Other: Bilaterally: EOM grossly intact. No visual field deficits. Right eye: There appears to be a hordeolum manifesting as a small, white, nonerythematous bump on the medial half of the pts right upper eyelid that he says was present prior to surgery. Sclera is white. No swelling, scratches, or other signs of trauma noted. Left eye: Scleral injection noted. No swelling, scratches, or other signs of trauma. Objective Labs Result Diagrams: 06/25/21 06:10 06/25/21 06:10 Labs: Laboratory Results - last 24 hr 06/25/21 06/25/21 06:10 06:10 WBC 7.7 RBC 3.57 L Hgb 9.4 L Hct 28.5 L MCV 80.0 MCH 26.4 MCHC 33.0 RDW 18.8 H Plt Count 178 Sodium 134 L Potassium 4.3 Chloride 107 Carbon Dioxide 27 BUN 20 Creatinine 1.48 H Estimated GFR 48.0 L BUN/Creatinine Ratio 13.5 Glucose 156 H Calcium 8.2 L Total Bilirubin 0.7 AST 30 ALT 16 Alkaline Phosphatase 75 Total Protein 5.6 L Albumin 3.0 L Globulin 2.6 Albumin/Globulin Ratio 1.2 PFSH Medical History Asthma Chronic renal disease, stage III Diabetes Diabetic foot ulcer Diabetic retinopathy Dupuytren's contracture Dyslipidemia Erectile dysfunction Gastroparesis HTN (hypertension) Malignant neoplasm prostate Presence of device Sinusitis Ulcer of left foot with necrosis of muscle Surgical History History of surgery (~02/2018) S/P foot surgery, right (04/09/19) Status post incision and drainage (02/21/19) Family History Mother CVA (cerebral vascular accident) Father Myocardial infarction Other Diabetes mellitus Social History household members: family and children Smoking Status: Former smoker alcohol intake: former Discharge Assessment & Plan Assessment and Plan Assessment: 1) Left Charcot ankle, s/p fusion 2) Acute blood loss anemia d/t surgery 3) Urinary retention 4) Presumed bilateral corneal abrasion Plan of Treatment: 1) NWB to LLE, continue pain control, splint, f/u w/ Dr Hurd as scheduled. 2) No intervention needed at this time. 3) Tamsulosin started in hospital, prescribed for discharge. 4) Neomycin ophthalmic ointment started in hospital, prescribed for discharge. Discharge Plan Discharge Plan Patient Disposition: Home Discharge orders & Medications Discharge Orders: Discharge (Order); Ordered 06/25/21 Ordered By: Dayan Dunn Prescriptions: New acetaminophen 325 mg Tablet 975 mg PO TID Qty: 90 1RF aspirin 81 mg Tablet,Delayed Release (Dr/Ec) 325 mg PO DAILY Qty: 60 0RF oxycodone 5 mg Tablet 5 mg PO Q4-6H PRN (Reason: pain, severe) Qty: 30 0RF neomycin-polymyxin B-dexameth 3.5 mg/g-10,000 unit/g-0.1 % ointment 1 applic EYE-BOTH QID Qty: 3.5 0RF tamsulosin 0.4 mg capsule 0.4 mg PO DAILY Qty: 30 0RF Continued losartan 100 mg Tablet 100 mg PO DAILY 0RF pioglitazone [Actos] 15 mg Tablet 15 mg PO BID 0RF amlodipine 5 mg Tablet 5 mg PO DAILY 0RF Humalog U-100 Insulin 100 unit/mL Cartridge 20 unit SUBCUT TID 0RF Rx Instructions: Plus 1 additional unit for each 15 points over 140 to a max of 30 units TID Lantus Solostar U-100 Insulin 100 unit/mL (3 mL) Insulin Pen 65 unit SUBCUT BID 0RF docusate sodium 100 mg Capsule 100 mg PO BID Qty: 30 1RF ferrous sulfate 325 mg (65 mg iron) Tablet 325 mg PO BIDWM Qty: 60 0RF Ozempic 0.25 mg or 0.5 mg(2 mg/1.5 mL) pen injector SUBCUT WEEKLY 0RF Label Comments: inhale 0.25 milligrams subcutaneously every week Changed amoxicillin-pot clavulanate 875-125 mg tablet 1 tab PO BID 14 Days Qty: 28 0RF Discontinued aspirin 81 mg tablet,delayed release (DR/EC) 81 mg PO DAILY 0RF Follow up/Referrals: Shanae Hurd MD [Physician] - (Follow up with Dr Hurd on July 06 @ 10:20 am at [facility]) Jet Mckinney MD [Primary Care Provider] - Diet/Activity/Treatments Diet: Diet as Tolerated Other treatments: At-Home Instructions - Dr. Hurd Surgery: Left hindfoot nail, fusion Cast/Splint/Dressing Care Instructions 1) Keep cast/dressing clean and dry. 2) May bathe - but cast/dressing must remain dry. 3) Should the cast become wet, you need to come into emergency department or call your physician's clinic immediately for cast removal and replacement. Moisture can cause skin breakdown and lead to infection if left untreated. 4) Do not stick any sharp object down the cast to itch, as this can cause scrapes/cuts/punctures which can lead to infection. 6) Observe for increasing pain in the extremity with the cast, finger/toe-tips turning blue/purple, or numbness and tingling in your toes/fingers. Should any of these symptoms arise, you need to be seen immediately for evaluation of swelling and increasing compartment pressures within your affected extremity. 7) Keep your affected extremity elevated - Toes Above your Nose? - This is lovelace in the first two weeks after surgery to minimize swelling. 8) You may ice your extremity, being careful to prevent melting ice from saturating into the splint/cast. Activity No heavy lifting greater than 10 pounds. No [address] while on narcotic pain medication. Do not get your dressing/cast/splint wet! You must remain non-weight bearing on your operative extremity. Use crutches or a walker for ambulation. No driving until you are otherwise instructed by your physician. This will be addressed at your first follow-up appointment. Discharge Pain Medications You will be given a prescription for pain medication. You should start taking this the same day after your surgery. Wean off as tolerated. Do not wait to take the pain medication until the pain is severe, as it will be difficult to catch up once this occurs. The pain medication usually reaches its full effect ~1 hour after ingesting. If you have been sent home on Colace, this medication should be taken until you are off all narcotic (i.e. Vicodin, Percocet, Oxycodone, etc) pain medications, to prevent constipation. You may also obtain this or another stool softener over the counter to prevent or alleviate constipation. Percocet or Vicodin have Tylenol in their ingredient lists. You must be careful not to exceed 3,000mg (3 grams) of Tylenol, from all sources, within a single 24-hr period. This means that you may not take more than 10 pills within a 24-hr period. Do NOT take Regular or Extra Strength Tylenol when taking your Percocet or Vicodin medications. -IF you have been given a Toradol/ketorolac prescription, this is a very strong anti-inflammatory. Do not take lknu-ehs-phcitht anti-inflammatories (ibuprofen, Aleve, Advil, Motrin) while taking the Toradol/ketorolac. Once you are finished with this prescription, then you can resume gqvi-doy-xuqaphe anti-inflammatories. You can still take your narcotic pain medication and Tylenol while taking the Toradol/ketorolac. -Some common side effects of the narcotic pain medications (Percocet, Oxycodone, Vicodin, etc.) include nausea and itching. Benadryl is a great over the counter medication that helps calm your stomach, decreases your anxiety levels, and minimizes the itching. You can easily purchase this at your local pharmacy as an ogtn-aec-lveihcr medication. Please abide by the instructions as printed on the bottle. If your nausea persists, make sure to take small amounts of crackers or other email operations manager foods. Follow-Up/Emergency Contacts Please call for an appointment in either [place] or [place], if one has not been scheduled. Follow up 2 weeks after surgery. [phone] Contact the office if you have any of the following: ? Painful swelling or numbness ? Unrelenting pain ? Fever (over 101?- it is normal to have a low grade fever for the first day or two following surgery) or chills ? Redness around the incisions ? Color changes ? Continuous bleeding or drainage from the incision (a small amount is expected) ? Excessive nausea or vomiting ? Difficulty breathing If you have an emergency that requires immediate attention such as shortness of breath or chest pain, call 911 or proceed to the nearest emergency room. Blood Clot Prophylaxis You will need to complete a total 6-week (42 days) course of Aspirin enteric coated (325 mg daily) after surgery, to minimize the risk of blood clots following surgery. You may alternatively purchase or use vsdb-jkv-gelsdai generic equivalent Aspirin. If you already have ?baby? Aspirin (81mg) at home, you can take 4 ?baby? Aspirin to total 324mg for the equivalent dose. If you have gastric upset with this or a history of gastric bleeding or ulcers, do not take aspirin, please call the office for alternatives. Commence foot and ankle. knee pumps and movement with the nonoperative leg to keep your blood moving and help prevent clots. You can also obtain compression socks of antiembolism hose (THELMA) hose from the drug store to wear on the nonoperative leg and also on the operative leg once the splint or cast is removed. Adjust your position or get up onto your crutches every hour or so just to move around. Pain Medications: It is the policy of [facility] that narcotic medications will only be refilled during office hours. Additionally, due to the alarming rate of narcotic pain medication abuse/dependence, it has become necessary for physician practices to closely manage patient use of prescription narcotic pain relievers, such as Vicodin ([place]), Percocet, and Oxycodone products. Narcotic pain management in the postoperative period may not exceed 6 weeks. If narcotic pain management is required beyond 90 days, then a referral to a Chronic Pain Specialist will be made. If a request for a medication prescription has been made, the physician must review your chart prior to authorizing the request. Please be patient with office staff. If you call during patient hours, your call may not be returned until the end of the day. Dr. Shanae Hurd [address] www.[email or web address] Energyced[facility] hospitalLocal Geek PC Repairmetropolitan saint louis psychiatric centerSeatwave Skin/Wound/Dressing Care Report to your healthcare provider any signs of infection, such as:: chills, fever, night sweats, increased pain, unusual drainage and unusual redness Discharge Data Primary Care Provider: Jet Mckinney Attending Provider: Shanae Hurd VTE Deep Vein Thrombosis/Pulmonary Embolism Present on Admission: No
[2021-06-25] MEDS: NEOMYCIN/POLY/DEX OPHTH OINT 1 APPLIC EYE-BOTH (10:52)
[2021-06-25] MEDS: TAMSULOSIN 0.4 MG CAPSULE PO (11:22)
--- NOTE | 2021-06-25 11:34 | PC.NURSE ---
Addendum entered by Starr Montiel R.N. 06/25/21 19:22: Bladder scanned for 410cc urine prior to notifying MD Addendum entered by Starr Montiel R.N. 06/25/21 18:57: Pt unable to void QS, notified, order to replace F/C received. F/C placed by RN w/o incidence. Call light w/in reach, Continue w/plan of care. Original Note: Pt A/O Denies discomfort at this time. AC CBG = 117, no coverage required. HL left wrist area intact/patent. LLE w/cast like dsg that CDI. Pulses +, pt able tp wiggle toes. Call light w/in reach, bed alarm on for pt safety.
--- NOTE | 2021-06-25 12:03 | PT-IP ANOTE ---
checked pt and pt refused PT. Pt is known to this PT as pt has had prior surgeries before for the L ankle as well. pt stated that set up at home is the same and he already knows what to do since this is his 4th surgery. Asked pt if he just wants PT eval order discharge and stated that he will. will d/c PT eval order.
[2021-06-25] MEDS: DOCUSATE 100 MG CAPSULE PO (21:40)
[2021-06-26] MEDS: OXYCODONE IR 10 MG TABLET PO (03:32)
[2021-06-26] MEDS: PIPERACILLIN/TAZO 4.5 GM in SODIUM CHLORIDE 0.9% 100 ML 25 ML IV (05:46)
[2021-06-26] MEDS: TAMSULOSIN 0.4 MG CAPSULE PO (06:13)
[2021-06-26 07:35] VITALS: BP 150/81; PULSE 112; RESP 19; TEMP 37.3; O2SAT 99
--- NOTE | 2021-06-26 09:54 | PM.DS.1 ---
History of Present Illness History of Present Illness Date Patient Seen: 06/26/21 Time Patient Seen: 09:54 Chief complaint: LEFT ANKLE FUSION *OPB* Narrative: This is an addendum to yesterday's discharge summary. The patient was unable to void after receiving Flomax and having the catheter discontinued. The catheter was reinserted and he spent an additional night. This morning he received additional Flomax and the catheter was discontinued shortly thereafter. Discharge Providers Provider Date of admission: 06/24/21 Discharge Date: 06/26/21 Primary care physician: Jet Mckinney MD Consults: 06/24/21 14:49 Consult to Discharge Planning Routine Comment: Consult to Pharmacy Routine Comment: Extended infusion Zosyn. 4.5 g q.8,hours over 4 h Consult to Physical Therapy Evaluate & Treat Comment: NWRojas HICKS Physician Instructions: Evaluate and Treat Consult to Respiratory Therapy Evaluate & Treat Comment: Physician Instructions: Evaluate and treat Discharge provider: Chu Beaulieu MD Summary Hospital Course Discharge Diagnosis: 1. Left ankle postoperative infection status post fusion 2. Urinary retention 3. Benign prostatic hypertrophy 4. Post hemorrhagic anemia Hospital Course: In addition to the hospital Course documented in the prior discharge summary, as noted above the patient was unable to spontaneously void after discontinuation of his Lai catheter yesterday. This was reinserted for additional bladder rest. At the time of this dictation it is planned that he be discharged having successfully urinated today. Status at Discharge Cognitive/behavioral status at discharge: at baseline, oriented Functional status at discharge: uses cane/walker Overall status at discharge: patient is progressing back to baseline Time Spent with Patient Time spent: Less than 30 minutes Exam Vital Signs (past 8 hours): - 06/26/21 07:35 Temperature 99.1 F Pulse Rate 112 H Respiratory Rate 19 Blood Pressure 150/81 H Pulse Oximetry 99 Oxygen Delivery Method Room Air Oxygen Flow Rate 0 Narrative Exam Narrative: Left ankle wound is dressed with no drainage on the bandage. Light touch is essentially absent in the toes due to his neuropathy. He can dorsiflex and plantar flex his toes. Objective Labs Result Diagrams: 06/25/21 06:10 06/25/21 06:10 [facility] Medical History Asthma Chronic renal disease, stage III Diabetes Diabetic foot ulcer Diabetic retinopathy Dupuytren's contracture Dyslipidemia Erectile dysfunction Gastroparesis HTN (hypertension) Malignant neoplasm prostate Presence of device Sinusitis Ulcer of left foot with necrosis of muscle Surgical History History of surgery (~02/2018) S/P foot surgery, right (04/09/19) Status post incision and drainage (02/21/19) Family History Mother CVA (cerebral vascular accident) Father Myocardial infarction Other Diabetes mellitus Social History household members: family and children Smoking Status: Former smoker alcohol intake: former Discharge Assessment & Plan Assessment and Plan Assessment: 1) Left Charcot ankle, s/p fusion 2) Acute blood loss anemia d/t surgery 3) Urinary retention 4) Presumed bilateral corneal abrasion Plan of Treatment: 1) NWB to LLE, continue pain control, splint, f/u w/ Dr Hurd as scheduled. 2) No intervention needed at this time. 3) Tamsulosin started in hospital, prescribed for discharge. We will attempt a voiding trial today. If he fails that voiding trial he will be provided with a Lai catheter and a leg bag and outpatient urology follow-up. 4) Neomycin ophthalmic ointment started in hospital, prescribed for discharge. Discharge Plan Discharge Plan Patient Disposition: Home Discharge orders & Medications Discharge Orders: Discharge (Order); Ordered 06/26/21 Ordered By: Chu Beaulieu Prescriptions: New acetaminophen 325 mg Tablet 975 mg PO TID Qty: 90 1RF aspirin 81 mg Tablet,Delayed Release (Dr/Ec) 325 mg PO DAILY Qty: 60 0RF oxycodone 5 mg Tablet 5 mg PO Q4-6H PRN (Reason: pain, severe) Qty: 30 0RF neomycin-polymyxin B-dexameth 3.5 mg/g-10,000 unit/g-0.1 % ointment 1 applic EYE-BOTH QID Qty: 3.5 0RF tamsulosin 0.4 mg capsule 0.4 mg PO DAILY Qty: 30 0RF Continued losartan 100 mg Tablet 100 mg PO DAILY 0RF pioglitazone [Actos] 15 mg Tablet 15 mg PO BID 0RF amlodipine 5 mg Tablet 5 mg PO DAILY 0RF Humalog U-100 Insulin 100 unit/mL Cartridge 20 unit SUBCUT TID 0RF Rx Instructions: Plus 1 additional unit for each 15 points over 140 to a max of 30 units TID Lantus Solostar U-100 Insulin 100 unit/mL (3 mL) Insulin Pen 65 unit SUBCUT BID 0RF docusate sodium 100 mg Capsule 100 mg PO BID Qty: 30 1RF ferrous sulfate 325 mg (65 mg iron) Tablet 325 mg PO BIDWM Qty: 60 0RF Ozempic 0.25 mg or 0.5 mg(2 mg/1.5 mL) pen injector 0.25 mg SUBCUT WEEKLY 0RF Label Comments: inhale 0.25 milligrams subcutaneously every week Changed amoxicillin-pot clavulanate 875-125 mg tablet 1 tab PO BID 14 Days Qty: 28 0RF Discontinued aspirin 81 mg tablet,delayed release (DR/EC) 81 mg PO DAILY 0RF Follow up/Referrals: Shanae Hurd MD [Physician] - (Follow up with Dr Hurd on July 06 @ 10:20 am at [facility]) Jet Mckinney MD [Primary Care Provider] - Diet/Activity/Treatments Diet: Diet as Tolerated Other treatments: At-Home Instructions - Dr. Hurd Surgery: Left hindfoot nail, fusion Cast/Splint/Dressing Care Instructions 1) Keep cast/dressing clean and dry. 2) May bathe - but cast/dressing must remain dry. 3) Should the cast become wet, you need to come into emergency department or call your physician's clinic immediately for cast removal and replacement. Moisture can cause skin breakdown and lead to infection if left untreated. 4) Do not stick any sharp object down the cast to itch, as this can cause scrapes/cuts/punctures which can lead to infection. 6) Observe for increasing pain in the extremity with the cast, finger/toe-tips turning blue/purple, or numbness and tingling in your toes/fingers. Should any of these symptoms arise, you need to be seen immediately for evaluation of swelling and increasing compartment pressures within your affected extremity. 7) Keep your affected extremity elevated - Toes Above your Nose? - This is lovelace in the first two weeks after surgery to minimize swelling. 8) You may ice your extremity, being careful to prevent melting ice from saturating into the splint/cast. Activity No heavy lifting greater than 10 pounds. No [address] while on narcotic pain medication. Do not get your dressing/cast/splint wet! You must remain non-weight bearing on your operative extremity. Use crutches or a walker for ambulation. No driving until you are otherwise instructed by your physician. This will be addressed at your first follow-up appointment. Discharge Pain Medications You will be given a prescription for pain medication. You should start taking this the same day after your surgery. Wean off as tolerated. Do not wait to take the pain medication until the pain is severe, as it will be difficult to catch up once this occurs. The pain medication usually reaches its full effect ~1 hour after ingesting. If you have been sent home on Colace, this medication should be taken until you are off all narcotic (i.e. Vicodin, Percocet, Oxycodone, etc) pain medications, to prevent constipation. You may also obtain this or another stool softener over the counter to prevent or alleviate constipation. Percocet or Vicodin have Tylenol in their ingredient lists. You must be careful not to exceed 3,000mg (3 grams) of Tylenol, from all sources, within a single 24-hr period. This means that you may not take more than 10 pills within a 24-hr period. Do NOT take Regular or Extra Strength Tylenol when taking your Percocet or Vicodin medications. -IF you have been given a Toradol/ketorolac prescription, this is a very strong anti-inflammatory. Do not take ihar-ysm-qdjkrlf anti-inflammatories (ibuprofen, Aleve, Advil, Motrin) while taking the Toradol/ketorolac. Once you are finished with this prescription, then you can resume bcuc-rpr-qcomtyl anti-inflammatories. You can still take your narcotic pain medication and Tylenol while taking the Toradol/ketorolac. -Some common side effects of the narcotic pain medications (Percocet, Oxycodone, Vicodin, etc.) include nausea and itching. Benadryl is a great over the counter medication that helps calm your stomach, decreases your anxiety levels, and minimizes the itching. You can easily purchase this at your local pharmacy as an mjdr-vog-wjhdfpp medication. Please abide by the instructions as printed on the bottle. If your nausea persists, make sure to take small amounts of crackers or other health policy nurse foods. Follow-Up/Emergency Contacts Please call for an appointment in either [place] or [place], if one has not been scheduled. Follow up 2 weeks after surgery. [phone] Contact the office if you have any of the following: ? Painful swelling or numbness ? Unrelenting pain ? Fever (over 101?- it is normal to have a low grade fever for the first day or two following surgery) or chills ? Redness around the incisions ? Color changes ? Continuous bleeding or drainage from the incision (a small amount is expected) ? Excessive nausea or vomiting ? Difficulty breathing If you have an emergency that requires immediate attention such as shortness of breath or chest pain, call 911 or proceed to the nearest emergency room. Blood Clot Prophylaxis You will need to complete a total 6-week (42 days) course of Aspirin enteric coated (325 mg daily) after surgery, to minimize the risk of blood clots following surgery. You may alternatively purchase or use jpxj-snf-amllgou generic equivalent Aspirin. If you already have ?baby? Aspirin (81mg) at home, you can take 4 ?baby? Aspirin to total 324mg for the equivalent dose. If you have gastric upset with this or a history of gastric bleeding or ulcers, do not take aspirin, please call the office for alternatives. Commence foot and ankle. knee pumps and movement with the nonoperative leg to keep your blood moving and help prevent clots. You can also obtain compression socks of antiembolism hose (THELMA) hose from the drug store to wear on the nonoperative leg and also on the operative leg once the splint or cast is removed. Adjust your position or get up onto your crutches every hour or so just to move around. Pain Medications: It is the policy of [facility] that narcotic medications will only be refilled during office hours. Additionally, due to the alarming rate of narcotic pain medication abuse/dependence, it has become necessary for physician practices to closely manage patient use of prescription narcotic pain relievers, such as Vicodin ([place]), Percocet, and Oxycodone products. Narcotic pain management in the postoperative period may not exceed 6 weeks. If narcotic pain management is required beyond 90 days, then a referral to a Chronic Pain Specialist will be made. If a request for a medication prescription has been made, the physician must review your chart prior to authorizing the request. Please be patient with office staff. If you call during patient hours, your call may not be returned until the end of the day. Dr. Shanae Hurd [address] [email or web address] Skin/Wound/Dressing Care Report to your healthcare provider any signs of infection, such as:: chills, fever, night sweats, increased pain, unusual drainage and unusual redness Discharge Data Primary Care Provider: Jet Mckinney Attending Provider: Shanae Hurd Quality VTE Deep Vein Thrombosis/Pulmonary Embolism Present on Admission: No
[2021-06-26 10:00] VITALS: BP 150/81
[2021-06-26] MEDS: LOSARTAN 50 MG TABLET 100 MG PO (10:00)
[2021-06-26] MEDS: ACETAMINOPHEN 325 MG TABLET 975 MG PO (10:00)
[2021-06-26] MEDS: PIOGLITAZONE 15 MG TABLET PO (10:00)
[2021-06-26] MEDS: FERROUS SULFATE 325 MG TABLET PO (10:00)
[2021-06-26] MEDS: AMLODIPINE 5 MG TABLET PO (10:00)
[2021-06-26] MEDS: INSULIN GLARGINE 100 UNIT/ML 3ML PEN 65 UNIT SUBCUT (10:03)
[2021-06-26] MEDS: ASPIRIN EC 325 MG TABLET PO (10:05)
--- NOTE | 2021-06-26 11:23 | PC.NURSE ---
Pt is dressed and ready for discharge home with daughter. IV has been removed. Went over d/c instructions-discussed new prescriptions as well as continued. Advised Pt to take the entire dose of his ABX as ordered and to drink plenty of fluids to prevent constipation or dehydration and also to consider a probiotic if he feels he needs one. Dr. Hurd has 6 pages of specific discharge information for Pt who states he would rather read it at home. Pt denies further questions and was taken out via w/c by RN to POV with daughter and all belongings.
== END 2021-06-26 11:28 | disposition home or self-care (01) ==
LOC: OR 06:03 → AC 06:05
PROVIDERS: PCP Internal Medicine; Referring Provider Family Medicine; Visit Provider Orthopaedic Surgery Foot and Ankle Surgery
PROC: (CPT 27870; principal; 2021-06-24 07:45)
DX: M14.672 Charcot's joint, left ankle and foot (principal); M19.072 Primary osteoarthritis, left ankle and foot; T84.7XXA Infection and inflammatory reaction due to other internal orthopedic prosthetic devices, implants and grafts, initial encounter; L97.523 Non-pressure chronic ulcer of other part of left foot with necrosis of muscle; E11.621 Type 2 diabetes mellitus with foot ulcer; Z79.4 Long term (current) use of insulin
CPT/HCPCS: 27870; 28725; 36415; 73600; 76000; 80053; 82962; 85027; 87070; 87075; 87077; 87176; 87186; 87205; 87801; 94760; J0171; J0690; J1815; J2405; J2543; J2704; J3010

== ENCOUNTER → 2021-06-30 11:36 | Outpatient (CLI) | payer OTHER, SELFPAY ==
[2021-06-24 15:01] VITALS: BMI 28.2
--- NOTE | 2021-06-30 | DI.RAD.S_ITS ---
PROCEDURE: FL GUIDED PICC PLACEMENT INDICATIONS: STARTING IV ANTIBIOTICS / COMPARISON: [facility], CT, CT ANGIO CHEST PE PROTOCOL, 02/06/2021, 21:24. [facility], CR, XR CHEST FOR PICC 1V, 03/17/2021, 10:48. FINDINGS: PICC was placed by the intravenous therapy team from the left side. Fluoroscopic spot film demonstrates the tip of PICC projecting to the area of mid superior vena cava. IMPRESSION: Tip of PICC projects overlying the area of the mid superior vena cava. Dictated by: Amilcar Eric M.D. on 07/02/2021 at 9:41 Approved by: Amilcar Eric M.D. on 07/02/2021 at 9:42
== END ==
PROVIDERS: PCP Internal Medicine; Referring Provider Orthopaedic Surgery Foot and Ankle Surgery; Visit Provider Orthopaedic Surgery Foot and Ankle Surgery
DX: Z45.2 Encounter for adjustment and management of vascular access device (principal); M86.272 Subacute osteomyelitis, left ankle and foot; M14.672 Charcot's joint, left ankle and foot; M19.072 Primary osteoarthritis, left ankle and foot; Z98.1 Arthrodesis status
CPT/HCPCS: 36573

== ENCOUNTER → 2021-11-23 11:58 | Outpatient (CLI) | payer OTHER, SELFPAY ==
[2021-06-24 15:01] VITALS: BMI 28.2
[2021-11-23 13:45] LABS: COVID19 -Nasal RAPID Negative (Negative)
== END ==
PROVIDERS: PCP Internal Medicine; Referring Provider Orthopaedic Surgery Foot and Ankle Surgery; Visit Provider Orthopaedic Surgery Foot and Ankle Surgery
DX: Z20.822 Contact with and (suspected) exposure to COVID-19 (principal)
CPT/HCPCS: 87635; C9803

== ENCOUNTER 2021-11-25 11:50 | Inpatient (IN) | payer OTHER, SELFPAY ==
[2021-06-24 15:01] VITALS: BMI 28.2
[2021-11-23 10:07] VITALS: BMI 28.2
[2021-11-25] VITALS (8 sets, daily range): BP systolic 115–159; BP diastolic 64–82; PULSE 95–105; RESP 15–20; TEMP 36.2–36.4; O2SAT 97–100; BMI 28.2
--- NOTE | 2021-11-25 07:55 | P.HP_ITS ---
History of Present Illness History of Present Illness Date Patient Seen: 11/25/21 Chief complaint: INPT Narrative: Patient is a 61-year-old male with type 2 diabetes on insulin with had bilateral inguinal varus deformities and is status post right reconstruction a few years ago and now status post left foot triple arthrodesis and hindfoot fusion for Charcot ankle on the left side. He had staged treatment for postoperative infections and has completed his IV antibiotics. He is status post TTC fusion with nail 06/24/2021. He has been off all antibiotics and his and labs have normalized. He still has a lucency at the tibiotalar joint consistent with nonunion he has been indicated for dynamization of his hindfoot fusion nail to allow additional compression and did tend to facilitate further healing of the tibiotalar joint. . Patient History Medical History Asthma Chronic renal disease, stage III Diabetes Diabetic foot ulcer Diabetic retinopathy Dupuytren's contracture Dyslipidemia Erectile dysfunction Gastroparesis HTN (hypertension) Malignant neoplasm prostate Presence of device Sinusitis Ulcer of left foot with necrosis of muscle Surgical History History of ankle surgery (06/24/21) History of surgery (~02/2018) S/P foot surgery, right (04/09/19) S/P PICC central line placement (06/30/21) Status post incision and drainage (02/21/19) Family & Social History Family History Mother CVA (cerebral vascular accident) Father Myocardial infarction Other Diabetes mellitus Social History: household members family,children Tobacco & Substance use: Tobacco type cigarettes Smoking Status Former smoker alcohol intake former Substance Use Type does not use Meds Home Medications and Allergies Home Medications Medication Instructions Recorded Confirmed Type losartan 100 mg tablet 100 mg PO DAILY 02/19/19 11/23/21 History pioglitazone 15 mg tablet (Actos) 15 mg PO BID 02/19/19 11/23/21 History amlodipine 5 mg tablet 5 mg PO DAILY 02/20/19 11/23/21 History insulin glargine 100 unit/mL (3 65 unit SUBCUT BID 02/20/19 11/23/21 History mL) subcutaneous pen (Lantus Solostar U-100 Insulin) insulin lispro 100 unit/mL 20 unit SUBCUT TID 02/20/19 11/23/21 History subcutaneous cartridge (Humalog U-100 Insulin) docusate sodium 100 mg capsule 100 mg PO BID constipation #30 caps 03/18/21 11/23/21 Rx ferrous sulfate 325 mg (65 mg 325 mg PO BIDWM anemia #60 tabs 03/18/21 11/23/21 Rx iron) tablet semaglutide 0.25 mg or 0.5 mg (2 0.25 mg SUBCUT WEEKLY 06/24/21 11/23/21 History mg/1.5 mL) subcutaneous pen injector (Ozempic) acetaminophen 325 mg tablet 975 mg PO TID #90 tabs 06/25/21 11/23/21 Rx amoxicillin 875 mg-potassium 1 tab PO BID 14 days #28 tabs 06/25/21 11/23/21 Rx clavulanate 125 mg tablet aspirin 81 mg tablet,delayed 325 mg PO DAILY #60 tabs 06/25/21 11/23/21 Rx release neomycin 3.5 mg/g-polymyxin B 1 applic EYE-BOTH QID #3.5 grams 06/25/21 11/23/21 Rx 10,000 unit/g-dexameth 0.1 % eye oint oxycodone 5 mg tablet 5 mg PO Q4-6H PRN pain, severe #30 06/25/21 11/23/21 Rx tabs tamsulosin 0.4 mg capsule 0.4 mg PO DAILY urinary retention 06/25/21 11/23/21 Rx #30 caps Allergies Allergy/AdvReac Type Severity Reaction Status Date / Time No Known Drug Allergies Allergy Verified 06/24/21 06:53 Review of Systems Review of Systems Narrative: Denies fevers chills nausea or vomiting. ROS: Yes All systems reviewed with the patient and are negative except as otherwise documented Exam Narrative Exam Narrative: Alert oriented male no acute distress HEENT exam normocephalic atraumatic. Lungs clear to auscultation bilaterally. Heart rate regular rhythm. It is partial weight-bearing on the left. Lower extremity on the left side grossly normal alignment good stability without swelling atrophy or effusion. Incisions are healed. Plantar grade foot. No erythema. No drainage. No tenderness to palpation. Stocking-glove neuropathy. Disuse calf atrophy Assessment & Plan Assessment and plan (1) Pseudarthrosis after fusion or arthrodesis: Status: Acute Plan Pseudarthrosis of his tibiotalar fusion of the left Charcot ankle. Plan for hibdfoot nail Dynamization. Patient will be weight-bearing in his [place] walker after surgery to allow additional compression. Outpatient procedure. Patient understands and agrees with plan. The risks and benefits of the procedure have been discussed with the patient even opportunity to ask questions. The risks of surgery include but are not limited to infection, malunion, nonunion, persistence of pain, damage to nerves and blood vessels, posttraumatic arthritis, DVT, PE, cardiopulmonary complications and . The patient expressed a thorough understanding of the risks and benefits of surgery and has elected to proceed. Consent was signed COVID-19 COVID-19 status: Negative Result date/Date tested (Pos, Neg/Pending): 11/23/21 Time Spent With Patient Time with patient: less than 30 minutes Critical Care time: I spent a total of [] minutes of critical care time on this patient's care today; this time is exclusive of procedural time. Quality VTE Deep Vein Thrombosis/Pulmonary Embolism Present on Admission: No
[2021-11-25] MEDS: LACTATED RINGERS 1,000 ML 42 ML IV (12:54)
--- NOTE | 2021-11-25 15:25 | PM.PREOP ---
Pre-operative Note COVID-19 COVID-19 status: Negative Interval Note History & Physical reviewed/Exam performed by Physician: Yes Changes to H&P: No
[2021-11-25] MEDS: CEFAZOLIN 2 GM/20 ML SYRINGE IV (15:54)
--- NOTE | 2021-11-25 16:28 | SUR.OPER ---
Supine on padded OR bed, head on pillow, arms secured on padded arm boards at <90 degrees abduction, legs uncrossed, safety belt at waist , tape over blanket over lower right leg, left leg draped free with gel bump under left hip blankets stacked under lower left leg.
[2021-11-25] MEDS: BUPIVACAINE 0.25% (PF) 30 ML, EPINEPHrine 0.15 MG INJ (16:29)
--- NOTE | 2021-11-25 16:36 | DI.RAD.S_ITS ---
PROCEDURE: XR TIBIA FIBULA LT 2V INDICATIONS: SCREW EXCHANGE TECHNIQUE: Fluoroscopic spot films of the mid tibia were obtained COMPARISON: None. FINDINGS: Low resolution intraoperative fluoroscopic spot films focused on the mid tibia show a intramedullary josue and fixation screw IMPRESSION: Fluoroscopic guidance Approved by: Adam Ayala M.D. on 11/25/2021 at 16:37
--- NOTE | 2021-11-25 16:50 | P.OP_ITS ---
Operative Date/Time/Diagnoses Date of procedure: 11/25/21 Time of procedure: 16:51 Pre-op diagnosis: Charcot ankle left M14.672 Pseudoarthrosis ankle fusion M96.0 Diabetes Post-op diagnosis: same Procedure & Clinicians Procedure: Revision fusion ankle [place] cpt 74152-84 left Removal implant deep 01352 left Same procedure as scheduled: Yes Indications: Patient is a 61-year-old male with type 2 diabetes and a history of a Charcot left ankle and severe cavovarus foot deformities with recurrent ulcerations. He has had staged management of his cavovarus deformities with the triple arthrodesis. He had an infection was under went a Charcot destruction of his left ankle this was then cleared of infection and then treated with a TT see fusion. He has a pseudoarthrosis of the tibiotalar joint and has been indicated for dynamization of the hindfoot nail to aid in can impression and help with fusion. His labs are normal and he has no evidence of ongoing infection. The risks and benefits of the procedure have been discussed with the patient has been given the opportunity to ask questions. The risks of surgery include but are not limited to infection, malunion, nonunion, persistence of pain, damage to nerves and blood vessels, posttraumatic arthritis, DVT, PE, cardiopulmonary complications and . The patient expressed a thorough understanding of the risks and benefits of surgery and has elected to proceed. Consent was signed. Surgeon: Shanae Hurd Click Yes if Unassisted: Yes Anesthesia Type: General and Local Operative Notes Findings: Pseudoarthrosis left ankle with lucency at the tibiotalar fusion site. Proximal interlocking screws static and dynamic screws were in place. Static 5.0 locking screw was removed. Dynamic screw was removed and we drilled to provide maximal opportunity for compression and the screw was then replaced. Closure Type: primary Specimen(s): none sent Estimated Blood Loss (mL): 2 Blood products transfused: none Tourniquet time (min): 0 Procedure in detail: Patient was seen the preoperative area the site of surgery marked informed consent confirmed. He was brought back to the operating room by the anesthesia team positioned supine position on the operating table. General anesthetic was administered. The leg was positioned with a ipsilateral thigh a bump and a nonsterile tourniquet was placed high on the thigh. The left lower extremity was prepped and draped in the standard sterile fashion. A formal time-out procedure was performed confirming the patient's side and site of surgery administration of appropriate preoperative antibiotics. All were in agreement. Attention turned to the left leg. The C-arm was brought in to confirm the old incision site the site of the proximal locking screws. This was marked out on the skin. The old incision was infiltrated with 10 cc of local anesthetic. Incision was then made and dissection carried down to the level of the bone. The proximal interlocking screws were identified. Screwdriver was used to remove the static screw. Screwdriver was also removed used to remove the dynamic screw as this was at an angle. A 4 5 drill was used to reach drill through the dynamic slot through the proximal part provide maximal opportunity for dynamic compression then the same 30 mm 5 0 locking screw was replaced. This was confirmed on AP and lateral intraoperative fluoroscopy to be in appropr iate length position and placement through the nail. At this point the wound was irrigated and then closed with 2-0 Vicryl 4-0 Monocryl and 10 more cc of local anesthetic was infiltrated. Then Dermabond was placed. Soft dressing was placed after the Dermabond was dry.. The drapes removed. The patient was woken from anesthesia and taken to recovery room in good condition. There no immediate complications from this procedure. All counts were correct. Complications: none Post-operative Condition: stable Disposition: PACU Plan for aftercare: Weightbear as tolerated. Discharge home. Follow-up as scheduled
== END 2021-11-25 17:35 | disposition home or self-care (01) | DRG 494 ==
PROVIDERS: Admitting Provider Orthopaedic Surgery Foot and Ankle Surgery; PCP Internal Medicine; Referring Provider Orthopaedic Surgery Foot and Ankle Surgery; Visit Provider Orthopaedic Surgery Foot and Ankle Surgery
PROC: 0SGG04Z Fusion of Left Ankle Joint with Internal Fixation Device, Open Approach (ICD-10-PCS; principal; 2021-11-25 13:45)
DX: M96.0 Pseudarthrosis after fusion or arthrodesis (principal); M14.672 Charcot's joint, left ankle and foot; Z20.822 Contact with and (suspected) exposure to COVID-19
CPT/HCPCS: 73590; 76000; 82962; 87635; C9803; J0171; J0690; J2704; J3010

== ENCOUNTER 2022-11-17 09:44 | Inpatient (IN) | payer OTHER, SELFPAY ==
[2021-06-24 15:01] VITALS: BMI 28.2
[2022-11-16 07:24] VITALS: BMI 29.0
[2022-11-17] VITALS (25 sets, daily range): BP systolic 119–178; BP diastolic 67–83; PULSE 75–93; RESP 12–18; TEMP 36–37; O2SAT 93–100; BMI 29.0
--- NOTE | 2022-11-17 | DI.RAD.S_ITS ---
PROCEDURE: XR ANKLE LT 2V INDICATIONS: LT ANKLE SURGERY TECHNIQUE: 3 intraoperative fluoroscopic views of the ankle were acquired. COMPARISON: [facility] [place], CR, XR ANKLE 3 VIEWS WEIGHT BEARING LEFT, 11/15/2022, 14:37. [facility], CR, XR ANKLE LT 2V, 06/24/2021, 9:21. FINDINGS: Intraoperative fluoroscopic images of left ankle shows removal of previously noted fusion hardware in hindfoot joints. Severe osteoarthritic changes throughout hindfoot joints are seen. IMPRESSION: Fluoro guidance was provided intraoperatively for hindfoot surgical hardware removal. Dictated by: Blue Deleon M.D. on 11/17/2022 at 16:53 Approved by: Blue Deleon M.D. on 11/17/2022 at 16:54
--- NOTE | 2022-11-17 | PATH_ITS ---
[facility] Accession Number: [id number] No. of containers..01 Tissue . 01 Material submitted: . ankle - LEFT ANKLE BONE . 01 Diagnosis: Bone, Left Ankle, Excision: Fragment of trabecular bone and fibroconnective tissue with fibrosis and reactive changes. No definite evidence of acute osteomyelitis identified in section examined. . Note: Clinical and radiographic correlation is suggested. [facility] 11/23/2022 1057 Local . 01 Electronically signed: . Baldomero Mari MD, Dermatopathologist NPI- [id number] . 01 Gross description: . The specimen is received in formalin labeled with the patient's name, , and left ankle bone consists of a jerome firm fragment of osseous tissue measuring 0.9 x 0.7 x 0.4 cm. The specimen is submitted intact in cassette A1 following decalcification. ([id number]) /MRV 11/21/2022 1524 Local . 01 Pathologist provided ICD-10: M14.672 . 01 CPT . 947052, [id number] Specimen Comment: A courtesy copy of this report has been sent to [phone] Performed at: 01 [facility] [address] [place] [address] [address] [facility] [place], [place], [place] [id number] MD Jim Barrett MD Phone: [phone]
[2022-11-17] MEDS: LACTATED RINGERS 1,000 ML 42 ML IV ×2 (10:23→17:54)
--- NOTE | 2022-11-17 11:28 | PM.PREOP ---
Pre-operative Note Interval Note History & Physical reviewed/Exam performed by Physician: Yes Changes to H&P: No
--- NOTE | 2022-11-17 14:38 | SUR.OPER ---
Supine on padded OR bed, head on pillow, arms secured on padded arm boards at <90 degrees abduction, legs uncrossed, safety belt at abdomen, tape over blanket over lower right leg. blanket bump under left flank and blanket bump under left foot per surgeon.
[2022-11-17] MEDS: TOBRAMYCIN 1.2 GM VIAL INTRA-ARTI (14:52)
[2022-11-17] MEDS: SODIUM CHLORIDE 0.9% IRR (14:55)
[2022-11-17] MEDS: GENTAMICIN 160 MG IRR (14:55)
[2022-11-17] MEDS: MINERAL OIL LIGHT TOPICAL 10 ML 20 ML TOP (14:57)
[2022-11-17] MEDS: VANCOMYCIN 1,000 MG/200 ML PIGGYBACK 200 MG IV (15:15)
--- NOTE | 2022-11-17 15:40 | SUR.OPER ---
Intra operative BG 67 per finger stick. Anesth informed, 5 ml 50%Dextrose admin by anesth
[2022-11-17] MEDS: VANCOMYCIN 1,000 MG VIAL 1000 MG INTRA-ARTI (15:44)
[2022-11-17] MEDS: BUPIVACAINE 0.25% (PF) 30 ML, EPINEPHrine 0.15 MG INJ (15:54)
--- NOTE | 2022-11-17 16:21 | SUR.OPER ---
recheck BG 85 at 1622
--- NOTE | 2022-11-17 17:04 | P.OP_ITS ---
Operative Date/Time/Diagnoses Date of procedure: 11/17/22 Time of procedure: 14:00 Pre-op diagnosis: Charcot left ankle, pseudarthrosis of joint, osteomyelitis left ankle, diabetes with osteomyelitis Post-op diagnosis: same Procedure & Clinicians Procedure: 1. Removal of deep implant left ankle hindfoot josue CPT code 47911 2. Removal of screws deep implant left leg separate site CPT code 99951-65-[id number] 3. Removal of screws deep implant left leg separate site CPT code 76530-15 talus and calcaneus 4. Removal of deep implant separate site CPT code 22532-36-[id number] 5. Debridement bone lower extremity CPT code 57229 6. Application wound VAC dressing CPT code 78701- left 7. Manual preparation and insertion of drug delivery devices, intramedullary antibiotic josue left hindfoot /ankle/tibia CPT code 16372 Same procedure as scheduled: Yes Indications: Patient is a 62-year-old diabetic male bilateral equinovarus deformities status post left foot triple arthrodesis and TTC nail for ankle Charcot. He has a history of Pseudomonas previously treated with IV meropenem. He was doing well for approximately 1 year and then acutely last week developed an abscess at the medial ankle and was found to have loose hardware and a infected pseudarthrosis. He was indicated for surgery for hardware removal bone biopsy irrigation debridement and admission to the hospital for IV antibiotics, antibiotic beads and josue and likely requirement of a wound VAC. we discussed that he will require treatment to clear the infection once this occurs may require additional surgery to remove the antibiotic josue and do a revision fusion for his ankle pseudarthrosis. He understands and agrees with the plan. The risks and benefits of the procedure have been discussed with the patient and given the opportunity to ask questions. The risks of surgery include but are not limited to infection, malunion, nonunion, persistence of pain, damage to nerves and bl ood vessels, posttraumatic arthritis, DVT, PE, cardiopulmonary complications and . The patient expressed a thorough understanding of the risks and benefits of surgery and has elected to proceed. Consent was signed in the office. Surgeon: Shanae Hurd Click Yes if Unassisted: Yes Anesthesia Type: General and Local Operative Notes Findings: Medial fluctuant abscess opened with non closable wound measuring 3.5 cm x 5 cm x 2 cm deep probes deep to talus bone. Serosanguineous murky fluid is expressed. Laterally incision over the lateral calcaneus and talar screw heads is also made this also demonstrates serous yellow murky fluid and grossly loose talar and calcaneal screws. Mobile pseudarthrosis tibiotalar articulation. Closure Type: not applicable (Partial primary closure then medial wound was not closable therefore wound VAC was applied. Medial wound with red bleeding tissue 3.5 x 5 cm x 2 cm deep small wound VAC applied) Specimen(s): other (Tissue and bone were sent for culture, bacterial PCR and pathology) Prosthetic devices, grafts, tissues, transplants, or devices: The [employer] Ferriday nail was removed and all screws removed. A manual preparation antibiotic josue was prepared using a mixture of 1.2 g of tobramycin 1 g of vancomycin and 1 package of regular PMMA cement this was fashioned into a josue over 18 gauge wire of appropriate diameter to fit through the reamed intramedullary canal. Estimated Blood Loss (mL): 50 Blood products transfused: none Tourniquet time (min): 101 Procedure in detail: Patient was seen in the preoperative area site of surgery marked informed consent confirmed the patient was brought back to the operating room by the anesthesia team positioned supine on operative table general anesthesia was administered. The patient's left lower extremity was prepped and draped in standard sterile fashion a well-padded nonsterile tourniquet was placed on the thigh. Formal time-out procedure was performed confirming the patient's side and site of surgery. Antibiotics were held until intraoperative cultures were taken then once this was completed the patient received 1 g of vancomycin IV. Manual preparation of intramedullary antibiotic josue. On a separate table a antibiotic josue was prepared using 18 gauge wire 1 package of regular PMMA cement 1.2 g of tobramycin and 1 g of vancomycin mixed together for 30 seconds and then rolled over an 18 gauge wire to create an antibiotic josue of approximately 7 mm diameter. This was set aside and allowed to cure. Additionally the calcium phosphate Stimulan beads were mixed with 160 mg of gentamicin and a mold of 3 mm beads was prepared in the standard fashion. These were allowed to cure. Afton exsanguination was performed and the tourniquet was raised on the thigh to 250 mmHg. Attention was turned to the left lower extremity. The medial abscess was opened purulence was swabbed for cultures. Additionally tissue and bone were taken from the medial abscess and then also the lateral aspect of the pseudarthrosis and sent for microbiology pathology and bacterial PCR. Nonviable skin tissue at the area of the abscess was removed this created a medial wound measuring approximately 3.5 cm x 5 cm by 2 cm this was in line with the previous medial incision. It did track directly down to remnants of the calcaneus and talar bone and to the crossing screws. Once the cultures were obtained the patient's antibiotics were started. Next attention turned to the plantar foot the plantar wound was opened using fluoroscopic guidance to be in line with the hindfoot josue. This was dissected down to the plantar calcaneal bone and a curette was used to identify the hindfoot josue. The end cap was then removed and the removal tool engaged into the josue. At this point separate lateral incision was made directly over the lateral to medial calcaneus and talus screws this was taken down through the skin and subcutaneous tissues again some additional murky fluid was expressed and the loose talus and calcaneal lateral to medial screws were identified. The screws were so loose they did not engage in the screwdriver very well and were ultimately removed using a Mikayla. Then attention was finally turned to the posterior to anterior calcaneus screw and a separate incision was made on the back of the heel and careful fluoroscopy was used to align with the screw a rongeur and curette were used to clear out the bone and then the screw was removed using the hardware removal set to reverse thread in and remove the screw. Once all of the distal screws were out attention was turned proximally incision was made medially over the proximal interlocking screw this was dissected down to the level of the tibia the screw head was identified and this was removed with a screwdriver. Now that all the screws were removed the slap hammer was hooked up to the hindfoot nail removal tool and then the nail was removed. Once this was completed fluoroscopy confirmed appropriate complete hindfoot nail hardware removal then a curette was used to debride the canal and the medial and lateral wounds down to bleeding bone then pulsatile lavage was brought in with a canal attachment the canal was irrigated and the medial and la teral wounds were irrigated with 6 L of saline. Once this was completed clean drapes were placed. The antibiotic josue was inserted through the calcaneus talus and into the medullary canal of the tibia was visualized on AP and lateral views to be in appropriate position just leaving the wire prominent at the calcaneus for later retrieval. At this point the premixed gentamicin beads were placed in the medial and lateral wounds as well as some in the proximal incision. Tourniquet was released and hemostasis achieved. The incisions were then closed medial lateral and plantar and posterior. The medial abscess wound was not closable and measured 3.5 x 5 cm x 2 cm deep and a wound VAC was placed on this with a good to 125 mmHg. Remainder of the incisions were dressed with Xeroform gauze ABD pads and Webril. Patient was placed into a posterior ortho glass splint to facilitate wound VAC changes. At this point operation was finished patient was woken from anesthesia and taken to recovery room in good condition there no immediate complications with the procedure. All counts were correct. Complications: none Post-operative Condition: stable Disposition: PACU Plan for aftercare: The patient will require admission to the hospital for IV ABX we will await cultures to arrange PICC line and outpatient antibiotics and outpatient wound VAC care. Will require on the floor wound VAC change at bedside on Sunday this was planned with Dr. Hurd. Once cultures are finalized we will also coordinate with [facility] infectious Disease was manage this patient in the past. But we will start empiric meropenem which he required at the time of the last infection. Patient will be nonweightbearing at least 6 weeks. Plan for staged later antibiotic josue removal and revision arthrodesis once infection clears.
--- NOTE | 2022-11-17 17:27 | PM.PN.1 ---
Subjective Subjective Interval history: Note to communicate the labs patient had drawn at [facility] on 11/16/2022. Sodium 138 potassium 3.7 chloride 101 CO2 29 BUN 20 creatinine 1.2 GFR 61 albumin 2.8 Hemoglobin A1c 10.9 ESR 118 White blood cell count 7.4 hemoglobin 11.9 platelets 457 Exam Vital Signs (past 8 hours): - 11/17/22 10:10 11/17/22 16:48 11/17/22 17:22 Temperature 97 F L 96.8 F L 97.9 F Pulse Rate 81 93 H 84 Respiratory Rate 17 13 12 Blood Pressure 127/70 146/75 H 132/75 Pulse Oximetry 100 97 97 Oxygen Delivery Method Room Air Room Air Room Air 11/17/22 16:53 11/17/22 16:58 11/17/22 17:02 Temperature 98.0 F Pulse Rate 80 82 84 Respiratory Rate 18 14 13 Blood Pressure 121/67 120/67 119/68 Pulse Oximetry 97 93 97 Oxygen Delivery Method Room Air Room Air Room Air 11/17/22 17:07 Temperature Pulse Rate 83 Respiratory Rate 15 Blood Pressure 124/68 Pulse Oximetry 98 Oxygen Delivery Method Room Air Oxygen Delivery Method Room Air [facility] Medical History (Updated 11/25/21 @ 08:00 by Shanae Hurd MD) Asthma Chronic renal disease, stage III Diabetes Diabetic foot ulcer Diabetic retinopathy Dupuytren's contracture Dyslipidemia Erectile dysfunction Gastroparesis HTN (hypertension) Malignant neoplasm prostate Presence of device Sinusitis Ulcer of left foot with necrosis of muscle Surgical History (Updated 11/16/22 @ 07:26 by Carlita Coombs RN) History of ankle surgery (06/24/21) History of ankle surgery (11/25/21) History of surgery (~02/2018) S/P foot surgery, right (04/09/19) S/P PICC central line placement (06/30/21) Status post incision and drainage (02/21/19) Family History Mother CVA (cerebral vascular accident) Father Myocardial infarction Other Diabetes mellitus Social History household members: family and children Smoking Status: Former smoker alcohol intake: former
[2022-11-17] MEDS: MEROPENEM 1 GM in SODIUM CHLORIDE 0.9% 100 ML IV (17:53)
[2022-11-17] MEDS: FERROUS SULFATE 325 MG TABLET PO (17:58)
[2022-11-17 20:15] LABS: BUN Creatinine Ratio 15.9 (6-22); Blood Urea Nitrogen 17 mg/dL (9-20); Calcium 8.6 mg/dL (8.4-10.2); Carbon Dioxide 29 mmol/L (22-32); Chloride 100 mmol/L (98-107); Estimated Glomerular Filt Rate > 60 mL/min (>60); Glucose 156 mg/dL (80-110); HEMOLYSIS < 15 (0-50); Potassium 4.6 mmol/L (3.4-5.1); Sodium 137 mmol/L (137-145)
[2022-11-17] MEDS: INSULIN GLARGINE 100 UNIT/ML 3ML PEN 30 UNIT SUBCUT (20:47)
[2022-11-17] MEDS: DOCUSATE 100 MG CAPSULE PO (20:47)
[2022-11-17] MEDS: VANCOMYCIN 1,500 MG/300 ML PIGGYBACK 200 MG IV (20:47)
[2022-11-18] VITALS (14 sets, daily range): BP systolic 130–149; BP diastolic 61–70; PULSE 86–107; RESP 16–18; TEMP 36.4–37.2; O2SAT 94–99
[2022-11-18] MEDS: MEROPENEM 1 GM in SODIUM CHLORIDE 0.9% 100 ML IV ×3 (01:19→17:52)
[2022-11-18 04:48] LABS: Hematocrit 32.3 % (41-53); Mean Corpuscular Hemoglobin 29.5 PG (26-34); Mean Corpuscular Volume 86.6 fL (80-100); Platelet Count 448 X10^3/uL (150-400); Red Blood Cell Count 3.73 X10^6/uL (4.5-5.9); Red Cell Distribution Width 13.8 % (11.6-14.8); White Blood Cell Count 9.5 X10^3/uL (4.5-11.0)
--- NOTE | 2022-11-18 05:36 | PM.CN ---
History of Present Illness Consult details Date Patient Seen: 11/18/22 Time Patient Seen: 05:00 Chief complaint: LLE Bone Debridement & Deep Implant Removal *OPB* Narrative: Mr. Gomes is a 60M with PMH DM on insulin, HTN, CKD, Charcot's joint on left ankle who presents to the with acute osteomyelitis of the left ankle and wound infection with hardware. He his s/p left foot arthrosis and nail in May 2021. He had complications with culture growing pseudomonas and was treated by ID in the past. He was noted to have an ulcer that developed eventually into left osteomyelitis. He was admitted by ortho surgery and went to OR on 11/17 for removal of left foot hardware, debirdement of bone of his lower extremity. He had wound vac placed. Medicine is consulted for management of his chronic medical issues. He had an episode of urinary retention after the OR and was straight cathd. For his diabetes he takes 65U BID of lantus, and 20U TID of humalog. He has been on this for years. His last a1c was checked recently and was greater than 10. When I saw him he has no complaints. Meds Home Medications and Allergies Home Medications Medication Instructions Recorded Confirmed Type losartan 100 mg tablet 100 mg PO DAILY 02/19/19 11/17/22 History pioglitazone 15 mg tablet (Actos) 15 mg PO BID 02/19/19 11/17/22 History amlodipine 5 mg tablet 5 mg PO DAILY 02/20/19 11/17/22 History insulin glargine 100 unit/mL (3 65 unit SUBCUT BID 02/20/19 11/17/22 History mL) subcutaneous pen (Lantus Solostar U-100 Insulin) insulin lispro 100 unit/mL 20 unit SUBCUT TID 02/20/19 11/17/22 History subcutaneous cartridge (Humalog U-100 Insulin) ferrous sulfate 325 mg (65 mg 325 mg PO BIDWM anemia #60 tabs 03/18/21 11/17/22 Rx iron) tablet semaglutide 0.25 mg or 0.5 mg (2 0.25 mg SUBCUT WEEKLY 06/24/21 11/17/22 History mg/1.5 mL) subcutaneous pen injector (Ozempic) aspirin 81 mg tablet,delayed 325 mg PO DAILY #60 tabs 06/25/21 11/17/22 Rx release dstkgovj-uwm-dsrxe acid 300 1 tab PO DAILY 11/17/22 11/17/22 History mcg-lycopene 600 mcg-lutein 300 mcg tablet (Centrum Silver Men) Allergies Allergy/AdvReac Type Severity Reaction Status Date / Time No Known Drug Allergies Allergy Verified 11/17/22 10:04 Review of Systems Review of Systems Narrative: 14 systems reviewed and negative aside from what is noted in HPI Exam Vital Signs (past 8 hours): - 11/17/22 22:00 11/17/22 22:00 11/17/22 22:30 Pulse Rate 80 Blood Pressure 165/77 H 178/83 H Pulse Oximetry 95 11/17/22 22:30 11/17/22 22:31 11/17/22 22:31 Pulse Rate 85 88 Blood Pressure 156/74 H Pulse Oximetry 98 99 11/17/22 23:07 11/17/22 23:08 11/17/22 23:08 Pulse Rate 89 89 Blood Pressure 161/76 H Pulse Oximetry 98 98 11/17/22 23:30 11/17/22 23:30 11/18/22 00:00 Pulse Rate 85 Blood Pressure 154/71 H 142/67 H Pulse Oximetry 97 11/18/22 00:00 11/18/22 00:30 11/18/22 00:30 Pulse Rate 86 93 H Blood Pressure 149/70 H Pulse Oximetry 95 96 11/18/22 01:00 11/18/22 01:00 11/18/22 01:30 Pulse Rate 91 H Blood Pressure 147/70 H 130/61 Pulse Oximetry 94 11/18/22 01:30 11/18/22 02:04 11/18/22 02:30 Pulse Rate 91 H 107 H 95 H Blood Pressure Pulse Oximetry 95 97 98 11/18/22 03:00 11/18/22 03:30 11/18/22 04:00 Pulse Rate 92 H 91 H 92 H Blood Pressure Pulse Oximetry 98 97 95 11/18/22 04:30 Pulse Rate 90 Blood Pressure Pulse Oximetry 96 Oxygen Delivery Method Room Air Oxygen Flow Rate 0 Narrative Exam Narrative: GEN: no acute distress CV: regular rate and rhythm PULM: clear bilaterally ABD: soft, nontender, nondistneded EXT: left lower extremity wrapped Objective Labs 11/18/22 04:15 11/17/22 17:25 Labs: Laboratory Results - last 24 hr 11/17/22 11/17/22 11/17/22 17:25 19:38 Unknown WBC RBC Hgb Hct MCV MCH MCHC RDW Plt Count Sodium 137 Potassium 4.6 Chloride 100 Carbon Dioxide 29 BUN 17 Creatinine 1.07 Cancelled Estimated GFR > 60 Cancelled BUN/Creatinine Ratio 15.9 Glucose 156 H Calcium 8.6 C-Reactive Protein 7.0 H 11/18/22 04:15 WBC 9.5 RBC 3.73 L Hgb 11.0 L Hct 32.3 L MCV 86.6 MCH 29.5 MCHC 34.0 RDW 13.8 Plt Count 448 H Sodium Potassium Chloride Carbon Dioxide BUN Creatinine Estimated GFR BUN/Creatinine Ratio Glucose Calcium C-Reactive Protein [facility] Medical History Asthma Chronic renal disease, stage III Diabetes Diabetic foot ulcer Diabetic retinopathy Dupuytren's contracture Dyslipidemia Erectile dysfunction Gastroparesis HTN (hypertension) Malignant neoplasm prostate Presence of device Sinusitis Ulcer of left foot with necrosis of muscle Surgical History History of ankle surgery (06/24/21) History of ankle surgery (11/25/21) History of surgery (~02/2018) S/P foot surgery, right (04/09/19) S/P PICC central line placement (06/30/21) Status post incision and drainage (02/21/19) Family History Mother CVA (cerebral vascular accident) Father Myocardial infarction Other Diabetes mellitus Social History household members: family and children Tobacco & Substance Use Smoking Status: Former smoker alcohol intake: former Assessment & Plan Assessment & Plan narrative: 1. Osteomyelitis left ankle, infected pseudoarhtrosis of left ankle joint in Charcot left ankle -has had wound culture with enterococcus and previously pseudomonas as well with previous infections -for now he is on broad spectrum antibiotics and vancomycin and a carbapenem -he is s/p bone debridement and hardware removal on 11/17 -primary management per ortho -follow up cultures 2. Type 2 DM on insulin -continue insulin, for now decrease slightly to lantus 40U BID as he may not eat normally post-op -adjust as needed -check glucose achs 3. Acute urinary retention -may be secondary to perioperative with meds and surgery -did get straight cath x1 -if does not improve will likely need price, and will send UA 4. Hypertension continue losartan I have discussed plan and obtained history from patient. I have discussed plan of care with ED physician and bedside nurse. I have reviewed labs, imaging, and previous medical notes. CODE: Full Proxy: Mariama Eliseo, daughter
[2022-11-18] MEDS: LACTATED RINGERS 1,000 ML 42 ML IV (06:33)
[2022-11-18] MEDS: LOSARTAN 50 MG TABLET 100 MG PO (08:44)
[2022-11-18] MEDS: FERROUS SULFATE 325 MG TABLET PO ×2 (08:44→17:52)
[2022-11-18] MEDS: ASPIRIN EC 81 MG TABLET 325 MG PO (08:45)
[2022-11-18] MEDS: MULTIVITAMIN 1 TABLET 1 TAB PO (08:45)
[2022-11-18] MEDS: AMLODIPINE 5 MG TABLET PO (08:45)
[2022-11-18] MEDS: DOCUSATE 100 MG CAPSULE PO ×2 (08:46→21:31)
[2022-11-18] MEDS: INSULIN GLARGINE 100 UNIT/ML 3ML PEN 40 UNIT SUBCUT (08:46)
--- NOTE | 2022-11-18 11:24 | PT-IP ANOTE ---
PT eval received and EMR reviewed. Pt admitted for L ankle hardware removal and wound vac placement. pt has h/o L ankle surgeries and is known to this PT from previous admissions. Pt does not want any PT and stated that he is doing well moving with his crutches. pt will have his daughter to assist him at home. pt refusing PT eval and interventions. informed nurse.
--- NOTE | 2022-11-18 11:42 | P.PN_ITS ---
Subjective Subjective Date Patient Seen: 11/18/22 Time Patient Seen: 11:43 Interval history: Patient is sitting upright in bed this morning with no complaints. He denies pain, fever, chills, nausea, vomiting. We discussed current plan for treatment per Dr. Hurd. Patient has no questions at this time. Exam Vital Signs (past 8 hours): - 11/18/22 04:00 11/18/22 04:30 11/18/22 07:00 Temperature Pulse Rate 92 H 90 Respiratory Rate Blood Pressure Pulse Oximetry 95 96 Oxygen Delivery Method Room Air 11/18/22 08:44 11/18/22 08:55 Temperature 97.7 F Pulse Rate 101 H 88 Respiratory Rate 16 Blood Pressure 141/64 H 141/64 H Pulse Oximetry 96 Oxygen Delivery Method Oxygen Delivery Method Room Air Oxygen Flow Rate 0 Narrative Exam Narrative: Pleasant 62-year-old male. Awake, alert, and oriented. Wound VAC to suction, 50 mL of dark red bloody drainage. Splint, bandage, and Arun wrap intact. Patient able to move toes. No sensation to light touch of bilateral toes. Capillary refill prolonged at 3-4 seconds. Objective Labs 11/18/22 04:15 11/17/22 17:25 Labs: Laboratory Results - last 24 hr 11/17/22 11/17/22 11/17/22 17:25 19:38 Unknown WBC RBC Hgb Hct MCV MCH MCHC RDW Plt Count Sodium 137 Potassium 4.6 Chloride 100 Carbon Dioxide 29 BUN 17 Creatinine 1.07 Cancelled Estimated GFR > 60 Cancelled BUN/Creatinine Ratio 15.9 Glucose 156 H Calcium 8.6 C-Reactive Protein 7.0 H 11/18/22 04:15 WBC 9.5 RBC 3.73 L Hgb 11.0 L Hct 32.3 L MCV 86.6 MCH 29.5 MCHC 34.0 RDW 13.8 Plt Count 448 H Sodium Potassium Chloride Carbon Dioxide BUN Creatinine Estimated GFR BUN/Creatinine Ratio Glucose Calcium C-Reactive Protein [facility] Medical History Asthma Chronic renal disease, stage III Diabetes Diabetic foot ulcer Diabetic retinopathy Dupuytren's contracture Dyslipidemia Erectile dysfunction Gastroparesis HTN (hypertension) Malignant neoplasm prostate Presence of device Sinusitis Ulcer of left foot with necrosis of muscle Surgical History History of ankle surgery (06/24/21) History of ankle surgery (11/25/21) History of surgery (~02/2018) S/P foot surgery, right (04/09/19) S/P PICC central line placement (06/30/21) Status post incision and drainage (02/21/19) Family History Mother CVA (cerebral vascular accident) Father Myocardial infarction Other Diabetes mellitus Social History household members: family and children Smoking Status: Former smoker alcohol intake: former Assessment & Plan Post-op Postoperative Procedures: Procedures Operation Date: 11/17/22 11:15 Actual Procedure Side Surgeon p debridement soft tissue & bone excision ulceration & Left Shanae Hurd MD s removal of hindfoot josue & screws, multiple sites foot & ankle Left Shanae Hurd MD Postoperative day: 1 Postoperative status: doing well Postoperative status narrative: Patient is recovering as expected following removal of hindfoot josue and screws, debridement of left foot and ankle with placement of antibiotic josue. Patient denies pain. Postoperative plan narrative: Continue multimodal pain regimen as needed. Awaiting culture and sensitivity from specimens collected before and during surgery. Per Dr. Hurd, we will await cultures to arrange PICC line and outpatient antibiotics and outpatient wound VAC care. Planned for floor wound VAC change at bedside on Sunday with Dr. Hurd. Once cultures are finalized we will also coordinate with [facility] infectious Disease was manage this patient in the past. Continue empiric meropenem which he required at the time of the last infection. Patient will be nonweightbearing at least 6 weeks. Plan for staged later antibiotic josue removal and revision arthrodesis once infection clears.
--- NOTE | 2022-11-18 11:51 | PM.PN.1 ---
Subjective Subjective Interval history: Patient feeling well. Has no complaints. Exam Vital Signs (past 8 hours): - 11/18/22 04:00 11/18/22 04:30 11/18/22 07:00 Temperature Pulse Rate 92 H 90 Respiratory Rate Blood Pressure Pulse Oximetry 95 96 Oxygen Delivery Method Room Air 11/18/22 08:44 11/18/22 08:55 Temperature 97.7 F Pulse Rate 101 H 88 Respiratory Rate 16 Blood Pressure 141/64 H 141/64 H Pulse Oximetry 96 Oxygen Delivery Method Oxygen Delivery Method Room Air Oxygen Flow Rate 0 Narrative Exam Narrative: GEN: no acute distress CV: regular rate and rhythm PULM: clear bilaterally ABD: soft, nontender, nondistneded EXT: left lower extremity wrapped with wound vac in place Objective Labs 11/18/22 04:15 11/17/22 17:25 Labs: Laboratory Results - last 24 hr 11/17/22 11/17/22 11/17/22 17:25 19:38 Unknown WBC RBC Hgb Hct MCV MCH MCHC RDW Plt Count Sodium 137 Potassium 4.6 Chloride 100 Carbon Dioxide 29 BUN 17 Creatinine 1.07 Cancelled Estimated GFR > 60 Cancelled BUN/Creatinine Ratio 15.9 Glucose 156 H Calcium 8.6 C-Reactive Protein 7.0 H 11/18/22 04:15 WBC 9.5 RBC 3.73 L Hgb 11.0 L Hct 32.3 L MCV 86.6 MCH 29.5 MCHC 34.0 RDW 13.8 Plt Count 448 H Sodium Potassium Chloride Carbon Dioxide BUN Creatinine Estimated GFR BUN/Creatinine Ratio Glucose Calcium C-Reactive Protein [facility] Medical History Asthma Chronic renal disease, stage III Diabetes Diabetic foot ulcer Diabetic retinopathy Dupuytren's contracture Dyslipidemia Erectile dysfunction Gastroparesis HTN (hypertension) Malignant neoplasm prostate Presence of device Sinusitis Ulcer of left foot with necrosis of muscle Surgical History History of ankle surgery (06/24/21) History of ankle surgery (11/25/21) History of surgery (~02/2018) S/P foot surgery, right (04/09/19) S/P PICC central line placement (06/30/21) Status post incision and drainage (02/21/19) Family History Mother CVA (cerebral vascular accident) Father Myocardial infarction Other Diabetes mellitus Social History household members: family and children Smoking Status: Former smoker alcohol intake: former Assessment & Plan Assessment & Plan narrative: 1. Osteomyelitis left ankle, infected pseudoarhtrosis of left ankle joint in Charcot left ankle -has had wound culture with enterococcus and previously pseudomonas as well with previous infections -for now he is on broad spectrum antibiotics and vancomycin and meropenem -he is s/p bone debridement and hardware removal on 11/17 -primary management per ortho -follow up cultures -will need PICC once blood cultures neg at 24 hours -to f/u with Dr. Vivar ID for 6 weeks of IV abx after discharge -to f/u with wound care for wound vac management 2. Type 2 DM on insulin -continue insulin, for now decrease slightly to lantus 40U BID plus lispro 5U TIDWM as he may not eat normally post-op -adjust as needed -check glucose achs 3. Acute urinary retention -may be secondary to perioperative with meds and surgery, patient notes he usually retains following surgery -did get straight cath x1 on 11/17 -UA pending -now urinating fine 4. Hypertension -continue losartan CODE: Full Proxy: Mariama Gomes, daughter Medicine will continue to follow. Thank you for allowing us to participate in the care of this patient. Should you have any questions, do not hesitate to speak with us directly or call us.
[2022-11-18] MEDS: INSULIN LISPRO 100 UNIT/ML 3ML VIAL SUBCUT ×5 (12:45→21:13)
[2022-11-18] MEDS: VANCOMYCIN 1,500 MG/300 ML PIGGYBACK 200 MG IV (12:46)
--- NOTE | 2022-11-18 14:22 | CM.DANOTE ---
Initial Discharge Assessment Note: Met with patient, introduced self and role. Payer: [facility] and self pay PCP: Jet Mckinney 62 year old male admitted yesterday for planned surgery for removal of hardware to left Charcot ankle and debridement of bone. A Wound Vac applied in surgery. Patient lives in own home with daughter Mariama who works but assist as can. Son also nearby. Patient uses crutches to ambulate. Generally self care. Daughter transports to appointments. Patient goes to a wound clinic on [facility], they have provided Vac care in past for him. As well, he has had home infusions through [facility]. Wound Vac equipment has been set up through [employer] in the past. Plan: Discharge home to daughter when medically stable. Discharge Planning/Care Management Advanced directive, confirm from FAMILY Start: 11/17/22 17:51 Freq: Q24H Status: Active Protocol: Document 11/17/22 17:51 MS (Rec: 11/17/22 18:18 MS [id number]) Advance Directive, confirm on record Time 18:17 Person contacted Patient Copy received No CM Discharge Assessment Start: 11/18/22 14:12 Freq: Status: Active Protocol: Document 11/18/22 14:12 SJ (Rec: 11/18/22 14:22 [id number]) Discharge Planning Assessment Assigned Inside Contractor Sales Nahed Gomez RN/RENEEP Advance Directives? No Advance Directives on File No History Provided By Patient,Medical Record Prior Living Arrangements Mobile home Household Members family,children Type of transporation used prior to Relies on Others admit Independent with ADL's Yes Is patient alert and oriented? Yes Caregiver for Another No Community Services used prior to Wound Care admission: DME Already Rented / Owned Crutches Comment Scooter Comment outpatient wound care clinic in [place] Barriers to Discharge No Comment Has good family support Discharge Plan Home Transportation Arrangement Daughter Referrals Initiated Other Additional Comment Wound vac in past arranged through [employer]. Outpatient wound care to be done at [facility], and has had IV infusion provided by [facility] in the past . Review Status In Process Next Review Type Continued Stay Review Pre-Anesthesia Assessment Start: 11/16/22 07:24 Freq: Status: Active Protocol: Document 11/16/22 07:24 CAB (Rec: 11/16/22 07:31 CAB [id number]) Pre-Anesthesia Assessment Patient Information Reviewed Via Chart Review Primary Care Provider Neil Bui Seen Specialist in Last 12 Months Yes Specialist Seen Orthopedist,Other Comment Wound Care, Infectious Disease Primary Language Portuguese Preferred Language Portuguese Millinery Designer Required No Height 185.42 cm Weight 99.79 kg Body Mass Index (BMI) 29.0 Hx Anesthesia Reactions No Hx Family Anesthesia Reaction No Hx Malignant Hyperthermia No Hx Blood Transfusions No Hx Blood Transfusion Reaction No Anesthesia Review Requested No Beater Room Supervisor No alcohol intake former Smoking Status Former smoker Tobacco type cigarettes Substance Use Type does not use Patient is completely paralyzed or No completely immobile Does patient have PERKINS/SOB No Hx Sleep Apnea No CPAP/BIPAP use not prescribed Currently Taking a Beta Rajeev No Can You Climb a Flight of Stairs Without Yes SOB Hx Chest Pain No Hx SOB No Hx Syncope or Dizziness No Anti-Coagulant Therapy No Has a District Sales Representative No Cardiac Testing No Hx Pacemaker/ICD No Pacemaker Rep Required? No Cardiac Clearance Received Not Applicable Bladder Pattern Frequency Urinary Catheter Present No Hx Urinary Self Catheterization No Diabetes Yes Presence of External or Internal Medical Yes: right and left foot Devices hardware Received a COVID vaccine? Yes: J&J Lives With family,children Patient Discharge Plan Description Return Home Do You Have Any Spiritual Beliefs That No May Affect Your HC Choices? Do You Have Any Cultural Practices That No May Affect Your HC Choices? Emergency Contact Name Mariama (daughter) Emergency Contact Advance Directives? No Advance Directives on File No Power of Vp [employer] No
[2022-11-18] MEDS: INSULIN GLARGINE 100 UNIT/ML 3ML PEN 50 UNIT SUBCUT (21:12)
[2022-11-19] MEDS: VANCOMYCIN 1,500 MG/300 ML PIGGYBACK 200 MG IV ×2 (00:53→13:07)
[2022-11-19] MEDS: MEROPENEM 1 GM in SODIUM CHLORIDE 0.9% 100 ML IV ×3 (02:00→16:49)
[2022-11-19 05:16] VITALS: BP 144/67; PULSE 81; RESP 16; TEMP 37.1; O2SAT 99
[2022-11-19 08:00] VITALS: BP 144/67
[2022-11-19] MEDS: INSULIN LISPRO 100 UNIT/ML 3ML VIAL SUBCUT ×3 (08:25→16:50)
[2022-11-19] MEDS: INSULIN GLARGINE 100 UNIT/ML 3ML PEN 50 UNIT SUBCUT ×2 (08:25→20:50)
[2022-11-19] MEDS: INSULIN LISPRO 100 UNIT/ML 3ML VIAL 10 UNIT SUBCUT ×3 (08:27→16:50)
[2022-11-19] MEDS: LOSARTAN 50 MG TABLET 100 MG PO (08:28)
[2022-11-19] MEDS: FERROUS SULFATE 325 MG TABLET PO ×2 (08:28→16:49)
[2022-11-19] MEDS: AMLODIPINE 5 MG TABLET PO (08:28)
[2022-11-19] MEDS: ASPIRIN EC 81 MG TABLET 325 MG PO (08:29)
[2022-11-19] MEDS: DOCUSATE 100 MG CAPSULE PO (08:31)
--- NOTE | 2022-11-19 08:39 | PM.PN.1 ---
Exam Vital Signs (past 8 hours): - 11/19/22 05:16 Temperature 98.7 F Pulse Rate 81 Respiratory Rate 16 Blood Pressure 144/67 H Pulse Oximetry 99 Oxygen Delivery Method Room Air Oxygen Flow Rate 0 Objective Labs 11/18/22 04:15 11/17/22 17:25 [facility] Medical History Asthma Chronic renal disease, stage III Diabetes Diabetic foot ulcer Diabetic retinopathy Dupuytren's contracture Dyslipidemia Erectile dysfunction Gastroparesis HTN (hypertension) Malignant neoplasm prostate Presence of device Sinusitis Ulcer of left foot with necrosis of muscle Surgical History History of ankle surgery (06/24/21) History of ankle surgery (11/25/21) History of surgery (~02/2018) S/P foot surgery, right (04/09/19) S/P PICC central line placement (06/30/21) Status post incision and drainage (02/21/19) Family History Mother CVA (cerebral vascular accident) Father Myocardial infarction Other Diabetes mellitus Social History household members: family and children Smoking Status: Former smoker alcohol intake: former Assessment & Plan Assessment & Plan narrative: Patient is doing well, very comfortable with no pain. Wound vac intact. Toes well perfused. Sensation is poor and unchanged due to chronic neuropathy. Will continue IV antibiotics and inpatient care. Will re-assess tomorrow.
[2022-11-19] MEDS: MULTIVITAMIN 1 TABLET 1 TAB PO (08:52)
[2022-11-19 10:21] VITALS: PULSE 80; O2SAT 98
--- NOTE | 2022-11-19 11:10 | PC.NURSE ---
Dayshift note: 11:11 Pt moving to room 215, bedside report given to MOHINI Salazar, no further pt contact at this time
[2022-11-19] MEDS: VANCOMYCIN TROUGH 1 REQUEST MISC (12:39)
[2022-11-19 12:44] LABS: Estimated Glomerular Filt Rate > 60 mL/min (>60)
[2022-11-19 12:50] LABS: Vancomycin Trough 17.7 ug/mL (10-20)
--- NOTE | 2022-11-19 13:45 | PM.PN.1 ---
Subjective Subjective Interval history: Patient feeling much better post surgery. He indicates that his blood sugars have been fine. No problems with pain since he says he has decreased sensation in his lower extremities. No new concerns. Exam Vital Signs (past 8 hours): - 11/19/22 08:00 11/19/22 10:21 11/19/22 07:00 Pulse Rate 80 Blood Pressure 144/67 H Pulse Oximetry 98 Oxygen Delivery Method Room Air Room Air Oxygen Delivery Method Room Air Oxygen Flow Rate 0 Narrative Exam Narrative: GEN: no acute medical distress CV: regular rate and rhythm PULM: clear bilaterally ABD: soft, nontender, nondistended EXT: left lower extremity has wound VAC in place and draining well. Objective Labs 11/18/22 04:15 11/19/22 12:27 Labs: Laboratory Results - last 24 hr 11/19/22 11/19/22 12:27 12:27 Creatinine 1.12 Estimated GFR > 60 Vancomycin Trough 17.7 PFSH Medical History Asthma Chronic renal disease, stage III Diabetes Diabetic foot ulcer Diabetic retinopathy Dupuytren's contracture Dyslipidemia Erectile dysfunction Gastroparesis HTN (hypertension) Malignant neoplasm prostate Presence of device Sinusitis Ulcer of left foot with necrosis of muscle Surgical History History of ankle surgery (06/24/21) History of ankle surgery (11/25/21) History of surgery (~02/2018) S/P foot surgery, right (04/09/19) S/P PICC central line placement (06/30/21) Status post incision and drainage (02/21/19) Family History Mother CVA (cerebral vascular accident) Father Myocardial infarction Other Diabetes mellitus Social History household members: family and children Smoking Status: Former smoker alcohol intake: former Assessment & Plan Assessment & Plan narrative: 1. Osteomyelitis left ankle, infected pseudoarhtrosis of left ankle joint in Charcot left ankle -has had wound culture with enterococcus and previously pseudomonas as well with previous infections -for now he is on meropenem 1 g IV every 8 hours and vancomycin 1500 mg IV every 12 hours -he is s/p bone debridement and hardware removal on 11/[address] -primary management per ortho -follow up cultures -all wound cultures obtained have been negative. Ortho will manage antibiotics. 2. Type 2 DM on insulin -continue insulin, for now decrease slightly to lantus 40U BID (regular doses 65U BID) as he may not eat normally post-op -adjust as needed -check glucose achs 3. Acute urinary retention -may be secondary to perioperative with meds and surgery -did get straight cath x1 -if does not improve will likely need price, and will send UA if Price is placed 4. Hypertension continue losartan CODE: Full Proxy: Mariama oGmes, daughter
--- NOTE | 2022-11-19 14:06 | PC.NURSE ---
Provider Vickey called this nurse and req. a package of small sponge for wound vac be at the bedside. States she will be at the hospital on 11/20 to change wound vac out. Patient is aware, sponge is at the bedside with a note to save for provider.
[2022-11-19 16:00] VITALS: BP 134/66; PULSE 78; RESP 18; TEMP 36.3; O2SAT 98
[2022-11-19] MEDS: VANCOMYCIN PEAK 1 REQUEST MISC (16:14)
[2022-11-19 16:51] LABS: Vancomycin Peak 33.9 ug/mL (20-40)
--- NOTE | 2022-11-19 22:08 | PC.NURSE ---
RN inquired if pt brought Pioglitazone (Actos) and pt stated no. Pt stated he wasn't told to bring it to the hospital. Pt stated his daughter knows all of his medications and RN asked pt to ask his daughter to bring this med from with her to the hospital. Pt verbalized understanding.
[2022-11-19 23:49] VITALS: BP 136/66; PULSE 83; RESP 17; TEMP 35.9; O2SAT 99
[2022-11-20] MEDS: MEROPENEM 1 GM in SODIUM CHLORIDE 0.9% 100 ML IV ×3 (01:31→17:25)
[2022-11-20 08:00] VITALS: BP 136/73; PULSE 81; RESP 16; TEMP 36.1; O2SAT 99
--- NOTE | 2022-11-20 08:33 | PC.NURSE ---
Addendum entered by Clarisa Gaffney R.N. 11/20/22 17:44: Wound cultures came back gram positive cocci. Patient put on contact precautions until sensitivities to anbitibiotics come back Addendum entered by Clarisa Gaffney R.N. 11/20/22 09:29: in changing patients wound vac dressing. Wound is beefy red inside, with antibiotic beads present. Patient has his iv antibiotics infusing and he denies pain at present. Original Note: Assess- Patients l.lower extremity has wound vac in place with soft cast and jarrell wrap in place. Vac is putting out minimal drainage. He is using the crutches to get up to void in the bathroom, denies pain at this time. Patient is waiting for his breakfast to arrive and his blood sugar is 90. His pedal pulses are palpable x2.
[2022-11-20] MEDS: INSULIN GLARGINE 100 UNIT/ML 3ML PEN 50 UNIT SUBCUT (09:09)
[2022-11-20] MEDS: INSULIN LISPRO 100 UNIT/ML 3ML VIAL 10 UNIT SUBCUT (09:09)
--- NOTE | 2022-11-20 09:10 | PM.PNPO.1 ---
Subjective Subjective Date Patient Seen: 11/20/22 Time Patient Seen: 09:10 Interval history: Postop day 3 left ankle Charcot infected pseudarthrosis status post removal hardware and placement of antibiotic josue Pain controlled. Awaiting cultures. Not finalized yet. Receiving IV antibiotics. Wound VAC applied. Exam Vital Signs (past 8 hours): Oxygen Delivery Method Room Air Oxygen Flow Rate 0 Narrative Exam Narrative: Alert and oriented male in no acute distress resting in bed eating breakfast. Heart regular rate and rhythm Breathing unlabored on room air Left lower extremity in splint taken down. Left medial ankle wound 3.5 cm x 5 cm x 2 cm deep. Objective Labs 11/18/22 04:15 11/19/22 12:27 Labs: Laboratory Results - last 24 hr 11/19/22 11/19/22 11/19/22 12:27 12:27 16:05 Creatinine 1.12 Estimated GFR > 60 Vancomycin Peak 33.9 Vancomycin Trough 17.7 PFSH Medical History Asthma Chronic renal disease, stage III Diabetes Diabetic foot ulcer Diabetic retinopathy Dupuytren's contracture Dyslipidemia Erectile dysfunction Gastroparesis HTN (hypertension) Malignant neoplasm prostate Presence of device Sinusitis Ulcer of left foot with necrosis of muscle Surgical History History of ankle surgery (06/24/21) History of ankle surgery (11/25/21) History of surgery (~02/2018) S/P foot surgery, right (04/09/19) S/P PICC central line placement (06/30/21) Status post incision and drainage (02/21/19) Family History Mother CVA (cerebral vascular accident) Father Myocardial infarction Other Diabetes mellitus Social History household members: family and children Smoking Status: Former smoker alcohol intake: former Assessment & Plan Post-op Postoperative Procedures: Procedures Operation Date: 11/17/22 11:15 Actual Procedure Side Surgeon p debridement soft tissue & bone excision ulceration & Left Shanae Hurd MD s removal of hindfoot josue & screws, multiple sites foot & ankle Left Shanae Hurd MD Postoperative day: 3 Postoperative status: doing well Postoperative status narrative: Doing well. Vital signs stable. Postoperative plan narrative: 1. Continue IV antibiotics right now on empiric 1 g q.8 meropenem and 1.5 g vancomycin q.12 2. Monitor kidney function 3. Await final cultures: Discussed with Dr. Ana López at [facility] infectious disease--if no Enterococcus on final cultures will discontinue vanc.--then continue Pseudomonas coverage with meropenem and would increase to 2 g Q 8 and monitor kidney function. If kidney function decreases would need to go down to 2 g q.12.--plan PICC line and discharge on meropenem--with [facility] home IV antibiotics--will follow-up with [facility] Infectious Disease in clinic next week. 4. Medial left ankle wound with wound VAC. Wound size is 3.5 cm x 5 cm x 2 cm deep. Will need wound VAC changes. Has gotten these previously at [facility] wound care using the [employer] system. Plan would be to continue wound vacs changes Q 3 days in the hospital then discharge with wet-to-dry dressings for re-initiation of wound VAC as an outpatient with [facility] wound care 4. Nonweightbearing left lower extremity may touchdown for balance. Keep splint in place unless for wound VAC changes. Follow-up in 2 weeks in [facility] Clinic. Anticipate least 6 weeks of IV antibiotics then consider removal of antibiotic josue and revision fusion, versus longer-term use of antibiotic josue and [place] walker boot. Time Spent With Patient Time with patient: 15-24 minutes Quality VTE Deep Vein Thrombosis/Pulmonary Embolism Present on Admission: No
[2022-11-20] MEDS: LOSARTAN 50 MG TABLET 100 MG PO (09:11)
[2022-11-20] MEDS: AMLODIPINE 5 MG TABLET PO (09:11)
[2022-11-20] MEDS: MULTIVITAMIN 1 TABLET 1 TAB PO (09:11)
[2022-11-20] MEDS: FERROUS SULFATE 325 MG TABLET PO ×2 (09:11→17:21)
[2022-11-20] MEDS: ASPIRIN EC 325 MG TABLET PO (09:11)
[2022-11-20] MEDS: DOCUSATE 100 MG CAPSULE PO ×2 (09:11→20:40)
--- NOTE | 2022-11-20 09:38 | PM.PROC.1 ---
Procedures Date/Time Date of procedure: 11/20/22 Time of procedure: 09:39 General Procedure description: Wound VAC change left ankle Negative pressure wound VAC change to left ankle size of wound 3.5 cm x 5 cm x 2 cm deep. A small black wound VAC sponge was removed from the wound site this was cleansed with chlorhexidine around the periwound. Granulation tissue was red and bleeding. A few of the dissolvable antibiotic beads were seen in the very base of the wound. No purulence or malodor. Small black wound VAC was replaced and fashion to a good seal at -125 mmHg. Patient tolerated the procedure well. Complications: none
--- NOTE | 2022-11-20 11:29 | CM.DPNOTE ---
DCP continued: DILAN spoke with [facility] [phone] and discussed case let her know that the patient will need IV ABX just depends on what final cultures say on which medication. [facility] worked through the referral and stated that the patients insurance covers [facility] 100% so no copay or issues with medications. CM team will update [facility] with final antibiotics when determined after cultures are returned most likely tomorrow . PICC line being placed today. wound care plan is for patient to DC with wet to dry dressing and have wound vac set up and applied by [facility] wound care team. CM called [facility] and [facility] x2 ext [phone] to get an appointment for this patient Cm also faxed referral to [facility] wound care for them to review. CM team will follow up with [facility] to get this set up. CM called Wound care clinic again and spoke with a staff member they asked for Face sheet, H&P and current Prog note. CM sent clinical information to Fax number [phone] DILAN briones will continue to work to get DC plan set up Mae Razo RNcharge out clerk
--- NOTE | 2022-11-20 12:18 | PM.PN.1 ---
Subjective Subjective Interval history: Pains sufficiently controlled per patient. Patient would like to increase his insulin to be closer to his normal doses. No other complaints. Exam Vital Signs (past 8 hours): - 11/20/22 08:00 Temperature 96.9 F L Pulse Rate 81 Respiratory Rate 16 Blood Pressure 136/73 Pulse Oximetry 99 Oxygen Delivery Method Room Air Oxygen Flow Rate 0 Narrative Exam Narrative: GEN: no acute medical distress CV: regular rate and rhythm PULM: clear bilaterally ABD: soft, nontender, nondistended EXT: left lower extremity has wound dressed. Objective Labs 11/18/22 04:15 11/19/22 12:27 Labs: Laboratory Results - last 24 hr 11/19/22 11/19/22 11/19/22 12:27 12:27 16:05 Creatinine 1.12 Estimated GFR > 60 Vancomycin Peak 33.9 Vancomycin Trough 17.7 PFSH Medical History Asthma Chronic renal disease, stage III Diabetes Diabetic foot ulcer Diabetic retinopathy Dupuytren's contracture Dyslipidemia Erectile dysfunction Gastroparesis HTN (hypertension) Malignant neoplasm prostate Presence of device Sinusitis Ulcer of left foot with necrosis of muscle Surgical History History of ankle surgery (06/24/21) History of ankle surgery (11/25/21) History of surgery (~02/2018) S/P foot surgery, right (04/09/19) S/P PICC central line placement (06/30/21) Status post incision and drainage (02/21/19) Family History Mother CVA (cerebral vascular accident) Father Myocardial infarction Other Diabetes mellitus Social History household members: family and children Smoking Status: Former smoker alcohol intake: former Assessment & Plan Assessment & Plan narrative: 1. Osteomyelitis left ankle, infected pseudoarhtrosis of left ankle joint in Charcot left ankle -has had wound culture with enterococcus and previously pseudomonas as well with previous infections -for now he is on meropenem 1 g IV every 8 hours and vancomycin 1500 mg IV every 12 hours -he is s/p bone debridement and hardware removal on 11/[address] -primary management per ortho -follow up cultures -all wound cultures obtained have been negative.? Ortho will manage antibiotics both in the hospital and at discharge 2. Type 2 DM on insulin -continue insulin, Initially decreased Lantus dose (regular doses 65U BID) as he may not eat normally post-op, increase to his regular dose today -also today start short-acting insulin prior to meals at his regular dose -continue sliding scale insulin prior to meals -adjust as needed -check glucose achs 3. Acute urinary retention -may be secondary to perioperative with meds and surgery -did get straight cath x1 -if does not improve will likely need price, and will send UA if Price is placed 4. Hypertension continue losartan, stable CODE: Full Proxy: Mariama Gomes, daughter Quality VTE Deep Vein Thrombosis/Pulmonary Embolism Present on Admission: No
[2022-11-20] MEDS: VANCOMYCIN 1,500 MG/300 ML PIGGYBACK 200 MG IV ×2 (12:26)
[2022-11-20] MEDS: INSULIN LISPRO 100 UNIT/ML 3ML VIAL SUBCUT ×2 (12:26→17:23)
--- NOTE | 2022-11-20 14:00 | DI.RAD.S_ITS ---
PROCEDURE: XR CHEST FOR PICC 1V INDICATIONS: line placement COMPARISON: [facility], TIFFANIE, XR CHEST FOR PICC 1V, 03/17/2021, 10:48. [facility], TIFFANIE, XR CHEST 1V, 02/06/2021, 19:36. FINDINGS: PICC was placed by the intravenous therapy team from the left side. Fluoroscopic spot film demonstrates the tip of PICC projecting to the area of low SVC. IMPRESSION: Tip of PICC projects to the area of low SVC. Dictated by: Boston Montague M.D. on 11/20/2022 at 14:36 Approved by: Boston Montague M.D. on 11/20/2022 at 14:37
[2022-11-20 16:00] VITALS: BP 143/65; PULSE 77; RESP 20; TEMP 36.2; O2SAT 100
[2022-11-20] MEDS: INSULIN LISPRO 100 UNIT/ML 3ML VIAL 20 UNIT SUBCUT (17:23)
[2022-11-20 17:43] VITALS: BMI 29.0
[2022-11-20] MEDS: INSULIN GLARGINE 100 UNIT/ML 3ML PEN 65 UNIT SUBCUT (20:39)
[2022-11-20 23:11] VITALS: BP 139/97; PULSE 83; RESP 18; TEMP 35.9; O2SAT 98
[2022-11-21] MEDS: VANCOMYCIN 1,500 MG/300 ML PIGGYBACK 200 MG IV (00:23)
[2022-11-21] MEDS: MEROPENEM 1 GM in SODIUM CHLORIDE 0.9% 100 ML IV ×2 (01:25→09:45)
--- NOTE | 2022-11-21 07:54 | PM.PNPO.1 ---
Subjective Subjective Date Patient Seen: 11/21/22 Time Patient Seen: 07:54 Interval history: Patient denies fever or chills. No nausea or vomiting. Denies pain. Otherwise without complaints. Exam Vital Signs (past 8 hours): Oxygen Delivery Method Room Air Oxygen Flow Rate 0 Narrative Exam Narrative: Wound VAC is on and functioning. Splint is in good repair. Const General: cooperative and comfortable Nutritional Appearance: average body habitus Orientation: alert Objective Labs 11/18/22 04:15 11/19/22 12:27 Labs: [facility] CLIA ID [id number] [address] [place] [id number] RUN DATE: 11/21/22 Specimen Inquiry PAGE 1 RUN TIME: 754 Name: EliseoBaldomero Issac Age/Sex: 62/M Attend Dr: Shanae Hurd MD Unit#: [id number] : 1960Location: AC 215-1 Re11/17/22 Disch: Status: ADM IN SPEC #: [id number] PEEWEE: 11/17/22 STATUS: RES REQ #: [id number] SPDESC: RECD: 11/17/22-[address]: Shanae Hurd MD SOURCE: Ankle Lt ENTR: 11/17/[address]: Jet Mckinney MD FAX TO: ORDERED: WOUND Cx and GS COMMENTS: Comment bone scrapings Procedure Result Verified Site Gram Stain Final 11/18/22-0435 No Organism Seen No organisms seen White blood cells Moderate WBCs Aerobic Culture for wounds Final 11/21/22-736 Organism 1 Enterococcus gallinarum Growth LIGHT Action to follow No Further Workup 1. Enterococcus gallinarum M.I.C. RX --------- --- * Ampicillin <=2 S * Vancomycin R * Ciprofloxacin <=0.5 S * Levofloxacin 1 S * Linezolid 2 S * Tetracycline <=1 S Anaerobic Culture Preliminary 11/20/22-1227 No growth. [facility] Medical History Asthma Chronic renal disease, stage III Diabetes Diabetic foot ulcer Diabetic retinopathy Dupuytren's contracture Dyslipidemia Erectile dysfunction Gastroparesis HTN (hypertension) Malignant neoplasm prostate Presence of device Sinusitis Ulcer of left foot with necrosis of muscle Surgical History History of ankle surgery (06/24/21) History of ankle surgery (11/25/21) History of surgery (~02/2018) S/P foot surgery, right (04/09/19) S/P PICC central line placement (06/30/21) Status post incision and drainage (02/21/19) Family History Mother CVA (cerebral vascular accident) Father Myocardial infarction Other Diabetes mellitus Social History household members: family and children Smoking Status: Former smoker alcohol intake: former Assessment & Plan Post-op Postoperative Procedures: Procedures Operation Date: 11/17/22 11:15 Actual Procedure Side Surgeon p debridement soft tissue & bone excision ulceration & Left Shanae Hurd MD s removal of hindfoot josue & screws, multiple sites foot & ankle Left Shanae Hurd MD Postoperative day: 4 Postoperative status: doing well Postoperative plan narrative: 1. Continue IV antibiotics right now on empiric 1 g q.8 meropenem and 1.5 g vancomycin q.12 2. Monitor kidney function 3. Await final cultures: Discussed with Dr. Ana López at [facility] infectious disease--if no Enterococcus on final cultures will discontinue vanc.--then continue Pseudomonas coverage with meropenem and would increase to 2 g Q 8 and monitor kidney function. If kidney function decreases would need to go down to 2 g q.12.--plan PICC line and discharge on meropenem--with [facility] home IV antibiotics--will follow-up with [facility] Infectious Disease in clinic next week. 4. Medial left ankle wound with wound VAC. Wound size is 3.5 cm x 5 cm x 2 cm deep. Will need wound VAC changes. Has gotten these previously at [facility] wound care using the [employer] system. Plan would be to continue wound vacs changes Q 3 days in the hospital then discharge with wet-to-dry dressings for re-initiation of wound VAC as an outpatient with [facility] wound care 4. Nonweightbearing left lower extremity may touchdown for balance. Keep splint in place unless for wound VAC changes. Follow-up in 2 weeks in Orthopedic Clinic. Anticipate least 6 weeks of IV antibiotics then consider removal of antibiotic josue and revision fusion, versus longer-term use of antibiotic josue and [place] walker boot. Quality VTE Deep Vein Thrombosis/Pulmonary Embolism Present on Admission: No
[2022-11-21 08:00] VITALS: BP 135/71; PULSE 95; RESP 18; TEMP 35.8; O2SAT 91
[2022-11-21 08:24] LABS: Add Manual Diff / Slide Review NO; Basophils Absolute Auto 100 /uL (0-100); Eosinophils Absolute Auto 400 /uL (0-450); Eosinophils Percent Auto 5.3 % (2-4); Hematocrit 30.3 % (41-53); Hemoglobin 10.2 g/dL (13.5-17.5); Lymphocytes Absolute Auto 1300 /uL (1100-4500); Lymphocytes Percent Auto 15.9 % (25-40); Mean Corpuscular HGB Conc 33.7 % (30-36); Mean Corpuscular Hemoglobin 29.3 PG (26-34); Mean Corpuscular Volume 86.9 fL (80-100); Monocytes Absolute Auto 700 /uL (0-900); Neutrophils Absolute Auto 5500 /uL (1500-7000); Neutrophils Percent Auto 68.8 % (50-75); Platelet Count 475 X10^3/uL (150-400); Red Blood Cell Count 3.49 X10^6/uL (4.5-5.9)
[2022-11-21 08:41] LABS: Alanine Aminotransferase 38 IU/L (<50); Albumin 3.2 g/dL (3.5-5.0); Albumin Globulin Ratio 0.9 (1.0-2.8); Alkaline Phosphatase 171 U/L (38-126); Aspartate Aminotransferase 33 IU/L (17-59); BUN Creatinine Ratio 17.8 (6-22); Bilirubin Total 0.4 mg/dL (0.2-1.3); Blood Urea Nitrogen 16 mg/dL (9-20); Calcium 9.2 mg/dL (8.4-10.2); Carbon Dioxide 25 mmol/L (22-32); Chloride 106 mmol/L (98-107); Estimated Glomerular Filt Rate > 60 mL/min (>60); Globulin 3.5 g/dL (1.7-4.1); Glucose 79 mg/dL (80-110); HEMOLYSIS < 15 (0-50); Potassium 3.7 mmol/L (3.4-5.1); Sodium 138 mmol/L (137-145); Total Protein 6.7 g/dL (6.3-8.2)
[2022-11-21] MEDS: LOSARTAN 50 MG TABLET 100 MG PO (09:44)
[2022-11-21] MEDS: INSULIN GLARGINE 100 UNIT/ML 3ML PEN 65 UNIT SUBCUT ×2 (09:44→20:35)
[2022-11-21] MEDS: MULTIVITAMIN 1 TABLET 1 TAB PO (09:45)
[2022-11-21] MEDS: AMLODIPINE 5 MG TABLET PO (09:45)
[2022-11-21] MEDS: FERROUS SULFATE 325 MG TABLET PO ×2 (09:45→18:30)
[2022-11-21] MEDS: DOCUSATE 100 MG CAPSULE PO ×2 (09:45→20:23)
[2022-11-21] MEDS: ASPIRIN EC 325 MG TABLET PO (09:47)
--- NOTE | 2022-11-21 10:42 | CM.DPC ---
Addendum entered by Emmie Barraza R.N. 11/21/22 16:15: Have attempted to speak to wound nurse at [facility], her name is Aminata, regarding getting an insurance auth. Have attempted to call [place] several times, between 10-15 calls ahead. [facility] is set up, patient will PICC line, will need to know which med he will go on. Left a message with Elvie at the wound clinic, to see if she can give some advice on this, since it is a [facility] patient. Original Note: DCP Cont: Checked in with Sb at [facility], patient is currently on their services, can see tomorrow. Called over at [facility] in [place]. Will need to get an auth from [place]. Left their triage nurse a message, and asked if a form needs to be faxed. Confirmed that the [place] auth number is [phone]. Will call them today P: Patient is getting PICC line today, will need to get auth for wound vac. Emmie Barraza RN/Cake Tester
[2022-11-21 11:15] VITALS: BP 140/66; PULSE 83; O2SAT 97
--- NOTE | 2022-11-21 12:24 | PC.NURSE ---
Patient blood sugar this am 66, he refused his fast acting insulin. Up to 153 around 153 and Lantus given. Rechecked at noon and blood sugar 186. Patient will take his fast acting insulin. Waiting for lunch to be served. Wound vac is attached to l.ankle wound at 125mm per suction. Patient has been up to void x1. SCDS in place. Vanco not hung as it is resistant to bacteria growing in patients l.ankle wound. Will talk to SCAR Pendleton around 1300 when he does rounds on patient again. Patient is visiting with his friends now.
[2022-11-21] MEDS: INSULIN LISPRO 100 UNIT/ML 3ML VIAL 20 UNIT SUBCUT (12:41)
[2022-11-21] MEDS: INSULIN LISPRO 100 UNIT/ML 3ML VIAL SUBCUT (12:44)
--- NOTE | 2022-11-21 12:52 | P.PN_ITS ---
Subjective Subjective Interval history: Pains sufficiently controlled per patient. Blood sugar control okay today with return to home dosing. Cultures with VRE, primary team has been in discussion with Dr. Vivar for antibiotics. Exam Vital Signs (past 8 hours): - 11/21/22 08:00 11/21/22 11:15 Temperature 96.5 F L Pulse Rate 95 H 83 Respiratory Rate 18 Blood Pressure 135/71 140/66 Pulse Oximetry 91 97 Oxygen Flow Rate 0 0 Oxygen Delivery Method Room Air Oxygen Flow Rate 0 Narrative Exam Narrative: GEN: no acute medical distress CV: regular rate and rhythm PULM: clear bilaterally ABD: soft, nontender, nondistended EXT: left lower extremity has wound dressed. Objective Labs 11/21/22 08:10 11/21/22 08:10 Labs: Laboratory Results - last 24 hr 11/21/22 11/21/22 08:10 08:10 WBC 8.0 RBC 3.49 L Hgb 10.2 L Hct 30.3 L MCV 86.9 MCH 29.3 MCHC 33.7 RDW 14.0 Plt Count 475 H Neut % (Auto) 68.8 Lymph % (Auto) 15.9 L [place] % (Auto) 9.0 Eos % (Auto) 5.3 H Baso % (Auto) 1.0 Neut # (Auto) 5500 Lymph # (Auto) 1300 [place] # (Auto) 700 Eos # (Auto) 400 Baso # (Auto) 100 Sodium 138 Potassium 3.7 Chloride 106 Carbon Dioxide 25 BUN 16 Creatinine 0.90 Estimated GFR > 60 BUN/Creatinine Ratio 17.8 Glucose 79 L Calcium 9.2 Total Bilirubin 0.4 AST 33 ALT 38 Alkaline Phosphatase 171 H Total Protein 6.7 Albumin 3.2 L Globulin 3.5 Albumin/Globulin Ratio 0.9 L [facility] Medical History Asthma Chronic renal disease, stage III Diabetes Diabetic foot ulcer Diabetic retinopathy Dupuytren's contracture Dyslipidemia Erectile dysfunction Gastroparesis HTN (hypertension) Malignant neoplasm prostate Presence of device Sinusitis Ulcer of left foot with necrosis of muscle Surgical History History of ankle surgery (06/24/21) History of ankle surgery (11/25/21) History of surgery (~02/2018) S/P foot surgery, right (04/09/19) S/P PICC central line placement (06/30/21) Status post incision and drainage (02/21/19) Family History Mother CVA (cerebral vascular accident) Father Myocardial infarction Other Diabetes mellitus Social History household members: family and children Smoking Status: Former smoker alcohol intake: former Assessment & Plan Assessment & Plan narrative: 1. Osteomyelitis left ankle, infected pseudoarhtrosis of left ankle joint in Charcot left ankle -has had wound culture with enterococcus and previously pseudomonas as well with previous infections -for now he is on meropenem and vancomycin -he is s/p bone debridement and hardware removal on 11/[address] -primary management per ortho -wound cultures with VRE, typically this is treated with linezolid, but will defer management to already consulted infectious disease. 2. Type 2 DM on insulin -continue insulin, Initially decreased Lantus dose (regular doses 65U BID) as he may not eat normally post-op, increased to his regular dose with improvement today. -also resumed short-acting insulin prior to meals at his regular dose -continue sliding scale insulin prior to meals -adjust as needed -check glucose achs 3. Acute urinary retention - secondary to perioperative with meds and surgery -did get straight cath x1 4. Hypertension continue losartan, stable CODE: Full Proxy: Mariama Gomes, daughter Quality VTE Deep Vein Thrombosis/Pulmonary Embolism Present on Admission: No
[2022-11-21] MEDS: PIPERACILLIN/TAZO 4.5 GM in SODIUM CHLORIDE 0.9% 100 ML IV ×2 (13:27→20:23)
[2022-11-21 20:57] VITALS: BP 133/69; PULSE 85; RESP 16; TEMP 36.3; O2SAT 99
[2022-11-22 04:00] VITALS: BP 130/68; PULSE 81; RESP 18; TEMP 35.8; O2SAT 99
[2022-11-22] MEDS: PIPERACILLIN/TAZO 4.5 GM in SODIUM CHLORIDE 0.9% 100 ML IV ×3 (04:13→20:55)
--- NOTE | 2022-11-22 08:21 | CM.DPC ---
Addendum entered by Betzy Toledo R.N. 11/22/22 09:26: Call to [facility] spoke with Nuha ABBOTT and relayed DC barriers for wound care. She offers that she will relay to Dr. Meyer who is in surgery today. CM team will continue to resolve barriers in concert with orthopedic team. Addendum entered by Betzy Toledo R.N. 11/22/22 08:51: Call to Elizabeth at [facility] to learn if they could possibly accept patient until he can get his continued wound care at [facility]. She has no availability until 12/01 for HH RN with wound vac changes. Call to Tracy at [facility] to learn if they could possibly accept. She relays that they may have availability, but would need leadership review. She reqests a packet sent. CM team will reach out to ortho now for options. Addendum entered by Betzy Toledo R.N. 11/22/22 08:44: Met with patient to discuss DC barrier. He states he is fine with OP wound care at [facility] or HH RN if possible. Call to Elvie at [phone], she is in a meeting, message left with new finishing pan operator. Original Note: Call to [facility] clinic at [facility] and spoke with May. She is familiar with patient but relays that they cannot accept him until 12/01 at the earliest for his initial consult appt. CM team will discuss barrier with patient, Dr. Meyer, and explore options such as HH career services assistant and/or OP wound care clinic here at [facility].
[2022-11-22 08:32] LABS: Add Manual Diff / Slide Review NO; Basophils Absolute Auto 100 /uL (0-100); Eosinophils Absolute Auto 400 /uL (0-450); Eosinophils Percent Auto 5.2 % (2-4); Hematocrit 29.4 % (41-53); Hemoglobin 10.2 g/dL (13.5-17.5); Lymphocytes Absolute Auto 700 /uL (1100-4500); Lymphocytes Percent Auto 10.5 % (25-40); Mean Corpuscular HGB Conc 34.8 % (30-36); Mean Corpuscular Volume 86.1 fL (80-100); Monocytes Absolute Auto 500 /uL (0-900); Monocytes Percent Auto 7.8 % (3-14); Neutrophils Absolute Auto 5100 /uL (1500-7000); Neutrophils Percent Auto 75.5 % (50-75); Platelet Count 464 X10^3/uL (150-400); Red Blood Cell Count 3.42 X10^6/uL (4.5-5.9); Red Cell Distribution Width 14.1 % (11.6-14.8); White Blood Cell Count 6.7 X10^3/uL (4.5-11.0)
[2022-11-22 08:45] LABS: Albumin 2.8 g/dL (3.5-5.0); BUN Creatinine Ratio 19.2 (6-22); Blood Urea Nitrogen 20 mg/dL (9-20); Carbon Dioxide 25 mmol/L (22-32); Chloride 106 mmol/L (98-107); Estimated Glomerular Filt Rate > 60 mL/min (>60); Glucose 71 mg/dL (80-110); HEMOLYSIS < 15 (0-50); Phosphorous 3.8 mg/dL (2.3-3.7); Sodium 137 mmol/L (137-145)
[2022-11-22 09:05] VITALS: BP 130/68; PULSE 81
[2022-11-22] MEDS: ASPIRIN EC 325 MG TABLET PO (09:05)
[2022-11-22] MEDS: LOSARTAN 50 MG TABLET 100 MG PO (09:05)
[2022-11-22] MEDS: MULTIVITAMIN 1 TABLET 1 TAB PO (09:06)
[2022-11-22] MEDS: DOCUSATE 100 MG CAPSULE PO ×2 (09:06→20:54)
[2022-11-22] MEDS: AMLODIPINE 5 MG TABLET PO (09:06)
[2022-11-22] MEDS: FERROUS SULFATE 325 MG TABLET PO ×2 (09:06→17:18)
[2022-11-22] MEDS: INSULIN GLARGINE 100 UNIT/ML 3ML PEN 65 UNIT SUBCUT ×2 (09:07→21:10)
[2022-11-22 12:00] VITALS: BP 131/71; PULSE 84; RESP 18; TEMP 35.8; O2SAT 99
--- NOTE | 2022-11-22 12:00 | PM.PNPO.1 ---
Subjective Subjective Date Patient Seen: 11/22/22 Time Patient Seen: 12:23 Interval history: Pt resting comfortably in bed. No concerns or requests at this time. Exam Vital Signs (past 8 hours): - 11/22/22 09:05 Pulse Rate 81 Blood Pressure 130/68 Oxygen Delivery Method Room Air Oxygen Flow Rate 0 Narrative Exam Narrative: Pt able to wiggle toes, has no feeling in foot. Wound VAC in place and functioning. Objective Labs 11/22/22 08:24 11/22/22 08:24 Labs: Laboratory Results - last 24 hr 11/22/22 11/22/22 08:24 08:24 WBC 6.7 RBC 3.42 L Hgb 10.2 L Hct 29.4 L MCV 86.1 MCH 30.0 MCHC 34.8 RDW 14.1 Plt Count 464 H Neut % (Auto) 75.5 H Lymph % (Auto) 10.5 L [place] % (Auto) 7.8 Eos % (Auto) 5.2 H Baso % (Auto) 1.0 Neut # (Auto) 5100 Lymph # (Auto) 700 L [place] # (Auto) 500 Eos # (Auto) 400 Baso # (Auto) 100 Sodium 137 Potassium 4.0 Chloride 106 Carbon Dioxide 25 BUN 20 Creatinine 1.04 Estimated GFR > 60 BUN/Creatinine Ratio 19.2 Glucose 71 L Calcium 9.0 Phosphorus 3.8 H Albumin 2.8 L [facility] Medical History (Updated 11/22/22 @ 12:25 by Dayan Dunn PA-C) Asthma Chronic renal disease, stage III Diabetes Diabetic foot ulcer Diabetic retinopathy Dupuytren's contracture Dyslipidemia Erectile dysfunction Gastroparesis HTN (hypertension) Malignant neoplasm prostate Presence of device Sinusitis Ulcer of left foot with necrosis of muscle Surgical History History of ankle surgery (06/24/21) History of ankle surgery (11/25/21) History of surgery (~02/2018) S/P foot surgery, right (04/09/19) S/P PICC central line placement (06/30/21) Status post incision and drainage (02/21/19) Family History Mother CVA (cerebral vascular accident) Father Myocardial infarction Other Diabetes mellitus Social History household members: family and children Smoking Status: Former smoker alcohol intake: former Assessment & Plan Post-op Assessment and plan (1) Osteomyelitis of ankle: Assessment and Plan narrative: Postoperative plan narrative: 1. Awaiting PCR cultures. Standard aerobic cultures show VRE, anaerobic preliminarily now growth. Vanco discontinued; pt currently receiving Zosyn 4.5g q [address] Hurd in communication w/ Dr Ana Vivar @ [facility] infectious disease re this pt. 2. Medial left ankle wound with wound VAC.? Wound size is 3.5 cm x 5 cm x 2 cm deep.? Will need wound VAC changes.? Has gotten these previously at [facility] wound care using the [employer] system.? Plan would be to continue wound vacs changes Q 3 days in the hospital then discharge with wet-to-dry dressings for re-initiation of wound VAC as an outpatient with [facility] wound care 3. Nonweightbearing left lower extremity may touchdown for balance.? Keep splint in place unless for wound VAC changes.? Follow-up in Orthopedic Clinic as scheduled on 11/29.? Anticipate least 6 weeks of IV antibiotics then consider removal of antibiotic josue and revision fusion, versus longer-term use of antibiotic josue and [place] walker boot. (2) Diabetes: Assessment and Plan narrative: Appreciate hospitalist's help w/ medical management of this pt. Postoperative Procedures: Procedures Operation Date: 11/17/22 11:15 Actual Procedure Side Surgeon p debridement soft tissue & bone excision ulceration & Left Shanae Hurd MD s removal of hindfoot josue & screws, multiple sites foot & ankle Left Shanae Hurd MD Postoperative day: 5 Quality VTE Deep Vein Thrombosis/Pulmonary Embolism Present on Admission: No
--- NOTE | 2022-11-22 12:26 | CM.DPC ---
Addendum entered by Emmie Barraza R.N. 11/22/22 14:55: Dr. Hurd called, left a message, stated that PCR is not yet completed from [facility], most likely will not have results until Sunday. Plan will be for patient to go on IV Zosyn, as currently listed q 8 hours, labs will be on addendum, as well as medication. Did speak to her and let her know that wound vac should be delivered, she stated that she may come by this pm and place wound vac, and let her know that appointment at [facility] is on December 05 at 1030. Will work on getting [facility], will need every 3 days wound vac dressing changes. Did speak to Tracy at [facility], can't see until next Sun, but will check with her team. Spoke to Elizabeth at [place], should be able to see patient on November 25, will just need orders sent. Will work on [facility] at this time, let Elizabeth know that patient will need to be seen for every 3 days dressing changes. Will fax over orders, face to face, and wound orders. Original Note: DCP Cont: Spoke to Aylin Delgado. Gave her information on patient. She approved a wound vac. Gave auth number: [id number]. Stated that auth is good until December 05, 2022. Will need to fax [employer], they no longer use forms. They will just need wound measurements, clinicals, labs. Their fax number is: [phone]. Have updated patient, wound vac should arrive this pm, gave ICD 10 codes, and hospital address. P: DCP to continue to work on plan. [facility] has confirmed acceptance. Wound vac should arrive this pm, will fax over clinicals to [facility]. [facility] has referral, but is still uncertain as to which ABO he will be discharged on. Emmie Barraza RN/Vascular Sonographer
--- NOTE | 2022-11-22 12:28 | PM.PN.1 ---
Subjective Subjective Interval history: Pains sufficiently controlled per patient.Morning blood sugars are 70-90 but patient denies complaints of hypoglycemia. All blood sugars <180 today. Cultures with VRE, primary team has been in discussion with Dr. Vivar for antibiotics which were changed to zosyn. Exam Vital Signs (past 8 hours): - 11/22/22 09:05 11/22/22 12:00 Temperature 96.4 F L Pulse Rate 81 84 Respiratory Rate 18 Blood Pressure 130/68 131/71 Pulse Oximetry 99 Oxygen Flow Rate 0 Oxygen Delivery Method Room Air Oxygen Flow Rate 0 Narrative Exam Narrative: GEN: no acute medical distress CV: regular rate and rhythm PULM: clear bilaterally ABD: soft, nontender, nondistended EXT: left lower extremity has wound dressed. Objective Labs 11/22/22 08:24 11/22/22 08:24 Labs: Laboratory Results - last 24 hr 11/22/22 11/22/22 08:24 08:24 WBC 6.7 RBC 3.42 L Hgb 10.2 L Hct 29.4 L MCV 86.1 MCH 30.0 MCHC 34.8 RDW 14.1 Plt Count 464 H Neut % (Auto) 75.5 H Lymph % (Auto) 10.5 L [place] % (Auto) 7.8 Eos % (Auto) 5.2 H Baso % (Auto) 1.0 Neut # (Auto) 5100 Lymph # (Auto) 700 L [place] # (Auto) 500 Eos # (Auto) 400 Baso # (Auto) 100 Sodium 137 Potassium 4.0 Chloride 106 Carbon Dioxide 25 BUN 20 Creatinine 1.04 Estimated GFR > 60 BUN/Creatinine Ratio 19.2 Glucose 71 L Calcium 9.0 Phosphorus 3.8 H Albumin 2.8 L [facility] Medical History (Updated 11/22/22 @ 12:25 by Dayan Dunn PA-C) Asthma Chronic renal disease, stage III Diabetes Diabetic foot ulcer Diabetic retinopathy Dupuytren's contracture Dyslipidemia Erectile dysfunction Gastroparesis HTN (hypertension) Malignant neoplasm prostate Presence of device Sinusitis Ulcer of left foot with necrosis of muscle Surgical History History of ankle surgery (06/24/21) History of ankle surgery (11/25/21) History of surgery (~02/2018) S/P foot surgery, right (04/09/19) S/P PICC central line placement (06/30/21) Status post incision and drainage (02/21/19) Family History Mother CVA (cerebral vascular accident) Father Myocardial infarction Other Diabetes mellitus Social History household members: family and children Smoking Status: Former smoker alcohol intake: former Assessment & Plan Assessment & Plan narrative: 1. Osteomyelitis left ankle, infected pseudoarhtrosis of left ankle joint in Charcot left ankle -has had wound culture with enterococcus and previously pseudomonas as well with previous infections -for now he is on meropenem and vancomycin -he is s/p bone debridement and hardware removal on 11/[address] in [address] -primary management per ortho -wound cultures with VRE, zosyn per ID already consulted by orthopedics. 2. Type 2 DM on insulin -continue insulin, Initially decreased Lantus dose (regular doses 65U BID) as he may not eat normally post-op, increased to his regular dose with improvement today. -also resumed short-acting insulin prior to meals at his regular dose -continue sliding scale insulin prior to meals -adjust as needed -check glucose achs 3. Acute urinary retention - secondary to perioperative with meds and surgery -did get straight cath x1 4. Hypertension continue losartan, stable CODE: Full Proxy: Mariama Gomes, daughter Given adequate blood sugar control at this time, and ID management for antibiotics, hospitalist service will sign off at this time. If additional questions arise, do not hesitate to reach out the the service as needed. Quality VTE Deep Vein Thrombosis/Pulmonary Embolism Present on Admission: No
[2022-11-22 20:00] VITALS: BP 140/65; PULSE 84; RESP 20; TEMP 36; O2SAT 99
[2022-11-22] MEDS: INSULIN LISPRO 100 UNIT/ML 3ML VIAL SUBCUT (21:10)
[2022-11-23 04:00] VITALS: BP 160/65; PULSE 101; RESP 17; TEMP 36.2; O2SAT 97
[2022-11-23] MEDS: PIPERACILLIN/TAZO 4.5 GM in SODIUM CHLORIDE 0.9% 100 ML IV ×2 (04:38→11:51)
--- NOTE | 2022-11-23 05:40 | PM.PROC.1 ---
Procedures Date/Time Date of procedure: 11/22/22 Time of procedure: 18:00 General Procedure description: LLE wound vac change medial ankle wound vac change with standard techniques -wound [id number] good red bleeding granulation tissue, a few white antibiotic beads visible at depth of wound. small wound vac sponge placed and good seal to -125mmHg achieved. pt tolerated well and hooked up to home vac system Complications: none
--- NOTE | 2022-11-23 07:15 | PM.PNPO.1 ---
Subjective Subjective Date Patient Seen: 11/23/22 Time Patient Seen: 07:15 Interval history: Patient denies pain this morning. No nausea or vomiting. Exam Vital Signs (past 8 hours): - 11/23/22 04:00 Temperature 97.2 F L Pulse Rate 101 H Respiratory Rate 17 Blood Pressure 160/65 H Pulse Oximetry 97 Oxygen Flow Rate 0 Oxygen Delivery Method Room Air Oxygen Flow Rate 0 Narrative Exam Narrative: 62-year-old male resting comfortably in bed in no apparent distress. Wound VAC on and functioning. Const General: cooperative and comfortable Nutritional Appearance: average body habitus Resp Effort & Inspection: normal respiratory effort and able to speak in complete sentences Objective Labs 11/22/22 08:24 11/22/22 08:24 Labs: Laboratory Results - last 24 hr 11/22/22 11/22/22 08:24 08:24 WBC 6.7 RBC 3.42 L Hgb 10.2 L Hct 29.4 L MCV 86.1 MCH 30.0 MCHC 34.8 RDW 14.1 Plt Count 464 H Neut % (Auto) 75.5 H Lymph % (Auto) 10.5 L [place] % (Auto) 7.8 Eos % (Auto) 5.2 H Baso % (Auto) 1.0 Neut # (Auto) 5100 Lymph # (Auto) 700 L [place] # (Auto) 500 Eos # (Auto) 400 Baso # (Auto) 100 Sodium 137 Potassium 4.0 Chloride 106 Carbon Dioxide 25 BUN 20 Creatinine 1.04 Estimated GFR > 60 BUN/Creatinine Ratio 19.2 Glucose 71 L Calcium 9.0 Phosphorus 3.8 H Albumin 2.8 L [facility] Medical History Asthma Chronic renal disease, stage III Diabetes Diabetic foot ulcer Diabetic retinopathy Dupuytren's contracture Dyslipidemia Erectile dysfunction Gastroparesis HTN (hypertension) Malignant neoplasm prostate Presence of device Sinusitis Ulcer of left foot with necrosis of muscle Surgical History History of ankle surgery (06/24/21) History of ankle surgery (11/25/21) History of surgery (~02/2018) S/P foot surgery, right (04/09/19) S/P PICC central line placement (06/30/21) Status post incision and drainage (02/21/19) Family History Mother CVA (cerebral vascular accident) Father Myocardial infarction Other Diabetes mellitus Social History household members: family and children Smoking Status: Former smoker alcohol intake: former Assessment & Plan Post-op Postoperative Procedures: Procedures Operation Date: 11/17/22 11:15 Actual Procedure Side Surgeon p debridement soft tissue & bone excision ulceration & Left Shanae Hurd MD s removal of hindfoot josue & screws, multiple sites foot & ankle Left Shanae Hurd MD Postoperative status narrative: Progressing as expected Postoperative plan narrative: Left lower extremity wound VAC change November 22, [address] Cardenas. Wound is 3.5 x 5 x 2 cm with good red bleeding granulation tissue, few white antibiotic beads visible at depth of wound. Small wound VAC sponge placed and good seal to -125 mg Hg achieved. Home wound VAC system on and functioning [facility] for antibiotics, anticipate at least 6 weeks of IV antibiotics, Dr. Burger infectious disease [facility] recommended Zosyn 4.5 g q.6 hours extended fusion. Home health care for some wound VAC changes until he has an appointment with would be wound care in November. Plan to have wound VAC changes every 3 days Stable per hospitalist note November 22, 2022 Patient will be nonweightbearing left lower extremity at least 6 weeks, may touchdown for balance, keep splint in place unless for wound VAC changes. Plan for staged later antibiotic josue removal and revision arthrodesis once infection clears Follow up with Dr. Meyer in 2 weeks Likely discharge today. Quality VTE Deep Vein Thrombosis/Pulmonary Embolism Present on Admission: No
[2022-11-23 08:31] LABS: Add Manual Diff / Slide Review NO; Basophils Absolute Auto 100 /uL (0-100); Basophils Percent Auto 0.9 % (0-2); Eosinophils Absolute Auto 100 /uL (0-450); Hematocrit 28.8 % (41-53); Hemoglobin 9.7 g/dL (13.5-17.5); Lymphocytes Absolute Auto 700 /uL (1100-4500); Lymphocytes Percent Auto 9.5 % (25-40); Mean Corpuscular HGB Conc 33.9 % (30-36); Mean Corpuscular Hemoglobin 29.3 PG (26-34); Mean Corpuscular Volume 86.5 fL (80-100); Monocytes Absolute Auto 400 /uL (0-900); Neutrophils Absolute Auto 5700 /uL (1500-7000); Neutrophils Percent Auto 81.6 % (50-75); Platelet Count 433 X10^3/uL (150-400); Red Blood Cell Count 3.33 X10^6/uL (4.5-5.9); Red Cell Distribution Width 13.8 % (11.6-14.8); White Blood Cell Count 6.9 X10^3/uL (4.5-11.0)
[2022-11-23 08:41] LABS: Albumin 3.1 g/dL (3.5-5.0); BUN Creatinine Ratio 17.1 (6-22); Blood Urea Nitrogen 19 mg/dL (9-20); Carbon Dioxide 26 mmol/L (22-32); Chloride 105 mmol/L (98-107); Estimated Glomerular Filt Rate > 60 mL/min (>60); Glucose 110 mg/dL (80-110); HEMOLYSIS < 15 (0-50); Phosphorous 4.4 mg/dL (2.3-3.7); Potassium 4.1 mmol/L (3.4-5.1); Sodium 138 mmol/L (137-145)
[2022-11-23 09:06] VITALS: BP 160/65; PULSE 101
[2022-11-23] MEDS: MULTIVITAMIN 1 TABLET 1 TAB PO (09:06)
[2022-11-23] MEDS: ASPIRIN EC 325 MG TABLET PO (09:06)
[2022-11-23] MEDS: FERROUS SULFATE 325 MG TABLET PO (09:06)
[2022-11-23] MEDS: INSULIN GLARGINE 100 UNIT/ML 3ML PEN 65 UNIT SUBCUT (09:06)
[2022-11-23] MEDS: AMLODIPINE 5 MG TABLET PO (09:06)
[2022-11-23] MEDS: DOCUSATE 100 MG CAPSULE PO (09:06)
[2022-11-23] MEDS: LOSARTAN 50 MG TABLET 100 MG PO (09:06)
--- NOTE | 2022-11-23 10:44 | PM.DS.1 ---
History of Present Illness History of Present Illness Date Patient Seen: 11/23/22 Time Patient Seen: 10:44 Chief complaint: LLE Bone Debridement & Deep Implant Removal *OPB* Narrative: See progress note Discharge Providers Provider Date of admission: 11/17/22 09:44 Discharge Date: 11/23/22 Primary care physician: Jet Mckinney MD Consults: 11/17/22 17:25 Consult to Discharge Planning Routine Comment: iv abx , wound vac Consult to Physical Therapy Evaluate & Treat Comment: NWB LLE Physician Instructions: Evaluate and Treat 11/17/22 17:32 Consult to Hospitalist Service Routine Comment: Consulting Provider: Lex Singh Reason for consultation: uncontrolled diabetes Has provider been notified: Yes 11/22/22 14:59 Consult to Home Health Routine Comment: Dressing changes q 3 days, to ankle Reason For Exam: RN, wound vac dressing changes Discharge provider: Juan Pendleton PA-C Summary Hospital Course Discharge Diagnosis: Charcot left ankle, pseudarthrosis of joint, osteomyelitis left ankle, diabetes with osteomyelitis Hospital Course: 1. Removal of deep implant left ankle hindfoot josue CPT code 48798 2. Removal of screws deep implant left leg separate site CPT code 66417-69-[id number] 3. Removal of screws deep implant left leg separate site CPT code 41334-46 talus and calcaneus 4. Removal of deep implant separate site CPT code [id number] 5. Debridement bone lower extremity CPT code 57077 6. Application wound VAC dressing CPT code 30873- left 7. Manual preparation and insertion of drug delivery devices, intramedullary antibiotic josue left hindfoot /ankle/tibia CPT code 45949 Same procedure as scheduled: Yes Indications: Patient is a 62-year-old diabetic male bilateral equinovarus deformities status post left foot triple arthrodesis and TTC nail for ankle Charcot.? He has a history of Pseudomonas previously treated with IV meropenem.? He was doing well for approximately 1 year and then acutely last week developed an abscess at the medial ankle and was found to have loose hardware and a infected pseudarthrosis.? He was indicated for surgery for hardware removal bone biopsy irrigation debridement and admission to the hospital for IV antibiotics, antibiotic beads and josue and likely requirement of a wound VAC. we discussed that he will require treatment to clear the infection once this occurs may require additional surgery to remove the antibiotic josue and do a revision fusion for his ankle pseudarthrosis.? He understands and agrees with the plan.? The risks and benefits of the procedure have been discussed with the patient and given the opportunity to ask questions.? The risks of surgery include but are not limited to infection, malunion, nonunion, persistence of pain, damage to nerves and blood vessels, posttraumatic arthritis, DVT, PE, cardiopulmonary complications and .? The patient expressed a thorough understanding of the risks and benefits of surgery and has elected to proceed.? Consent was signed in the office. Surgeon: Shanae Hurd Click Yes if Unassisted: Yes Anesthesia Type: General and Local Operative Notes Findings: Medial fluctuant abscess opened with non closable wound measuring 3.5 cm x 5 cm x 2 cm deep probes deep to talus bone.? Serosanguineous murky fluid is expressed.? Laterally incision over the lateral calcaneus and talar screw heads is also made this also demonstrates serous yellow murky fluid and grossly loose talar and calcaneal screws.? Mobile pseudarthrosis tibiotalar articulation. Closure Type: not applicable (Partial primary closure then medial wound was not closable therefore wound VAC was applied.? Medial wound with red bleeding tissue 3.5 x 5 cm x 2 cm deep small wound VAC applied) Specimen(s): other (Tissue and bone were sent for culture, bacterial PCR and pathology) Prosthetic devices, grafts, tissues, transplants, or devices: The [employer] [place] nail was removed and all screws removed. A manual preparation antibiotic josue was prepared using a mixture of 1.2 g of tobramycin 1 g of vancomycin and 1 package of regular PMMA cement this was fashioned into a josue over 18 gauge wire of appropriate diameter to fit through the reamed intramedullary canal. Estimated Blood Loss (mL): 50 Blood products transfused: none Tourniquet time (min): 101 Patient admitted to the hospital for the above-mentioned diagnosis. Patient consented to the above-mentioned procedure. Patient had surgery on November 17, 2022. Cultures returned showing Enterococcus vanc resistant. Dr. Burger consulted by Dr. Cardenas. Plan is to stop vancomycin and meropenem and start Zosyn 4.5 g every 8 hours extended infusion. Patient is stable per hospitalist. Patient had wound VAC placed by Dr. Cardenas November 22, 2022. Plan is to have [facility] home health services change the wound VAC every 3 days until his appointment with would be wound care clinic. Patient will receive Zosyn per [facility]. Patient's splint is to remain in place unless being removed for wound VAC changes. He is nonweightbearing left lower extremity. May touchdown for balance. Follow-up with Dr. Meyer in 2 weeks. Status at Discharge Cognitive/behavioral status at discharge: at baseline, oriented Functional status at discharge: uses cane/walker Overall status at discharge: patient is progressing back to baseline Exam Vital Signs (past 8 hours): - 11/23/22 04:00 11/23/22 09:06 Temperature 97.2 F L Pulse Rate 101 H 101 H Respiratory Rate 17 Blood Pressure 160/65 H 160/65 H Pulse Oximetry 97 Oxygen Flow Rate 0 Oxygen Delivery Method Room Air Oxygen Flow Rate 0 Narrative Exam Narrative: See progress note Objective Labs 11/23/22 08:20 11/23/22 08:20 Labs: Laboratory Results - last 24 hr 11/23/22 11/23/22 08:20 08:20 WBC 6.9 RBC 3.33 L Hgb 9.7 L Hct 28.8 L MCV 86.5 MCH 29.3 MCHC 33.9 RDW 13.8 Plt Count 433 H Neut % (Auto) 81.6 H Lymph % (Auto) 9.5 L [place] % (Auto) 6.0 Eos % (Auto) 2.0 Baso % (Auto) 0.9 Neut # (Auto) 5700 Lymph # (Auto) 700 L [place] # (Auto) 400 Eos # (Auto) 100 Baso # (Auto) 100 Sodium 138 Potassium 4.1 Chloride 105 Carbon Dioxide 26 BUN 19 Creatinine 1.11 Estimated GFR > 60 BUN/Creatinine Ratio 17.1 Glucose 110 Calcium 9.0 Phosphorus 4.4 H Albumin 3.1 L PFSH Medical History Asthma Chronic renal disease, stage III Diabetes Diabetic foot ulcer Diabetic retinopathy Dupuytren's contracture Dyslipidemia Erectile dysfunction Gastroparesis HTN (hypertension) Malignant neoplasm prostate Presence of device Sinusitis Ulcer of left foot with necrosis of muscle Surgical History History of ankle surgery (06/24/21) History of ankle surgery (11/25/21) History of surgery (~02/2018) S/P foot surgery, right (04/09/19) S/P PICC central line placement (06/30/21) Status post incision and drainage (02/21/19) Family History Mother CVA (cerebral vascular accident) Father Myocardial infarction Other Diabetes mellitus Social History household members: family and children Smoking Status: Former smoker alcohol intake: former Discharge Assessment & Plan Assessment and Plan Assessment: Status post removal of deep implant left ankle hindfoot removal of screws deep implant left leg, removal of screws deep implant left leg, removal of deep implant separate sites calcaneus, debridement bone lower extremity. Application of wound VAC. intramedullary antibiotic josue left hindfoot/ankle/tibia. Type 2 diabetes on insulin managed by hospitalist, acute urinary retention, hypertension. Plan of Treatment: Zosyn 4.5 g every 8 hours extended infusion by [facility] Wound VAC change every 3 days to be performed 1st by [facility] until patient has appointment at [facility] general wound care clinic. Nonweightbearing left lower extremity, toe-touch weight-bearing for balance Splint to remain in place unless removed for wound VAC changes Follow-up with Dr. Cardenas in 2 weeks Discharge Plan Discharge Plan Patient Disposition: Home Health Service Transfer to: [facility] Discharge orders & Medications Prescriptions: New piperacillin-tazobactam 4.5 gram Recon Soln 4.5 g IV Q8H 42 Days Qty: 10 0RF Rx Instructions: Per [facility] oxycodone 5 mg Tablet 5 mg PO Q3HR PRN (Reason: Pain, Mild (1-3)) Qty: 20 0RF Continued losartan 100 mg Tablet 100 mg PO DAILY pioglitazone [Actos] 15 mg Tablet 15 mg PO BID amlodipine 5 mg Tablet 5 mg PO DAILY Humalog U-100 Insulin 100 unit/mL Cartridge 20 unit SUBCUT TID Rx Instructions: Plus 1 additional unit for each 15 points over 140 to a max of 30 units TID insulin glargine [Lantus Solostar U-100 Insulin] 100 unit/mL (3 mL) Insulin Pen 65 unit SUBCUT BID ferrous sulfate 325 mg (65 mg iron) Tablet 325 mg PO BIDWM Qty: 60 0RF Centrum Silver Men 300-600-300 mcg Tablet 1 tab PO DAILY Ozempic 0.25 mg or 0.5 mg(2 mg/1.5 mL) pen injector 0.25 mg SUBCUT WEEKLY Patient Comments: inhale 0.25 milligrams subcutaneously every week aspirin 81 mg Tablet,Delayed Release (Dr/Ec) 325 mg PO DAILY Qty: 60 0RF Follow up/Referrals: Juan Pendleton PA-C [[employer]] - Shanae Hurd MD [Physician] - (2 weeks) Jet Mckinney MD [Primary Care Provider] - Diet/Activity/Treatments Diet: Carb-consistent/Diabetic Activity: Nonweightbearing left lower extremity for least 6 weeks may touchdown for balance keep splint in place unless removed for wound VAC changes Other treatments: Wound VAC change every 3 days zosyn 4.5g q 8 extended infusion managed by [facility] Skin/Wound/Dressing Care Skin care: Patient will be discharged home with wound VAC. Wound VAC placed November 22, Report to your healthcare provider any signs of infection, such as:: chills, fever, night sweats, increased pain, unusual drainage and unusual redness Dressing: Keep splint in place unless removing for wound VAC changes Visit Report/Discharge Packet Instructions: DI for Prescription Opioid Use, DI for Joint Replacement Hardware Removal, DI for Incision and Drainage of a Joint, DI for Incision and Drainage, [facility]: Wound Care Stand Alone Forms: Patient Portal/API, Stroke Signs & Symptoms, Surgery Discharge Discharge Data Primary Care Provider: Jet Mckinney Discharges patient from system. Discharge Date/Time: 11/23/22 10:42 Quality VTE Deep Vein Thrombosis/Pulmonary Embolism Present on Admission: No
--- NOTE | 2022-11-23 10:50 | CM.DPC ---
Addendum entered by Emmie Barraza R.N. 11/23/22 11:50: Patient has discharge orders, updated [facility], faxed over DC Summary, have already faxed face to face, orders, yesterday. [facility] will be here at about 1500 for teaching, Sb at [facility] will bring meds over at approximately noon Original Note: DCP Cont: Patient is to be discharging today. Sb at [facility] is working on getting staff for the medication, he has been updated on the medication. Patient's next does is at noon, is a 4hour infusion. Had faxed over the addendum to [facility] yesterday showing the medication dose. Called Delma at [facility], plan for nursing to see him this weekend. Has appointment at [facility] [place], wound vac came in last pm and was placed by ortho. P: DCP to continue to follow. Plan is home with wound vac, [facility], and [facility]. Emmie Barraza RN/Nurse Charge Rn
[2022-11-23 11:00] VITALS: BP 142/68; PULSE 78; RESP 18; TEMP 36.1; O2SAT 100
[2022-11-23] MEDS: INSULIN LISPRO 100 UNIT/ML 3ML VIAL SUBCUT (11:59)
== END 2022-11-23 16:44 | disposition home health service (06) | DRG 493 ==
LOC: AC 09:44 → ICU 11-18 10:57 → OR 11-20 06:25 → ICU 11-20 06:28 → AC 11-20 06:28
PROVIDERS: Physician Assistant Medical; Admitting Provider Orthopaedic Surgery Foot and Ankle Surgery; PCP Internal Medicine; Referring Provider Family Medicine; Visit Provider Orthopaedic Surgery Foot and Ankle Surgery
PROC: 0YPB0YZ Removal of Other Device from Left Lower Extremity, Open Approach (ICD-10-PCS; principal; 2022-11-17 11:15)
PROC: 0YPB0YZ Removal of Other Device from Left Lower Extremity, Open Approach (ICD-10-PCS; 2022-11-17 11:15)
DX: T84.59XA Infection and inflammatory reaction due to other internal joint prosthesis, initial encounter (principal); A52.16 Charcot's arthropathy (tabetic); Z16.21 Resistance to vancomycin; M96.0 Pseudarthrosis after fusion or arthrodesis; M21.962 Unspecified acquired deformity of left lower leg; E11.621 Type 2 diabetes mellitus with foot ulcer; R33.9 Retention of urine, unspecified; I10 Essential (primary) hypertension; E11.40 Type 2 diabetes mellitus with diabetic neuropathy, unspecified; B95.2 Enterococcus as the cause of diseases classified elsewhere; L97.529 Non-pressure chronic ulcer of other part of left foot with unspecified severity; Z79.84 Long term (current) use of oral hypoglycemic drugs; Z79.4 Long term (current) use of insulin; Z87.891 Personal history of nicotine dependence; Z20.822 Contact with and (suspected) exposure to COVID-19; Z79.85 Long-term (current) use of injectable non-insulin antidiabetic drugs
CPT/HCPCS: 36415; 36573; 73600; 76000; 80048; 80053; 80069; 80202; 82565; 82962; 85025; 85027; 86140; 87070; 87075; 87077; 87186; 87205; 87801; J0171; J1170; J1815; J2185; J2405; J2543; J2704; J3010

== ENCOUNTER 2023-01-19 12:49 | Day surgery (SDC) | payer OTHER, SELFPAY ==
[2023-01-08 09:01] VITALS: BMI 29.0
--- NOTE | 2023-01-19 | DI.RAD.S_ITS ---
PROCEDURE: XR ANKLE LT 2V INDICATIONS: LT ANKLE FUSION WITH HINDFOOT TECHNIQUE: Fluoroscopic images were obtained during an operative procedure and submitted for interpretation following the completion of the procedure. COMPARISON: [facility], , XR ANKLE LT 2V, 11/17/2022, 15:00. FINDINGS: These fluoroscopic images were performed for intraoperative localization. On these images, screws are now seen involving the distal femur/ankle hardware. Please correlate with intraoperative findings. IMPRESSION: Normal intraoperative examination. Dictated by: Amilcar Eric M.D. on 01/20/2023 at 9:11 Approved by: Amilcar Eric M.D. on 01/20/2023 at 9:11
[2023-01-19 13:40] VITALS: BMI 29.0
[2023-01-19 13:45] VITALS: BMI 29.0
[2023-01-19 14:00] VITALS: BP 168/91; PULSE 86; RESP 16; TEMP 36.2; O2SAT 98
[2023-01-19] MEDS: LACTATED RINGERS 1,000 ML 42 ML IV (14:01)
--- NOTE | 2023-01-19 14:59 | PM.PREOP ---
Pre-operative Note Interval Note History & Physical reviewed/Exam performed by Physician: Yes Changes to H&P: No
[2023-01-19] MEDS: metroNIDAZOLE 500 MG/100 ML PIGGYBACK 100 MG IV (15:30)
[2023-01-19] MEDS: CEFAZOLIN 2 GM/100 ML PREMIX 100 ML IV (15:40)
--- NOTE | 2023-01-19 15:48 | SUR.OPER ---
Supine on padded OR bed, head on pillow, arms secured on padded arm boards at <90 degrees abduction, legs uncrossed, safety belt at thigh, tape over blanket over non operative lower leg, gel pad under. Operative leg prepped and draped to field, hip bumped.
[2023-01-19] MEDS: BUPIVACAINE 0.25% W/ EPI 30 ML VIAL 60 ML INJ (16:30)
[2023-01-19] MEDS: VANCOMYCIN 1,000 MG VIAL 2000 MG TOP (16:30)
[2023-01-19] MEDS: TOBRAMYCIN 1.2 GM VIAL INTRA-ARTI (17:21)
[2023-01-19 17:46] VITALS: BP 156/85; PULSE 98; RESP 23; TEMP 36.1; O2SAT 96
--- NOTE | 2023-01-19 17:51 | P.OP_ITS ---
Operative Date/Time/Diagnoses Date of procedure: 01/19/23 Time of procedure: 16:00 Pre-op diagnosis: Ankle arthritis left Pseudarthrosis after joint fusion Charcot neuroarthropathy joint left ankle Left ankle osteomyelitis Type 2 diabetes Post-op diagnosis: same Procedure & Clinicians Procedure: 1. Ankle arthrodesis CPT code 54691 left ankle 2 removal antibiotic impregnated josue lower extremity, left CPT code 00225 3. Manual preparation and insertion of deep drug delivery device CPT code 05422 forantibiotic cement coated intramedullary josue This procedure was performed with a modifier #58 for more extensive procedure this included removal of the previous antibiotic josue and placement of new antibiotic coated rigid permanent intramedullary ankle arthrodesis josue, joint preparation bone grafting. Same procedure as scheduled: Yes Indications: The patient is a 62-year-old male with diabetes and Charcot neuro arthropathy and cavovarus deformities of his lower extremities. Left ankle had a cavovarus reconstruction and then developed a Charcot ankle. This was fixed with a TTC fusion which unfortunately went onto infection and nonunion of the tibiotalar joint. He had a staged procedure with removal of the intramedullary josue placement of a antibiotic josue and a debridement and a wound VAC. He is now healed his open wound. He is completed his antibiotics and is indicated for the remainder of his staged procedure which would be the staged removal of the antibiotic josue replacement of a new rigid antibiotic coated hindfoot josue for ankle fusion and bone grafting. The risks and benefits of the procedure have been discussed with the patient and given the opportunity to ask questions. The risks of surgery include but are not limited to infection, malunion, nonunion, persistence of pain, damage to nerves and blood vessels, posttraumatic arthritis, DVT, PE, cardiopulmonary complications and . The patient expressed a thorough understanding of the risks and benefits of surgery and has elected to proceed. Consent was signed. During the operation, the services of a physician medical or surgical instrument maker were medically indicated and necessary to provide the exposure of the operative site for the surgical procedure and to maintain the limb in a proper position to carry out the operation safely and efficiently. Without a qualified tv production assistant being present this would extended the operative procedure and made the procedure technically more difficult to perform. Surgeon: Shanae Hurd Automobile Mechanic Apprentice: Dayan Dunn Anesthesia Type: General and Local Operative Notes Findings: Pseudarthrosis tibiotalar joint with gross motion. Removed temporary antibiotic cement josue spacer. No deep purulence found. Deep bone biopsies from the tibiotalar joint were sent for culture and bacterial PCR. Ankle joint was aligned and pinned. Guidewire was placed and the canal was reamed up to 12 mm and a 300 mm nail was used to span the previous site of the proximal screw holes to avoid a stress riser. Previous nail was 240 mm nail. Prior to insertion the canal was injected with antibiotic calcium sulfate cement and then the josue was introduced to create a coating around the nail that will later dissolve. Closure Type: primary Specimen(s): other (Bone was sent for culture and bacterial PCR bone was from the left tibiotalar joint) Prosthetic devices, grafts, tissues, transplants, or devices: [employer] [place] nail 10 x 300 mm for ankle arthrodesis. Interlocking screws 5 mm x 44 mm 5 mm x 32 mm (x2), 5 mm x 75 mm and 5 mm x 52 mm 15 cc cancellous chips Estimated Blood Loss (mL): 50 Blood products transfused: none Tourniquet time (min): 54 Procedure in detail: Patient was seen in the preoperative area the site of surgery was marked informed consent confirmed. The patient was brought back to the operating room by the anesthesia team and placed on the operative table in the supine position. General anesthesia was administered. The left lower extremity was prepped and draped in a standard sterile fashion a formal time-out procedure was performed confirming the patient's side and site of surgery administration of appropriate preoperative antibiotic. All were in agreement. Esmarch was used for exsanguination the tourniquet was elevated and thigh to 250 mm Hg and was elevated for 54 minutes then was released for the remainder of the case. Attention turned to the left ankle. The plantar incision was reopened and taken down to the level of the remaining antibiotic spacer. The wires were dissected free and using rongeur to help expose and remove the scar tissue around the cement antibiotic josue this was loosened and then removed using the pointed the nose pliers. This was removed completely. Next a separate incision was made laterally at the level of the ankle joint taken down through the skin subcutaneous tissues. This exposed the ankle nonunion where there was gross mobility. A curette was used to clean out the pseudarthrosis site. This was followed by irrigation and a bur to prepare a bleeding bone. Once this was completed the joint was aligned and pinned with a guide pin from the medial tibia into the talus and calcaneus posteriorly. This was to keep it out of the way of the intramedullary guidewire. The intramedullary guidewire was next advanced from the plantar foot into the foot and across the ankle into the tibi a. Then sequential reaming from 9 mm up to 12 mm was done in half mm increments. There was good chatter at 11 and 12 mm and the guide was noted to pass the isthmus and previous crossing screw site without difficulty. At this time we selected a 10 x 300 mm josue and this was put together on the back table. Simultaneously on the back table the antibiotic coating mixture was prepared this was a manual preparation of the packages of 10 cc of Stimulan calcium sulfate and this was mixed with 1.2 g of tobramycin and 2 g of vancomycin powdered the dry gangrenous were mixed together 1st and then the kit included liquid monitors were added this was mixed for 30 seconds into a liquid paste and loaded into a Keena syringe this was then primed into a 28 Khmer chest tube which had been prepared with a hole cut off and this was inserted into the intramedullary canal from the plantar incision up into the tibia. As the plunger on the Keena syringe was pressed this expressed the antibiotic cement into the tibial canal and the chest tube was slowly retracted allowing the S cement to penetrate the canal and backfill. Once the Keena syringe was emptied it was filled with air to advance the rest of the cement into the bone. This was watched under fluoroscopic guidance. Once this was completed the chest tube was removed and the arthrodesis nail was immediately placed on the plantar incision into the foot and across the ankle and into the tibial canal. The lateral to medial talar screw was then placed in the dynamic slot followed by the proximal screws in a perfect [place] technique. The positional guidewire was removed and compression was placed across the tibiotalar joint through the intramedullary josue with the compression device. Once this was completed the remainder lateral to medial calcaneal screw and posterior to anterior calcaneus screw was placed. Wounds were irrigated for any remaining extruded antibiotic cement 15 cc of cancellous graft was placed into any bone voids around the tibiotalar joint that remained anterior and posteriorly. Wounds were closed with 2-0 Vicryl 4-0 Monocryl and 3-0 and 3-0 nylon suture. Final x-rays confirmed appropriate josue placement and interlocking screw placement. Proximally 30 cc of 0.25% Marcaine with epinephrine was injected into the incisions for local anesthetic. Dressings were placed with Xeroform gauze Webril and a posterior and stirrup splint. Patient was woken from anesthesia and taken to recovery unit in good condition there no immediate complications from this procedure. Complications: none Post-operative Condition: stable Disposition: PACU Plan for aftercare: Nonweightbearing or touchdown for balance. Elevate to aid healing. Continue medications as recommended by Infectious Disease. Follow up in 2-3 weeks as scheduled in orthopedic clinic. Until then keep splint in place and dry. You did not require placement of a wound VAC.
[2023-01-19 17:52] VITALS: BP 145/76; PULSE 102; RESP 20; O2SAT 97
[2023-01-19 17:56] VITALS: BP 154/83; PULSE 102; RESP 20; O2SAT 98
[2023-01-19 18:11] VITALS: BP 145/81; PULSE 100; RESP 13; O2SAT 98
[2023-01-19 18:20] VITALS: BP 145/83; PULSE 100; RESP 19; O2SAT 98
== END 2023-01-19 18:39 | disposition home or self-care (01) ==
LOC: OR 12:50 → AC 12:51
PROVIDERS: PCP Internal Medicine; Referring Provider Orthopaedic Surgery Foot and Ankle Surgery; Visit Provider Orthopaedic Surgery Foot and Ankle Surgery
PROC: (CPT 27870; principal; 2023-01-19 14:15)
DX: M86.172 Other acute osteomyelitis, left ankle and foot (principal); M14.672 Charcot's joint, left ankle and foot; M21.962 Unspecified acquired deformity of left lower leg; E11.621 Type 2 diabetes mellitus with foot ulcer; T84.7XXA Infection and inflammatory reaction due to other internal orthopedic prosthetic devices, implants and grafts, initial encounter; E11.9 Type 2 diabetes mellitus without complications; Z79.4 Long term (current) use of insulin
CPT/HCPCS: 27870; 20705; 73600; 76000; 82962; 87070; 87075; 87077; 87147; 87205; 87801; J0690; J1170; J2405; J2704; J3010

== ENCOUNTER 2023-05-11 10:35 | Day surgery (SDC) | payer OTHER, SELFPAY ==
[2023-05-08 14:42] VITALS: BMI 29.0
[2023-05-11] MEDS: LACTATED RINGERS 1,000 ML 42 ML IV (11:25)
[2023-05-11 11:30] VITALS: BP 156/77; PULSE 71; RESP 20; TEMP 36.3; O2SAT 100; BMI 29.0
--- NOTE | 2023-05-11 14:18 | PM.PREOP ---
Pre-operative Note Interval Note History & Physical reviewed/Exam performed by Physician: Yes Changes to H&P: No
--- NOTE | 2023-05-11 14:18 | PM.HP.1 ---
History of Present Illness History of Present Illness Date Patient Seen: 05/11/23 Time Patient Seen: 14:19 Chief complaint: Left Hardware Removal Narrative: Patient is a 63-year-old male with cavovarus foot deformity status post correction then Charcot ankle and infection status post staged treatment with antibiotics and hindfoot josue. Presents today with a loose screw and delayed union. He is indicated for talar screw removal and proximal static screw removal for dynamization of his intramedullary josue. Patient understands and agrees with the plan. He would like to proceed. He is had no fevers chills nausea or vomiting. His wounds are healed. [facility] Medical History (Updated 05/11/23 @ 14:22 by Shanae Hurd MD) Presence of device Ulcer of left foot with necrosis of muscle Erectile dysfunction Gastroparesis HTN (hypertension) Dupuytren's contracture Chronic renal disease, stage III Dyslipidemia Diabetic retinopathy Malignant neoplasm prostate Sinusitis Asthma Diabetic foot ulcer Diabetes Surgical History (Updated 05/08/23 @ 14:55 by Carlita Coombs RN) History of ankle surgery (01/19/23) History of ankle surgery (11/25/21) S/P PICC central line placement (06/30/21) History of ankle surgery (06/24/21) S/P foot surgery, right (04/09/19) Status post incision and drainage (02/21/19) History of surgery (~02/2018) Family History Mother CVA (cerebral vascular accident) Father Myocardial infarction Other Diabetes mellitus Social History household members: family and children Smoking Status: Former smoker alcohol intake: former Meds Home Medications and Allergies Home Medications Medication Instructions Recorded Confirmed Type pioglitazone 15 mg tablet (Actos) 15 mg PO BID 02/19/19 01/19/23 History amlodipine 5 mg tablet 5 mg PO DAILY 02/20/19 05/11/23 History insulin glargine 100 unit/mL (3 65 unit SUBCUT BID 02/20/19 05/11/23 History mL) subcutaneous pen (Lantus Solostar U-100 Insulin) insulin lispro 100 unit/mL 20 unit SUBCUT TID 02/20/19 05/11/23 History subcutaneous cartridge (Humalog U-100 Insulin) ferrous sulfate 325 mg (65 mg 325 mg PO BIDWM anemia #60 tabs 03/18/21 05/11/23 Rx iron) tablet semaglutide 0.25 mg or 0.5 mg (2 0.25 mg SUBCUT WEEKLY 06/24/21 01/19/23 History mg/1.5 mL) subcutaneous pen injector (Ozempic) [id number] 300 mcg-K 60 1 tab PO DAILY 11/17/22 05/11/23 History mcg-lycop 600 mcg-lutein 300 mcg tablet (Centrum Silver Men) aspirin 81 mg tablet,delayed 81 mg PO DAILY 01/08/23 05/11/23 History release amlodipine 5 mg tablet 10 mg PO DAILY 05/11/23 05/11/23 History atorvastatin 10 mg tablet 10 mg PO DAILY 05/11/23 05/11/23 History metoprolol succinate 50 mg 50 mg PO DAILY 05/11/23 05/11/23 History tablet,extended release 24 hr Allergies Allergy/AdvReac Type Severity Reaction Status Date / Time No Known Drug Allergies Allergy Verified 01/19/23 13:26 Review of Systems Review of Systems Narrative: Diabetes, neuropathy ROS: Yes All systems reviewed with the patient and are negative except as otherwise documented Exam Vital Signs (past 8 hours): - 05/11/23 11:30 Temperature 97.4 F L Pulse Rate 71 Respiratory Rate 20 Blood Pressure 156/77 H Pulse Oximetry 100 Oxygen Delivery Method Room Air Oxygen Delivery Method Room Air Narrative Exam Narrative: Alert oriented male in no acute distress HEENT exam is normocephalic atraumatic Respiratory exam unlabored on room air Lungs clear to auscultation bilaterally Heart regular rate and rhythm Left lower extremity demonstrates peripheral neuropathy. Healed incisions. Rigid hindfoot consistent with hindfoot arthrodesis. Small hypertrophic scar, scab plantar lateral border. No erythema no drainage. Prominent lateral screw. Calf is soft. Stable postoperative alignment Assessment & Plan Assessment and plan (1) Pseudarthrosis after fusion or arthrodesis: Status: Acute (2) Hardware failure: Status: Acute Plan Patient has a backing out talar screw from his hindfoot josue. This will be removed additionally has delayed union of his hindfoot fusion. He is indicated for dynamization of his intramedullary josue. We will remove the proximal static screw. Patient will be weight-bearing after surgery. He may shower but no soaking of the incisions. Patient understands and agrees with the plan. The risks and benefits of the procedure have been discussed with the patient and given the opportunity to ask questions. The risks of surgery include but are not limited to infection, malunion, nonunion, persistence of pain, damage to nerves and blood vessels, posttraumatic arthritis, DVT, PE, cardiopulmonary complications and . The patient expressed a thorough understanding of the risks and benefits of surgery and has elected to proceed. Consent was signed. Time Spent With Patient Time with patient: less than 30 minutes Quality VTE Deep Vein Thrombosis/Pulmonary Embolism Present on Admission: No
[2023-05-11] MEDS: CEFAZOLIN 2 GM/100 ML PREMIX 100 ML IV (14:40)
--- NOTE | 2023-05-11 15:07 | SUR.OPER ---
Supine on padded OR bed, head on pillow, arms secured on padded arm boards at <90 degrees abduction, legs uncrossed, safety belt at waist, tape over blanket over lower right leg, left leg draped free with gel bump under left hip and blanket stack under lower left leg.
[2023-05-11] MEDS: BUPIVACAINE 0.25% (PF) 30 ML, EPINEPHrine 0.15 MG INJ (15:16)
--- NOTE | 2023-05-11 15:27 | DI.RAD.S_ITS ---
PROCEDURE: XR TIBIA FIBULA LT 2V INDICATIONS: SCREW REMOVAL TECHNIQUE: 2 views of the tibia and fibula were acquired. COMPARISON: [facility], CR, XR ANKLE 3+ VIEWS LEFT, 02/27/2023, 13:29. [facility], CR, XR ANKLE 3 VIEWS WEIGHT BEARING LEFT, 04/10/2023, 14:16. [facility], CR, XR TIBIA FIBULA LT 2V, 11/25/2021, 16:17. FINDINGS: 2 fluoroscopy images demonstrate removal of screws of the intramedullary josue. IMPRESSION: Screw removal. Dictated by: Odalis Arciniega M.D. on 05/12/2023 at 8:50 Approved by: Odalis Arciniega M.D. on 05/12/2023 at 8:53
[2023-05-11 15:30] VITALS: BP 164/80; PULSE 81; RESP 12; TEMP 36.2; O2SAT 97
[2023-05-11 15:35] VITALS: BP 156/72; PULSE 79; RESP 12; O2SAT 98
[2023-05-11 15:40] VITALS: BP 144/66; PULSE 78; RESP 15; O2SAT 99
[2023-05-11 16:00] VITALS: BP 141/69; PULSE 77; RESP 12; TEMP 36.2; O2SAT 99
--- NOTE | 2023-05-11 20:10 | PM.OP.1 ---
Operative Date/Time/Diagnoses Date of procedure: 05/11/23 Time of procedure: 15:00 Pre-op diagnosis: Ankle arthritis, left, pseudo arthritis ankle joint, Charcot left ankle, hardware loosening Post-op diagnosis: same Procedure & Clinicians Procedure: Removal of deep implant left ankle CPT code 41349 Removal of deep implant left tibia CPT code 57350 modifier 59 for separate site Procedures performed with a modifier 58 as a staged procedure planned dynamization of the hindfoot josue to achieve additional compression in the pseudarthrosis of the hindfoot fusion. Procedure title is left hindfoot josue dynamization with removal of 2 screws through separate incisions at separate locations. One from the talus at the ankle laterally and 1 from the proximal tibia medially Same procedure as scheduled: Yes Indications: Patient is a type 2 diabetic insulin-dependent with bilateral equinovarus deformities status post left foot triple arthrodesis and TTC nail for Charcot ankle. He is now status post revision TTC josue after a antibiotic josue and antibiotic course. He has a pseudarthrosis and backing out of his talar screw. He has been indicated for removal of the talar screw and dynamization of the intramedullary josue by removing the proximal static screw in the tibia. The patient understands and agrees with the plan and would like to proceed. The risks and benefits of the procedure have been discussed with the patient and given the opportunity to ask questions. The risks of surgery include but are not limited to infection, malunion, nonunion, persistence of pain, damage to nerves and blood vessels, posttraumatic arthritis, DVT, PE, cardiopulmonary complications and . The patient expressed a thorough understanding of the risks and benefits of surgery and has elected to proceed. Consent was signed. Surgeon: Shanae Hurd Click Yes if Unassisted: Yes Anesthesia Type: General and Local Operative Notes Findings: Loose lateral talar screw. No signs of infection. No drainage. New screws were removed from separate sites. Closure Type: primary Specimen(s): none sent Estimated Blood Loss (mL): 2 Blood products transfused: none Tourniquet time (min): 0 Procedure in detail: Patient was seen in the preoperative area the site of surgery marked informed consent confirmed. The patient was brought back to the operating room by the anesthesia team positioned supine on operative table. General anesthetic was administered. Attention was turned to the left lower extremity. A well-padded thigh tourniquet was placed but not inflated during the case. The left lower extremity was prepped and draped in standard sterile fashion a formal time-out procedure was performed confirming the patient's side and site of surgery administration of appropriate preoperative antibiotic. All were in agreement. Attention was 1st turned to the proximal medial tibia. The previous incision site for the proximal interlocking static screw was identified this was opened through the skin with a sharp scalpel blade. Blunt dissection was taken down to the level of screw head which was then exposed and removed with a screwdriver. Following completion of this the wound was irrigated and closed with 4-0 Monocryl and 3-0 nylon suture. Then a 10 chin was moved distally to the lateral ankle where the C-arm was brought in and the level of the talar screw was identified. This was identified on the skin and skin incision was made dissection was taken down to the level of the screw. The screwdriver was then utilized to back out the screw with the addition of a kocker to help. Once this was removed final fluoroscopy was taken to confirm appropriate screw removal. Next the wound was irrigated and closed with Monocryl and nylon suture. Once this was completed sterile dressings with Mepilex island dressings were applied. The patient was woken from anesthesia and taken to recovery room in good condition there no immediate complications from this procedure. Counts were correct. Complications: none Post-operative Condition: stable Disposition: PACU Plan for aftercare: Weightbear as tolerated. Follow up in 2 weeks for suture removal.
== END 2023-05-11 16:00 | disposition home or self-care (01) ==
PROVIDERS: PCP Internal Medicine; Referring Provider Orthopaedic Surgery Foot and Ankle Surgery; Visit Provider Orthopaedic Surgery Foot and Ankle Surgery
PROC: (CPT 20680; principal; 2023-05-11 12:15)
DX: M96.0 Pseudarthrosis after fusion or arthrodesis (principal); M19.079 Primary osteoarthritis, unspecified ankle and foot; M14.672 Charcot's joint, left ankle and foot
CPT/HCPCS: 20680 ×2; 73590; 76000; J0171; J0690; J2704; J3010